=== PATIENT | female | born 1950 | race Caucasian/White ===

== ENCOUNTER 2020-06-02 08:10 | Outpatient (REF) | payer MEDICARE, SELFPAY ==
[2020-06-02 11:38] LABS: Alanine Aminotransferase 29 U/L (0-31); Albumin Level 4.4 g/dL (3.5-5.0); Alkaline Phosphatase 124 U/L (39-117); Anion Gap 14 (12-20); Aspartate Amino Transferase 21 U/L (5-31); Bilirubin Total 1.2 mg/dL (0.0-1.0); Blood Urea Nitrogen 16 mg/dL (9-16); Calcium 9.5 mg/dL (8.4-10.2); Carbon Dioxide 27 mmol/L (22-29); Chloride 102 mmol/L (96-108); Cholesterol 223 mg/dL; Estimated Glomerular Filt Rate > 60; Glucose Fasting 128 mg/dL (60-99); HDL Cholesterol 35 mg/dL; LDL Cholesterol Calculated 149 mg/dl; Potassium 4.4 mmol/l (3.3-5.1); Sodium 139 mmol/L (135-145); Total Protein 7.3 g/dL (6.5-8.0); Triglycerides 199 mg/dL
== END 2020-06-02 08:11 | disposition home or self-care (01) ==
LOC: HO.HMGCLDS 08:10
PROVIDERS: PCP Nurse Practitioner Family; Visit Provider Nurse Practitioner Family
DX: E78.2 Mixed hyperlipidemia (principal); I10 Essential (primary) hypertension
CPT/HCPCS: 80053; 80061

== ENCOUNTER 2020-08-18 08:46 | Outpatient (REF) | payer MEDICARE, SELFPAY ==
--- NOTE | ~2020-08-18 | MM_ITS ---
EXAMINATION: MM SCREENING DIGITAL BREAST TOMOSYNTHESIS, BILATERAL CLINICAL INFORMATION: Screening. Asymptomatic. The lifetime risk of breast cancer based on the Tyrer-Cuzick Model is 3%. COMPARISON: Mammography: 04/30/2019; outside exams 04/13/2018, 08/20/2015 ([facility]). TECHNIQUE: Digital breast tomosynthesis is performed in both the craniocaudal and mediolateral oblique views along with computer-aided detection (CAD). Synthesized 2D images are generated from the tomosynthesis. Additional bilateral exaggerated CC views are provided. FINDINGS: There are scattered areas of fibroglandular density (ACR BI-RADS breast composition Category b). There is chronic bilateral nipple retraction similar to prior studies. There are no abnormal calcifications. The axilla are unremarkable. The left breast has new focal nodular asymmetric density with subtle irregular margins posterior upper outer quadrant. The right breast has small asymmetric density MLO view on tomography upper quadrant 4 cm from the nipple likely summation artifact or incompletely compressed glandular tissue. MM/MM tomosynthesis screening BI IMPRESSION: 1. Left: New focal nodular asymmetric density posterior upper outer quadrant. 2. Right: Small asymmetric density on MLO view upper quadrant likely summation artifact. ASSESSMENT: BI-RADS 0: Incomplete - Need Additional Imaging Evaluation RECOMMENDATION: 1. Additional views of the left breast (3D spot MLO; 3D spot exaggerated CC); right (3D spot MLO, 3D ML). 2. Targeted ultrasound if warranted after review of the additional views. 3. Radiology department staff will contact the patient for additional imaging. This patient's information was entered into a reminder system with a target due date for their next mammogram.
== END 2020-08-18 08:47 | disposition home or self-care (01) ==
LOC: HO.MAMMO 08:46
PROVIDERS: PCP Nurse Practitioner Family; Visit Provider Nurse Practitioner Family
DX: Z12.31 Encounter for screening mammogram for malignant neoplasm of breast (principal)
CPT/HCPCS: 77063; 77067

== ENCOUNTER 2020-08-19 12:08 | Outpatient (REF) | payer MEDICARE, SELFPAY ==
[2020-08-19 14:33] LABS: Cholesterol 248 mg/dL; HDL Cholesterol 42 mg/dL; LDL Cholesterol Calculated 174 mg/dl; Triglycerides 161 mg/dL
== END 2020-08-19 12:09 | disposition home or self-care (01) ==
LOC: HO.HMGCLDS 12:08
PROVIDERS: PCP Nurse Practitioner Family; Visit Provider Nurse Practitioner Family
DX: E78.5 Hyperlipidemia, unspecified (principal)
CPT/HCPCS: 36415; 80061

== ENCOUNTER 2020-09-17 08:50 | Outpatient (REF) | payer MEDICARE, SELFPAY ==
--- NOTE | ~2020-09-17 | US_ITS ---
EXAMINATION: US DIAGNOSTIC ULTRASOUND BREAST, RIGHT CLINICAL INFORMATION: Question region of asymmetric distortion superiorly. COMPARISON: Mammography of same day and studies dating back to April 25, 2012. TECHNIQUE: Ultrasound of the breast is performed with real-time wallcae scale imaging and color Doppler. FINDINGS: Ultrasound study upper outer aspect of the right breast did not demonstrate any abnormal cystic or solid mass. No region of abnormal distal sound shadowing appreciated. Targeted ultrasound evaluation of the left breast in the deep upper outer aspect demonstrated 1:00 position approximately 6 cm from nipple an irregularly marginated 7 x 7 mm mass with some distal sound shadowing no internal vascularity appreciated. Results are discussed with the patient at time of visit. US/US breast RT limited IMPRESSION: No persistent right breast abnormality appreciated. Suspicious left breast mass 1:00 position 6 cm from the nipple for which ultrasound-guided core biopsy is recommended. ASSESSMENT: BI-RADS 4: Suspicious Recommend left breast ultrasound-guided core biopsy. Routine right breast follow up. RECOMMENDATION: Ultrasound-guided core biopsy left breast lesion.
--- NOTE | ~2020-09-17 | MM_ITS ---
EXAMINATION: MM DIAGNOSTIC DIGITAL BREAST TOMOSYNTHESIS, BILATERAL US BILATERAL BREAST ULTRASOUND CLINICAL INFORMATION: Focal asymmetry with nodularity left posterior upper outer quadrant Right small asymmetric density upper quadrant. COMPARISON: Mammography: 08/18/2020 and studies dating back to 04/25/2012. TECHNIQUE: Digital breast tomosynthesis is performed. 2D images are generated from the tomosynthesis. The following views are obtained: Left exaggerated craniocaudal spot compression view, left spot mediolateral oblique view right 90-degree mediolateral view and right spot compression mediolateral oblique view. Bilateral targeted breast ultrasound. FINDINGS: There are scattered areas of fibroglandular density (ACR BI-RADS breast composition Category b). Additional views show persistence of an approximately 1.0 x 0.8 cm partially circumscribed density but with some irregularity to portions of the chest margin. This lies approximately 7 cm from the nipple in the upper outer quadrant. Additional views of the right breast do not show persistence of any abnormal density. Previous finding related to superimposition of fibroglandular tissue. Ultrasound study upper outer aspect of the right breast did not demonstrate any abnormal cystic or solid mass. No region of abnormal distal sound shadowing appreciated. Targeted ultrasound evaluation of the left breast in the deep upper outer aspect demonstrated, 1 o'clock position approximately 6 cm from nipple, an irregularly marginated 7 x 7 mm mass with some distal sound shadowing. No internal vascularity appreciated. Results are discussed with the patient at time of visit. MM/MM tomosynthesis added view BI IMPRESSION: No persistent right breast abnormality appreciated. Suspicious left breast mass 1 o'clock position, 6 cm from the nipple for which ultrasound-guided core biopsy is recommended. ASSESSMENT: BI-RADS 4: Suspicious RECOMMENDATION: Ultrasound-guided core biopsy left breast lesion. Breast center navigator called above recommendation to TRA Wheat[facility] at referring provider's office.
--- NOTE | ~2020-09-17 | US_ITS ---
EXAMINATION: US DIAGNOSTIC ULTRASOUND BREAST, LEFT CLINICAL INFORMATION: New density superiorly. COMPARISON: Mammography of same day and studies dating back to April 25, 2012. TECHNIQUE: Ultrasound of the breast is performed with real-time wallace scale imaging and color Doppler. FINDINGS: Ultrasound study upper outer aspect of the right breast did not demonstrate any abnormal cystic or solid mass. No region of abnormal distal sound shadowing appreciated. Targeted ultrasound evaluation of the left breast in the deep upper outer aspect demonstrated 1:00 position approximately 6 cm from nipple an irregularly marginated 7 x 7 mm mass with some distal sound shadowing no internal vascularity appreciated. Results are discussed with the patient at time of visit. US/US breast LT limited IMPRESSION: No persistent right breast abnormality appreciated. Suspicious left breast mass 1:00 position 6 cm from the nipple for which ultrasound-guided core biopsy is recommended. ASSESSMENT: BI-RADS 4: Suspicious RECOMMENDATION: Ultrasound-guided core biopsy left breast lesion.
== END 2020-09-17 08:51 | disposition home or self-care (01) ==
LOC: HO.MAMMO 08:50
PROVIDERS: PCP Nurse Practitioner Family; Visit Provider Nurse Practitioner Family
DX: R92.2 Inconclusive mammogram (principal)
CPT/HCPCS: 76642; 77062; 77066

== ENCOUNTER → 2020-09-23 08:15 | Outpatient (BNVA) | payer MEDICARE, SELFPAY | PROVIDERS: PCP Nurse Practitioner Family; Visit Provider Surgery | DX: R92.8 Other abnormal and inconclusive findings on diagnostic imaging of breast (principal) | CPT/HCPCS: 99202 ==

== ENCOUNTER 2020-09-24 07:59 | Outpatient (REF) | payer MEDICARE, SELFPAY ==
--- NOTE | ~2020-09-24 | MM_ITS ---
EXAMINATION: ULTRASOUND GUIDED CORE BIOPSY BREAST, LEFT POST PROCEDURE DIGITAL MAMMOGRAM, LEFT CLINICAL INFORMATION: Irregular hypoechoic mass posterior upper outer left breast, approximately 1.1 cm. COMPARISON: Mammography 08/18/2020, 09/17/2020, targeted breast ultrasound 09/17/2020. FINDINGS: Proper informed consent is obtained from the patient after discussion of the procedure, potential risks and complications, and alternatives. Patient was given an opportunity for questions. The patient appeared to understand. The patient consented to the procedure and signed the consent form. GUIDANCE: Ultrasound-guided; aseptic technique. LESION: Irregular hypoechoic mass posterior upper outer left breast 1.1 cm. APPROACH: Oblique caudal cranial. ANESTHESIA: 10 mL 1% lidocaine. DERMATOTOMY: Single skin lilia dermatotomy performed. NEEDLE: 14-gauge Achieve core biopsy device with 13.5-gauge co-axial guide needle. CORES: 5. CLIP: HydroMARK; shape: butterfly. POST PROCEDURE UNILATERAL DIGITAL MAMMOGRAM: The post biopsy mammogram is performed in separate room using separate digital mammography equipment from the biopsy procedure. Exaggerated CC and ML views are obtained. There are scattered areas of fibroglandular density (breast composition category: b). The clip marker is in position and corresponds to the finding on prior mammography. Dermal lesion is marked with dermal marker on the exaggerated CC view. No gross hematoma. The patient tolerated the procedure well. No immediate complications. Home instructions reviewed with the patient. Final pathology results are pending. MM/MM diagnostic mammo unilat LT IMPRESSION: 1. Status post ultrasound-guided core biopsy left breast. 2. Clip placed: HydroMARK; shape: butterfly. 3. Pathology pending. An addendum report will be issued.
== END 2020-09-24 08:00 | disposition home or self-care (01) ==
LOC: HO.MAMMO 07:59
PROVIDERS: Visit Provider Surgery
DX: C50.412 Malignant neoplasm of upper-outer quadrant of left female breast (principal); Z17.1 Estrogen receptor negative status [ER-]
CPT/HCPCS: 19083; 77065; 88305; 88342; 88360

== ENCOUNTER → 2020-09-26 09:26 | Outpatient (BNVA) | payer MEDICARE, SELFPAY | PROVIDERS: PCP Nurse Practitioner Family; Visit Provider Surgery | DX: D05.12 Intraductal carcinoma in situ of left breast (principal) | CPT/HCPCS: 99212 ==

== ENCOUNTER 2020-10-01 09:03 | Outpatient (REF) | payer MEDICARE, SELFPAY ==
--- NOTE | ~2020-10-01 | XR_ITS ---
EXAMINATION: XR CHEST CLINICAL INFORMATION: Cough COMPARISON: None TECHNIQUE: 2 views of the chest were obtained. FINDINGS: The lungs are clear. There is no airspace consolidation or effusion. No groundglass opacity. The heart is normal in size. The hilar and mediastinal contours are normal. There is gentle levocurvature lower thoracic spine. XR/XR chest 2V IMPRESSION: Unremarkable examination.
== END 2020-10-01 09:04 | disposition home or self-care (01) ==
LOC: HO.HMGCX 09:03
PROVIDERS: PCP Nurse Practitioner Family; Visit Provider Nurse Practitioner Family
DX: R05 Cough (principal)
CPT/HCPCS: 71046

== ENCOUNTER 2020-12-12 12:08 | Outpatient (REF) | payer MEDICARE, SELFPAY ==
--- NOTE | ~2020-12-12 | XR_ITS ---
EXAMINATION: XR CHEST CLINICAL INFORMATION: Cough COMPARISON: 10/01/2020 TECHNIQUE: 2 views of the chest were obtained. FINDINGS: No focal consolidation, pulmonary edema, or pleural effusion. Stable cardiomediastinal silhouette. XR/XR chest 2V IMPRESSION: Unremarkable examination.
== END 2020-12-12 12:09 | disposition home or self-care (01) ==
LOC: HO.HMGCX 12:08
PROVIDERS: PCP Nurse Practitioner Family; Visit Provider Nurse Practitioner Family
DX: R05 Cough (principal)
CPT/HCPCS: 71046

== ENCOUNTER 2021-03-24 09:35 | Outpatient (REF) | payer MEDICARE, SELFPAY ==
[2021-03-24 11:54] LABS: Cholesterol 136 mg/dL; HDL Cholesterol 38 mg/dL; LDL Cholesterol Calculated 70 mg/dl; Triglycerides 143 mg/dL
[2021-03-24 12:17] LABS: Vitamin B12 > 2000 pg/mL (200-900)
== END 2021-03-24 09:36 | disposition home or self-care (01) ==
LOC: HO.HMGCLDS 09:35
PROVIDERS: PCP Nurse Practitioner Family; Visit Provider Nurse Practitioner Family
DX: E78.5 Hyperlipidemia, unspecified (principal); R53.83 Other fatigue; R05 Cough
CPT/HCPCS: 36415; 80061; 82607; 84443

== ENCOUNTER 2021-04-14 11:55 | Outpatient (REF) | payer MEDICARE, SELFPAY ==
[2021-04-18 14:47] LABS: Metanephrine, Free 24U 55 mcg/24 h (90-315); Normetanephrine, Free 24U 261 mcg/24 h (122-676); Total Metanephrine, Free 24U 316 mcg/24 h (224-832); Total Volume 24U 1400 mL
[2021-04-19 15:01] LABS: CATF, 24 Ur Volume 1400 mL; CATF-24Ur Creatinine 0.75 g/24 h (0.50-2.15); Catecholamines,Tot. (E+NE) 24U 39 mcg/24 h (26-121); Dopamine, 24 Ur 171 mcg/24 h (52-480); Norepinephrine, 24 Ur 39 mcg/24 h (15-100)
== END 2021-04-14 11:56 | disposition home or self-care (01) ==
LOC: HO.LNP 11:55
PROVIDERS: Visit Provider Nurse Practitioner Family
DX: R44.3 Hallucinations, unspecified (principal)
CPT/HCPCS: 82384; 83835

== ENCOUNTER 2021-04-22 15:03 | Outpatient (REF) | payer MEDICARE, SELFPAY ==
[2021-04-22 17:03] LABS: Alanine Aminotransferase 27 U/L (0-31); Albumin Level 4.5 g/dL (3.5-5.0); Alkaline Phosphatase 101 U/L (39-117); Anion Gap 15 (12-20); Aspartate Amino Transferase 20 U/L (5-31); Bilirubin Total 1.3 mg/dL (0.0-1.0); Blood Urea Nitrogen 14 mg/dL (9-16); Calcium 9.9 mg/dL (8.4-10.2); Carbon Dioxide 26 mmol/L (22-29); Chloride 101 mmol/L (96-108); Estimated Glomerular Filt Rate > 60; Glucose Random 145 mg/dL (60-115); Potassium 4.1 mmol/L (3.3-5.1); Sodium 138 mmol/L (135-145)
== END 2021-04-22 15:04 | disposition home or self-care (01) ==
LOC: HO.HMGCLDS 15:03
PROVIDERS: PCP Nurse Practitioner Family; Visit Provider Nurse Practitioner Family
DX: R44.3 Hallucinations, unspecified (principal)
CPT/HCPCS: 36415; 80053

== ENCOUNTER 2022-03-16 09:00 | Outpatient (REF) | payer MEDICARE, SELFPAY ==
[2022-03-16 11:17] LABS: Appearance Urine Turbid; Color Urine Yellow; Glucose Urine UA Negative (Negative); Leukocyte Esterase Urine Moderate (2+) (Negative); Nitrite Urine Negative (Negative); Urine Blood Negative (Negative); Urine Ketones Negative (Negative); Urine Protein Negative (Neg-Trace)
[2022-03-16 11:28] LABS: Bacteria Urine None Seen (None Seen); Hyaline Casts Urine 0-2 /LPF (0-2); RBC Urine 0-2 /HPF (0-2); WBC Urine 21-50 /HPF (0-5)
[2022-03-16 11:47] LABS: Estimated Average Glucose 143 mg/dL; Hemoglobin A1c % 6.6 %
[2022-03-16 11:51] LABS: Creatinine Urine 201.49 mg/dL; Microalbum/Creatinine Ratio Ur 5.9 ug/mg cr
[2022-03-16 12:17] LABS: TSH reflex Free T4 2.58 uIU/mL (0.32-4.0)
[2022-03-16 12:22] LABS: Alanine Aminotransferase 47 U/L (0-31); Albumin Level 4.3 g/dL (3.5-5.0); Alkaline Phosphatase 113 U/L (39-117); Anion Gap 17 (12-20); Aspartate Amino Transferase 29 U/L (5-31); Bilirubin Total 1.2 mg/dL (0.0-1.0); Blood Urea Nitrogen 18 mg/dL (9-16); Calcium 9.6 mg/dL (8.4-10.2); Carbon Dioxide 24 mmol/L (22-29); Chloride 103 mmol/L (96-108); Cholesterol 165 mg/dL; Estimated Glomerular Filt Rate 58; Glucose Fasting 174 mg/dL (60-99); HDL Cholesterol 36 mg/dL; LDL Cholesterol Calculated 89 mg/dl; Potassium 4.3 mmol/L (3.3-5.1); Sodium 140 mmol/L (135-145); Total Protein 7.2 g/dL (6.5-8.0); Triglycerides 204 mg/dL
== END 2022-03-16 09:01 | disposition home or self-care (01) ==
LOC: HO.HMGCLDS 09:00
PROVIDERS: PCP Nurse Practitioner Family; Visit Provider Nurse Practitioner Family
DX: E11.9 Type 2 diabetes mellitus without complications (principal)
CPT/HCPCS: 36415; 80053; 80061; 81001; 82043; 83036; 84443; 87086

== ENCOUNTER 2022-04-07 08:22 | Outpatient (REF) | payer MEDICARE, SELFPAY ==
--- NOTE | ~2022-04-07 | US_ITS ---
EXAMINATION: US ABDOMEN COMPLETE CLINICAL INFORMATION: Elevated liver enzymes. COMPARISON: None TECHNIQUE: Real-time imaging of the abdominal viscera. Technically difficult study secondary to bowel gas. FINDINGS: PANCREAS: Normal. ABDOMINAL AORTA: The proximal aorta is not visualized due to bowel gas. The mid to distal aorta appear normal. INFERIOR VENA CAVA: Not well seen due to bowel gas. LIVER: The liver is normal in size. The liver contour is normal. There is diffuse increased liver parenchymal echogenicity, consistent with hepatic steatosis. No focal hepatic lesion. There is no intrahepatic biliary duct dilatation seen. GALLBLADDER: Prominent stone in the gallbladder lumen measures up to 3.9 cm. The gallbladder is physiologically distended. No evidence of gallbladder wall thickening or pericholecystic fluid. COMMON BILE DUCT: Normal in caliber measuring 0.8 cm in diameter. RIGHT KIDNEY: Calcification noted at the lower pole measuring 0.5 cm. This could be cortical rather than within the calyx. No hydronephrosis or focal parenchymal lesions. The kidney measures 10.0 cm in maximum dimension. LEFT KIDNEY: Normal. No hydronephrosis. No renal calculi or focal parenchymal lesions. The kidney measures 10.3 cm in maximum dimension. SPLEEN: Vascular calcifications noted. The spleen measures 10.2 cm in maximum dimension. FREE FLUID: None. US/US abdomen complete IMPRESSION: Hepatic steatosis. Cholelithiasis.
== END 2022-04-07 08:23 | disposition home or self-care (01) ==
LOC: HO.HMGCX 08:22
PROVIDERS: PCP Nurse Practitioner Family; Visit Provider Nurse Practitioner Family
DX: R74.8 Abnormal levels of other serum enzymes (principal)
CPT/HCPCS: 76700

== ENCOUNTER 2022-04-15 09:28 | Outpatient (REF) | payer MEDICARE, SELFPAY | END 2022-04-15 09:29 | disposition home or self-care (01) | LOC: HO.MAMMO 09:28 | PROVIDERS: PCP Nurse Practitioner Family; Visit Provider Nurse Practitioner Family | DX: Z13.89 Encounter for screening for other disorder (principal) ==

== ENCOUNTER → 2022-04-20 11:40 | Outpatient (BNVA) | payer MEDICARE, SELFPAY | PROVIDERS: PCP Nurse Practitioner Family; Referring Provider Nurse Practitioner Family; Visit Provider Surgery | DX: L72.3 Sebaceous cyst (principal) | CPT/HCPCS: 99212 ==

== ENCOUNTER → 2022-05-18 10:30 | Outpatient (BNVA) | payer MEDICARE, SELFPAY | PROVIDERS: PCP Nurse Practitioner Family; Visit Provider Physician Assistant | DX: Z12.11 Encounter for screening for malignant neoplasm of colon (principal); Z98.890 Other specified postprocedural states; Z86.010 Personal history of colon polyps | CPT/HCPCS: 99202 ==

== ENCOUNTER 2022-06-15 12:56 | Outpatient (REF) | payer MEDICARE, SELFPAY ==
[2022-06-15 13:02] VITALS: BP 182/99; PULSE 75; RESP 16; TEMP 36.4; O2SAT 98
[2022-06-15 13:03] VITALS: BMI 25.4
[2022-06-15 13:35] VITALS: BP 138/84; PULSE 69; RESP 16; O2SAT 98
--- NOTE | 2022-06-15 13:35 | P.OP_ITS ---
Operative Note Operative Note Date of Service: 06/15/22 Narrative: Preoperative diagnosis: Epidermal inclusion cyst right shoulder Postoperative diagnosis: Epidermal inclusion cyst right shoulder Procedure: Excision of epidermal inclusion cyst right shoulder Surgeon: Denton Sifunetes MD Telecommunications Line Installer: None Anesthesia: Sensorcaine 0.5% with epinephrine Indications for procedure: 72-year-old female patient presenting with a long history of a lesion over the right shoulder which is gradually increased in size and occasionally becomes infected, producing thick white material, most recently 2 days ago. Operative findings: Epidermal inclusion cyst measuring 1.5 cm in diameter located in the right shoulder Specimen: Epidermal inclusion cyst right shoulder Estimated blood loss: Less than 1 mL Complications: None Procedure details: Patient was brought to the minor surgery suite and placed in a supine position. The site of surgery was confirmed by the patient in the right shoulder. After ensuring informed consent the skin was prepped with Betadine and draped in a sterile fashion. Local anesthesia was then infiltrated circumferentially around the lesion. Elliptical incision oriented longitudinally was then created with a scalpel. This was carried out through subcutaneous tissue and around the cyst wall. The specimen was removed and sent to pathology for further examination. Dermis was then reapproximated using interrupted 3-0 Polysorb sutures. Skin was closed using interrupted 3-0 nylon sutures. Sterile dressings consisting of 2 x 2 gauze and Tegaderm were then applied. The patient tolerated the procedure well. She was discharged to home in stable condition.
== END 2022-06-15 12:57 | disposition home or self-care (01) ==
LOC: HO.MS 12:56
PROVIDERS: PCP Nurse Practitioner Family; Visit Provider Surgery
PROC: (CPT 11402; principal; 2022-06-15 13:00)
DX: L72.0 Epidermal cyst (principal); L85.8 Other specified epidermal thickening
CPT/HCPCS: 11402; 88305

== ENCOUNTER 2023-02-22 10:56 | Outpatient (REF) | payer MEDICARE, SELFPAY ==
[2023-02-22 13:31] LABS: MANUAL DIFF FLAG NO
[2023-02-22 13:47] LABS: Basophils Percent Auto 0.5 % (0-2); Eosinophils Absolute Auto 0.2 X10*3/uL (0.0-0.4); Eosinophils Percent Auto 3.8 % (0-4); Hemoglobin 13.7 g/dl (12.0-16.0); Imm Gran Abs Auto 0.02 X10*3/uL (0.00-0.03); Imm Gran Pct Auto 0.3 % (0.0-0.4); Lymphocytes Absolute Auto 1.2 X10*3/uL (1.2-4.9); Lymphocytes Percent Auto 20.1 % (20-40); Mean Corpuscular HGB Conc 33.4 g/dl (31.0-35.0); Mean Corpuscular Hemoglobin 30.6 pg (27.0-33.0); Mean Corpuscular Volume 91.5 fL (80.0-98.0); Monocytes Absolute Auto 0.3 X10*3/uL (0.1-1.2); Monocytes Percent Auto 5.7 % (2-11); Neutrophils Percent Auto 69.6 % (45-73); Platelet Count 225 X10*3/uL (160-400); Red Blood Count 4.48 X10*6/uL (4.20-5.50); Red Cell Distribution Width 12.4 % (11.0-16.0); White Blood Count 5.8 X10*3/uL (4.8-10.8)
[2023-02-22 13:52] LABS: Appearance Urine Turbid; Color Urine Yellow; Glucose Urine UA Negative (Negative); Leukocyte Esterase Urine Small (1+) (Negative); Nitrite Urine Negative (Negative); PH 5.5 (5.0-9.0); UMIC TRIGGER UACC YES; Urine Blood Negative (Negative); Urine Ketones Trace mg/dL (Negative); Urine Protein Negative (Neg-Trace)
[2023-02-22 13:56] LABS: Estimated Average Glucose 131 mg/dL; Hemoglobin A1c % 6.2 %
[2023-02-22 14:15] LABS: Alanine Aminotransferase 22 U/L (0-31); Albumin Level 4.1 g/dL (3.5-5.0); Alkaline Phosphatase 113 U/L (39-117); Anion Gap 12 (12-20); Aspartate Amino Transferase 18 U/L (5-31); Blood Urea Nitrogen 18 mg/dL (9-16); Calcium 9.4 mg/dL (8.4-10.2); Carbon Dioxide 26 mmol/L (22-29); Chloride 106 mmol/L (96-108); Cholesterol 144 mg/dL; Estimated Glomerular Filt Rate > 60; Glucose Fasting 143 mg/dL (60-99); HDL Cholesterol 34 mg/dL; LDL Cholesterol Calculated 71 mg/dl; Potassium 4.4 mmol/L (3.3-5.1); Sodium 140 mmol/L (135-145); Triglycerides 199 mg/dL
[2023-02-22 14:21] LABS: TSH reflex Free T4 1.79 uIU/mL (0.32-4.0)
[2023-02-22 14:27] LABS: Bacteria Urine None Seen (None Seen); Hyaline Casts Urine 0-2 /LPF (0-2); RBC Urine 0-2 /HPF (0-2); Squamous Epithelial Cell Urine 0-2 /HPF (0-2); UACC Culture Trigger YES; WBC Urine 0-5 /HPF (0-5)
== END 2023-02-22 10:57 | disposition home or self-care (01) ==
LOC: HO.HMGCLDS 10:56
PROVIDERS: PCP Nurse Practitioner Family; Visit Provider Nurse Practitioner Family
DX: E11.9 Type 2 diabetes mellitus without complications (principal); R30.0 Dysuria
CPT/HCPCS: 36415; 80053; 80061; 81001; 83036; 84443; 85025; 87086

== ENCOUNTER 2023-03-01 07:52 | Outpatient (AMB) | payer MEDICARE, SELFPAY ==
[2023-03-01 07:55] VITALS: BP 140/88; PULSE 64; O2SAT 99; BMI 25.3
--- NOTE | 2023-03-01 07:55 | A.OFFPC_ITS ---
Vital Signs 03/01/23 07:55 Height 5 ft 1 in Weight 134 lb 2 oz BMI 25.3 BP 140/88 H Blood Pressure Location Rt brachial Position Sitting Pulse 64 Pulse Source Pulse Oximeter Pulse Oximetry (%) 99 Oxygen Delivery Method Room Air Intake Visit Reasons: 3m DM - CMP and Microalbumin needed Allergies erythromycin base Adverse Reaction (Intermediate, Verified 03/01/23 10:15) Nausea and Vomiting Medication List - Last Reconciled 03/01/23 by AMEYA Coffey albuterol sulfate 90 mcg/actuation 1 inh inhalation Q4H PRN budesonide mg inhalation buspirone 3.75 mg PO BID losartan 25 mg PO DAILY metformin 500 mg PO BID 90 days propranolol 40 mg PO BID 90 days rosuvastatin 5 mg PO DAILY Tobacco use date assessed: 03/01/23 Fall risk assessment: No Falls in past year Last assessed Fall Risk: 03/01/23 Dental Screening Dental Screen Date: 03/01/23 Did you have a dental visit in the last 12 months?: No Did you have a dental problem in the last 6 months where you did not have access to dental care?: No Was dental information given to patient?: Patient has dentist HPI 3m DM - CMP and Microalbumin needed HPI Details Pt is a diabetic, on an ARB and a statin. Last A1C was 6.2. Due for microalbumin, this has been ordered. Denies polyuria, polydipsia, and neuropathy. Pt denies any signs and symptoms of hypoglycemia and does know how to correct it. She does not check her blood sugar at home. Pt will schedule her own eye exam. HTN: Pt checks her blood pressure at home. She reports that it was 117 systolically this morning. Denies chest pain, shortness of breath, headache, dizziness, and blurred vision. refuses pneumo vaccines currently [facility] Medical History Asthma Diabetes Dyslipidemia Surgical History H/O excision of epidermal inclusion cyst (06/15/22) History of 3 sections History of partial mastectomy of left breast [place] teeth removed Family History Maternal Grandmother Cancer of unknown origin Paternal Aunt Breast cancer Maternal Aunt Colon cancer Social History Housing: House Alcohol intake: never Patient Tobacco Use Status: Former Tobacco user Years Smoked: 1 year e-Cigarette/Vaping Use: Never Used Second Hand Smoke Exposure: Yes service: No Current occupational status: retired Current occupational exposures/hazards: No Cognitive needs: No Hearing needs: No Vision needs: Yes Questionnaire Thrive Questionnaire Date Thrive assessed: 10/12/22 BARBARA-7 AMB Questionnaire BARBARA-7 Date BARBARA - 7 assessed: 10/12/22 Source: Developed by Drs. Moose Kaplan, Marley Burger, Everett Skelton and colleagues, with an educational cecilia from [employer]. Review of Systems Const Reports as per HPI Physical exam (Primary Care) Vital Signs: Last Vital Signs Pulse 64 03/01/23 07:55 BP 140/88 H 03/01/23 07:55 Pulse Ox 99 03/01/23 07:55 Oxygen Delivery Method Room Air 03/01/23 07:55 BMI result Body Mass Index 25.3 Tobacco/Smoking Status: Tobacco use Status Tobacco use date assessed 03/01/23 03/01/23 08:03 Patient Tobacco Use Status Former Tobacco user 03/01/23 07:55 e-Cigarette/Vaping Use Never Used 03/01/23 07:55 Thrive Assessment: Date of Thrive Assessment Date Thrive assessed 10/12/22 03/01/23 07:55 Const General: cooperative Orientation/consciousness: patient oriented x3 Neuro General: patient oriented x3 Extrem Other: bilat feet: + sensation with use of monofilament Psych Appearance: grossly normal Mental Status: mental status grossly normal Speech and movement: Normal speech and movement present Affect: normal affect Attitude: cooperative Thought process: Normal thought process present Thought content: Normal thought content present Insight: Good insight present (Psych) Judgement: Good judgement present (Psych) Assessment and Plan Assessment & Plan (1) Diabetes: Code(s): E11.9 - Type 2 diabetes mellitus without complications Plan The patient agreed to the use of a caregivers non medical for this encounter. Scribed for AMEYA Lucio by Aliza Downey caregivers non medical, on 03/01/2023 at 08:10 EST. Medications: Changed From buspirone 7.5 mg PO BID 180 tabs 1RF To buspirone 3.75 mg PO BID Coding Level of Care Code Est Pt Level 3 (14784) Diagnoses Diabetes E11.9
== END 2023-03-01 08:17 | disposition home or self-care (01) ==
PROVIDERS: PCP Nurse Practitioner Family; Visit Provider Nurse Practitioner Family
DX: E11.9 Type 2 diabetes mellitus without complications (principal)
CPT/HCPCS: 99213

== ENCOUNTER 2023-03-01 08:20 | Outpatient (REF) | payer MEDICARE, SELFPAY ==
[2023-03-01 11:36] LABS: Appearance Urine Clear; Color Urine Yellow; Glucose Urine UA Negative (Negative); Leukocyte Esterase Urine Moderate (2+) (Negative); Nitrite Urine Negative (Negative); Specific Gravity - Urine <= 1.005 (1.005-1.025); UMIC TRIGGER UACC YES; Urine Blood Negative (Negative); Urine Ketones Negative (Negative); Urine Protein Negative (Neg-Trace)
[2023-03-01 11:55] LABS: Bacteria Urine None Seen (None Seen); Hyaline Casts Urine 0-2 /LPF (0-2); RBC Urine 0-2 /HPF (0-2); Squamous Epithelial Cell Urine 0-2 /HPF (0-2); WBC Urine 0-5 /HPF (0-5)
== END 2023-03-01 08:21 | disposition home or self-care (01) ==
LOC: HO.HMGCLDS 08:20
PROVIDERS: PCP Nurse Practitioner Family; Visit Provider Nurse Practitioner Family
DX: E11.9 Type 2 diabetes mellitus without complications (principal)
CPT/HCPCS: 81001

== ENCOUNTER 2023-09-07 09:46 | Outpatient (REF) | payer MEDICARE, SELFPAY ==
[2023-09-07 13:46] LABS: MANUAL DIFF FLAG NO
[2023-09-07 13:47] LABS: Appearance Urine Cloudy; Color Urine Yellow; Glucose Urine UA Negative (Negative); Leukocyte Esterase Urine Small (1+) (Negative); Nitrite Urine Negative (Negative); UMIC TRIGGER UACC YES; Urine Blood Negative (Negative); Urine Ketones Negative (Negative); Urine Protein Negative (Neg-Trace)
[2023-09-07 13:51] LABS: Bacteria Urine None Seen (None Seen); Hyaline Casts Urine 0-2 /LPF (0-2); RBC Urine 0-2 /HPF (0-2); UACC Culture Trigger YES
[2023-09-07 13:56] LABS: Basophils Percent Auto 0.6 % (0-2); Eosinophils Absolute Auto 0.3 X10*3/uL (0.0-0.4); Hematocrit 40.6 % (37.0-47.0); Hemoglobin 13.2 g/dl (12.0-16.0); Imm Gran Abs Auto 0.01 X10*3/uL (0.00-0.03); Imm Gran Pct Auto 0.2 % (0.0-0.4); Lymphocytes Absolute Auto 1.1 X10*3/uL (1.2-4.9); Lymphocytes Percent Auto 22.3 % (20-40); Mean Corpuscular HGB Conc 32.5 g/dl (31.0-35.0); Mean Corpuscular Hemoglobin 29.1 pg (27.0-33.0); Mean Corpuscular Volume 89.6 fL (80.0-98.0); Mean Platelet Volume 11.2 fL (9.4-12.3); Monocytes Absolute Auto 0.3 X10*3/uL (0.1-1.2); Monocytes Percent Auto 6.4 % (2-11); Neutrophils Absolute Auto 3.2 x10*3/uL (2.0-8.3); Neutrophils Percent Auto 64.5 % (45-73); Platelet Count 205 X10*3/uL (160-400); Red Blood Count 4.53 X10*6/uL (4.20-5.50); Red Cell Distribution Width 13.6 % (11.0-16.0)
[2023-09-07 14:19] LABS: Alanine Aminotransferase 16 U/L (0-31); Albumin Level 3.9 g/dL (3.5-5.0); Alkaline Phosphatase 102 U/L (39-117); Anion Gap 10 (12-20); Aspartate Amino Transferase 16 U/L (5-31); Bilirubin Total 0.9 mg/dL (0.0-1.0); Blood Urea Nitrogen 15 mg/dL (9-16); Calcium 9.5 mg/dL (8.4-10.2); Carbon Dioxide 27 mmol/L (22-29); Chloride 106 mmol/L (96-108); Cholesterol 151 mg/dL (<200); Estimated Glomerular Filt Rate > 60; Glucose Fasting 167 mg/dL (60-99); HDL Cholesterol 36 mg/dL (>40); LDL Cholesterol Calculated 75 mg/dL (<100); Potassium 4.4 mmol/L (3.3-5.1); Sodium 139 mmol/L (135-145); Total Protein 6.9 g/dL (6.5-8.0); Triglycerides 201 mg/dL (<150)
[2023-09-07 14:35] LABS: TSH reflex Free T4 2.73 uIU/mL (0.32-4.0)
[2023-09-07 15:10] LABS: Estimated Average Glucose 154 mg/dL
== END 2023-09-07 09:47 | disposition home or self-care (01) ==
LOC: HO.HMGCLDS 09:46
PROVIDERS: PCP Nurse Practitioner Family; Visit Provider Nurse Practitioner Family
DX: E11.9 Type 2 diabetes mellitus without complications (principal); R82.90 Unspecified abnormal findings in urine
CPT/HCPCS: 36415; 80053; 80061; 81001; 82043; 82570; 83036; 84443; 85025; 87086

== ENCOUNTER 2023-09-13 10:24 | Outpatient (AMB) | payer MEDICARE, SELFPAY ==
--- NOTE | 2023-09-13 10:28 | A.OFFPC_ITS ---
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 Allergies erythromycin base Adverse Reaction (Intermediate, Verified 09/13/23 11:10) Nausea and Vomiting Medication List - Last Reconciled 09/13/23 by [place] To, [facility] albuterol sulfate 90 mcg/actuation 1 inh inhalation Q4H PRN bisacodyl (Dulcolax (bisacodyl)) 20 mg (4 x 5 mg) PO ONCE 1 day budesonide mg inhalation buspirone 3.75 mg (1/2 x 7.5 mg) PO BID 90 days losartan 25 mg PO DAILY metformin 500 mg PO BID 90 days polyethylene glycol 3350 (Miralax) 238 grams PO ONCE PRN 1 day propranolol 40 mg PO BID 90 days rosuvastatin 5 mg PO DAILY Tobacco use date assessed: 09/13/23 Fall risk assessment: No Falls in past year Last assessed Fall Risk: 09/13/23 Dental Screening Dental Screen Date: 09/13/23 Did you have a dental visit in the last 12 months?: No Did you have a dental problem in the last 6 months where you did not have access to dental care?: No Was dental information given to patient?: Patient declined HPI 3m DM/Microalbumin needed rebooked from 05/31 HPI0 Details Pt is a diabetic, on an ARB and a statin. Last A1C was 7.0, microalbumin is up to date. Denies polyuria, polydipsia, and neuropathy. Pt denies any signs and symptoms of hypoglycemia and does know how to correct it. Pt does not check her blood sugar at home, encouraged her to do so. She would not like to start any new meds ( BP or for diabetes). Will reassess in 3 months. Pt reports a raspy cough. She reports that this has been ongoing for months. She is following up with pulmonology. Highly suggested OTC mucinex. and to contact us or her pulmonary team with worsening symptoms, and consider going to the ER with worsening symptoms including fevers, chills, increase in fatigue, increased cough/SOB . PFSH Medical History Asthma Diabetes Dyslipidemia Surgical History H/O excision of epidermal inclusion cyst (06/15/22) History of partial mastectomy of left breast [place] teeth removed History of 3 sections Family History Maternal Grandmother Cancer of unknown origin Paternal Aunt Breast cancer Maternal Aunt Colon cancer Social History Housing: House Alcohol intake: never Patient Tobacco Use Status: Former Tobacco user Years Smoked: 1 year e-Cigarette/Vaping Use: Never Used Second Hand Smoke Exposure: Yes service: No Current occupational status: retired Current occupational exposures/hazards: No Cognitive needs: No Hearing needs: No Vision needs: Yes Questionnaire PHQ-9 Over the last 2 weeks, how often have you been bothered by any of the following problems? 1. Little interest or pleasure in doing things: not at all 2. Feeling down, depressed, or hopeless: several days 3. Trouble falling or staying asleep, or sleeping too much: not at all 4. Feeling tired or having little energy: not at all 5. Poor appetite or overeating: not at all 6. Feeling bad about yourself - or that you are a failure or have let yourself or your family down: not at all 7. Trouble concentrating on things, such as reading the newspaper or watching television: not at all 8. Moving or speaking so slowly that other people could have noticed. Or the opposite - being so fidgety or restless that you have been moving around a lot more than usual: not at all 9. Thoughts that you would be better off or of hurting yourself in some way: not at all Total score: 1 Depression Screening Interpretation: Negative Depression Screening Done: Yes 12297 - PHQ-9 Billing: Yes Source: Developed by Drs. Moose Kaplan, MarleyEverett Acosta and colleagues, with an educational cecilia from [employer]. Thrive Questionnaire Date Thrive assessed: 09/13/23 I am a: Patient What is your living situation today?: I have a steady place to live Within the past 12 months, did the food you bought not last and you didn't have the money to get more?: Never true Within the past 12 months, did you worry whether your food would run out before you got money to buy more?: Never true Do you have trouble paying for medicines?: No Do you have trouble getting transportation to medical appointments?: No Do you have trouble paying your heating and electricity bill?: No Do you have trouble taking care of your child, family member or friend?: No Do you have trouble with day-to-day activities such as bathing, preparing meals, shopping, managing finances, etc.?: No Are you currently unemployed and looking for a job?: No Are you interested in more education?: No Please select the resources that you would like help with: None Currently or been in a relationship where the following occur: no concerns reported THRIVE Score: 0 AUDIT C Alcohol Use Questionnaire (AUDIT-C) 1. How often do you have a drink containing alcohol?: Never 3. How often do you have six or more drinks on one occasion?: Never Total Score: 0 Score Reviewed/Action Taken: Yes BARBARA-7 AMB Questionnaire BARBARA-7 Date BARBARA - 7 assessed: 09/13/23 Feeling nervous, anxious, or on edge: 1 = Several days Not being able to stop or control worryin = Several days Worrying too much about different things: 0 = Not at all Trouble relaxin = Several days Being so restless that it is hard to sit still: 0 = Not at all Becoming easily annoyed or irritable: 0 = Not at all Feeling afraid as if something awful might happen: 0 = Not at all Total BARBARA-7 score (0-4 normal; 5-9 mild; 10-14 moderate; 15-21 severe): 3 Source: Developed by Drs. Moose Kaplan, Everett Prince and colleagues, with an educational cecilia from [employer]. BARBARA-7 Assessment Billing BARBARA-7 Assessment Tool: BARBARA-7 Assessment 65552 Review of Systems Const Reports as per HPI Physical exam (Primary Care) Vital Signs: Last Vital Signs Pulse 74 09/13/23 10:30 BP 140/82 H 09/13/23 10:30 Pulse Ox 98 09/13/23 10:30 Oxygen Delivery Method Room Air 09/13/23 10:30 BMI result Body Mass Index 24.7 Tobacco/Smoking Status: Tobacco use Status Tobacco use date assessed 09/13/23 09/13/23 10:33 Patient Tobacco Use Status Former Tobacco user 09/13/23 10:28 e-Cigarette/Vaping Use Never Used 09/13/23 10:28 Depression Screening Interpretation: Negative Thrive Assessment: Date of Thrive Assessment Date Thrive assessed 10/12/22 09/13/23 10:28 Currently or been in a relationship where the following occur: no concerns reported Const General: cooperative Orientation/consciousness: patient oriented x3 Resp Other: lungs fairly clear with very faint wheezes Effort & Inspection: normal respiratory effort Cardio Rate: regular rate Rhythm: regular rhythm Heart sounds: S1 normal heart sound present and S2 normal heart sound present Neuro General: patient oriented x3 Extrem Other: bilat feet: + sensation with use of monofilament, feet intact Psych Appearance: grossly normal Mental Status: mental status grossly normal Speech and movement: Normal speech and movement present Affect: normal affect Attitude: cooperative Thought process: Normal thought process present Thought content: Normal thought content present Insight: Good insight present (Psych) Judgement: Good judgement present (Psych) Assessment and Plan Assessment & Plan (1) Diabetes: Code(s): E11.9 - Type 2 diabetes mellitus without complications Plan: no changes, though will work on diet and hopefully will start taking her sugars, encouraged she does so. pt refused adding any more medications currently. I pushed the importance of diet, which pt reported has been off, my brother , we were going back and forth to [place] . (2) Cough: Code(s): R05 - Cough Plan: pt knows to take muccinex, call pulmonary team, inform us with any further questions or concerns, with any worsening symptoms (ER). Plan The patient agreed to the use of a electromedical service engineer for this encounter. Scribed for AMEYA Lucio by Aliza Downey electromedical service engineer, on 09/13/2023 at 10:50 EST. Coding Level of Care Code Est Pt Level 3 (82901) Diagnoses Diabetes E11.9 Cough R05 Additional Codes BARBARA-7 Assessment Billing - BARBARA-7 Assessment Tool: BARBARA-7 Assessment 53418 ([id number])
[2023-09-13 10:30] VITALS: BP 140/82; PULSE 74; O2SAT 98; BMI 24.7
== END 2023-09-13 11:06 | disposition home or self-care (01) ==
PROVIDERS: PCP Nurse Practitioner Family; Visit Provider Nurse Practitioner Family
DX: E11.9 Type 2 diabetes mellitus without complications (principal); R05.9 Cough, unspecified
CPT/HCPCS: 99213

== ENCOUNTER 2023-12-09 09:19 | Outpatient (AMB) | payer MEDICARE, SELFPAY ==
[2023-12-09 09:41] VITALS: BP 140/80; PULSE 60; TEMP 36.6; O2SAT 99; BMI 23.4
--- NOTE | 2023-12-09 09:41 | AM.OFFWIN_ITS ---
Intake Vital Signs 12/09/23 09:41 Height 5 ft 1 in Weight 124 lb BMI 23.4 BP 140/80 H Blood Pressure Location Lt brachial Position Sitting Pulse 60 Pulse Source Pulse Oximeter Temp 97.9 F Temp Source Temporal Artery Scan Pulse Oximetry (%) 99 Oxygen Delivery Method Room Air Intake Visit Reasons: Est/ constipation (lobby) Intake Note: pt is here today for constipation started 11/18 Patient Tobacco Use Status: Former Tobacco user Allergies erythromycin base Adverse Reaction (Intermediate, Verified 12/09/23 09:45) Nausea and Vomiting Do you need a note to return to daycare/school/sports/work: No HPI HPI Comments History of Present Illness Details Patient is a 73yo F with hx of breast ca in remission since 2019 who presents to office with constipation present with her Had UTI on 10/16 and too macrobid antibiotic x 7 days and she felt a little constipated [place] she was having small bowel movements Also said she pulled her back out around 11/02 after heavy lifting She said back pain resolved after 24 houts but was having lower abdominal cramping with need to have BM She states she had a small BM today; said it was loose. No blood or black She usually has one formed bowel movement a day but now she said it seems looser and only small amount She tried an enema on 11/05 and had good relief She tried senna x 2 days with some relief but cramping remained Appetite is good now No nausea or vomiting PFSH Medical History Asthma Diabetes Dyslipidemia Surgical History H/O excision of epidermal inclusion cyst (06/15/22) History of partial mastectomy of left breast [place] teeth removed History of 3 sections Family History Maternal Grandmother Cancer of unknown origin Paternal Aunt Breast cancer Maternal Aunt Colon cancer Social History Housing: House Alcohol intake: never Patient Tobacco Use Status: Former Tobacco user Years Smoked: 1 year e-Cigarette/Vaping Use: Never Used Second Hand Smoke Exposure: Yes service: No Current occupational status: retired Current occupational exposures/hazards: No Cognitive needs: No Hearing needs: No Vision needs: Yes Review of Systems Const Denies chills, Denies fatigue, Denies fever(s) and Denies poor appetite Resp Denies cough GI Reports abdominal pain, Denies melena, Denies hematochezia, Reports constipation, Denies fecal incontinence, Denies diarrhea, Denies nausea and Denies vomiting Musc Denies back pain Endo Denies fatigue Physical Exam Vital Signs: Last Vital Signs Temp 97.9 F 12/09/23 09:41 Pulse 60 12/09/23 09:41 BP 140/80 H 12/09/23 09:41 Pulse Ox 99 12/09/23 09:41 Oxygen Delivery Method Room Air 12/09/23 09:41 BMI result Body Mass Index 23.4 General: Non-toxic, NAD. Speaking full sentences. Skin: Warm dry throughout Eye: EOMI Respiratory: No respiratory distress Cardiac: RRR Abdomen: BS present x 4. No tenderness to palpation. No rebound or guarding. No distension noted MSK: Full ROM extremities. Neurology: A/O. No aphasia or facial droop. Gait without abnormality Psych: Good mood and affect Assessment & Plan Assessment & Plan (1) Constipation: Code(s): K59.00 - Constipation, unspecified Qualifiers: Constipation type: unspecified constipation type Qualified Code(s): K59.00 - Constipation, unspecified Plan: Patient seen and evaluated. KUB ordered: i viewed as no fecal impaction or dilated bowel loops. Official report agrees. Miralax Increase fluids F/U with PCP She has colonoscopy in January Er protocol discussed Patient gave verbal understanding and had no additional questions or concerns at time of discharge All questions answered Orders: Orders XR KUB Today K59.00 - Constipation, unspecified Medications: New polyethylene glycol 3350 (Miralax) dissolve in 4-8 oz of liquid. May take 1-3 days to produce bowel movement. Use shortest effective tx duration 17 grams PO DAILY 357 grams 0RF 3 weeks Coding Level of Care Code Est Pt Level 3 (24916) Diagnoses Constipation, unspecified constipation type K59.00 Constipation type: unspecified constipation type
== END 2023-12-09 12:43 | disposition home or self-care (01) ==
PROVIDERS: PCP Nurse Practitioner Family; Visit Provider Physician Assistant
DX: K59.00 Constipation, unspecified (principal)
CPT/HCPCS: 99213

== ENCOUNTER 2023-12-09 09:59 | Outpatient (REF) | payer MEDICARE, SELFPAY ==
--- NOTE | ~2023-12-09 | XR_ITS ---
EXAMINATION: XR ABDOMEN KUB CLINICAL INDICATION: Constipation. COMPARISON: None available. TECHNIQUE: AP view of the abdomen. FINDINGS: Imaged lung bases are clear. No abnormally dilated loops of small or large bowel are appreciated. There is moderate stool burden in the right hemicolon. XR/XR KUB IMPRESSION: No acute abnormality.
== END 2023-12-09 10:00 | disposition home or self-care (01) ==
LOC: HO.HMGCX 09:59
PROVIDERS: PCP Nurse Practitioner Family; Visit Provider Physician Assistant
DX: K59.00 Constipation, unspecified (principal)
CPT/HCPCS: 74018

== ENCOUNTER 2024-01-05 06:35 | Day surgery (SDC) | payer MEDICARE, SELFPAY ==
[2024-01-03 14:03] VITALS: BMI 24.7
--- NOTE | 2024-01-04 09:19 | HO.ANESPROP2 ---
Documented by User: Hannah Gonzalez NP 01/04/24 09:22 HPI - Anesthesia Eval Consult details Narrative: 73yo F for Colonoscopy PMFSH Active Problems Active Problems: All Active Problems Constipation (Acute) Keratoacanthoma of shoulder (Acute) History of colonoscopy with polypectomy (Acute) Encounter for screening colonoscopy (Acute) Sebaceous cyst (Acute) Abnormal mammogram (Acute) Abscess (Acute) Screening for colon cancer (Acute) Physical exam (Acute) Elevated liver enzymes (Acute) Pre-op evaluation (Acute) Cough (Acute) Anxiety (Acute) COVID-19 (Acute) Brain fog (Acute) Memory loss (Acute) Night terrors (Acute) Hallucinations (Acute) Fatigue (Acute) Chronic cough (Acute) Lung nodules (Acute) Cough (Acute) 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) Invasive ductal carcinoma of left breast (Acute) Abnormal mammogram of left breast (Acute) Diabetes (Acute) Dyslipidemia (Acute) Past Medical History Medical History Bilateral cataracts Palpitations Anxiety Asthma Diabetes Dyslipidemia Family History Family History Maternal Grandmother Cancer of unknown origin Paternal Aunt Breast cancer Maternal Aunt Colon cancer Surgical History Surgical History H/O excision of epidermal inclusion cyst (06/15/22) History of partial mastectomy of left breast [place] teeth removed History of 3 sections Social History Social History Housing: House Alcohol intake: never Patient Tobacco Use Status: Former Tobacco user Years Smoked: 1 year e-Cigarette/Vaping Use: Never Used Second Hand Smoke Exposure: Yes Use of substances other than those prescribed or required for medical reasons: No Are you DNR?: No Advance Directives: No Advance Directives Information Provided: Yes service: No Current occupational status: retired Current occupational exposures/hazards: No Cognitive needs: No Hearing needs: No Vision needs: Yes Meds Allergies Allergy/AdvReac Type Severity Reaction Status Date / Time erythromycin base AdvReac Intermediate Nausea and Verified 12/09/23 09:45 Vomiting Home Medications ?Medication ?Instructions ?Recorded ?Confirmed ?Last Taken ?Type albuterol sulfate 90 mcg/actuation 1 inh inhalation Q4H PRN Wheezing 09/23/20 01/03/24 01/05/24 History aerosol inhaler budesonide 0.25 mg/2 mL suspension 0.25 mg inhalation Q4H PRN 12/16/21 01/03/24 Unknown History for nebulization Shortness Of Breath Or Wheezing Exam Height,Weight and Vital Signs: Height 5 ft 1 in Weight 59.421 kg Pertinent Lab Results Pertinent Lab Results: Laboratory Tests 09/07/23 09:55 WBC 5.0 Hgb 13.2 Hct 40.6 Plt Count 205 Sodium 139 Potassium 4.4 Chloride 106 Carbon Dioxide 27 BUN 15 Creatinine 0.77 Assessment and Plan Assessment Anesthesia Assessment: Chart Reviewed Documented by User: Abbey Cantu MD 01/05/24 08:12 PMFSH Active Problems Active Problems: All Active Problems Constipation (Acute) Keratoacanthoma of shoulder (Acute) History of colonoscopy with polypectomy (Acute) Encounter for screening colonoscopy (Acute) Sebaceous cyst (Acute) Abnormal mammogram (Acute) Abscess (Acute) Screening for colon cancer (Acute) Physical exam (Acute) Elevated liver enzymes (Acute) Pre-op evaluation (Acute) Cough - chronic for years. 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) Invasive ductal carcinoma of left breast (Acute) Abnormal mammogram of left breast (Acute) Diabetes (Acute) Dyslipidemia (Acute) Past Medical History Medical History Bilateral cataracts Palpitations Anxiety Asthma Diabetes Dyslipidemia Family History Family History Maternal Grandmother Cancer of unknown origin Paternal Aunt Breast cancer Maternal Aunt Colon cancer Family history of problems with anesthesia: No Surgical History Surgical History H/O excision of epidermal inclusion cyst (06/15/22) History of partial mastectomy of left breast [place] teeth removed History of 3 sections History of Problems with Anesthesia: No Social History Social History Housing: House Alcohol intake: never Patient Tobacco Use Status: Former Tobacco user Years Smoked: 1 year e-Cigarette/Vaping Use: Never Used Second Hand Smoke Exposure: Yes Use of substances other than those prescribed or required for medical reasons: No Are you DNR?: No Advance Directives: No Advance Directives Information Provided: Yes service: No Current occupational status: retired Current occupational exposures/hazards: No Cognitive needs: No Hearing needs: No Vision needs: Yes Meds Allergies Allergy/AdvReac Type Severity Reaction Status Date / Time erythromycin base AdvReac Intermediate Nausea and Verified 12/09/23 09:45 Vomiting Home Medications ?Medication ?Instructions ?Recorded ?Confirmed ?Last Taken ?Type albuterol sulfate 90 mcg/actuation 1 inh inhalation Q4H PRN Wheezing 09/23/20 01/03/24 01/05/24 History aerosol inhaler budesonide 0.25 mg/2 mL suspension 0.25 mg inhalation Q4H PRN 12/16/21 01/03/24 Unknown History for nebulization Shortness Of Breath Or Wheezing Exam Height,Weight and Vital Signs: Height 5 ft 1 in Weight 59.421 kg Vital Signs Temp Pulse Resp BP Pulse Ox O2 Del Method 01/05/24 07:13 98.2 F 75 16 147/67 H 97 Room Air Airway Mallampati Class: II TM Dist: >3cm Neck ROM: Full Denture: Upper Partial: Lower Loose/Missing/Broken Teeth: Yes (Few teeth bottom. Denies broken or loose) Heart: RRR Lungs: CTAB Assessment and Plan Assessment Anesthesia Assessment: Anesthesia Plan Discussed and Chart Reviewed Final Anesthetic Review Family History of Problems with Anesthesia: No History of Problems with Anesthesia: No NPO: Yes ASA Class: III Final Preanesthetic Review: No Changes in Pt Med Stat, Meds/Allgs Chart Reviewed, Consent Obtained/Reviewed and Anes Risks/Benef Reviewed Patient Risk: Intermediate Procedure Risk: Low Assessment/Block/Sedation in SS: Assess/Block/Sedation-SS Anesthetic Plan Anesthetic Plan: TIVA Disposition: Standard PACU
--- NOTE | 2024-01-05 06:13 | P.HPSUR_ITS ---
Pre-Procedural Eval Section A - 24 Hr Update-Section A only Date of Service: 01/05/24 Section B - Complete if H&P > 30 days Chief Complaint: Encounter for screening for malignant neoplasm of Relevant Family History (Specify if Yes): No Relevant Social History: None Present Medications: see Short Stay Collaborative assessment Medical History: Significant History (Bilateral cataracts Palpitations Anxiety Asthma Diabetes Dyslipidemia) History of Previous Operations: Relevant previous surgery/procedure and date(s) ( H/O excision of epidermal inclusion cyst (06/15/22) History of partial mastectomy of left breast [place] teeth removed History of 3 sections) Allergies: Allergies Allergy/AdvReac Type Severity Reaction Status Date / Time erythromycin base AdvReac Intermediate Nausea and Verified 12/09/23 09:45 Vomiting Review of Systems Sugical H&P ROS: Negative: Constitution, Cardiovascular, Respiratory, Neurological, Psychiatric, Hem-Onc, Allergic/Immunologic, Gastrointestinal, Genitourinary, Musculoskeletal, Integumentary, Endocrine and Eyes/Ears/Nose/Throat Exam Surgical H&P Exam: Normal: HEENT, Normal: Heart, Normal: Lungs, Normal: Extremities, Normal: Abdomen, Normal: Skin and Normal: Neurological Plan Diagnosis/Plan: Unchanged I have reviewed the history and physical and performed a pertinent physical examination on my patient. No changes have occurred unless specified. Time Spent With Patient Time: Total time managing care of this patient today ____ minutes.
[2024-01-05 07:02] VITALS: BMI 23.7
[2024-01-05 07:13] VITALS: BP 147/67; PULSE 75; RESP 16; TEMP 36.8; O2SAT 97
[2024-01-05] MEDS: Lactated Ringers 1,000 ML 100 ML IVCONT (07:26)
--- NOTE | 2024-01-05 08:50 | P.OPN-COLO_ITS ---
Colonoscopy Operative Note Operative Note Date of Service: 01/05/24 Narrative: Operative Information Procedure Description: Colonoscopy Indication: screening Anesthesia: MAC COLONOSCOPY Instrument: Olympus variable stiffness pediatric scope 190L Colonoscopy Monitoring: Vital signs and clinical assessment, continuous EKG monitoring, Pulse oximetry, Carbon Dioxide monitoring and blood pressure monitoring were done throughout the procedure. Colon withdrawal time was 14 minutes. Procedure: The patient was placed in the left lateral decubitis position and pre-procedure medications were administered. After a digital rectal examination of the ano-rectum, the video colonoscope was inserted into the rectum and advanced through the colon to the cecum/TI. The colonoscope was slowly withdrawn in a retrograde panoramic fashion and the colon mucosa was carefully examined including a retroflexed view of the rectum. Findings and interventions are described below. Procedure Difficulty: easy Findings: Terminal Ileum-normal Cecum:normal Ascending Colon: x 2 sessile polyps 10 mm removed with cold snare Transverse Colon - x2 sessile polyps 10-12 mm removed with cold snare and x 1 sessile polyp 5-8 mm removed with cold forceps Descending Colon:normal Sigmoid Colon: normal Rectum: Retroflexion with small internal hemorrhoids seen, grade I, 6-8 mm sessile polyp removed with cold forceps Anorectum - normal Intervention: cold snare, cold forceps Colon preparation: [place] Bowel Preparation Scale Right colon; 2 Transverse colon: 2 Left colon; 2 (0 = Unprepared colon segment with mucosa not seen due to solid stool that cannot be cleared. 1 = Portion of mucosa of the colon segment seen, but other areas of the colon segment not well seen due to staining, residual stool and/or opaque liquid. 2 = Minor amount of residual staining, small fragments of stool and/or opaque liquid, but mucosa of colon segment seen well. 3 = Entire mucosa of colon segment seen well with no residual staining, small fragments of stool or opaque liquid) Impression and Post Procedure Diagnosis: colon polyps internal hemorrhoids Plan: High fiber diet leaflet Avoid straining at stool, epsom salts and sitz bath, anusol supps or cream Repeat Colonoscopy in 1-2 years due to polyp burden or earlier if clinically indicated Above findings were reviewed with the patient and relevant handouts were provided if indicated.
[2024-01-05 08:58] VITALS: BP 106/56; PULSE 69; RESP 24; TEMP 36.6; O2SAT 96
--- NOTE | 2024-01-05 09:01 | PC.NURSE ---
poc at [phone]
[2024-01-05 09:13] VITALS: BP 100/50; PULSE 63; RESP 20; O2SAT 93
[2024-01-05 09:25] VITALS: BP 115/52; PULSE 54; RESP 20; TEMP 36.7; O2SAT 94
[2024-01-05 09:33] LABS: Glucose, Whole Blood 131 mg/dL (60-115)
== END 2024-01-05 10:08 | disposition home or self-care (01) ==
PROVIDERS: PCP Nurse Practitioner Family; Visit Provider Internal Medicine Gastroenterology
PROC: 0DJD8ZZ Inspection of Lower Intestinal Tract, Via Natural or Artificial Opening Endoscopic (ICD-10-PCS; CPT 45378; principal; 2024-01-05 08:10)
DX: Z12.11 Encounter for screening for malignant neoplasm of colon (principal); Z86.010 Personal history of colon polyps; K63.5 Polyp of colon; K64.0 First degree hemorrhoids; K62.1 Rectal polyp; F41.9 Anxiety disorder, unspecified; J45.909 Unspecified asthma, uncomplicated; E11.9 Type 2 diabetes mellitus without complications; E78.5 Hyperlipidemia, unspecified; Z88.1 Allergy status to other antibiotic agents; Z87.891 Personal history of nicotine dependence; Z79.84 Long term (current) use of oral hypoglycemic drugs; Z79.899 Other long term (current) drug therapy
CPT/HCPCS: 45385; 45380; 82947; 88305; J2704

== ENCOUNTER → 2024-01-05 06:35 | Outpatient (BNV) | payer MEDICARE, SELFPAY | PROVIDERS: PCP Nurse Practitioner Family; Visit Provider Internal Medicine Gastroenterology | DX: Z12.11 Encounter for screening for malignant neoplasm of colon (principal); D12.3 Benign neoplasm of transverse colon; D12.2 Benign neoplasm of ascending colon; K62.1 Rectal polyp | CPT/HCPCS: 45380; 45385 ==

== ENCOUNTER 2024-02-09 08:39 | Outpatient (AMB) | payer MEDICARE, SELFPAY ==
--- NOTE | 2024-02-09 07:41 | MHC.PC.OV ---
Intake Visit Reasons: General - questions Weak Health, High Glocuse Allergies erythromycin base Adverse Reaction (Intermediate, Verified 12/09/23 09:45) Nausea and Vomiting Tobacco use date assessed: 09/13/23 Dental Screening Dental Screen Date: 09/13/23 HPI General - questions Weak Health, High Glocuse HPI Details Pt reports confusion. She reports memory issues as well. Pt is slow when finishing sentences, though she is able to finish them. She reports fatigue 3 weeks ago. Pt's blood sugar was elevated at the time but it is coming back down. Will order labs, chest XR, and CT. Denies chest pain, shortness of breath, dizziness, blurred vision, and signs of hemiparesis. on the phone with pt. [facility] Medical History Bilateral cataracts Palpitations Anxiety Asthma Diabetes Dyslipidemia Surgical History H/O excision of epidermal inclusion cyst (06/15/22) History of partial mastectomy of left breast [place] teeth removed History of 3 sections Family History Maternal Grandmother Cancer of unknown origin Paternal Aunt Breast cancer Maternal Aunt Colon cancer Social History Housing: House Alcohol intake: never Patient Tobacco Use Status: Former Tobacco user Years Smoked: 1 year e-Cigarette/Vaping Use: Never Used Second Hand Smoke Exposure: Yes service: No Current occupational status: retired Current occupational exposures/hazards: No Cognitive needs: No Hearing needs: No Vision needs: Yes Questionnaire Thrive Questionnaire Date Thrive assessed: 09/13/23 BARBARA-7 AMB Questionnaire BARBARA-7 Date BARBARA - 7 assessed: 09/13/23 Source: Developed by Drs. Moose Kaplan, Marley Burger, Everett Skelton and colleagues, with an educational cecilia from [employer]. Review of Systems Const Reports as per HPI Physical exam (Primary Care) Tobacco/Smoking Status: Tobacco use Status Tobacco use date assessed 09/13/23 02/09/24 07:44 Patient Tobacco Use Status Former Tobacco user 02/09/24 07:44 e-Cigarette/Vaping Use Never Used 02/09/24 07:44 Thrive Assessment: Date of Thrive Assessment Date Thrive assessed 09/13/23 02/09/24 07:44 Const General: cooperative Orientation/consciousness: patient oriented x3 Neuro General: patient oriented x3 Psych Appearance: grossly normal Mental Status: mental status grossly normal Speech and movement: Clear speech present Affect: normal affect Attitude: cooperative Thought process: Normal thought process present Thought content: Normal thought content present Insight: Good insight present (Psych) Judgement: Good judgement present (Psych) Assessment and Plan Assessment & Plan (1) Confusion: Code(s): R41.0 - Disorientation, unspecified Plan: worsening symptoms, pt knows to go to the ER Plan The patient agreed to the use of a medical billing manager for this encounter. Scribed for JESSE Lucio-SELENA by Aliza Downey medical billing manager, on 02/09/2024 at 07:40 EST. Orders: Orders Comprehensive [place]. Panel Fast Today R41.0 - Disorientation, unspecified TSH reflex Free T4 Today R41.0 - Disorientation, unspecified Vitamin B12 and Folate Today R41.0 - Disorientation, unspecified Urine Culture Today R41.0 - Disorientation, unspecified XR chest 2V Today R41.0 - Disorientation, unspecified Complete Blood Count Auto Diff Today R41.0 - Disorientation, unspecified UA CC w/rflx Micro + Cult Today R41.0 - Disorientation, unspecified Lipid Panel Today R41.0 - Disorientation, unspecified CT head/brain wo IV con Today R41.0 - Disorientation, unspecified Coding Level of Care Code Tele Est Pt Level 3 (74806) Diagnoses Confusion R41.0
== END 2024-02-09 08:41 | disposition home or self-care (01) ==
LOC: HO.HMGC 08:39
PROVIDERS: PCP Nurse Practitioner Family; Visit Provider Nurse Practitioner Family
DX: R41.0 Disorientation, unspecified (principal)
CPT/HCPCS: 99442

== ENCOUNTER 2024-02-11 09:58 | Outpatient (REF) | payer MEDICARE, SELFPAY ==
--- NOTE | ~2024-02-11 | XR_ITS ---
EXAMINATION: XR CHEST CLINICAL INFORMATION: Cough COMPARISON: 12/12/2020 TECHNIQUE: 2 views of the chest were obtained. FINDINGS: There is a nodular density right midlung zone measuring up to 15 mm highly suspicious for a pulmonary nodule. There is underlying central peribronchial thickening consistent with nonspecific bronchitis. No gross hilar adenopathy. No pleural disease. Heart images are normal. No acute osseous abnormality. XR/XR chest 2V IMPRESSION: Right midlung zone nodular density suspicious for pulmonary nodule. CT recommended electively for further assessment. This should be further assessed on the subsequent CT. Differential diagnosis include potentially a primary or secondary malignancy.
[2024-02-11 11:22] LABS: MANUAL DIFF FLAG NO
[2024-02-11 11:27] LABS: Appearance Urine Clear; Color Urine Yellow; Glucose Urine UA Negative (Negative); Leukocyte Esterase Urine Moderate (2+) (Negative); Nitrite Urine Negative (Negative); UMIC TRIGGER UACC YES; Urine Blood Negative (Negative); Urine Ketones Negative (Negative); Urine Protein Negative (Neg-Trace)
[2024-02-11 11:31] LABS: Bacteria Urine None Seen (None Seen); Hyaline Casts Urine 0-2 /LPF (0-2); RBC Urine 0-2 /HPF (0-2); UACC Culture Trigger YES
[2024-02-11 11:38] LABS: Basophils Percent Auto 0.7 % (0-2); Eosinophils Absolute Auto 0.2 X10*3/uL (0.0-0.4); Eosinophils Percent Auto 4.3 % (0-4); Hematocrit 39.6 % (37.0-47.0); Hemoglobin 12.6 g/dl (12.0-16.0); Imm Gran Abs Auto 0.07 X10*3/uL (0.00-0.03); Imm Gran Pct Auto 1.2 % (0.0-0.4); Lymphocytes Percent Auto 17.8 % (20-40); Mean Corpuscular HGB Conc 31.8 g/dl (31.0-35.0); Mean Corpuscular Hemoglobin 28.4 pg (27.0-33.0); Mean Corpuscular Volume 89.2 fL (80.0-98.0); Mean Platelet Volume 11.7 fL (9.4-12.3); Monocytes Absolute Auto 0.3 X10*3/uL (0.1-1.2); Monocytes Percent Auto 5.9 % (2-11); Neutrophils Percent Auto 70.1 % (45-73); Platelet Count 276 X10*3/uL (160-400); Red Blood Count 4.44 X10*6/uL (4.20-5.50); Red Cell Distribution Width 13.6 % (11.0-16.0); White Blood Count 5.6 X10*3/uL (4.8-10.8)
[2024-02-11 11:51] LABS: Alanine Aminotransferase 28 U/L (0-31); Albumin Level 3.7 g/dL (3.5-5.0); Alkaline Phosphatase 126 U/L (39-117); Anion Gap 13 (12-20); Aspartate Amino Transferase 18 U/L (5-31); Bilirubin Total 0.6 mg/dL (0.0-1.0); Blood Urea Nitrogen 13 mg/dL (9-16); Calcium 9.8 mg/dL (8.4-10.2); Carbon Dioxide 28 mmol/L (22-29); Chloride 103 mmol/L (96-108); Cholesterol 130 mg/dL (<200); Estimated Glomerular Filt Rate > 60; Glucose Fasting 175 mg/dL (60-99); HDL Cholesterol 20 mg/dL (>40); LDL Cholesterol Calculated 80 mg/dL (<100); Potassium 4.9 mmol/L (3.3-5.1); Sodium 139 mmol/L (135-145); Total Protein 7.3 g/dL (6.5-8.0); Triglycerides 153 mg/dL (<150)
[2024-02-11 12:09] LABS: TSH reflex Free T4 3.18 uIU/mL (0.32-4.0)
[2024-02-11 12:22] LABS: Folate 10.2 ng/mL (> or = 4.0); Vitamin B12 > 2000 pg/mL (200-900)
== END 2024-02-11 09:59 | disposition home or self-care (01) ==
LOC: HO.HMGCX 09:58
PROVIDERS: PCP Nurse Practitioner Family; Visit Provider Nurse Practitioner Family
DX: R41.0 Disorientation, unspecified (principal); Z13.6 Encounter for screening for cardiovascular disorders
CPT/HCPCS: 36415; 71046; 80053; 80061; 81001; 82607; 82746; 84443; 85025; 87086

== ENCOUNTER 2024-02-15 13:56 | Outpatient (REF) | payer MEDICARE, SELFPAY ==
--- NOTE | ~2024-02-15 | CT_ITS ---
EXAMINATION: CT HEAD WITHOUT CONTRAST CLINICAL INFORMATION: Disorientation COMPARISON: None available. TECHNIQUE: Contiguous axial imaging was performed from the skull base to vertex without intravenous administration of contrast. This CT examination was performed using dose optimization techniques as appropriate, variously including the following: *Automated exposure control *Adjustment of mA and/or kV according to patient size (this includes techniques or standardized protocols for targeted exams where dose is matched to indication/reason for exam; i.e. extremities or head) *Use of iterative reconstruction technique DLP: 710 mGy-cm FINDINGS: There is prominence to the sulci and ventricles. Mild deep white matter gliosis noted. No evidence of intra or extra-axial fluid collection or hemorrhage, mass, or mass effect. Calvarium is intact. Extensive mucoperiosteal thickening is seen within the sphenoid sinus extending to the right ethmoid sinus. There is mild mucosal thickening in the left maxillary sinus. CT/CT head/brain wo IV con IMPRESSION: No acute intracranial pathology. Chronic sinus disease particularly in the sphenoid sinus.
--- NOTE | ~2024-02-15 | CT_ITS ---
EXAMINATION: CT CHEST WITH CONTRAST CLINICAL INFORMATION: Solitary pulmonary nodule. History of breast cancer. COMPARISON: None available. TECHNIQUE: Multidetector volumetric CT imaging of the chest was obtained after the administration of 65 mL of Omnipaque 350 intravenous contrast without immediate adverse reactions. Axial MIP volume rendering provided. Sagittal and coronal reformatted images were obtained. This CT examination was performed using dose optimization techniques as appropriate, variously including the following: *Automated exposure control *Adjustment of mA and/or kV according to patient size (this includes techniques or standardized protocols for targeted exams where dose is matched to indication/reason for exam; i.e. extremities or head) *Use of iterative reconstruction technique DLP: 89 mGy-cm FINDINGS: LUNGS: There are anterior left upper lobe and lingula subpleural reticular changes possibly representing posttreatment changes. 6 mm nodule right upper lobe on image 82. 1.6 x 2.1 cm nodule right upper lobe superior segment on image 81. 1.3 x 1.1 cm nodule medial right lower lobe on image 105. 1.3 x 1.3 cm nodule right lower lobe on image 104. 0.9 x 1.1 cm left lower lobe pulmonary nodule on image 145. 5 mm subpleural nodule right lower lobe on image 134. 6 mm subpleural nodule right lower lobe on image 120. 4 mm nodule right lower lobe on image 117. Peribronchial groundglass opacities and tree-in-bud micronodules in the right lower lobe. MEDIASTINUM: No bulky axillary, hilar or mediastinal lymphadenopathy. Great vessels are of normal caliber. Heart size is normal. PLEURA: No pleural effusion. AXILLA: Surgical clips in the upper outer left breast. UPPER ABDOMEN: Hepatic steatosis. Gallbladder wall thickening. 1.5 x 2.0 cm right adrenal nodule. OSSEOUS STRUCTURES: No destructive bone lesions. CT/CT chest w IV con IMPRESSION: Multiple pulmonary nodules measuring up to 1.6 x 2.1 cm. This is suspicious for pulmonary metastatic disease. No prior studies available for comparison to assess for progression. Follow-up oncologic protocol. Peribronchial groundglass opacities in tree-in-bud nodules in the right lower lobe may represent a superimposed acute infectious or inflammatory process. Gallbladder wall thickening. Advise correlation with right upper quadrant ultrasound. Hepatic steatosis. 1.5 x 2.0 cm right adrenal nodule. Recommend consideration of laboratory evaluation for possible pheochromocytoma and then subsequent evaluation with Adrenal Protocol CT. Fleischner guidelines were followed.
[2024-02-15] MEDS: iohexoL 350 MG/ML 75 ML INFUS..BTL 65 ML IV (15:15)
== END 2024-02-15 13:57 | disposition home or self-care (01) ==
LOC: HO.CT 13:56
PROVIDERS: PCP Nurse Practitioner Family; Visit Provider Nurse Practitioner Family
DX: R91.1 Solitary pulmonary nodule (principal); R41.0 Disorientation, unspecified; R93.89 Abnormal findings on diagnostic imaging of other specified body structures
CPT/HCPCS: 70450; 71260; Q9967

== ENCOUNTER 2024-02-17 09:30 | Outpatient (REF) | payer MEDICARE, SELFPAY ==
[2024-02-17 13:05] LABS: Appearance Urine Turbid; Color Urine Yellow; Glucose Urine UA Negative (Negative); Leukocyte Esterase Urine Negative (Negative); Nitrite Urine Negative (Negative); PH 5.5 (5.0-9.0); Specific Gravity - Urine >= 1.030 (1.005-1.025); Urine Blood Negative (Negative); Urine Ketones Negative (Negative); Urine Protein Negative (Neg-Trace)
[2024-02-17 13:12] LABS: MANUAL DIFF FLAG NO
[2024-02-17 13:15] LABS: Basophils Percent Auto 0.6 % (0-2); Eosinophils Absolute Auto 0.2 X10*3/uL (0.0-0.4); Eosinophils Percent Auto 2.7 % (0-4); Hematocrit 39.6 % (37.0-47.0); Hemoglobin 12.8 g/dl (12.0-16.0); Imm Gran Abs Auto 0.04 X10*3/uL (0.00-0.03); Imm Gran Pct Auto 0.6 % (0.0-0.4); Lymphocytes Absolute Auto 1.1 X10*3/uL (1.2-4.9); Lymphocytes Percent Auto 16.5 % (20-40); Mean Corpuscular HGB Conc 32.3 g/dl (31.0-35.0); Mean Corpuscular Hemoglobin 29.2 pg (27.0-33.0); Mean Corpuscular Volume 90.4 fL (80.0-98.0); Mean Platelet Volume 10.7 fL (9.4-12.3); Monocytes Absolute Auto 0.3 X10*3/uL (0.1-1.2); Monocytes Percent Auto 4.7 % (2-11); Neutrophils Percent Auto 74.9 % (45-73); Platelet Count 329 X10*3/uL (160-400); Red Blood Count 4.38 X10*6/uL (4.20-5.50); Red Cell Distribution Width 13.3 % (11.0-16.0); White Blood Count 6.7 X10*3/uL (4.8-10.8)
[2024-02-17 13:33] LABS: Alanine Aminotransferase 17 U/L (0-31); Alkaline Phosphatase 115 U/L (39-117); Anion Gap 11 (12-20); Aspartate Amino Transferase 15 U/L (5-31); Bilirubin Total 0.7 mg/dL (0.0-1.0); Blood Urea Nitrogen 21 mg/dL (9-16); Calcium 10.1 mg/dL (8.4-10.2); Carbon Dioxide 28 mmol/L (22-29); Chloride 104 mmol/L (96-108); Estimated Glomerular Filt Rate 58; Glucose Random 153 mg/dL (60-115); Potassium 4.3 mmol/L (3.3-5.1); Sodium 139 mmol/L (135-145); Total Protein 7.3 g/dL (6.5-8.0)
== END 2024-02-17 09:31 | disposition home or self-care (01) ==
LOC: HO.HMGCLDS 09:30
PROVIDERS: PCP Nurse Practitioner Family; Visit Provider Nurse Practitioner Family
DX: R91.1 Solitary pulmonary nodule (principal); R93.89 Abnormal findings on diagnostic imaging of other specified body structures; R41.0 Disorientation, unspecified
CPT/HCPCS: 36415; 80053; 81003; 85025

== ENCOUNTER 2024-02-22 13:53 | Outpatient (AMB) | payer MEDICARE, SELFPAY ==
[2024-02-22 13:54] VITALS: BP 138/76; PULSE 65; O2SAT 97; BMI 23.3
--- NOTE | 2024-02-22 13:54 | MHC.PC.OV ---
Vital Signs 02/22/24 13:54 Height 5 ft 1 in Weight 123 lb 8 oz BMI 23.3 BP 138/76 Blood Pressure Location Lt brachial Position Sitting Pulse 65 Pulse Source Pulse Oximeter Pulse Oximetry (%) 97 Oxygen Delivery Method Room Air Intake Visit Reasons: ?diabetes Intake Note: patient is here for diabetes Ballet Soloist Required: No Accompanied by: Self / Same As Patient Allergies erythromycin base Adverse Reaction (Intermediate, Verified 02/22/24 13:54) Nausea and Vomiting Medication List - Last Reconciled 02/22/24 by [place] To [facility]- albuterol sulfate 90 mcg/actuation 1 inh inhalation Q4H PRN blood sugar diagnostic (FreeStyle Lite Strips) test blood sugar once a day budesonide 0.25 mg inhalation Q4H PRN buspirone 3.75 mg (1/2 x 7.5 mg) PO BID 90 days fluticasone propion-salmeterol 250-50 mcg/dose (Advair Diskus) 1 inh inhalation BID lancets (FreeStyle Lancets) test blood sugar once a day losartan 25 mg PO DAILY metformin 500 mg PO BID 90 days polyethylene glycol 3350 (Miralax) 17 grams PO DAILY 3 weeks propranolol 40 mg PO BID 90 days rosuvastatin 5 mg PO DAILY Tobacco use date assessed: 09/13/23 Fall risk assessment: No Falls in past year Last assessed Fall Risk: 02/22/24 Dental Screening Dental Screen Date: 09/13/23 HPI ?diabetes HPI Details Pt is a diabetic, on an ARB and a statin. A1C in office today is 7.4. Microalbumin is up to date. Denies polyuria, polydipsia, and neuropathy. Pt denies any signs and symptoms of hypoglycemia and does know how to correct it. Pt does not know if she is taking 500mg bid or 1000mg bid of metformin. She will let me know her dose by the end of the week. Pt reports increased memory issues and weakness. Pt had a recent head CT which showed no acute intracranial pathology. Chronic sinus disease particularly in the sphenoid sinus. Pt's daughter (burlesque dancer) is reporting she has been better recently, with less confusion??? Pt also had a recent chest CT which showed: multiple pulmonary nodules measuring up to 1.6 x 2.1 cm. This is suspicious for pulmonary metastatic disease. No prior studies available for comparison to assess for progression. Follow-up oncologic protocol. Peribronchial groundglass opacities in tree-in-bud nodules in the right lower lobe may represent a superimposed acute infectious or inflammatory process. Pt does have a barking cough that she has had for years. She is following up with pulmonology on Tuesday. Will send advair. Denies fever, chills, chest pain, and shortness of breath. [facility] Medical History Bilateral cataracts Palpitations Anxiety Asthma Diabetes Dyslipidemia Surgical History H/O excision of epidermal inclusion cyst (06/15/22) History of partial mastectomy of left breast [place] teeth removed History of 3 sections Family History Maternal Grandmother Cancer of unknown origin Paternal Aunt Breast cancer Maternal Aunt Colon cancer Social History Housing: House Alcohol intake: never Patient Tobacco Use Status: Former Tobacco user Years Smoked: 1 year e-Cigarette/Vaping Use: Never Used Second Hand Smoke Exposure: Yes service: No Current occupational status: retired Current occupational exposures/hazards: No Cognitive needs: No Hearing needs: No Vision needs: Yes Questionnaire PHQ-9 Over the last 2 weeks, how often have you been bothered by any of the following problems? 1. Little interest or pleasure in doing things: not at all 2. Feeling down, depressed, or hopeless: not at all 3. Trouble falling or staying asleep, or sleeping too much: not at all 4. Feeling tired or having little energy: nearly every day 5. Poor appetite or overeating: not at all 6. Feeling bad about yourself - or that you are a failure or have let yourself or your family down: not at all 7. Trouble concentrating on things, such as reading the newspaper or watching television: more than half the days 8. Moving or speaking so slowly that other people could have noticed. Or the opposite - being so fidgety or restless that you have been moving around a lot more than usual: several days 9. Thoughts that you would be better off or of hurting yourself in some way: not at all Total score: 6 Depression Screening Interpretation: Negative Depression Screening Done: Yes 07018 - PHQ-9 Billing: Yes Source: Developed by Drs. Moose Kaplan, Marley Burger, Everett Skelton and colleagues, with an educational cecilia from [employer]. Thrive Questionnaire Date Thrive assessed: 02/22/24 I am a: Patient What is your living situation today?: I have a steady place to live Within the past 12 months, did the food you bought not last and you didn't have the money to get more?: Never true Within the past 12 months, did you worry whether your food would run out before you got money to buy more?: Never true Do you have trouble paying for medicines?: No Do you have trouble getting transportation to medical appointments?: No Do you have trouble paying your heating and electricity bill?: No Do you have trouble taking care of your child, family member or friend?: No Do you have trouble with day-to-day activities such as bathing, preparing meals, shopping, managing finances, etc.?: I choose not to answer this question Are you currently unemployed and looking for a job?: No Are you interested in more education?: No Please select the resources that you would like help with: None Currently or been in a relationship where the following occur: I choose not to answer THRIVE Score: 0 AUDIT C Alcohol Use Questionnaire (AUDIT-C) 1. How often do you have a drink containing alcohol?: Never 3. How often do you have six or more drinks on one occasion?: Never Total Score: 0 Score Reviewed/Action Taken: Yes BARBARA-7 AMB Questionnaire BARBARA-7 Date BARBARA - 7 assessed: 02/22/24 Feeling nervous, anxious, or on edge: 1 = Several days Not being able to stop or control worryin = Not at all Worrying too much about different things: 1 = Several days Trouble relaxin = Not at all Being so restless that it is hard to sit still: 0 = Not at all Becoming easily annoyed or irritable: 0 = Not at all Feeling afraid as if something awful might happen: 0 = Not at all Total BARBARA-7 score (0-4 normal; 5-9 mild; 10-14 moderate; 15-21 severe): 2 Source: Developed by Drs. Moose Kaplan, Marley Burger, Everett Skelton and colleagues, with an educational cecilia from [employer]. BARBARA-7 Assessment Billing BARBARA-7 Assessment Tool: BARBARA-7 Assessment 15682 Review of Systems Const Reports as per HPI Physical exam (Primary Care) Vital Signs: Last Vital Signs Pulse 65 02/22/24 13:54 BP 138/76 02/22/24 13:54 Pulse Ox 97 02/22/24 13:54 Oxygen Delivery Method Room Air 02/22/24 13:54 BMI result Body Mass Index 23.3 Tobacco/Smoking Status: Tobacco use Status Tobacco use date assessed 09/13/23 02/22/24 13:57 Patient Tobacco Use Status Former Tobacco user 02/22/24 13:57 e-Cigarette/Vaping Use Never Used 02/22/24 13:57 PHQ-9: PHQ-9 Score PHQ-9: Total score 6 02/22/24 14:20 Depression Screening Interpretation: Negative Thrive Assessment: Date of Thrive Assessment Date Thrive assessed 02/22/24 02/22/24 13:57 Currently or been in a relationship where the following occur: I choose not to answer Const General: cooperative Orientation/consciousness: patient oriented x3 Resp Effort & Inspection: normal respiratory effort Auscultation: rhonchi (faint) Cardio Rate: regular rate Rhythm: regular rhythm Heart sounds: S1 normal heart sound present and S2 normal heart sound present Neuro General: patient oriented x3 Cranial nerves: Yes CN's II-XII intact bilaterally Psych Appearance: grossly normal Mental Status: mental status grossly normal Speech and movement: Normal speech and movement present Affect: normal affect Attitude: cooperative Thought process: Normal thought process present Thought content: Normal thought content present Insight: Good insight present (Psych) Judgement: Good judgement present (Psych) Results AMB Hemoglobin A1c AMB Hemoglobin A1c 7.4 % Last Edit by Franco Bailey CMA on 02/22/24 14:16 Results Reviewed Results Reviewed: Laboratory Last Values Hgb A1c (Clinic) 7.4 % (4.0-6.0) H 02/22/24 14:02 Assessment and Plan Assessment & Plan (1) Carcinoma, lung: Code(s): C34.90 - Malignant neoplasm of unspecified part of unspecified bronchus or lung Plan: Seeing pulmonology this week (2) Pulmonary nodule 1 cm or greater in diameter: Code(s): R91.1 - Solitary pulmonary nodule Plan: Seeing pulmonology this week (3) Carcinoma, lung: Code(s): C34.90 - Malignant neoplasm of unspecified part of unspecified bronchus or lung (4) Confusion: Code(s): R41.0 - Disorientation, unspecified Plan: seems better as of recently, will cont to monitor, pt's daughter will keep me informed. B12 is WNL, CT scan was neg, TSH is WNL. WIll cont to monitor UA/culture results Plan The patient agreed to the use of a medical staffing coordinator for this encounter. Scribed for JESSE Lucio-BC by Aliza Downey medical staffing coordinator, on 02/22/2024 at 14:05 EST. Orders: Orders Complete Blood Count Auto Diff Today C34.90 - Malignant neoplasm of unspecified part of unspecified bronchus or lung, R91.1 - Solitary pulmonary nodule AMB Hemoglobin A1c Today Z13.9 - Encounter for screening, unspecified Comprehensive Met. Panel Today C34.90 - Malignant neoplasm of unspecified part of unspecified bronchus or lung, R91.1 - Solitary pulmonary nodule UA CC w/rflx Micro + Cult Today C34.90 - Malignant neoplasm of unspecified part of unspecified bronchus or lung, R91.1 - Solitary pulmonary nodule Medications: New fluticasone propion-salmeterol 250-50 mcg/dose (Advair Diskus) 1 inh inhalation BID 60 ea 0RF Coding Level of Care Code Est Pt Level 4 (68305) Diagnoses Carcinoma, lung C34.90 Pulmonary nodule 1 cm or greater in diameter R91.1 Confusion R41.0 Additional Codes BARBARA-7 Assessment Billing - BARBARA-7 Assessment Tool: BARBARA-7 Assessment 66411 ([id number])
== END 2024-02-22 15:49 | disposition home or self-care (01) ==
PROVIDERS: PCP Nurse Practitioner Family; Visit Provider Nurse Practitioner Family
DX: R91.1 Solitary pulmonary nodule (principal); C34.90 Malignant neoplasm of unspecified part of unspecified bronchus or lung; R41.0 Disorientation, unspecified; E11.9 Type 2 diabetes mellitus without complications
CPT/HCPCS: 83036; 99214

== ENCOUNTER 2024-02-22 14:42 | Outpatient (REF) | payer MEDICARE, SELFPAY ==
[2024-02-22 16:14] LABS: Appearance Urine Turbid; Color Urine Yellow; Glucose Urine UA Negative (Negative); Leukocyte Esterase Urine Moderate (2+) (Negative); Nitrite Urine Negative (Negative); Specific Gravity - Urine 1.025 (1.005-1.025); UMIC TRIGGER UACC YES; Urine Blood Negative (Negative); Urine Ketones Trace mg/dL (Negative); Urine Protein Negative (Neg-Trace)
[2024-02-22 16:20] LABS: Bacteria Urine None Seen (None Seen); Hyaline Casts Urine 0-2 /LPF (0-2); RBC Urine 0-2 /HPF (0-2); UACC Culture Trigger YES
[2024-02-22 16:21] LABS: MANUAL DIFF FLAG NO
[2024-02-22 16:25] LABS: Basophils Absolute Auto 0.1 X10*3/uL (0.0-0.2); Basophils Percent Auto 0.9 % (0-2); Eosinophils Absolute Auto 0.2 X10*3/uL (0.0-0.4); Eosinophils Percent Auto 2.9 % (0-4); Hematocrit 40.3 % (37.0-47.0); Imm Gran Abs Auto 0.03 X10*3/uL (0.00-0.03); Imm Gran Pct Auto 0.4 % (0.0-0.4); Lymphocytes Absolute Auto 1.5 X10*3/uL (1.2-4.9); Lymphocytes Percent Auto 18.9 % (20-40); Mean Corpuscular HGB Conc 32.3 g/dl (31.0-35.0); Mean Corpuscular Hemoglobin 28.9 pg (27.0-33.0); Mean Corpuscular Volume 89.6 fL (80.0-98.0); Mean Platelet Volume 10.5 fL (9.4-12.3); Monocytes Absolute Auto 0.5 X10*3/uL (0.1-1.2); Monocytes Percent Auto 6.2 % (2-11); Neutrophils Absolute Auto 5.5 x10*3/uL (2.0-8.3); Neutrophils Percent Auto 70.7 % (45-73); Platelet Count 284 X10*3/uL (160-400); Red Cell Distribution Width 13.6 % (11.0-16.0); White Blood Count 7.7 X10*3/uL (4.8-10.8)
[2024-02-22 16:40] LABS: Alanine Aminotransferase 18 U/L (0-31); Albumin Level 4.2 g/dL (3.5-5.0); Alkaline Phosphatase 114 U/L (39-117); Anion Gap 13 (12-20); Aspartate Amino Transferase 15 U/L (5-31); Bilirubin Total 0.7 mg/dL (0.0-1.0); Blood Urea Nitrogen 22 mg/dL (9-16); Calcium 10.3 mg/dL (8.4-10.2); Carbon Dioxide 26 mmol/L (22-29); Chloride 104 mmol/L (96-108); Estimated Glomerular Filt Rate > 60; Glucose Random 113 mg/dL (60-115); Potassium 4.1 mmol/L (3.3-5.1); Sodium 139 mmol/L (135-145); Total Protein 7.5 g/dL (6.5-8.0)
== END 2024-02-22 14:43 | disposition home or self-care (01) ==
LOC: HO.HMGCLDS 14:42
PROVIDERS: PCP Nurse Practitioner Family; Visit Provider Nurse Practitioner Family
DX: R91.1 Solitary pulmonary nodule (principal); C34.90 Malignant neoplasm of unspecified part of unspecified bronchus or lung; R82.90 Unspecified abnormal findings in urine
CPT/HCPCS: 36415; 80053; 81001; 85025; 87086

== ENCOUNTER 2024-04-13 13:55 | Outpatient (AMB) | payer MEDICARE, SELFPAY ==
[2024-04-13 13:58] VITALS: BP 112/74; PULSE 90; O2SAT 100; BMI 23.8
--- NOTE | 2024-04-13 13:58 | AM.OFFWIN_ITS ---
Intake Vital Signs 04/13/24 13:58 Height 5 ft 1 in Weight 126 lb BMI 23.8 BP 112/74 Blood Pressure Location Lt brachial Position Sitting Pulse 90 Pulse Source Pulse Oximeter Pulse Oximetry (%) 100 Oxygen Delivery Method Room Air Intake Visit Reasons: EP UTI test Intake Note: Patient here for burning when urinating whcih has been present for about 3 days. Patient Tobacco Use Status: Former Tobacco user Allergies erythromycin base Adverse Reaction (Intermediate, Verified 04/13/24 14:02) Nausea and Vomiting Do you need a note to return to daycare/school/sports/work: No HPI HPI Comments History of Present Illness Details 73 y/o female patient who presents to [facility] walk [facility] clinic with c/o Urinary symptoms. Reports frequency and lower abdominal discomfort for few days now. She is T2DM and currently takes Metformin with A1C of 7.4% Rapid Urinalysis Negative for Leuco, NIT and KET but positive Glucose 100 mg/dl. She does report occasional vaginal itching and discharge, but denies any symptoms today. [facility] Medical History Bilateral cataracts Palpitations Anxiety Asthma Diabetes Dyslipidemia Surgical History H/O excision of epidermal inclusion cyst (06/15/22) History of partial mastectomy of left breast [place] teeth removed History of 3 sections Family History Maternal Grandmother Cancer of unknown origin Paternal Aunt Breast cancer Maternal Aunt Colon cancer Social History Housing: House Alcohol intake: never Patient Tobacco Use Status: Former Tobacco user Years Smoked: 1 year e-Cigarette/Vaping Use: Never Used Second Hand Smoke Exposure: Yes service: No Current occupational status: retired Current occupational exposures/hazards: No Cognitive needs: No Hearing needs: No Vision needs: Yes Review of Systems Const All systems reviewed & are unremarkable except as noted in HPI and below Physical Exam Vital Signs: Last Vital Signs Pulse 90 04/13/24 13:58 BP 112/74 04/13/24 13:58 Pulse Ox 100 04/13/24 13:58 Oxygen Delivery Method Room Air 04/13/24 13:58 BMI result Body Mass Index 23.8 Const General: cooperative and no acute distress Nutritional Appearance: overweight Orientation/consciousness: patient oriented x3 General: Yes no CVA tenderness Back/Spine/Pelvis Other: Declined Pelvic Examination. Back: no CVA tenderness Skin General skin exam: no rashes or lesions noted Neuro General: patient oriented x3, gait normal and moves all extremities Psych Speech and movement: Normal speech and movement present Results AMB Urinalysis, Automated UA Leukoctes 0 Mayelin/uL Last Edit by Eddi Howe CCM on 04/13/24 14:08 UA Nitrite Negative Last Edit by Eddi Howe [facility] on 04/13/24 14:08 UA Urobilinogen 0.2 mg/dL Last Edit by Eddi Howe [facility] on 04/13/24 14:08 UA Protein 0 mg/dL Last Edit by Eddi Howe [facility] on 04/13/24 14:08 UA pH 5.5 Last Edit by Eddi Howe [facility] on 04/13/24 14:08 UA Blood 10 Tommy/uL Last Edit by Edid Howe [facility] on 04/13/24 14:08 UA Specific Mcdonald 1.025 Last Edit by Eddi Howe [facility] on 04/13/24 14:08 UA Ketone Negative Last Edit by Eddi Howe [facility] on 04/13/24 14:08 UA Bilirubin 0 mg/dL Last Edit by Eddi Howe [facility] on 04/13/24 14:08 UA Glucose 100 mg/dL Last Edit by Eddi Howe [facility] on 04/13/24 14:08 Assessment & Plan Assessment & Plan (1) Urinary tract infection symptoms: Code(s): R39.9 - Unspecified symptoms and signs involving the genitourinary system Plan: Rapid Urinalysis Positive for Glucose. Advised to RTC if symptom worse. Orders: Orders AMB Urinalysis Automated Today Z13.9 - Encounter for screening, unspecified Coding Level of Care Code Est Pt Level 3 (85469) Diagnoses Urinary tract infection symptoms R39.9 Time Spent (min) 15
== END 2024-04-13 14:39 | disposition home or self-care (01) ==
PROVIDERS: PCP Nurse Practitioner Family; Visit Provider Nurse Practitioner Family
DX: Z13.9 Encounter for screening, unspecified (principal); R39.9 Unspecified symptoms and signs involving the genitourinary system

== ENCOUNTER → 2024-04-13 13:55 | Outpatient (BNVA) | payer MEDICARE, SELFPAY | PROVIDERS: PCP Nurse Practitioner Family | DX: R39.9 Unspecified symptoms and signs involving the genitourinary system (principal) | CPT/HCPCS: 81003; 99212 ==

== ENCOUNTER 2024-04-19 09:08 | Outpatient (REF) | payer MEDICARE, SELFPAY ==
--- NOTE | ~2024-04-19 | CT_ITS ---
EXAMINATION: CT ABDOMEN WITHOUT CONTRAST CLINICAL INFORMATION: Other specified disorders of adrenal gland. CT scan of the chest dated 02/15/2024 had shown a right adrenal nodule. COMPARISON: Abdominal ultrasound dated 04/07/2022. CT scan of the chest dated 02/15/2024. TECHNIQUE: Contiguous axial thin section helical images of the abdomen were performed without contrast. The data set was reformatted in the coronal and sagittal planes and reviewed on an independent workstation. This CT examination was performed using dose optimization techniques as appropriate, variously including the following: *Automated exposure control *Adjustment of mA and/or kV according to patient size (this includes techniques or standardized protocols for targeted exams where dose is matched to indication/reason for exam; i.e. extremities or head) *Use of iterative reconstruction technique DLP: 188.8 mGy-cm FINDINGS: LUNG BASES: Compared to the prior CT scan of the chest, there is progressive mild tubular bronchiectasis and airway thickening is seen throughout the included right lower lobe with surrounding ill-defined predominantly groundglass opacity tree-in-bud type nodules. Several of the airways demonstrate varying degrees of filling defects, consistent with mucous plugging. No associated dense consolidation or effusion is seen and findings are suspicious for pneumonia. In addition, as noted previously, there is a 9 mm left lower lobe solid noncalcified spiculated nodule (series 11, image 3), unchanged, suspicious for a metastatic deposit. There is also a solid noncalcified pleural-based 5 mm nodule in the anterior basal right lower lobe (series 11, image 1), near the major fissure, consistent with a pleural-based lymph node, unchanged. The other pulmonary masses seen on prior CT scan of the chest are beyond the lhtyy-pz-snhw of this exam. LIVER, GALLBLADDER, AND BILIARY TREE: The liver is normal in size, shape, and attenuation. No focal hepatic lesion on noncontrast imaging. No biliary ductal dilatation is present. A phrygian cap at the gallbladder fundus is noted and there is suspicion of multiple subtle noncalcified gallstones within the gallbladder. The gallbladder is otherwise unremarkable with no evidence of gallbladder wall thickening or obvious pericholecystic inflammatory changes. PANCREAS: Diffusely atrophic. With a few punctate calcifications in the pancreatic body are likely vascular in etiology. No pancreatic ductal dilatation or focal mass on noncontrast exam. No peripancreatic fat stranding or edema. SPLEEN: There are curvilinear areas of fat density seen within the central spleen, presumably representing fat invagination along the vessels. Spleen is otherwise unremarkable. ADRENAL GLANDS: Left adrenal gland normal. In the right adrenal gland, there is a 1.6 x 1.2 x 2 cm low-attenuation mass with mean attenuation values of 2 Hounsfield units, consistent with a lipid rich adenoma. KIDNEYS AND URETERS: The kidneys are normal in size, shape, and attenuation. No hydronephrosis, hydroureter, or calculi seen. No perinephric stranding. GASTROINTESTINAL TRACT: The small and large bowel are decompressed. There are a few scattered colonic diverticula. No acute diverticulitis. Small bowel loops are unremarkable. The appendix is not included in the trynf-xn-usgv of the exam. ABDOMINAL WALL: There is a tiny fat-containing umbilical hernia partially included. LYMPH NODES, VASCULAR: Abdominal aorta normal in caliber with minimal atherosclerotic calcification seen. No periaortic collection. No abdominal adenopathy. No free fluid. OSSEOUS STRUCTURES: Multilevel mild vertebral spondylosis seen throughout the lumbar spine. Mild facet arthropathy seen at the lumbosacral junction. CT/CT abdomen wo IV con IMPRESSION: 1. Compared to the prior CT scan of the chest, there is progressive mild tubular bronchiectasis and airway thickening seen throughout the included right lower lobe with surrounding ill-defined predominantly groundglass opacity tree-in-bud type nodules, suspicious for pneumonia. 2. No significant change in right adrenal mass, consistent with a lipid rich adenoma. 3. No significant change in size of the 9 mm left lower lobe solid noncalcified spiculated nodule is seen, suspicious for a metastatic deposit. 4. No significant change in pleural-based 5 mm nodule in the anterior basal right lower lobe, consistent with a pleural-based lymph node. 5. Cholelithiasis with no evidence of acute cholecystitis. 6. Colonic diverticulosis. 7. Tiny fat-containing umbilical hernia. Electronically signed by: Opal Dominique MD 04/20/2024 11:10 AM EDT
== END 2024-04-19 09:09 | disposition home or self-care (01) ==
LOC: HO.CT 09:08
PROVIDERS: PCP Nurse Practitioner Family; Visit Provider Nurse Practitioner Family
DX: E27.8 Other specified disorders of adrenal gland (principal)
CPT/HCPCS: 74150

== ENCOUNTER 2024-05-11 12:47 | Outpatient (REF) | payer MEDICARE, SELFPAY ==
--- NOTE | ~2024-05-11 | XR_ITS ---
EXAMINATION: XR CHEST CLINICAL INFORMATION: R93.89 - Abnormal findings on diagnostic imaging of other specified body... COMPARISON: X-ray dated February 11, 2024 TECHNIQUE: 2 views of the chest were obtained. FINDINGS: Submitted for interpretation on 05/31/2024. Round opacity, right lung. Pulmonary reticular pattern. No pleural effusion. No pneumothorax. Cardiomediastinal silhouette is normal in size. Calcified plaque aortic arch. Multilevel thoracic stenosis. Osteopenia versus osteoporosis. XR/XR chest 2V IMPRESSION: Concerning metastatic disease. Electronically signed by: Kiet Comer MD 05/31/2024 01:25 PM EST
== END 2024-05-11 12:48 | disposition home or self-care (01) ==
LOC: HO.HMGCX 12:47
PROVIDERS: PCP Nurse Practitioner Family; Visit Provider Nurse Practitioner Family
DX: R93.89 Abnormal findings on diagnostic imaging of other specified body structures (principal)
CPT/HCPCS: 71046

== ENCOUNTER → 2024-05-11 12:53 | Outpatient (BNV) | payer MEDICARE, SELFPAY | PROVIDERS: PCP Nurse Practitioner Family; Visit Provider Radiology Diagnostic Radiology | DX: R91.8 Other nonspecific abnormal finding of lung field (principal) | CPT/HCPCS: 71046 ==

== ENCOUNTER 2024-11-20 08:37 | Outpatient (REF) | payer MEDICARE, SELFPAY ==
[2024-11-20 10:33] LABS: Estimated Average Glucose 120 mg/dL; Hemoglobin A1C 140.1263 umol/L; Hemoglobin A1c % 5.8 % (<6.0); Total Hemoglobin (HGBA1C) 3538.4362 umol/L
[2024-11-20 11:06] LABS: Alanine Aminotransferase 19 U/L (0-31); Albumin Level 4.1 g/dL (3.5-5.0); Anion Gap 13 (12-20); Aspartate Amino Transferase 22 U/L (5-31); Bilirubin Total 0.9 mg/dL (0.0-1.0); Blood Urea Nitrogen 15 mg/dL (9-16); Calcium 9.5 mg/dL (8.4-10.2); Carbon Dioxide 23 mmol/L (22-29); Chloride 109 mmol/L (96-108); Estimated Glomerular Filt Rate > 60; Glucose Random 133 mg/dL (60-115); Potassium 4.4 mmol/L (3.3-5.1); Sodium 141 mmol/L (135-145); Total Protein 6.8 g/dL (6.5-8.0)
[2024-11-20 12:52] LABS: Alkaline Phosphatase 118 U/L (39-117)
== END 2024-11-20 08:38 | disposition home or self-care (01) ==
LOC: HO.HMGCLDS 08:37
PROVIDERS: PCP Nurse Practitioner Family; Visit Provider Nurse Practitioner Family
DX: E11.9 Type 2 diabetes mellitus without complications (principal)
CPT/HCPCS: 36415; 80053; 83036

== ENCOUNTER 2024-11-21 12:30 | Outpatient (REF) | payer MEDICARE, SELFPAY ==
--- OUTSIDE RECORDS SUMMARY | 2024-11-21 14:11 | XMS_ITS ---
Author Name [facility] Organization Unknown Results Test Name/Text Value Interpretation Date Range Source Sodium SerPl-sCnc 138mmol/L [id number] 136 - 144 [facility] ALP SerPl-cCnc 127U/L Above high normal 260758994605 9 - 122 [facility] Anion Gap3 SerPl-sCnc 12 634638502959 7 - 17 [facility] BKR CREATININE DELTA 0.05 [id number] - [facility] ALT SerPl w/o P-5'-P-cCnc 18U/L 595109034277 10 - 35 [facility] AST/ALT SerPl-cRto 1.1 364636152027 - [facility] Albumin SerPl BCG-mCnc 4.1g/dL 777135379334 3.6 - 5.1 [facility] Potassium SerPl-sCnc 4.7mmol/L 550571331696 3.3 - 5.3 [facility] Chloride SerPl-sCnc 102mmol/L 458345150632 98 - 10 7 [facility] Albumin/Glob SerPl 1.6 669184335739 1 - 2.2 [facility] Globulin Plas-mCnc 2.5g/dL 048242995785 2 - 3.9 [facility] Creat SerPl-mCnc 0.73mg/dL 439363594588 0.4 - 1.3 [facility] Glucose SerPl-mCnc 140mg/dL Above high normal 909553168210 70 - 100 [facility] GFR/BSA.pred SerPlBld AUH-KLC-VmQLxc 60mL/min/1.73m2 406389556781 - [facility] BUN SerPl-mCnc 20mg/dL 628141375706 8 - 23 [facility] Calcium SerPl-mCnc 9.3mg/dL 342732509855 8.8 - 10 .2 [facility] HCO3 SerPl-sCnc 24mmol/L 737112742153 20 - 30 [facility] Prot SerPl-mCnc 6.6g/dL 006547557199 5.9 - 8.3 [facility] BUN/Creat SerPl 27.4 Above high normal 917372633313 8 - 23 [facility] AST SerPl w P-5'-P-cCnc 19U/L 732208486044 10 - 35 [facility] Bilirub SerPl-mCnc 0.7mg/dL 125352779536 - [facility] RDW RBC Auto-Rto 14% 870404293137 11 - 15 [facility] Hgb Bld-mCnc 13.1g/dL 146230736436 11.7 - 15.5 [facility] Neutrophils # Bld Auto 4.87o0739/uL 555843197506 2 - 7.6 [facility] Neutrophils/leuk NFr Bld Auto 72.4% Above high normal 459673759524 39 - 72 [facility] MCV RBC Auto 96.9fL 477873459542 80 - 100 [facility] Eosinophil/leuk NFr Bld Auto 2.8% 548285410177 0 - 5 [facility] Eosinophil # Bld Auto 0.49l2395/uL 695689964479 0 - 1 [facility] MCH RBC Qn Auto 31.6pg 675298301747 27 - 33 [facility] Monocytes # Bld Auto 0.23m0587/uL 792974551420 0 - 1 [facility] Imm Granulocytes # Bld Auto 0.07n8403/uL 433348481568 0 - 0.3 [facility] Lymphocytes/leuk NFr Bld Auto 18.4% 190225660648 17 - 50 [facility] nRBC # Bld Auto 5l8681/uL 785535658730 0 - 1 [facility] MCHC RBC Auto-mCnc 32.7g/dL 722297222364 31 - 36 [facility] RBC # Bld Auto 4.14M/uL 349098381322 4 - 6 [facility] Platelet # Bld Auto 135y6507/uL 022168420718 150 - 420 [facility] Imm Granulocytes/leuk NFr Bld Auto 0.3% 135215608838 0 - 1 [facility] PMV Bld Auto 10.9fL 237634730119 8 - 12 [facility] Basophils # Bld Auto 0.85k6984/uL 109409133601 0 - 1 [facility] Monocytes/leuk NFr Bld Auto 5.8% 765768320143 4 - 12 [facility] Hct VFr Bld Auto 40.1% 939134949062 35 - 45 [facility] nRBC/100 WBC Bld Auto-Rto 0% 0 - 1 [facility] Lymphocytes # Bld Auto 1.28a6724/uL 103681635627 0.6 - 3.7 [facility] Basophils/leuk NFr Bld Auto 0.3% 415183123994 0 - 1.4 [facility] WBC # Bld Auto 6.7z6719/uL 440019937296 4 - 11 [facility] HCV Ab SerPl Ql IA Negative Normal 765448446071 - [facility] HBV surface Ag SerPl Ql IA Negative Normal 788892633268 - [facility] HBV core IgG+IgM SerPl Ql IA Negative Normal 199227108456 - [facility] HBV surface Ab SerPl IA-aCnc 8mIU/mL Normal 871469730494 - [facility] PMV Bld Auto 10.8fL Normal 176964930746 8 - 12 [facility] WBC # Bld Auto 5.7n9555/uL Normal 441630481091 4 - 11 [facility] Monocytes/leuk NFr Bld Auto 5.2% Normal 322417223698 4 - 12 [facility] Basophils/leuk NFr Bld Auto 0.8% Normal 516756889676 0 - 1.4 [facility] nRBC/100 WBC Bld Auto-Rto 0% Normal 249950014454 0 - 1 [facility] Eosinophil # Bld Auto 0.60n9429/uL Normal 022610404313 0 - 1 [facility] Imm Granulocytes # Bld Auto 0.73z4297/uL Normal 167842932177 0 - 0.3 [facility] Imm Granulocytes/leuk NFr Bld Auto 0.2% Normal 299522785338 0 - 1 [facility] Monocytes # Bld Auto 0.62t2771/uL Normal 872322910548 0 - 1 [facility] Hgb Bld-mCnc 12.9g/dL Normal 652427895103 11.7 - 15.5 [facility] MCV RBC Auto 98.7fL Normal 911546957020 80 - 100 [facility] RDW RBC Auto-Rto 13.2% Normal 943601217988 11 - 15 [facility] Neutrophils/leuk NFr Bld Auto 69.1% Normal 075761074682 39 - 72 [facility] Platelet # Bld Auto 411q1323/uL Normal 784383387428 150 - 420 [facility] Hct VFr Bld Auto 39.3% Normal 314244392587 35 - 45 [facility] Eosinophil/leuk NFr Bld Auto 3.6% Normal 983908998999 0 - 5 [facility] Lymphocytes/leuk NFr Bld Auto 21.1% Normal 913439374521 17 - 50 [facility] MCH RBC Qn Auto 32.4pg Normal 156168459985 27 - 33 [facility] Lymphocytes # Bld Auto 1.8k1356/uL Normal 679711761070 0.6 - 3.7 [facility] MCHC RBC Auto-mCnc 32.8g/dL Normal 413684017631 31 - 36 [facility] nRBC # Bld Auto 3o1408/uL Normal 708124115460 0 - 1 [facility] Neutrophils # Bld Auto 3.2b8978/uL Normal 286258002994 2 - 7.6 [facility] Basophils # Bld Auto 0.30s8257/uL Normal 294768207339 0 - 1 [facility] RBC # Bld Auto 3.98M/uL Below low normal 245677948203 4 - 6 [facility] Calcium SerPl-mCnc 9.5mg/dL Normal 019500675346 8.8 - 10 .2 [facility] Albumin SerPl BCG-mCnc 4.3g/dL Normal 136391597835 3.6 - 5.1 [facility] Glucose SerPl-mCnc 140mg/dL Above high normal 446944447793 70 - 100 [facility] Albumin/Glob SerPl 1.8 Normal 949496387997 1 - 2.2 [facility] Creat SerPl-mCnc 0.68mg/dL Normal 997673251783 0.4 - 1.3 [facility] Prot SerPl-mCnc 6.7g/dL Normal 532411376048 5.9 - 8.3 [facility] ALT SerPl w/o P-5'-P-cCnc 18U/L Normal 854761201619 10 - 35 [facility] AST SerPl w P-5'-P-cCnc 29U/L Normal 317436422326 10 - 35 [facility] Anion Gap3 SerPl-sCnc 13 Normal 472343373747 7 - 17 [facility] Globulin Plas-mCnc 2.4g/dL Normal 978284410882 2 - 3.9 [facility] Sodium SerPl-sCnc 142mmol/L Normal 530933909847 136 - 144 [facility] BKR CREATININE [place] -0.03 Normal 235547329615 - [facility] ALP SerPl-cCnc 101U/L Normal 987358815825 9 - 122 [facility] Potassium SerPl-sCnc 4.6mmol/L Normal 385969553017 3.3 - 5.3 [facility] Bilirub SerPl-mCnc 0.8mg/dL Normal 064721645334 - [facility] Chloride SerPl-sCnc 105mmol/L Normal 560936066281 98 - 10 7 [facility] BUN SerPl-mCnc 19mg/dL Normal 960023752962 8 - 23 [facility] AST/ALT SerPl-cRto 1.6 Normal 477708980119 - [facility] HCO3 SerPl-sCnc 24mmol/L Normal 926740507604 20 - 30 [facility] GFR/BSA.pred SerPlBld LYT-JYM-GdMExz 60mL/min/1.73m2 Normal [id number] - [facility] BUN/Creat SerPl 27.9 Above high normal 610199154553 8 - 23 [facility] Potassium SerPl-sCnc 4.3mmol/L Normal 013342095727 3.3 - 5.3 [facility] Creat SerPl-mCnc 0.71mg/dL Normal 639154794329 0.4 - 1.3 [facility] Anion Gap3 SerPl-sCnc 9 Normal 019302117198 7 - 17 [facility] HCO3 SerPl-sCnc 26mmol/L Normal 407418495477 20 - 30 [facility] Sodium SerPl-sCnc 138mmol/L Normal 040843883026 136 - 144 [facility] Calcium SerPl-mCnc 8.1mg/dL Below low normal 292013985087 8 .8 - 10.2 [facility] GFR/BSA.pred SerPlBld PTY-BFG-VmIUbo 60mL/min/1.73m2 Normal 898793617724 - [facility] BUN/Creat SerPl 12.7 Normal 951749611803 8 - 23 [facility] Chloride SerPl-sCnc 103mmol/L Normal 357044688995 98 - 10 7 [facility] Glucose SerPl-mCnc 100mg/dL Normal 206846261986 70 - 100 [facility] BKR CREATININE [place] 0.08 Normal [id number] - [facility] BUN SerPl-mCnc 9mg/dL Normal 768305348716 8 - 23 [facility] Phosphate SerPl-mCnc 3.7mg/dL Normal 141824607095 2.2 - 4.5 [facility] Magnesium SerPl-mCnc 2mg/dL Normal 081167824594 1.7 - 2.4 [facility] Neutrophils # Bld Auto 2.01b2201/uL Normal 447727583701 2 - 7.6 [facility] Imm Granulocytes # Bld Auto 0.00y7759/uL Normal 672839581467 0 - 0.3 [facility] Eosinophil/leuk NFr Bld Auto 4% Normal 417338902741 0 - 5 [facility] Hct VFr Bld Auto 32.6% Below low normal 941056104035 35 - 45 [facility] Platelet # Bld Auto 746l0063/uL Normal 984836265190 150 - 420 [facility] RDW RBC Auto-Rto 14.3% Normal 590982869458 11 - 15 [facility] Lymphocytes # Bld Auto 0.85t8879/uL Normal 159778592826 0.6 - 3.7 [facility] MCV RBC Auto 105.5fL Above high normal 710559091409 80 - 1 00 [facility] Eosinophil # Bld Auto 0.20p9604/uL Normal 549928932403 0 - 1 [facility] MCH RBC Qn Auto 33.7pg Above high normal 751493095446 27 - 33 [facility] Monocytes/leuk NFr Bld Auto 11% Normal 478548304199 4 - 12 [facility] Monocytes # Bld Auto 0.9u9320/uL Normal 250609746499 0 - 1 [facility] nRBC/100 WBC Bld Auto-Rto 0% Normal 499721886729 0 - 1 [facility] Lymphocytes/leuk NFr Bld Auto 19.2% Normal 609238691195 17 - 50 [facility] Basophils # Bld Auto 0.86o6805/uL Normal 804033529900 0 - 1 [facility] Neutrophils/leuk NFr Bld Auto 64.7% Normal 146156105464 39 - 72 [facility] Basophils/leuk NFr Bld Auto 0.4% Normal 818126090179 0 - 1.4 [facility] nRBC # Bld Auto 3x7826/uL Normal 909256813496 0 - 1 [facility] MCHC RBC Auto-mCnc 31.9g/dL Normal 226879411435 31 - 36 [facility] WBC # Bld Auto 4.3s8832/uL Normal 259214712298 4 - 11 [facility] Imm Granulocytes/leuk NFr Bld Auto 0.7% Normal [id number] 0 - 1 [facility] RBC # Bld Auto 3.09M/uL Below low normal 345162917043 4 - 6 [facility] Hgb Bld-mCnc 10.4g/dL Below low normal 500440317743 11.7 - 15.5 [facility] PMV Bld Auto 10.3fL Normal 776316446819 8 - 12 [facility] MCH RBC Qn Auto 34.9pg Above high normal 774904893314 27 - 33 [facility] PMV Bld Auto 10.7fL Normal 991162792691 8 - 12 [facility] nRBC/100 WBC Bld Auto-Rto 0% Normal [id number] 0 - 1 [facility] Eosinophil/leuk NFr Bld Auto 1% Normal 088694109923 0 - 5 [facility] Neutrophils/leuk NFr Bld Auto 84.9% Above high normal 426536136750 39 - 72 [facility] MCHC RBC Auto-mCnc 33.2g/dL Normal 276061217372 31 - 36 [facility] Platelet # Bld Auto 148i0720/uL Normal 863413292531 150 - 420 [facility] Hgb Bld-mCnc 10.4g/dL Below low normal 413741094545 11.7 - 15.5 [facility] Eosinophil # Bld Auto 0.17y4799/uL Normal 436749057711 0 - 1 [facility] WBC # Bld Auto 7.6h4856/uL Normal 214507121490 4 - 11 [facility] Granulocytes/leuk NFr Bld Auto 0.8% Normal 094911059934 0 - 1 [facility] Monocytes # Bld Auto 0.59j4676/uL Normal 750980424842 0 - 1 [facility] Monocytes/leuk NFr Bld Auto 6% Normal 673227068371 4 - 12 [facility] Neutrophils # Bld Auto 6.83d8258/uL Normal 956453466530 2 - 7.6 [facility] RBC # Bld Auto 2.98M/uL Below low normal 685872100957 4 - 6 [facility] Imm Granulocytes # Bld Auto 0.42v4894/uL Normal 442489855371 0 - 0.3 [facility] MCV RBC Auto 105fL Above high normal 584875899625 80 - 1 00 [facility] RDW RBC Auto-Rto 14.4% Normal 135984635211 11 - 15 [facility] Basophils/leuk NFr Bld Auto 0.4% Normal 537543006564 0 - 1.4 [facility] Hct VFr Bld Auto 31.3% Below low normal 108484988295 35 - 45 [facility] Lymphocytes # Bld Auto 0.80w4780/uL Below low normal 850787683853 0.6 - 3.7 [facility] Basophils # Bld Auto 0.91o5835/uL Normal 754077962510 0 - 1 [facility] nRBC # Bld Auto 7m0808/uL Normal 485199596415 0 - 1 [facility] Lymphocytes/leuk NFr Bld Auto 6.9% Below low normal 655441105489 17 - 50 [facility] Magnesium SerPl-mCnc 2mg/dL Normal 470959677406 1.7 - 2.4 [facility] Glucose SerPl-mCnc 139mg/dL Above high normal 827916300798 70 - 100 [facility] Sodium SerPl-sCnc 136mmol/L Normal 541601788179 136 - 144 [facility] Chloride SerPl-sCnc 100mmol/L Normal 486142593708 98 - 10 7 [facility] Anion Gap3 SerPl-sCnc 10 Normal 589481666352 7 - 17 [facility] GFR/BSA.pred SerPlBld SRJ-UQQ-GgTVin 60mL/min/1.73m2 Normal 942054482667 - [facility] HCO3 SerPl-sCnc 26mmol/L Normal [id number] 20 - 30 [facility] Potassium SerPl-sCnc 3.1mmol/L Below low normal 733955157064 3.3 - 5.3 [facility] BUN SerPl-mCnc 6mg/dL Below low normal 367794908695 8 - 2 3 [facility] BUN/Creat SerPl 9.5 Normal 687875662765 8 - 23 [facility] Creat SerPl-mCnc 0.63mg/dL Normal 921707199528 0.4 - 1.3 [facility] Calcium SerPl-mCnc 7.8mg/dL Below low normal 724524641406 8 .8 - 10.2 [facility] BKR CREATININE DELTA 0.04 Normal 254281697827 - [facility] Phosphate SerPl-mCnc 2.9mg/dL Normal 812608983342 2.2 - 4.5 [facility] Phosphate SerPl-mCnc 2.6mg/dL Normal [id number] 2.2 - 4.5 [facility] GFR/BSA.pred SerPlBld YWK-BMO-YyGGvp 60mL/min/1.73m2 Normal 434337854164 - [facility] Calcium SerPl-mCnc 8.3mg/dL Below low normal 127814444078 8 .8 - 10.2 [facility] HCO3 SerPl-sCnc 25mmol/L Normal 337538354325 20 - 30 [facility] BUN/Creat SerPl 3.4 Below low normal 712066968696 8 - 23 [facility] Potassium SerPl-sCnc 3.8mmol/L Normal 808775269497 3.3 - 5.3 [facility] BKR CREATININE DELTA 0.04 Normal [id number] - [facility] Sodium SerPl-sCnc 137mmol/L Normal 666733078165 136 - 144 [facility] Glucose SerPl-mCnc 134mg/dL Above high normal 563222732876 70 - 100 [facility] BUN SerPl-mCnc 2mg/dL Below low normal 426850329954 8 - 2 3 [facility] Chloride SerPl-sCnc 102mmol/L Normal 730393665201 98 - 10 7 [facility] Creat SerPl-mCnc 0.59mg/dL Normal 376680961488 0.4 - 1.3 [facility] Anion Gap3 SerPl-sCnc 10 Normal 810657178201 7 - 17 [facility] Magnesium SerPl-mCnc 1.4mg/dL Below low normal 827799136441 1.7 - 2.4 [facility] nRBC # Bld Auto 8o6057/uL Normal 761057015504 0 - 1 [facility] Basophils # Bld Auto 0.41k6753/uL Normal 907900957489 0 - 1 [facility] Neutrophils # Bld Auto 18.59r3899/uL Above high normal 193607187818 2 - 7.6 [facility] RDW RBC Auto-Rto 14.3% Normal 391007030781 11 - 15 [facility] Hct VFr Bld Auto 34.5% Below low normal 330947908275 35 - 45 [facility] MCHC RBC Auto-mCnc 32.8g/dL Normal 008524220806 31 - 36 [facility] MCH RBC Qn Auto 34.6pg Above high normal 307318258954 27 - 33 [facility] Lymphocytes # Bld Auto 0.81k1545/uL Below low normal 318864011030 0.6 - 3.7 [facility] Monocytes/leuk NFr Bld Auto 2.8% Below low normal 851487367613 4 - 12 [facility] Monocytes # Bld Auto 0.41w7259/uL Normal 677766394218 0 - 1 [facility] Basophils/leuk NFr Bld Auto 0.2% Normal 282902581829 0 - 1.4 [facility] RBC # Bld Auto 3.27M/uL Below low normal 893940548419 4 - 6 [facility] WBC # Bld Auto 19.5k1520/uL Above high normal 852431483444 4 - 11 [facility] Eosinophil # Bld Auto 0.51i3693/uL Normal 344703004573 0 - 1 [facility] Platelet # Bld Auto 265k4639/uL Normal 487913434077 150 - 420 [facility] Hgb Bld-mCnc 11.3g/dL Below low normal 102386167770 11.7 - 15.5 [facility] Imm Granulocytes # Bld Auto 0.48z3865/uL Normal 857437592777 0 - 0.3 [facility] Eosinophil/leuk NFr Bld Auto 0.2% Normal 041158560536 0 - 5 [facility] nRBC/100 WBC Bld Auto-Rto 0% Normal 151856528355 0 - 1 [facility] PMV Bld Auto 10.3fL Normal 452394389513 8 - 12 [facility] Neutrophils/leuk NFr Bld Auto 93.5% Above high normal 857833084643 39 - 72 [facility] MCV RBC Auto 105.5fL Above high normal 523287211471 80 - 1 00 [facility] Granulocytes/leuk NFr Bld Auto 1.1% Above high normal 469126488193 0 - 1 [facility] Lymphocytes/leuk NFr Bld Auto 2.2% Below low normal 952803350986 17 - 50 [facility] nRBC/100 WBC Bld Auto-Rto 0% Normal 114904310327 0 - 1 [facility] Hct VFr Bld Auto 33.3% Below low normal 539111584431 35 - 45 [facility] MCH RBC Qn Auto 35.1pg Above high normal 781460608917 27 - 33 [facility] RDW RBC Auto-Rto 14.4% Normal 501932054559 11 - 15 [facility] MCV RBC Auto 105.4fL Above high normal 449051470589 80 - 1 00 [facility] MCHC RBC Auto-mCnc 33.3g/dL Normal 512276982563 31 - 36 [facility] nRBC # Bld Auto 0g6516/uL Normal 842918630347 0 - 1 [facility] Hgb Bld-mCnc 11.1g/dL Below low normal 305198264756 11.7 - 15.5 [facility] RBC # Bld Auto 3.16M/uL Below low normal 227915863143 4 - 6 [facility] PMV Bld Auto 11.1fL Normal 651077174008 8 - 12 [facility] WBC # Bld Auto 7.4k5282/uL Normal 086061898544 4 - 11 [facility] Platelet # Bld Auto 054m8847/uL Normal 421021065030 150 - 420 [facility] Eosinophil # Bld Manual 0.40e3683/uL Normal 336144045341 0 - 1 [facility] Monocytes/leuk NFr Bld Manual 6% Normal 026455566746 4 - 12 [facility] Myelocytes/leuk NFr Bld 1% Above high normal 442973690519 0 - 0 [facility] Normochromic Bld Ql Smear Normal Normal 564209752071 [facility] Lymphocytes/leuk NFr Bld Manual 14% Below low normal 389433916345 17 - 50 [facility] Basophils/leuk NFr Bld 0% Normal 183250260736 0 - 1.4 [facility] Neuts Band/leuk NFr Bld Manual 1% Normal 273463211694 0 - 10 [facility] Lymphocytes # Bld Manual 1.95q3056/uL Normal 996164843755 0.6 - 3.7 [facility] Neuts Seg/leuk NFr Bld Manual 73% Above high normal 573081202495 39 - 72 [facility] Neutrophils # Bld Manual 5.33s2881/uL Normal 757480710780 2 - 7.6 [facility] Basophils # Bld 2r8835/uL Normal 944965064693 0 - 1 [facility] Monocytes # Bld Manual 0.19j6749/uL Normal 309223211082 0 - 1 [facility] Eosinophil/leuk NFr Bld Manual 5% Normal 456071251629 0 - 5 [facility] Sodium SerPl-sCnc 138mmol/L Normal 880133666836 136 - 144 [facility] Chloride SerPl-sCnc 103mmol/L Normal 837604467245 98 - 10 7 [facility] GFR/BSA.pred SerPlBld YYV-FKA-CuNUhf 60mL/min/1.73m2 Normal 723664846630 - [facility] Calcium SerPl-mCnc 8.4mg/dL Below low normal 232417124287 8 .8 - 10.2 [facility] BUN/Creat SerPl 5.5 Below low normal 238200801407 8 - 23 [facility] Potassium SerPl-sCnc 3.8mmol/L Normal 364309875118 3.3 - 5.3 [facility] BKR CREATININE DELTA -0.05 Normal 581430392031 - [facility] BUN SerPl-mCnc 3mg/dL Below low normal 260631184392 8 - 2 3 [facility] Anion Gap3 SerPl-sCnc 8 Normal 108482247491 7 - 17 [facility] HCO3 SerPl-sCnc 27mmol/L Normal 111084478267 20 - 30 [facility] Creat SerPl-mCnc 0.55mg/dL Normal 928083884979 0.4 - 1.3 [facility] Glucose SerPl-mCnc 128mg/dL Above high normal 635727328864 70 - 100 [facility] Magnesium SerPl-mCnc 1.8mg/dL Normal 991627770338 1.7 - 2.4 [facility] Phosphate SerPl-mCnc 3mg/dL Normal 882839676831 2.2 - 4.5 [facility] BKR REFLEX URINE CULTURE See Comment Normal [id number] [facility] WBC #/area UrnS Auto 1/HPF Normal [id number] 0 - 5 [facility] RBC #/area UrnS Auto 1/HPF Normal [id number] 0 - 2 [facility] Bacteria # Ur Auto Few Abnormal [id number] - [facility] WBC # Ur Strip Negative Normal 692962502248 - [facility] Bilirub Ur Ql Strip.auto Negative Normal 041208368802 - [facility] Sp Gr Ur Refract.auto 1.013 Normal 978607571495 1.005 - 1.03 [facility] Nitrite Ur Ql Strip.auto Positive Abnormal 955457357942 - [facility] Hgb Ur Ql Strip.auto Negative Normal 565160979716 - [facility] Prot Ur Strip.auto-mCnc Negative Normal 376813391086 - [facility] pH Ur Strip.auto 7 Normal 844265466033 5.5 - 7.5 [facility] Glucose Ur Strip.auto-mCnc Negative Normal [id number] - [facility] Clarity Ur Refract.auto Clear Normal 981514916109 - [facility] Urobilinogen Ur Strip-mCnc 2mg/dL Normal 614262237135 - [facility] Color Ur Auto Yellow Normal [id number] - [facility] Ketones Ur Strip.auto-mCnc 1+ Abnormal 014953669417 - [facility] T3Free SerPl-mCnc 1.24ng/dL Normal [id number] - [facility] TSH SerPl DL<=0.005 mIU/L-aCnc 4.59uIU/mL Above high normal 479061825868 - [facility] Magnesium SerPl-mCnc 2mg/dL Normal 309740268266 1.7 - 2.4 [facility] Phosphate SerPl-mCnc 2.5mg/dL Normal 905964822524 2.2 - 4.5 [facility] Albumin/Glob SerPl 1.3 Normal 682786453233 1 - 2.2 [facility] Bilirub SerPl-mCnc 0.8mg/dL Normal 293921572970 - [facility] ALP SerPl-cCnc 71U/L Normal 192469795177 9 - 122 [facility] AST/ALT SerPl-cRto Normal 292393640068 [facility] Albumin SerPl BCG-mCnc 2.7g/dL Below low normal 676892168012 3.6 - 5.1 [facility] Prot SerPl-mCnc 4.8g/dL Below low normal 239898422581 5.9 - 8.3 [facility] Bilirub Direct SerPl-mCnc Normal [id number] [facility] AST SerPl w P-5'-P-cCnc Normal [id number] [facility] ALT SerPl w/o P-5'-P-cCnc 21U/L Normal 503503931131 10 - 35 [facility] Globulin Plas-mCnc 2.1g/dL Normal 641984641203 2 - 3.9 [facility] HCO3 SerPl-sCnc 26mmol/L Normal 359614569994 20 - 30 [facility] Chloride SerPl-sCnc 102mmol/L Normal 633556586939 98 - 10 7 [facility] Calcium SerPl-mCnc 7.8mg/dL Below low normal 372737718548 8 .8 - 10.2 [facility] BUN SerPl-mCnc 7mg/dL Below low normal 765634542905 8 - 2 3 [facility] Anion Gap3 SerPl-sCnc 8 Normal 132555394507 7 - 17 [facility] GFR/BSA.pred SerPlBld YLR-LVR-UqGByd 60mL/min/1.73m2 Normal [id number] - [facility] Potassium SerPl-sCnc Normal [id number] [facility] BUN/Creat SerPl 11.7 Normal 597311961510 8 - 23 [facility] Sodium SerPl-sCnc 136mmol/L Normal 523612356468 136 - 144 [facility] Creat SerPl-mCnc 0.6mg/dL Normal [id number] 0.4 - 1.3 [facility] Glucose SerPl-mCnc 138mg/dL Above high normal 802617941128 70 - 100 [facility] BKR CREATININE DELTA -0.03 Normal 747970107615 - [facility] PMV Bld Auto 10.6fL Normal [id number] 8 - 12 [facility] Eosinophil/leuk NFr Bld Auto 2.9% Normal 815106466066 0 - 5 [facility] MCHC RBC Auto-mCnc 31.9g/dL Normal [id number] 31 - 36 [facility] Basophils # Bld Auto 0.73e6103/uL Normal 860743432880 0 - 1 [facility] RBC # Bld Auto 3.01M/uL Below low normal 242575808546 4 - 6 [facility] Imm Granulocytes/leuk NFr Bld Auto 1.6% Above high normal 525467228919 0 - 1 [facility] Imm Granulocytes # Bld Auto 0.0r8040/uL Normal 976144298080 0 - 0.3 [facility] MCV RBC Auto 105.3fL Above high normal 567191108178 80 - 1 00 [facility] RDW RBC Auto-Rto 14.3% Normal 662150403944 11 - 15 [facility] Platelet # Bld Auto 823n4058/uL Normal [id number] 150 - 420 [facility] Basophils/leuk NFr Bld Auto 0.2% Normal [id number] 0 - 1.4 [facility] Hgb Bld-mCnc 10.1g/dL Below low normal [id number] 11.7 - 15.5 [facility] nRBC # Bld Auto 2e1709/uL Normal [id number] 0 - 1 [facility] MCH RBC Qn Auto 33.6pg Above high normal 950221919256 27 - 33 [facility] WBC # Bld Auto 6.7t3544/uL Normal 284477238317 4 - 11 [facility] Lymphocytes/leuk NFr Bld Auto 14.5% Below low normal 535946944747 17 - 50 [facility] Neutrophils/leuk NFr Bld Auto 73% Above high normal 662267179080 39 - 72 [facility] nRBC/100 WBC Bld Auto-Rto 0% Normal [id number] 0 - 1 [facility] Monocytes # Bld Auto 0.27g9854/uL Normal [id number] 0 - 1 [facility] Eosinophil # Bld Auto 0.37h7152/uL Normal 198702426742 0 - 1 [facility] Neutrophils # Bld Auto 4.13o4738/uL Normal 612917845381 2 - 7.6 [facility] Lymphocytes # Bld Auto 0.79k7495/uL Normal 983342933862 0.6 - 3.7 [facility] Hct VFr Bld Auto 31.7% Below low normal 346227447520 35 - 45 [facility] Monocytes/leuk NFr Bld Auto 7.8% Normal [id number] 4 - 12 [facility] BKR REFLEX URINE CULTURE See Comment Normal 263338454800 [facility] Squamous #/area UrnS Auto 1/HPF Normal 778412951499 0 - 5 [facility] WBC #/area UrnS Auto 1/HPF Normal 038953089406 0 - 5 [facility] RBC #/area UrnS Auto 1/HPF Normal [id number] 0 - 2 [facility] Sp Gr Ur Refract.auto 1.049 Above high normal 104369732384 1.005 - 1.03 [facility] Glucose Ur Strip.auto-mCnc Negative Normal 116370865862 - [facility] Hgb Ur Ql Strip.auto Negative Normal 635956603753 - [facility] Ketones Ur Strip.auto-mCnc 2+ Abnormal - [facility] WBC # Ur Strip Negative Normal 653307821832 - [facility] Clarity Ur Refract.auto Clear Normal 040763519809 - [facility] Urobilinogen Ur Strip-mCnc 2mg/dL Normal [id number] - [facility] Prot Ur Strip.auto-mCnc 1+ Abnormal - [facility] Nitrite Ur Ql Strip.auto Negative Normal [id number] - [facility] Color Ur Auto Yellow Normal 656744031343 - [facility] Bilirub Ur Ql Strip.auto Negative Normal 050498954600 - [facility] pH Ur Strip.auto 6 Normal 5.5 - 7.5 [facility] Calcium SerPl-mCnc 7.8mg/dL Below low normal 873845082903 8 .8 - 10.2 [facility] Chloride SerPl-sCnc 99mmol/L Normal 943849215911 98 - 10 7 [facility] Sodium SerPl-sCnc 136mmol/L Normal [id number] 136 - 144 [facility] BUN/Creat SerPl 22.2 Normal 125293931588 8 - 23 [facility] GFR/BSA.pred SerPlBld DVI-NNA-PwKZpj 60mL/min/1.73m2 Normal [id number] - [facility] Glucose SerPl-mCnc 81mg/dL Normal 948577031285 70 - 100 [facility] HCO3 SerPl-sCnc 21mmol/L Normal 098313703952 20 - 30 [facility] BKR CREATININE DELTA -0.06 Normal 842099418475 - [facility] Anion Gap3 SerPl-sCnc 16 Normal 328882192464 7 - 17 [facility] BUN SerPl-mCnc 14mg/dL Normal 277277023268 8 - 23 [facility] Potassium SerPl-sCnc 3.6mmol/L Normal [id number] 3.3 - 5.3 [facility] Creat SerPl-mCnc 0.63mg/dL Normal 569936785134 0.4 - 1.3 [facility] Neutrophils/leuk NFr Bld Auto 75.9% Above high normal 555723662722 39 - 72 [facility] Imm Granulocytes/leuk NFr Bld Auto 0.8% Normal 949718844344 0 - 1 [facility] nRBC # Bld Auto 7v4620/uL Normal 454616900512 0 - 1 [facility] MCH RBC Qn Auto 33.9pg Above high normal 018576098725 27 - 33 [facility] Neutrophils # Bld Auto 5.22r1072/uL Normal 862090781675 2 - 7.6 [facility] Hgb Bld-mCnc 9.2g/dL Below low normal 268957411056 11.7 - 15.5 [facility] Monocytes # Bld Auto 0.3k0812/uL Normal 316263612684 0 - 1 [facility] Eosinophil/leuk NFr Bld Auto 2.2% Normal 919081683819 0 - 5 [facility] Lymphocytes # Bld Auto 9q8076/uL Normal 571366271579 0.6 - 3.7 [facility] WBC # Bld Auto 7.5d1457/uL Normal 155809089252 4 - 11 [facility] RBC # Bld Auto 2.71M/uL Below low normal 043050517778 4 - 6 [facility] MCHC RBC Auto-mCnc 32.3g/dL Normal 297085129530 31 - 36 [facility] MCV RBC Auto 105.2fL Above high normal 286645631069 80 - 1 00 [facility] Lymphocytes/leuk NFr Bld Auto 13.1% Below low normal 323009030579 17 - 50 [facility] Basophils # Bld Auto 0.70p9691/uL Normal 426886725019 0 - 1 [facility] Platelet # Bld Auto 471s8996/uL Normal 784484235873 150 - 420 [facility] Imm Granulocytes # Bld Auto 0.96g7378/uL Normal 900592271885 0 - 0.3 [facility] Monocytes/leuk NFr Bld Auto 7.9% Normal 122757898551 4 - 12 [facility] nRBC/100 WBC Bld Auto-Rto 0% Normal 556609959834 0 - 1 [facility] Eosinophil # Bld Auto 0.39r5121/uL Normal 894103631211 0 - 1 [facility] RDW RBC Auto-Rto 14.3% Normal [id number] 11 - 15 [facility] Basophils/leuk NFr Bld Auto 0.1% Normal [id number] 0 - 1.4 [facility] Hct VFr Bld Auto 28.5% Below low normal [id number] 35 - 45 [facility] PMV Bld Auto 10.6fL Normal [id number] 8 - 12 [facility] BKR ESTIMATED AVERAGE GLUCOSE 114mg/dL Normal [id number] [facility] HbA1c MFr Bld 5.6% Normal [id number] 4 - 5.6 [facility] Bilirub SerPl-mCnc 1mg/dL Normal [id number] - [facility] ALT SerPl w/o P-5'-P-cCnc 14U/L Normal [id number] 10 - 35 [facility] AST SerPl w P-5'-P-cCnc 19U/L Normal [id number] 10 - 35 [facility] ALP SerPl-cCnc 71U/L Normal [id number] 9 - 122 [facility] Bilirub Direct SerPl-mCnc 0.3mg/dL Above high normal [id number] - [facility] AST/ALT SerPl-cRto 1.4 Normal [id number] - [facility] Magnesium SerPl-mCnc 1.6mg/dL Below low normal [id number] 1.7 - 2.4 [facility] Phosphate SerPl-mCnc 2.4mg/dL Normal [id number] 2.2 - 4.5 [facility] Lactate SerPl-sCnc 1mmol/L Normal [id number] 0.5 - 2. 2 [facility] Bil[facility] Direct SerPl-mCnc Normal [id number] [facility] BKR CREATININE DELTA -0.11 Normal [id number] - [facility] Potassium SerPl-sCnc 3.2mmol/L Below low normal [id number] 3.3 - 5.3 [facility] Anion Gap3 SerPl-sCnc 14 Normal [id number] 7 - 17 [facility] Chloride SerPl-sCnc 95mmol/L Below low normal [id number] 98 - 107 [facility] BUN SerPl-mCnc 21mg/dL Normal [id number] 8 - 23 [facility] Sodium SerPl-sCnc 137mmol/L Normal [id number] 136 - 144 [facility] HCO3 SerPl-sCnc 28mmol/L Normal [id number] 20 - 30 [facility] Calcium SerPl-mCnc 8mg/dL Below low normal [id number] 8 .8 - 10.2 [facility] BUN/Creat SerPl 30.4 Above high normal [id number] 8 - 23 [facility] Creat SerPl-mCnc 0.69mg/dL Normal [id number] 0.4 - 1.3 [facility] Glucose SerPl-mCnc 120mg/dL Above high normal [id number] 70 - 100 [facility] GFR/BSA.pred SerPlBld DWT-UYC-DvQGfl 60mL/min/1.73m2 Normal [id number] - [facility] Lactate SerPl-sCnc 1.9mmol/L Normal [id number] 0.5 - 2. 2 [facility] Procalcitonin SerPl-mCnc 0.22ng/mL Normal [id number] - [facility] Magnesium SerPl-mCnc 1.8mg/dL Normal [id number] 1.7 - 2.4 [facility] ALT SerPl w/o P-5'-P-cCnc 19U/L Normal [id number] 10 - 35 [facility] Albumin/Glob SerPl 1.2 Normal [id number] 1 - 2.2 [facility] Creat SerPl-mCnc 0.8mg/dL Normal [id number] 0.4 - 1.3 [facility] Calcium SerPl-mCnc 9mg/dL Normal [id number] 8.8 - 10 .2 [facility] BKR CREATININE DELTA Normal [id number] [facility] AST SerPl w P-5'-P-cCnc 23U/L Normal [id number] 10 - 35 [facility] GFR/BSA.pred SerPlBld CYY-DYI-FuXXry 60mL/min/1.73m2 Normal [id number] - [facility] BUN/Creat SerPl 28.8 Above high normal [id number] 8 - 23 [facility] Glucose SerPl-mCnc 167mg/dL Above high normal [id number] 70 - 100 [facility] Prot SerPl-mCnc 5.9g/dL Normal [id number] 5.9 - 8.3 [facility] Sodium SerPl-sCnc 137mmol/L Normal 136 - 144 [facility] Globulin Plas-mCnc 2.7g/dL Normal [id number] 2 - 3.9 [facility] Albumin SerPl BCG-mCnc 3.2g/dL Below low normal 3.6 - 5.1 [facility] BUN SerPl-mCnc 23mg/dL Normal 8 - 23 [facility] Bilirub SerPl-mCnc 1.5mg/dL Above high normal [id number] - [facility] AST/ALT SerPl-cRto 1.2 Normal [id number] - [facility] ALP SerPl-cCnc 97U/L Normal [id number] 9 - 122 [facility] Potassium SerPl-sCnc 3.3mmol/L Normal 3.3 - 5.3 [facility] HCO3 SerPl-sCnc 25mmol/L Normal [id number] 20 - 30 [facility] Chloride SerPl-sCnc 90mmol/L Below low normal [id number] 98 - 107 [facility] Anion Gap3 SerPl-sCnc 22 Above high normal [id number] 7 - 17 [facility] Lymphocytes/leuk NFr Bld Auto 10.1% Below low normal [id number] 17 - 50 [facility] nRBC/100 WBC Bld Auto-Rto 0% Normal 0 - 1 [facility] PMV Bld Auto 10.4fL Normal [id number] 8 - 12 [facility] Imm Granulocytes/leuk NFr Bld Auto 0.8% Normal [id number] 0 - 1 [facility] RDW RBC Auto-Rto 14.5% Normal [id number] 11 - 15 [facility] MCV RBC Auto 102.9fL Above high normal [id number] 80 - 1 00 [facility] Neutrophils/leuk NFr Bld Auto 79.1% Above high normal [id number] 39 - 72 [facility] Neutrophils # Bld Auto 1r6200/uL Above high normal [id number] 2 - 7.6 [facility] Basophils/leuk NFr Bld Auto 0.7% Normal [id number] 0 - 1.4 [facility] Hgb Bld-mCnc 12.4g/dL Normal [id number] 11.7 - 15.5 [facility] Platelet # Bld Auto 470w9802/uL Normal [id number] 150 - 420 [facility] nRBC # Bld Auto 2f1650/uL Normal [id number] 0 - 1 [facility] Eosinophil/leuk NFr Bld Auto 0.3% Normal [id number] 0 - 5 [facility] RBC # Bld Auto 3.49M/uL Below low normal [id number] 4 - 6 [facility] WBC # Bld Auto 10.5f7117/uL Normal [id number] 4 - 11 [facility] MCH RBC Qn Auto 35.5pg Above high normal [id number] 27 - 33 [facility] Hct VFr Bld Auto 35.9% Normal [id number] 35 - 45 [facility] Basophils # Bld Auto 0.07p6346/uL Normal [id number] 0 - 1 [facility] MCHC RBC Auto-mCnc 34.5g/dL Normal [id number] 31 - 36 [facility] Imm Granulocytes # Bld Auto 0.95c7635/uL Normal [id number] 0 - 0.3 [facility] Eosinophil # Bld Auto 0.76m8025/uL Normal [id number] 0 - 1 [facility] Monocytes/leuk NFr Bld Auto 9% Normal [id number] 4 - 12 [facility] Lymphocytes # Bld Auto 1.47l6165/uL Normal [id number] 0.6 - 3.7 [facility] Monocytes # Bld Auto 0.68m0380/uL Normal [id number] 0 - 1 [facility] History of Medication Use Medication Directions Dispensed Refills Start Date End Date Status cefuroxime (CEFTIN) 250 mg tablet Take 1 tablet (250 mg total) by mouth 2 (two) times daily for 4 doses. active loperamide (IMODIUM) capsule 2 mg 2 mg, Oral, ONCE PRN, diarrhea, Starting on Tue09/11/24 at 1955, For 1 dose 5 09/13/19 completed potassium and sodium phosphates (ELEMENTAL phosphorus 250 mg/packet) (Phos-NaK) oral powder 1 packet 1 packet, Oral, 4 Times Daily Scheduled, First dose on Tue09/11/24 at 0800, For 24 hours, Dissolve contents of each packet in 75 mL of water or juice prior to administration 5 09/13/19 completed potassium chloride SA (K-DUR,KLOR-CON M) 24 hr tablet 60 mEq 60 mEq, Oral, ONCE, On Tue09/11/24 at 0715, For 1 dose, Potassium level 3.3-3.4 mmol/L AND CrCl >/= 30 ml/min; replete with Potassium chloride tablet 20 mEq. Common Side Effects: Stomach upset, diarrhea. 5 09/12/19 completed cefTRIAXone (ROCEPHIN) 1 g in sodium chloride 0.9% PF 10 mL (100 mg/mL) 1 g (rounded from 1,000 mg), IV Push, EVERY 24 HOURS, First dose on Tue09/10/24 at 1030, For 5 doses, Intravenous ceftriaxone must not be infused through the same line as calcium containing fluids (including calcium gluconate, calcium chloride, Lactated Ringers, total parenteral nutrition, dialysis s 5 09/13/19 aborted dextrose 5 % lactated ringers infusion 1,000 mL 1,000 mL, Intravenous, ONCE, On Tue09/10/24 at 1030, For 1 dose, Please run in 2 h 5 09/11/19 completed prochlorperazine edisylate (COMPAZINE) injection 2.5 mg 2.5 mg, IV Push, ONCE PRN, nausea or vomiting, Starting on Tue09/10/24 at 0333, For 1 dose, IM Route preferred. May be administered by slow IV push by direct IV injection at a rate not to exceed 5 mg/minute. To reduce the risk of hypotension, patients receiving IV prochlorperazine must remain lying d 5 09/11/19 completed propranoloL (INDERAL) Immediate Release tablet 40 mg 40 mg, Oral, 2 Times Daily Scheduled, First dose on Tue09/07/24 at 2100, Hold for SBP < 90 mm Hg or HR < 50 BPM Common Side Effects: Fatigue, dizziness, hypotension, bradycardia., On hold since Tue09/07/2024 at 1157 until manually unheld 5 09/13/19 aborted dextrose 5 % lactated ringers infusion 1,000 mL, at 50 mL/hr, Intravenous, CONTINUOUS, Starting on 09/08/24 at 1115 09/11/19 aborted iohexoL (OMNIPAQUE) 350 mg iodine/mL injection 100 mL 100 mL, Intravenous, IMG ONCE PRN, other, Starting on 09/08/24 at 1434, For 1 dose, Vesicant agents may cause severe tissue damage, including necrosis, if they extravasate into tissue; Common Side Effects: Headache, nausea, allergic reaction. 5 09/09/19 completed LORazepam (ATIVAN) tablet 0.5 mg 0.5 mg, Oral, ONCE, On 09/08/24 at 1300, For 1 dose, Common Side Effects: Confusion, dizziness, drowsiness, mood changes. 5 09/09/19 completed sodium chloride 0.9% large volume syringe for autoinjector 20 mL 20 mL, Intravenous, IMG ONCE PRN, other, Imaging, Starting on 09/08/24 at 1434, For 1 dose 5 09/09/19 completed dextrose (GLUCOSE) oral liquid 15 g [Order 1 Start] Name: dextrose (GLUCOSE) oral liquid 15 g Signed Summary: 15 g, Oral, EVERY 15 MIN PRN, If blood glucose 50 - 69 mg/dL (or 70 - 79 mg/dL with symptoms of hypoglycemia), Starting on Tue09/07/24 at 0013, If alert and able to tolerate enteral intake (not NPO or vomiting). Only administ 5 09/13/19 aborted dextrose (GLUCOSE) oral liquid 30 g [Order 1 Start] Name: dextrose (GLUCOSE) oral liquid 30 g Signed Summary: 30 g, Oral, EVERY 15 MIN PRN, If blood glucose less than 50 mg/dL, Starting on Tue09/07/24 at 0013, If alert and able to tolerate enteral intake (not NPO or vomiting). Only administer ONE treatment option. Notify covering cl 09/13/19 aborted dextrose 10% injection 125 mL 125 mL (12.5 g), Intravenous, Administer over 15 Minutes, EVERY 15 MIN PRN, blood glucose 50 - 69 mg/dL (or 70 -79 mg/dL with symptoms of hypoglycemia), Starting on Tue09/07/24 at 0013, Only administer if patient is NOT alert, not cooperative or unable to take enteral (NPO or vomiting). Notify cove 09/13/19 aborted dextrose 10% injection 250 mL 250 mL (25 g), Intravenous, Administer over 15 Minutes, EVERY 15 MIN PRN, blood glucose less than 50 mg/dL, Starting on Tue09/07/24 at 001, Only administer if patient is NOT alert, not cooperative or unable to take enteral (NPO or vomiting). Notify covering clinician, repeat blood glucose (BG) IMM 09/13/19 aborted enoxaparin (LOVENOX) injection 30 mg 30 mg, Subcutaneous, Every 12 Hours Scheduled, First dose on Tue09/07/24 at 0900, Contraindicated with epidural use. Common Side Effects: Bruising, minor and major bleeding., On hold since Tue09/07/2024 at 0023 until manually unheld 09/13/19 aborted glucagon 1 mg in water for injection, sterile 1 mL (1 mg/mL) 1 mg, Intramuscular, ONCE PRN, If blood glucose less than 70 mg/dL (or 70 - 79 mg/dL with symptoms of hypoglycemia), Starting on Tue09/07/24 at 0013, For 1 dose, Only administer if patient has NO IV ACCESS available AND is not alert, not cooperative or unable to take enteral (NPO or vomiting). Notif 09/13/19 aborted melatonin tablet 3 mg 3 mg, Oral, Nightly PRN, insomnia, Starting on Tue09/06/24 at 2254, Recommended to administer at least 60 minutes prior to intended bedtime 09/13/19 aborted ondansetron (PF) (ZOFRAN) injection 4 mg 4 mg, IV Push, EVERY 6 HOURS PRN, nausea or vomiting, Starting on Tue09/07/24 at 0852, Maximum IV Push dose of 16 mg. If ordered IV Push, administer undiluted over 2 minutes. Common side effects include: lightheaded, stomach upset, and headache. Irritant 09/13/19 aborted sodium chloride 0.9 % flush 3 mL 3 mL, IV Push, PRN for Line Care, other, PIV Line Care: Before and after administration of intravenous fluids, medications and blood products and/or blood specimen collection; As needed to assess catheter patency, Starting on Tue09/06/24 at 2254 09/13/19 aborted magnesium sulfate in water 2 gram/50 mL (4 %) (IVPB) 2 g 2 g, Intravenous, Administer over 1 Hours, ONCE, On 09/10/24 at 1030, For 1 dose, Hold for Magnesium level > 2.5 mg/dL, and call MD/DURAN if magnesium repletion should be continued. 09/11/19 completed dextrose 5 % lactated ringers infusion 1,000 mL, at 90 mL/hr, Intravenous, CONTINUOUS, Starting on Tue09/07/24 at 0900 09/09/19 aborted potassium phos in 0.9 % NaCl 15 mmol/250 mL 15 mmol 15 mmol, Intravenous, Administer over 2 Hours, ONCE, On 09/08/24 at 0715, For 1 dose 02/28/202 5 03/01/20 25 completed sodium chloride 0.9 % (new bag) bolus 500 mL 500 mL, Intravenous, Administer over 5 Hours, ONCE, On Claudia 09/06/24 at 1915, For 1 dose 5 09/07/19 25 completed sodium chloride 0.9 % (new bag) bolus 1,000 mL 1,000 mL, Intravenous, Administer over 120 Minutes, ONCE, On Claudia 09/06/24 at 1345, For 1 dose 5 09/06/19 25 completed losartan (COZAAR) tablet 25 mg 4 09/13/19 25 aborted propranoloL (INDERAL) 40 mg Immediate Release tablet TAKE 1 TABLET BY MOUTH 2 TIMES A DAY FOR 90 DAYS 09/13/19 25 aborted benzonatate (TESSALON) 100 mg capsule TAKE 1 CAPSULE BY MOUTH 3 TIMES A DAY NEEDED FOR COUGH FOR 14 DAYS 4 active WIXELA INHUB 250-50 mcg/dose blister powder for inhalation Inhale 1 Inhalation into the lungs 2 (two) times daily. 4 active metFORMIN (GLUCOPHAGE) Immediate Release tablet 1,000 mg 4 09/13/19 25 aborted rosuvastatin (CRESTOR) tablet 5 mg 4 09/13/19 25 aborted albuterol (PROVENTIL, VENTOLIN) 2.5 mg /3 mL (0.083 %) nebulizer solution USE 1 VIAL VIA NEBULIZER EVERY 6 HOURS NEEDED FOR SHORTNESS OF BREATH OR WHEEZING active ALBUTEROL, REFILL, INHL Inhale 2 puffs into the lungs every 4 (four) hours as needed. active busPIRone (BUSPAR) 7.5 mg tablet TAKE 1/2 TAB BY MOUTH TWICE A DAY active ondansetron (ZOFRAN-ODT) [address] 1 tablet (8 mg total) onto the tongue every 8 (eight) hours as needed for nausea or vomiting. 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 06/28/2024
[2024-11-21 16:52] LABS: Creatinine Urine 102.28 mg/dL; Microalbum/Creatinine Ratio Ur 10.7 ug/mg cr (<30)
== END 2024-11-21 12:31 | disposition home or self-care (01) ==
LOC: HO.HMGCLNP 12:30
PROVIDERS: PCP Nurse Practitioner Family; Visit Provider Nurse Practitioner Family
DX: E11.9 Type 2 diabetes mellitus without complications (principal)
CPT/HCPCS: 82043; 82570; 96127; 99212

== ENCOUNTER 2024-11-21 13:59 | Outpatient (AMB) | payer MEDICARE, SELFPAY ==
[2024-11-21 14:02] VITALS: BP 136/80; PULSE 96; RESP 18; TEMP 36.6; O2SAT 97; BMI 23.6
--- NOTE | 2024-11-21 14:02 | MHC.PC.OV ---
Vital Signs 11/21/24 14:02 Height 5 ft 1 in Weight 125 lb BMI 23.6 BP 136/80 Blood Pressure Location Rt brachial Position Sitting Respiration 18 Pulse 96 Pulse Source Pulse Oximeter Temp 97.9 F Temp Source Oral Pulse Oximetry (%) 97 Oxygen Delivery Method Room Air Intake Visit Reasons: F/up re: labs Intake Note: Pt is here today for a follow up visit. Allergies erythromycin base Adverse Reaction (Intermediate, Verified 11/21/24 14:14) Nausea and Vomiting Tobacco use date assessed: 11/21/24 Fall risk assessment: No Falls in past year Last assessed Fall Risk: 11/21/24 Dental Screening Dental Screen Date: 11/21/24 Did you have a dental visit in the last 12 months?: Yes Did you have a dental problem in the last 6 months where you did not have access to dental care?: No Was dental information given to patient?: Patient has dentist [facility] Medical History Bilateral cataracts Palpitations Anxiety Asthma Diabetes Dyslipidemia Surgical History Hx of colonoscopy H/O excision of epidermal inclusion cyst (06/15/22) History of partial mastectomy of left breast [place] teeth removed History of 3 sections Family History Maternal Grandmother Cancer of unknown origin Paternal Aunt Breast cancer Maternal Aunt Colon cancer Social History Housing: House Alcohol intake: never Patient Tobacco Use Status: Former Tobacco user Years Smoked: 1 year e-Cigarette/Vaping Use: Never Used Second Hand Smoke Exposure: Yes service: No Current occupational status: retired Current occupational exposures/hazards: No Cognitive needs: No Hearing needs: No Vision needs: Yes Questionnaire PHQ-9 Over the last 2 weeks, how often have you been bothered by any of the following problems? 1. Little interest or pleasure in doing things: not at all 2. Feeling down, depressed, or hopeless: not at all 3. Trouble falling or staying asleep, or sleeping too much: not at all 4. Feeling tired or having little energy: not at all 5. Poor appetite or overeating: not at all 6. Feeling bad about yourself - or that you are a failure or have let yourself or your family down: not at all 7. Trouble concentrating on things, such as reading the newspaper or watching television: not at all 8. Moving or speaking so slowly that other people could have noticed. Or the opposite - being so fidgety or restless that you have been moving around a lot more than usual: not at all 9. Thoughts that you would be better off or of hurting yourself in some way: not at all Total score: 0 Depression Screening Interpretation: Negative Depression Screening Done: Yes 31710 - PHQ-9 Billing: Yes Source: Developed by Drs. Moose Kaplan, Marley Burger, Everett Skelton and colleagues, with an educational cecilia from [employer]. Thrive Questionnaire Date Thrive assessed: 11/21/24 I am a: Patient What is your living situation today?: I have a steady place to live Within the past 12 months, did the food you bought not last and you didn't have the money to get more?: I choose not to answer this question Within the past 12 months, did you worry whether your food would run out before you got money to buy more?: Never true Do you have trouble paying for medicines?: No Do you have trouble getting transportation to medical appointments?: No Do you have trouble paying your heating and electricity bill?: No Do you have trouble taking care of your child, family member or friend?: No Do you have trouble with day-to-day activities such as bathing, preparing meals, shopping, managing finances, etc.?: No Are you currently unemployed and looking for a job?: No Are you interested in more education?: No Please select the resources that you would like help with: None Currently or been in a relationship where the following occur: No concerns reported THRIVE Score: 0 AUDIT C Alcohol Use Questionnaire (AUDIT-C) 1. How often do you have a drink containing alcohol?: Never 3. How often do you have six or more drinks on one occasion?: Never Total Score: 0 BARBARA-7 AMB Questionnaire BARBARA-7 Date BARBARA - 7 assessed: 05/14/25 Feeling nervous, anxious, or on edge: 0 = Not at all Not being able to stop or control worryin = Not at all Worrying too much about different things: 0 = Not at all Trouble relaxin = Not at all Being so restless that it is hard to sit still: 0 = Not at all Becoming easily annoyed or irritable: 0 = Not at all Feeling afraid as if something awful might happen: 0 = Not at all Total BARBARA-7 score (0-4 normal; 5-9 mild; 10-14 moderate; 15-21 severe): 0 Source: Developed by Drs. Moose Kaplan, Marley Burger, Everett Skelton and colleagues, with an educational cecilia from [employer]. BARBARA-7 Assessment Billing BARBARA-7 Assessment Tool: BARBARA-7 Assessment 51986 Physical exam (Primary Care) Vital Signs: Last Vital Signs Temp 97.9 F 11/21/24 14:02 Pulse 96 11/21/24 14:02 Resp 18 11/21/24 14:02 BP 136/80 11/21/24 14:02 Pulse Ox 97 11/21/24 14:02 Oxygen Delivery Method Room Air 11/21/24 14:02 BMI result Body Mass Index 23.6 Tobacco/Smoking Status: Tobacco use Status Tobacco use date assessed 11/21/24 11/21/24 14:05 Patient Tobacco Use Status Former Tobacco user 11/21/24 14:05 e-Cigarette/Vaping Use Never Used 11/21/24 14:05 PHQ-9: PHQ-9 Score PHQ-9: Total score 0 11/21/24 14:24 Depression Screening Interpretation: Negative Thrive Assessment: Date of Thrive Assessment Date Thrive assessed 11/21/24 11/21/24 14:24 Currently or been in a relationship where the following occur: No concerns reported Coding Level of Care Code Est Pt Level 3 (21235) Diagnoses Diabetes E11.9 Additional Codes BARBARA-7 Assessment Billing - BARBARA-7 Assessment Tool: BARBARA-7 Assessment 39663 ([id number]) PHQ-9 - 02178 - PHQ-9 Billing: Yes ([id number]) Assessment & Plan Assessment & Plan (1) Diabetes: Code(s): E11.9 - Type 2 diabetes mellitus without complications Category: Medical Plan . Orders: Orders Lipid Panel Today E11.9 - Type 2 diabetes mellitus without complications TSH reflex Free T4 Today E11.9 - Type 2 diabetes mellitus without complications UA CC w/rflx Micro + Cult Today E11.9 - Type 2 diabetes mellitus without complications Comprehensive [place]. Panel Fast Today E11.9 - Type 2 diabetes mellitus without complications Complete Blood Count Auto Diff Today E11.9 - Type 2 diabetes mellitus without complications
--- OUTSIDE RECORDS SUMMARY | 2024-11-21 14:03 | XMS_ITS | Encounter Summary ---
Author [facility] Address [address] [place] [address] Phone Care Team Providers Care Brake Operator Name Role Phone Denton To NP Primary Care Provider + Encounter Details Date Type Department Care Team (Late st Contact Info) Description 10/03/2024 Specialty Pharmacy [facility] [address] [place] [address] [facility] Social History Tobacco Use Types Packs/Day Years Used Date Smoking Tobacco: Former Cigarettes Alcohol Use Standard Drinks/Week Comments Never 0 (1 standard drink = 0.6 oz pur e alcohol) [facility] Utilities Answer Date Recorded In the past 12 months has e electric, gas, oil, or water company threatened to shut off services in your home? No 09/06/2024 PHQ-2 Answer Date Recorded PHQ-2 Total Score 0 09/07/2024 Hunger Vital Sign Answer Date Recorded Within the past 12 months, y ou worried that your food would run out before you got the money to buy more. Never true 09/06/19 25 Within the past 12 months, t he food you bought just didn't last and you didn't have money to get more. Never true 09/06/2024 PRAPARE - Transportation Answer Date Re corded In the past 12 months, has l ack of transportation kept you from medical appointments or from getting medications? No 08/12 In the past 12 months, has l ack of transportation kept you from meetings, work, or from getting things needed for daily living? No 09/06/2024 Housing Stability Answer Date Recorded What is your living situation today? I have a [facility] [place] place to live 09/06/2024 Housing Stability Not on file 09/06/2024 Interpersonal Safety Answer Date Record ed Is there anyone in your life that is hurting or threatening you in anyway? no 09/07/2024 Physical Indicators of Abuse No evidence of phys ical abuse 09/07/2024 Comments Unknown Sex and Gender Information Value Date Recorded Sex Assigned at Not on file Legal Sex Female 11:45 AM EDT Gender Identity Female 05/01/2024 2:55 PM EDT Sexual Orientation Straight 05/01/2024 2: 55 PM EDT documented as of this encounter Plan of Treatment Upcoming Encounters Date Type Department Care Team (Late st Contact Info) Description 12/06/2024 9:40 AM EDT Appointment [facility] CT Scan [address] [place] [address]. [place] [address] Deloris Winchester MD [address] [place] [phone] 12/13/2024 11:00 AM EDT Office Visit Breast Center at [address] [place] [phone] Murphy Huynh MD [address] [place] [phone] documented as of this encounter Goals Goal Patient Goal Type Associated Problems Recent Progress Patient-Stated? Author RxSp Therapeutic Goal General On track( 025 2:22 PM EDT) No Fernando Naylor, Shankar Note: Oncology: Improve or maintain quality of life MTPs must be opened for patients not making appropriate progress towards their established therapeutic goals. Patient's progress towards goal: RxSp Therapeutic Goal General On track( 025 2:22 PM EDT) No Fernando Naylor, PharmD Note: Oncology: Minimize toxicity by monitoring labs, side effects and recommend preventive measures when appropriate (anemia, neutropenia, thrombocytopenia, etc.) MTPs must be opened for patients not making appropriate progress towards their established therapeutic goals. Patient's progress towards goal: RxSp Therapeutic Goal General On track( 025 2:22 PM EDT) Fernando Quiroz, Shankar Note: Oncology: Increase or maintain treatment adherence MTPs must be opened for patients not making appropriate progress towards their established therapeutic goals. Patient's progress towards goal: documented as of this encounter Visit Diagnoses Not on filedocumented in this encounter Additional Health Concerns Assessment Noted Time PHQ-9 Depression Total Score: 0 05/10/20 10:43 AM EDT documented as of this encounter Care Teams Brake Operator Relationship Specialty Start Date End Date Denton To NP [address] [place] [address] [place] [phone] PCP - General Family Medicine 04/30/24 documented as of this encounter
--- OUTSIDE RECORDS SUMMARY | 2024-11-21 14:03 | XMS_ITS | Encounter Summary ---
Author Organization [facility] Address [address] [place] [address] Care Team Providers Care Road Consultant Name Role Phone Denton To NP Primary Care Provider + Encounter Details Date Type Department Care Team (Late st Contact Info) Description 09/02/2024 Scanned Document INTERFACE DEFAULT [address] [place] [phone] System, Provider Not In Social History Tobacco Use Types Packs/Day Years Used Date Smoking Tobacco: Former Cigarettes Alcohol Use Standard Drinks/Week Comments Never 0 (1 standard drink = 0.6 oz pur e alcohol) [facility] Utilities Answer Date Recorded In the past 12 months has e electric, gas, oil, or water [employer] threatened to shut off services in your home? No 09/06/2024 PHQ-2 Answer Date Recorded PHQ-2 Total Score 0 05/10/2024 Hunger Vital Sign Answer Date Recorded Within [...] your living situation today? I have a [place] place to live 09/06/2024 Housing Stability Not on file 09/06/2024 Comments Unknown Sex and Gender Information Value Date Recorded Sex Assigned at Not on file Legal Sex Female 11:45 AM EDT Gender Identity Female 05/01/2024 2:55 PM EDT Sexual Orientation Straight 05/01/2024 2: 55 PM EDT documented as of this encounter Plan of Treatment Upcoming Encounters Date Type Department Care Team (Late st Contact Info) Description 12/06/2024 9:40 AM EDT Appointment [facility] CT Scan [address] [place] [address]. [place] [address] Deloris Winchester MD [address] [place] [phone] 12/13/2024 11:00 AM EDT Office Visit Breast Center at [address] [place] [address] Murphy Huynh MD [address] [place] [phone] documented as of this encounter Procedures Procedure Name Priority Date/Time Associated Diagnosis Comments XRAY RESULT SCAN 09/02/2024 12:[address] RESULT SCAN 09/02/2024 12:00 AM EST LAB SCAN 09/02/2024 12:00 AM EST documented in this encounter Results * Xray Result Scan (09/02/2024 12:00 AM EST) us Provider Not In System IMG SCAN REPORTS Final Re sult * CT Result Scan (09/02/2024 12:00 AM EST) us Provider Not In System IMG SCAN REPORTS Final Re sult * Lab Scan (09/02/2024 12:00 AM EST) us Provider Not In System LAB BLOOD ORDERABLES Nevaeh l Result documented in this encounter Visit Diagnoses Not on filedocumented in this encounter Additional Health Concerns Assessment Noted Time PHQ-9 Depression Total Score: 0 05/10/20 10:43 AM EDT documented as of this encounter Care Teams Road Consultant Relationship Specialty Start Date End Date Denton To NP [facility] [place] [phone] PCP - General Family Medicine 04/30/24 documented as of this encounter
--- OUTSIDE RECORDS SUMMARY | 2024-11-21 14:03 | XMS_ITS | Encounter Summary ---
Author Organization [facility] Address [address] [place] [address] Care Team Providers Care Vp Corporate Partnerships Name Role Phone Denton To SALVAGE WINDER Primary Care Provider + Encounter Details Date Type Department Care Team (Late Contact Info) Description 05/03/2024 Abstract [facility] at [address] [place] [phone] Center, [place] [facility] [address] [facility] First floor, [place] [address] Social History Tobacco Use Types Packs/Day Years Used Date Smoking Tobacco: Former Cigarettes Alcohol Use Standard Drinks/Week Comments Never 0 (1 standard drink = 0.6 oz pur e alcohol) Comments Unknown Sex and Gender Information Value Date Recorded Sex Assigned at Not on file Legal Sex Female 11:45 AM EDT Gender Identity Female 05/01/2024 2:55 PM EDT Sexual Orientation Straight 05/01/2024 2: 55 PM EDT documented as of this encounter Plan of Treatment Upcoming Encounters Date Type Department Care Team (Late st Contact Info) Description 12/06/2024 9:40 AM EDT Appointment [facility] CT Scan [address] [place] [address]. [place] [address] Deloris Winchester MD [address] [place] [phone] 12/13/2024 11:00 AM EDT Office Visit Breast Center at [facility] [address] [facility] [place] [address] Murphy Huynh MD [address] [place] [phone] documented as of this encounter Visit Diagnoses Not on filedocumented in this encounter Care Teams Vp Corporate Partnerships Relationship Specialty Start Date End Date Denton To NP [address] [place] [phone] PCP - General Family Medicine 04/30/24 documented as of this encounter
--- OUTSIDE RECORDS SUMMARY | 2024-11-21 14:03 | XMS_ITS | Encounter Summary ---
Author Organization [facility] Address [address] [place] [address] Care Team Providers Care Fur Grader Name Role Phone YousufDenton [employer]ER Primary Care Provider + Encounter Details Date Type Department Care Team (Late st Contact Info) Description 04/30/2024 Abstract Surgical Oncology at [address] [address] Dept, [facility] Dr White Social History Tobacco Use Types Packs/Day Years Used Date Smoking Tobacco: Never Assessed Comments Unknown Sex and Gender Information Value Date Recorded Sex Assigned at Not on file Legal Sex Female 11:45 AM EDT Gender Identity Female 05/01/2024 2:55 PM EDT Sexual Orientation Straight 05/01/2024 2: 55 PM EDT documented as of this encounter Plan of Treatment Upcoming Encounters Date Type Department Care Team (Late st Contact Info) Description 12/06/2024 9:40 AM EDT Appointment [facility] CT Scan [address] [place] [address]. [place] [address] Deloris Winchester MD [address] [place] [phone] 12/13/2024 11:00 AM EDT Office Visit Breast Center at [address] [address] Murphy Huynh MD [address] [place] [phone] documented as of this encounter Visit Diagnoses Not on filedocumented in this encounter Care Teams Fur Grader Relationship Specialty Start Date End Date Denton To NP [address] [place] [phone] PCP - General Family Medicine 04/30/24 documented as of this encounter
--- OUTSIDE RECORDS SUMMARY | 2024-11-21 14:03 | XMS_ITS | Encounter Summary ---
Author Organization [facility] Address [address] [place] [address] Care Team Providers Care Director Life Sales Name Role Phone Denton To STEELER Primary Care Provider + Encounter Details Date Type Department Care Team (Late Contact Info) Description 05/02/2024 Abstract [facility] at [address] [place] [phone] Center, [place] [facility] [address] [facility] First floor, [place] [address] Social History Tobacco Use Types [...] Info) Description 12/06/2024 9:40 AM EDT Appointment [facility] CT Scan [address] [place] [address]. [place] [address] Deloris Winchester MD [address] [place] [phone] 12/13/2024 11:00 AM EDT Office Visit Breast Center at [facility] [address] [facility] [place] [address] Murphy Huynh MD [address] [place] [phone] documented as of this encounter Visit Diagnoses Not on filedocumented in this encounter Care Teams Director Life Sales Relationship Specialty Start Date End Date Denton To NP [address] [facility] [place] [phone] PCP - General Family Medicine 04/30/24 documented as of this encounter
--- OUTSIDE RECORDS SUMMARY | 2024-11-21 14:03 | XMS_ITS | Encounter Summary ---
Author Organization [facility] Address [address] [place] [address] Care Team Providers Care Service Observer Chief Name Role Phone Denton To NP Primary Care Provider + Encounter Details Date Type Department Care Team (Late st Contact Info) Description 09/03/2024 Scanned Document INTERFACE DEFAULT [address] [place] [phone] System, Provider Not In Social History Tobacco Use Types Packs/Day Years Used Date Smoking Tobacco: Former Cigarettes Alcohol Use Standard Drinks/Week Comments Never 0 (1 standard drink = 0.6 oz pur e alcohol) [facility] Utilities Answer Date Recorded In the past 12 months has e electric, gas, oil, or water [employer] threatened to shut off services in your [...] Info) Description 12/06/2024 9:40 AM EDT Appointment [facility] CT Scan [address] [place] [address]. [place] [address] Deloris Winchester MD [address] [place], [place] [phone] 12/13/2024 11:00 AM EDT Office Visit Breast Center at [facility] [address] [address] Murphy Hyunh MD [address] [place] [phone] documented as of this encounter Procedures Procedure Name Priority Date/Time Associated Diagnosis Comments LAB SCAN 09/03/2024 12:00 AM EST documented in this encounter Results * Lab Scan (09/03/2024 12:00 AM EST) us Provider Not In System LAB BLOOD ORDERABLES Nevaeh l Result documented in this encounter Visit Diagnoses Not on filedocumented in this encounter Additional Health Concerns Assessment Noted Time PHQ-9 Depression Total Score: 0 05/10/20 24 10:43 AM EDT documented as of this encounter Care Teams Service Observer Chief Relationship Specialty Start Date End Date Denton To NP [facility] [place] [phone] PCP - General Family Medicine 04/30/24 documented as of this encounter
--- OUTSIDE RECORDS SUMMARY | 2024-11-21 14:03 | XMS_ITS ---
Author Organization [address] [place] [address] Address [address] [place] [address] Care Team Providers Care Obgyn Hospitalist Physician Name Role Phone Denton To SUPERVISOR SHUTTLE VENEERING Primary Care Provider + Rx Breast Cancer Status:Enrolled (Active) Start date:10/03/2024 Enrollment date:10/03/2024 Enrollment reason:Identified from a specialty prescription Current support & services provided:Clinical Management, Refill Management Linked medications:capecitabine (Active) Linked problems:Breast cancer metastasized to lung (HC Code) (Active) Case Team Name Relationship Phone Fernando BradshawD Pharmacist(Responsible Staff ) Continued Care and Services Coordination
--- OUTSIDE RECORDS SUMMARY | 2024-11-21 14:03 | XMS_ITS | Encounter Summary ---
Author Organization [facility] and [facility] Address [address] [place] [address] Care Team Providers Care Flame Gouger Name Role Phone Denton To PEDIATRIC AUDIOLOGIST Primary Care Provider + Encounter Details Date Type Department Care Team (Late st Contact Info) Description 05/01/2024 Abstract Surgical Oncology at [address] [address] Center, [place] Breast [address] [facility] First floor, [place] [address] Social History Tobacco Use Types Packs/Day Years [...] Info) Description 12/06/2024 9:40 AM EDT Appointment [facility] CT Scan [address] [place] [address]. [place] [address] Deloris Winchester MD [address] [place] [phone] 12/13/2024 11:00 AM EDT Office Visit Breast Center at [facility] 35 [facility] [address] [place] [address] Murphy Huynh MD [address] [place] [address] (Fax) documented as of this encounter Visit Diagnoses Not on filedocumented in this encounter Care Teams Flame Gouger Relationship Specialty Start Date End Date Denton To NP [address] [facility] [place] [phone] PCP - General Family Medicine 04/30/24 documented as of this encounter
--- OUTSIDE RECORDS SUMMARY | 2024-11-21 14:03 | XMS_ITS | Encounter Summary ---
Author Organization [facility] and [facility] Address [address] [place] [address] Care Team Providers Care Queen Producer Name Role Phone Denton To CHEMIST INTERNSHIP Primary Care Provider + Encounter Details Date Type Department Care Team (Late Contact Info) Description 05/03/2024 Abstract [facility]cology at [address] [place] [address] Center, [place] Breast 35 [facility] First floor, [place] [address] Social History Tobacco Use Types [...] Info) Description 12/06/2024 9:40 AM EDT Appointment [facility] CT Scan [address] [place] [address]. [place] [address] Deloris Winchester MD [address] [place] [phone] 12/13/2024 11:00 AM EDT Office Visit [facility] at [facility] [address] [facility] [place] [address] Murphy Huynh MD [address] [place] [address] documented as of this encounter Visit Diagnoses Not on filedocumented in this encounter Care Teams Queen Producer Relationship Specialty Start Date End Date Denton To NP [address] [place] [phone] PCP - General Family Medicine 04/30/24 documented as of this encounter
--- OUTSIDE RECORDS SUMMARY | 2024-11-21 14:04 | XMS_ITS | Encounter Summary ---
Author Organization [facility] Address [address] [place] [address] Care Team Providers Care [employer] Sergeant Name Role Phone Denton To NP Primary Care Provider + Encounter Details Date Type Department Care Team (Late st Contact Info) Description 06/01/2024 Scanned Document INTERFACE DEFAULT [address] [place] [address] System, Provider Not In Social History Tobacco Use Types Packs/Day Years Used Date Smoking Tobacco: Former Cigarettes Alcohol Use Standard Drinks/Week Comments Never 0 (1 standard drink = 0.6 oz pur e alcohol) PHQ-2 Answer Date Recorded PHQ-2 Total Score 0 05/10/2024 Housing Stability Answer Date Recorded What is your living situation today? I have a [facility] place [facility] live 05/10/2024 Housing Stability Not on file 05/10/2024 Comments Unknown Sex and Gender Information Value Date Recorded Sex Assigned at Not on file Legal Sex Female 11:45 AM EDT Gender Identity Female 05/01/2024 2:55 PM EDT Sexual Orientation Straight 05/01/2024 2: 55 PM EDT documented as of this encounter Plan of Treatment Upcoming Encounters Date Type Department Care Team (Late st Contact Info) Description 12/06/2024 9:40 AM EDT Appointment [facility] Scan [address] [place] [address]. [place] [phone] Deloris Winchester MD [address] [place] [phone] 12/13/2024 11:00 AM EDT Office Visit Breast Center at [facility] [address] [place] [address] Murphy Huynh MD 35 [place] [phone] documented as of this encounter Procedures Procedure Name Priority Date/Time Associated Diagnosis Comments CT RESULT SCAN 06/01/2024 12:00 AM EST documented in this encounter Results * CT Result Scan (06/01/2024 12:00 AM EST) us Provider Not In System IMG SCAN REPORTS Final Re sult documented in this encounter Visit Diagnoses Not on filedocumented in this encounter Additional Health Concerns Assessment Noted Time PHQ-9 Depression Total Score: 0 05/10/20 10:43 AM EDT documented as of this encounter Care Teams [employer] Communications Sergeant Relationship Specialty Start Date End Date Denton To NP [address] [place] [phone] PCP - General Family Medicine 04/30/24 documented as of this encounter
--- OUTSIDE RECORDS SUMMARY | 2024-11-21 14:04 | XMS_ITS | Encounter Summary ---
Author Organization [facility] Address [address] [place] [address] Care Team Providers Care Bed Placement Coordinator Name Role Phone Denton To NP Primary Care Provider + Encounter Details Date Type Department Care Team (Late st Contact Info) Description 07/02/2024 Scanned Document INTERFACE DEFAULT [address] [place] [phone] System, Provider Not In Social History Tobacco Use Types Packs/Day Years Used Date Smoking Tobacco: Former Cigarettes Alcohol Use Standard Drinks/Week Comments Never 0 (1 standard drink = 0.6 oz pur e alcohol) PHQ-2 Answer Date Recorded PHQ-2 Total Score 0 05/10/2024 Housing Stability Answer Date Recorded What is your living situation today? I have a [facility] place to live 05/10/2024 Housing Stability Not [...] AM EDT Appointment [facility] Scan [address] [place] [address]. [place] [phone] Deloris Winchester MD [address] [place] [phone] 12/13/2024 11:00 AM EDT Office Visit Breast Center at [facility] [address] [place] [address] Murphy Huynh MD 35 [place] [phone] documented as of this encounter Procedures Procedure Name Priority Date/Time Associated Diagnosis Comments LAB SCAN 07/02/2024 12:00 AM EST documented in this encounter Results * Lab Scan (07/02/2024 12:00 AM EST) us Provider Not In System LAB BLOOD ORDERABLES Nevaeh l Result documented in this encounter Visit Diagnoses Not on filedocumented in this encounter Additional Health Concerns Assessment Noted Time PHQ-9 Depression Total Score: 0 05/10/20 10:43 AM EDT documented as of this encounter Care Teams Bed Placement Coordinator Relationship Specialty Start Date End Date Denton To NP [address] [facility] [place] [phone] PCP - General Family Medicine 04/30/24 documented as of this encounter
--- OUTSIDE RECORDS SUMMARY | 2024-11-21 14:04 | XMS_ITS | Encounter Summary ---
Author Organization [facility] and [facility] Address [address] [place] [address] Care Team Providers Care [facility] [facility] Products Assembler Name Role Phone Denton To NP Primary Care Provider + Encounter Details Date Type Department Care Team (Late st Contact Info) Description 05/30/2024 Scanned Document INTERFACE DEFAULT [address] [place] [phone] System, Provider Not In Social History Tobacco Use Types Packs/Day Years Used Date Smoking Tobacco: Former Cigarettes Alcohol Use Standard Drinks/Week Comments Never 0 (1 standard drink = 0.6 oz pur e alcohol) PHQ-2 Answer Date Recorded PHQ-2 Total Score 0 05/10/2024 Housing Stability Answer Date Recorded What is your living situation today? I have a [facility] place to live 05/10/2024 Housing Stability [...] AM EDT Appointment [facility] Scan [address] [place] [address]. [place] [phone] Deloris Winchester MD [address] [place] [phone] 12/13/2024 11:00 AM EDT Office Visit Breast Center at [facility] [address] [place] [address] Murphy Huynh MD 35 [place] [phone] documented as of this encounter Procedures Procedure Name Priority Date/Time Associated Diagnosis Comments LAB SCAN 05/30/2024 12:00 AM EST documented in this encounter Results * Lab Scan (05/30/2024 12:00 AM EST) us Provider Not In System LAB BLOOD ORDERABLES Nevaeh l Result documented in this encounter Visit Diagnoses Not on filedocumented in this encounter Additional Health Concerns Assessment Noted Time PHQ-9 Depression Total Score: 0 05/10/20 10:43 AM EDT documented as of this encounter Care Teams Pl[employer] [facility] Products Assembler Relationship Specialty Start Date End Date Denton To NP [address] [facility] [place] [phone] PCP - General Family Medicine 04/30/24 documented as of this encounter
--- OUTSIDE RECORDS SUMMARY | 2024-11-21 14:04 | XMS_ITS ---
Author Organization [address] [place] [address] J[facility] Address [address] [place] [address] Care Team Providers Care Postpartum Rn Name Role Phone Denton To CR[employer] INSURANCE CLAIMS ADJUSTER Primary Care Provider + Active Problems Problem Noted Date Diagnosed Date Failure to thrive in adult 09/06/2024 Breast cancer metastasized to lung 05/02/2024 Current Oncology Plans TH Capecitabine* Plan Start Date:09/29/2024 Plan Provider:Murphy Huynh MD Linked Problems Carcinoma of breast metastat ic to lung, unspecified laterality (HC Code) Treatment Medications Current Day (Day 1 , Cycle 3 - Planned for 11/11/2024) Next Day (Day 1, Cycle 4 - Planned for 12/02/2024) capecitabine (XELODA) capecitabine (XELO DA) 500 mg tablet capecitabine (XELODA) 500 mg tablet Past Plans No past plan information found. Radiation Treatments * No radiation treatments are documented for this patient in [facility]. Treatments may have been administered in another system.
--- OUTSIDE RECORDS SUMMARY | 2024-11-21 14:04 | XMS_ITS | Clinical Summary ---
Author Organization [address] [place] [address] JAMES RESENDIZ Address [address] [place] [address] Care Team Providers Care Inspector Plating Name Role Phone [place] To NP Primary Care Provider + Medications ondansetron (ZOFRAN-ODT) [address] 1 tablet (8 mg total) onto the tongue every 8 (eight) hours as needed for nausea or vomiting. Active loperamide (IMODIUM) 2 mg capsuleIndications :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, unspecified laterality (HC Code) Take 2 caps by mouth at first sign of diarrhea, then 1 cap every 4 hours or after each loose stool until no diarrhea for 12 hours. 30 capsule 1 09/28/19 25 Active Additional Information Patient not taking.Reported on 11/14/2024 capecitabine (XELODA) 500 mg tabletIndications: 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, unspecified laterality (HC Code) Take 2 tablets (1,000 mg total) by mouth 2 (two) times daily. Take within 30 minutes after a meal on days 1 through 14 of each 21 day cycle. 56 tablet 5 4:21 PM EDT 10/01/19 25 Active capecitabine (XELODA) 500 mg tabletIndications: 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, unspecified laterality (HC Code) Take 2 tablets (1,000 mg total) by mouth twice daily for 7 days on, followed by 7 days off for each 28 day cycle. 56 tablet 5 12:36 PM EDT 10/31/19 25 Active albuterol (PROVENTIL, VENTOLIN) 2.5 mg /3 mL (0.083 %) nebulizer solutionIndication s: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, unspecified laterality (HC Code) USE 1 VIAL VIA NEBULIZER EVERY 6 HOURS NEEDED FOR SHORTNESS OF BREATH OR WHEEZING 025 Discontinu ed(!Delete Cleanup (No Cancel Msg)) busPIRone (BUSPAR) 7.5 mg tabletIndications: 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, unspecified laterality (HC Code) TAKE 1/2 TAB BY MOUTH TWICE A DAY 025 Discontinu ed(!Delete Cleanup (No Cancel Msg)) WIXELA INHUB 250-50 mcg/dose blister powder for inhalationIndicati ons: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, unspecified laterality (HC Code) Inhale 1 Inhalation into the lungs 2 (two) times daily. 02/24/20 24 025 Discontinu ed(!Delete Cleanup (No Cancel Msg)) rosuvastatin (CRESTOR) 5 mg tabletIndications: 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, unspecified laterality (HC Code) Take 1 tablet (5 mg total) by mouth daily. 01/10/20 24 025 Discontinu ed(!Delete Cleanup (No Cancel Msg)) benzonatate (TESSALON) 100 mg capsuleIndications :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, unspecified laterality (HC Code) TAKE 1 CAPSULE BY MOUTH 3 TIMES A DAY NEEDED FOR COUGH FOR 14 DAYS 04/21/20 24 025 Discontinu ed(!Delete Cleanup (No Cancel Msg)) ALBUTEROL, REFILL, INHL Inhale 2 puffs into the lungs every 4 (four) hours as needed. 025 Discontinu ed(!Delete Cleanup (No Cancel Msg)) ondansetron (ZOFRAN-ODT) 8 mg disintegrating tabletIndications: 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, unspecified laterality (HC Code) Place 1 tablet (8 mg total) onto the tongue every 8 (eight) hours as needed for nausea or vomiting. 60 tablet 1 09/28/19 25 025 Discontinu ed(!Delete Cleanup (No Cancel Msg)) Active Problems Problem Noted Date Diagnosed Date Failure to thrive in adult 09/06/2024 Breast cancer metastasized to lung 05/02/2024 Encounters Date Type Department Care Team Description 11/14/2024 10:30 AM EDT Office Visit Thoracic Oncology Program at [address] [address] Murphy Huynh MD Dest, Vanna M, APRN 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, unspecified laterality (HC Code) (Primary Dx) 11/14/2024 9:16 AM EDT - 11/14/2024 11:59 PM EDT Hospital Encounter [address] [address] 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, unspecified laterality (HC Code) Discharge Disposition: Home or Self Care 10/31/2024 Specialty Pharmacy [facility] [address] [place] [id number] Suzette Baez CPHT 10/30/2024 Orders Only Breast Center at [address] [address] Silas Garcia, PharmD 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, unspecified laterality (HC Code) (Primary Dx) 10/30/2024 Telephone Breast Center at [address] [address] Murphy Huynh MD Other 10/26/2024 Orders Only Melanoma Program at [address] [place] [address] Denisse Brewer APRN 10/25/2024 9:30 AM EDT Office Visit Breast Center at [address] [address] Denisse Brewer, Murphy Dhillon MD 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, unspecified laterality (HC Code) (Primary Dx) 10/25/2024 8:17 AM EDT - 10/25/2024 11:59 PM EDT Hospital Encounter [address] [place] [address] Denisse Brewer, TISSUE TECHNICIAN 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, unspecified laterality (HC Code) Discharge Disposition: Home or Self Care 10/25/2024 Orders Only Breast Center at [address] [place] [address] Denisse Brewer, TISSUE TECHNICIAN 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, unspecified laterality (HC Code) (Primary Dx) 10/24/2024 Specialty Pharmacy [facility] [address] [place] [address] Latosha De La Cruz, TALCER 10/15/2024 Specialty Pharmacy [facility] [address] [place] [address] Silas Garcia, PharmD 10/03/2024 Specialty Pharmacy [facility] [address] [place] [phone] Grace An, PharmD 10/03/2024 Specialty Pharmacy [facility] [address] [place] [phone] Vaishali House, TALCER 09/29/2024 Orders Only Breast Center at [address] [place] [address] Fernando Naylor, PharmD 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, unspecified laterality (HC Code) (Primary Dx) 09/28/2024 Documentation [facility] [address] [place] [address] Belkys Fortune, PharmD 09/27/2024 10:00 AM EDT Office Visit Breast Center at [address] [place] [address] Murphy Huynh MD 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, unspecified laterality (HC Code) (Primary Dx) 09/27/2024 Orders Only Breast Center at [address] [place] [address] Rachel Haynes, PharmD 09/27/2024 Telephone Breast Center at [address] [place] [address] Murphy Huynh MD Appointment 09/14/2024 4:53 PM EST - 09/14/2024 11:59 PM EST Hospital Encounter [facility] ROOM [address] [place] [address] Murphy Huynh MD Discharge Disposition: Home or Self Care 09/14/2024 Orders Only Breast Center at [address] [address] Tierra Collins RN 09/13/[address] 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 (HC Code) (Primary Dx); Failure to thrive in adult; Hypokalemia; 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, unspecified laterality (HC Code) [C50.919, C78.00]; Small bowel obstruction (HC Code) (HC CODE) (HC Code) [K56.609] Discharge Disposition: Home or Self Care 09/06/2024 6:45 PM EST - 09/06/2024 9:25 PM EST Hospital Encounter [facility] CT Scan [address] [place] [address] Aneudy Richardson APRN Discharge Disposition: Home or Self Care 09/06/2024 1:45 PM EST - 09/06/2024 6:44 PM EST Hospital Encounter [facility] Xray [address] [place] [phone] Yvan Vides PA Discharge Disposition: Home or Self Care 09/06/2024 11:00 AM EST Office Visit Breast Center at [address] [address] Murphy Huynh MD 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 (HC Code) (Primary Dx) 09/06/2024 Travel 09/03/2024 Scanned Document INTERFACE DEFAULT [address] [place] [address] System, Provider Not In 09/02/2024 Scanned Document INTERFACE DEFAULT 20 [facility] [place] [address] System, Provider Not In from Last 3 Months Family History Medical History Relation Name Comments Breast cancer Maternal Aunt Breast cancer Maternal Grandmother Relation Name Status Comments Maternal Aunt Maternal Grandmother Social History Tobacco Use Types Packs/Day Years Used Date Smoking Tobacco: Former Cigarettes Tobacco Cessation:Counseling Given: Not Answered Alcohol Use Standard Drinks/Week Comments Never 0 (1 standard drink = 0.6 oz pur e alcohol) [facility] Utilities Answer Date Recorded In the past 12 months has th e electric, gas, oil, or water company [...] your living situation today? I have a [facility] place to live 09/06/2024 Housing Stability Not on file 09/06/2024 Interpersonal Safety Answer Date Record ed Is there anyone in your life that is hurting or threatening you in anyway? no 09/07/2024 Physical Indicators of Abuse No evidence of phys ical abuse 09/07/2024 Comments No Sex and Gender Information Value Date Recorded Sex Assigned at Not on file Legal Sex Female 11:45 AM EDT Gender Identity Female 05/01/2024 2:55 PM EDT Sexual Orientation Straight 05/01/2024 2: 55 PM EDT Last Filed Vital Signs Vital Sign Reading Time Taken Comments Blood Pressure 128/86 11/14/2024 10:42 AM EDT Pulse 100 11/14/2024 10:42 AM EDT Temperature 36.4 ??C (97.5 ??F) 11/14/2024 10:42 AM E DT Respiratory Rate 19 11/14/2024 10:42 AM EDT Oxygen Saturation 99% 11/14/2024 10:42 AM EDT Inhaled Oxygen Concentration - - Weight 57.2 kg (126 lb) 11/14/2024 10:42 AM EDT Height 154.9 cm (5' 1 ) 10/25/2024 9:39 AM EDT Body Mass Index 23.81 10/25/2024 9:39 AM EDT Plan of Treatment Upcoming Encounters Date Type Department Care Team (Late st Contact Info) Description 12/06/2024 9:40 AM EDT Appointment [facility] CT Scan [address] [place] [address]. [place] [address] Deloris Winchester MD [address] [place] [phone] 12/13/2024 11:00 AM EDT Office Visit Breast Center at [address] [address] Murphy Huynh MD [address] [place] [phone] Health Maintenance Due Date Last Done Comments Covid-19 vaccine series (#1) 1953 HIV screening 1961 Pneumococcal Vaccine (50+ years) (1 of 2 - PCV) 1967 Tetanus adult (Td q 10,TDAP once) 1968 Breast cancer surveillance 1973 Lipid disorder screening 1988 Shingles vaccine (Shingrix) (1 of 2 - Shingrix (RZV) 2 Dose Standard Series) 1998 Osteoporosis screening (bone density) 2013 RSV Immunization (1 - 1-dose 75+ series) 2023 Influenza vaccine 03/11/2025 Diabetes screening 11/15/2027 11/14/2024, 0 10/25/2024, 09/12/2024, Additional history exists Breast cancer screening Discontinued 09/26/19 24, 04/25/2023, 10/04/2022, Additional history exists Hepatitis C screening Completed 10/25/2024 Cervical cancer screening Discontinued Colon cancer screening, Colonoscopy Discontinued Meningococcal Vaccine Aged Out No natividad jerardo eligible based on patient's age to complete this topic Goals Goal Patient Goal Type Associated Problems Recent Progress Patient-Stated? Author RxSp Therapeutic Goal General On track( 025 2:22 PM EDT) No Fernando Naylor PharmD Note: Oncology: Improve or maintain quality of life MTPs must be opened for patients not making appropriate progress towards their established therapeutic goals. Patient's progress towards goal: RxSp Therapeutic Goal General On track( 025 2:22 PM EDT) No Fernando Naylor PharmD Note: Oncology: Minimize toxicity by monitoring labs, side effects and recommend preventive measures when appropriate (anemia, neutropenia, thrombocytopenia, etc.) MTPs must be opened for patients not making appropriate progress towards their established therapeutic goals. Patient's progress towards goal: RxSp Therapeutic Goal General On track( 025 2:22 PM EDT) No Fernando Naylor PharmD Note: Oncology: Increase or maintain treatment adherence MTPs must be opened for patients not making appropriate progress towards their established therapeutic goals. Patient's progress towards goal: Procedures Procedure Name Priority Date/Time Associated Diagnosis Comments COMPREHENSIVE METABOLIC PANEL Routine 11/14/2024 9:19 AM EDT 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, unspecified laterality (HC Code) CBC AND DIFFERENTIAL Routine 11/14/2024 9:19 AM EDT 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, unspecified laterality (HC Code) COMPREHENSIVE METABOLIC PANEL Routine 11/14/2024 9:19 AM EDT 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, unspecified laterality (HC Code) CBC WITH AUTO DIFFERENTIAL Routine 11/14/2024 9:19 AM EDT 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, unspecified laterality (HC Code) COMPREHENSIVE METABOLIC PANEL Routine 10/25/2024 8:25 AM EDT 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, unspecified laterality (HC Code) CBC AND DIFFERENTIAL Routine 10/25/2024 8:25 AM EDT 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, unspecified laterality (HC Code) COMPREHENSIVE METABOLIC PANEL Routine 10/25/2024 8:25 AM EDT 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, unspecified laterality (HC Code) CBC WITH AUTO DIFFERENTIAL Routine 10/25/2024 8:25 AM EDT 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, unspecified laterality (HC Code) HEPATITIS C AB WITH REFLEX TO HCV PCR Routine 10/25/2024 8:25 AM EDT 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, unspecified laterality (HC Code) HEPATITIS B SURFACE ANTIBODY (BH GH L LMW YH) Routine 10/25/2024 8:25 AM EDT 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, unspecified laterality (HC Code) HEPATITIS B SURFACE ANTIGEN (BH GH L LMW YH) Routine 10/25/2024 8:25 AM EDT 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, unspecified laterality (HC Code) HEPATITIS B CORE ANTIBODY, TOTAL Routine 10/25/2024 8:25 AM EDT 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, unspecified laterality (HC Code) POCT GLUCOSE Routine 09/12/2024 8:21 AM EST BASIC METABOLIC PANEL Routine 09/12/2024 6:06 AM EST CBC AND DIFFERENTIAL Routine 09/12/2024 6:06 AM EST BASIC METABOLIC PANEL Routine 09/12/2024 6:06 AM EST CBC WITH AUTO DIFFERENTIAL Routine 09/12/2024 6:06 AM EST PHOSPHORUS (BH GH L LMW YH) Routine 09/12/2024 6:06 AM EST MAGNESIUM Routine 09/12/2024 6:06 AM EST POCT GLUCOSE Routine 09/11/2024 9:03 PM EST POCT GLUCOSE Routine 09/11/2024 6:26 PM EST POCT GLUCOSE Routine 09/11/2024 1:23 PM EST POCT GLUCOSE Routine 09/11/2024 7:44 AM EST BASIC METABOLIC PANEL Routine 09/11/2024 4:57 AM EST CBC AND DIFFERENTIAL Routine 09/11/2024 4:57 AM EST BASIC METABOLIC PANEL Routine 09/11/2024 4:57 AM EST CBC WITH AUTO DIFFERENTIAL Routine 09/11/2024 4:57 AM EST PHOSPHORUS (BH GH L LMW YH) Routine 09/11/2024 4:57 AM EST MAGNESIUM Routine 09/11/2024 4:57 AM EST POCT GLUCOSE Routine 09/10/2024 10:05 PM EST POCT GLUCOSE Routine 09/10/2024 4:54 PM EST EKG Routine 09/10/2024 12:14 PM EST POCT GLUCOSE Routine 09/10/2024 12:06 PM EST XR ABDOMEN AP Within 4 hours (Urgent) 09/10/2024 10:52 AM EST POCT GLUCOSE Routine 09/10/2024 9:15 AM EST BASIC METABOLIC PANEL Routine 09/10/2024 6:03 AM EST CBC AND DIFFERENTIAL Routine 09/10/2024 6:03 AM EST BASIC METABOLIC PANEL Routine 09/10/2024 6:03 AM EST CBC WITH AUTO DIFFERENTIAL Routine 09/10/2024 6:03 AM EST PHOSPHORUS (BH GH L LMW YH) Routine 09/10/2024 6:03 AM EST MAGNESIUM Routine 09/10/2024 6:03 AM EST POCT GLUCOSE Routine 09/09/2024 11:36 PM EST POCT GLUCOSE Routine 09/09/2024 5:35 PM EST POCT GLUCOSE Routine 09/09/2024 12:05 PM EST XR ABDOMEN AP Within 4 hours (Urgent) 09/09/2024 9:29 AM EST BASIC METABOLIC PANEL Routine 09/09/2024 6:11 AM EST CBC AND DIFFERENTIAL Routine 09/09/2024 6:11 AM EST MANUAL DIFFERENTIAL Routine 09/09/2024 6 :11 AM EST BASIC METABOLIC PANEL Routine 09/09/2024 6:11 AM EST CBC WITH AUTO DIFFERENTIAL Routine 09/09/2024 6:11 AM EST PHOSPHORUS (BH GH L LMW YH) Routine 09/09/2024 6:11 AM EST MAGNESIUM Routine 09/09/2024 6:11 AM EST POCT GLUCOSE Routine 09/09/2024 6:00 AM EST POCT GLUCOSE Routine 09/08/2024 11:04 PM EST POCT GLUCOSE Routine 09/08/2024 5:[address] THORACIC SPINE W IV CONTRAST Within 4 hours (Urgent) 09/08/2024 2:40 PM EST POCT GLUCOSE Routine 09/08/2024 12:12 PM EST POCT GLUCOSE Routine 09/08/2024 4:53 AM EST URINE MICROSCOPIC ( GH LMW YH) STAT 09/08/2024 4:04 AM EST URINALYSIS WITH CULTURE REFLEX ( LMW YH) Urgent 09/08/2024 4:04 AM EST UA REFLEX CULTURE Urgent 09/08/2024 4:0 4 AM EST URINALYSIS WITH CULTURE REFLEX Urgent 09/08/2024 4:04 AM EST URINE CULTURE STAT 09/08/2024 4:04 AM EST CBC AND DIFFERENTIAL STAT 09/08/2024 3:23 AM EST BASIC METABOLIC PANEL Routine 09/08/2024 3:23 AM EST T4, FREE STAT 09/08/2024 3:23 AM EST CBC WITH AUTO DIFFERENTIAL STAT 09/08/2024 3:23 AM EST TSH W/REFLEX TO FT4 ( GH LMW Q YH) Urgent 09/08/2024 3:23 AM EST HEPATIC FUNCTION PANEL Urgent 09/08/2024 3:23 AM EST PHOSPHORUS (BH GH L LMW YH) Routine 09/08/2024 3:23 AM EST MAGNESIUM Routine 09/08/2024 3:23 AM EST BASIC METABOLIC PANEL Routine 09/08/2024 3:23 AM EST POCT GLUCOSE Routine 09/07/2024 11:28 PM EST URINE MICROSCOPIC (BH GH LMW YH) STAT 09/07/2024 5:00 PM EST URINALYSIS WITH CULTURE REFLEX ( LMW YH) Urgent 09/07/2024 5:00 PM EST UA REFLEX CULTURE Urgent 09/07/2024 5:0 0 PM EST URINALYSIS WITH CULTURE REFLEX Urgent 09/07/2024 5:00 PM EST POCT GLUCOSE Routine 09/07/2024 4:12 PM EST POCT GLUCOSE Routine 09/07/2024 11:08 AM EST C. DIFFICILE ASSAY Urgent 09/07/2024 8: 22 AM EST POCT GLUCOSE Routine 09/07/2024 5:51 AM EST CBC AND DIFFERENTIAL Routine 09/07/2024 5:31 AM EST BASIC METABOLIC PANEL Routine 09/07/2024 5:31 AM EST CBC WITH AUTO DIFFERENTIAL Routine 09/07/2024 5:31 AM EST BASIC METABOLIC PANEL Routine 09/07/2024 5:31 AM EST LACTIC ACID, PLASMA (REFLEX 2H REPEAT) STAT 09/07/2024 1:41 AM EST HEMOGLOBIN A1C Routine 09/07/2024 1:41 AM EST PHOSPHORUS (BH GH L LMW YH) Routine 09/07/2024 1:41 AM EST MAGNESIUM Routine 09/07/2024 1:41 AM EST LIVER FUNCTION TESTS (YH) Routine 09/07/2024 1:[address] ABDOMEN PELVIS W IV CONTRAST Within 2 hours (STAT) 09/06/2024 8:45 PM EST BASIC METABOLIC PANEL Urgent 09/06/2024 5:03 PM EST BASIC METABOLIC PANEL Urgent 09/06/2024 5:03 PM EST BILIRUBIN, DIRECT Urgent 09/06/2024 5:0 3 PM EST 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 (HC Code) Failure to thrive in adult XR ABDOMEN AP Within 4 hours (Urgent) 09/06/2024 2:27 PM EST COMPREHENSIVE METABOLIC PANEL STAT 09/06/2024 1:49 PM EST CBC AND DIFFERENTIAL STAT 09/06/2024 1:49 PM EST COMPREHENSIVE METABOLIC PANEL STAT 09/06/2024 1:49 PM EST CBC WITH AUTO DIFFERENTIAL STAT 09/06/2024 1:49 PM EST LACTIC ACID, PLASMA (REFLEX 2H REPEAT) STAT 09/06/2024 1:49 PM EST 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 (HC Code) PROCALCITONIN (BH GH LMW Q YH) STAT 09/06/2024 1:49 PM EST 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 (HC Code) MAGNESIUM STAT 09/06/2024 1:49 PM EST 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 (HC Code) LAB SCAN 09/03/2024 12:[address] [facility] [address] ABDOMEN PELVIS Routine 09/02/2024 10:41 AM EST LAB SCAN 09/02/2024 12:00 AM EST XRAY RESULT SCAN 09/02/2024 12:[address] RESULT SCAN 09/02/2024 12:00 AM EST [facility] MAMMO DIGITAL SCREENING W CAD Routine 09/26/2023 2:50 PM EDT from Last 3 Months or Most Recently Relevant to Health Maintenance Results * (ABNORMAL) Comprehensive metabolic panel (11/14/2024 9:19 AM EDT) Only the most recent of3 resultswithin the time period is included. Sodium 138 136 - 144 mmol/L 11/14/2024 10:15 AM EDT [facility] Potassium 4.7 3.3 - 5.3 mmol/L 11/14/2024 10:15 AM EDT [facility] Chloride 102 98 - 107 mmol/L 11/14/2024 10:15 AM EDT [facility] CO2 24 20 - 30 mmol/L 11/14/2024 10:15 AM T [facility] Anion Gap 12 7 - 17 11/14/2024 10:15 AM T [facility] Glucose 140(H) 70 - 100 mg/dL 11/14/2024 10:15 AM EDT [facility] BUN 20 8 - 23 mg/dL 11/14/2024 10:15 AM EDT [facility] Creatinine 0.73 0.40 - 1.30 mg/dL 11/14/2024 10:15 AM EDT [facility] Calcium 9.3 8.8 - 10.2 mg/dL 11/14/2024 10:15 AM T [facility] BUN/Creatinine Ratio 27.4(H) 8.0 - 23.0 11/14/2024 10:15 AM T [facility] Total Protein 6.6 5.9 - 8.3 g/dL 025 10:15 AM EDT [facility] Comment:As of 2023, th e reference interval for Total Protein has been changed from (6.6 to 8.7 g/dL) to (5.9 to 8.3 g/dL). Albumin 4.1 3.6 - 5.1 g/dL 11/14/2024 10:15 AM EDT [facility] Comment:As of 2023, th e reference interval for Albumin has been changed from (3.6 to 4.9 g/dL) to (3.6 to 5.1 g/dL). Total Bilirubin 0.7 <=1.2 mg/dL 11/15/19 25 10:15 AM [facility] Alkaline Phosphatase 127(H) 9 - 122 U/L 11/14/2024 10:15 AM [facility] Alanine Aminotransferase (ALT) 18 10 - 35 U/L 11/14/2024 10:15 AM [facility] Comment:Calcium dobesilate c an cause artificially low ALT results at therapeutic concentrations Aspartate Aminotransferase (AST) 19 10 - 35 U/L 11/14/2024 10:15 AM [facility] Globulin 2.5 2.0 - 3.9 g/dL 11/14/2024 10:15 AM [facility] Comment:As of 2023, e reference interval for Globulin has been changed from (2.3 to 3.5 g/dL) to (2.0 to 3.9 g/dL). A/G Ratio 1.6 1.0 - 2.2 11/14/2024 10:15 AM [facility] AST/ALT Ratio 1.1 Reference Range Not Established 11/14/2024 10:15 AM [facility] eGFR (Creatinine) >60 >=60 mL/min/1.73m2 11/14/2024 10:15 AM [facility] Comment: [facility] utilizes CKD-EPI Creatinine 2020 to report eGFR. Values < 60 mL/min/1.73 m2 may indicate CKD if present for more than three months AND creatinine is at steady state. The eGFR provides a rough estimate of kidney function. For further guidance, please refer to the CKD: Adult [employer] Signature pathway. Creatinine Delta 0.05 See Comment 025 10:15 AM EDT [facility] Comment: Delta creatinine is the difference between the current creatinine and the most recent prior creatinine (if available within the previous 12 months). It is intended to detect significant changes in kidney function for patients whose creatinine is <5 mg/dL. A delta is not calculated for patients whose baseline creatinine is >=5 mg/dL or those who do not have a baseline within the last year. The following deltas will flag as critical (triggering a call from the laboratory): a) Deltas >= +1.5 mg/dL for patients with baseline creatinine <= 1.5 mg/dL. b) Deltas >= +3 mg/dL for patients with baseline creatinine between 1.5 and 5 mg/dL. Blood Venipuncture / Unknown 11/14/2024 9:19 AM EDT 11/14/2024 9:50 AM EDT us Denisse Brewer TISSUE TECHNICIAN LAB BLOOD ORDERABLES Final Res ult Performing Organization Address City/State/[facility] Co de Phone Number [facility] [address] [place] [address] * (ABNORMAL) CBC auto differential (11/14/2024 9:19 AM EDT) Only the most recent of9 resultswithin the time period is included. [facility] WBC 6.4 4.0 - 11.0 x1000/??L 11/14/2024 9:58 AM EDT [facility] RBC 4.14 4.00 - 6.00 M/??L 11/14/2024 9:58 AM EDT [facility] Hemoglobin 13.1 11.7 - 15.5 g/dL 11/14/2024 9:58 AM EDT [facility] Hematocrit 40.10 35.00 - 45.00 % 11/14/2024 9:58 AM [facility] MCV 96.9 80.0 - 100.0 fL 11/14/2024 9:58 AM [facility] MCH 31.6 27.0 - 33.0 pg 11/14/2024 9:58 AM [facility] MCHC 32.7 31.0 - 36.0 g/dL 11/14/2024 9:58 AM [facility] RDW-CV 14.0 11.0 - 15.0 % 11/14/2024 9:58 AM [facility] DEPARTMENT OF LABORATORY MEDICINE Platelets 186 150 - 420 x1000/??L 11/14/2024 9:58 AM [facility] DEPARTMENT OF LABORATORY MEDICINE MPV 10.9 8.0 - 12.0 fL 11/14/2024 9:58 AM [facility] DEPARTMENT OF LABORATORY MEDICINE Neutrophils 72.4(H) 39.0 - 72.0 % 11/14/2024 9:58 AM [facility] DEPARTMENT OF LABORATORY MEDICINE Lymphocytes 18.4 17.0 - 50.0 % 11/14/2024 9:58 AM [facility] DEPARTMENT OF LABORATORY MEDICINE Monocytes 5.8 4.0 - 12.0 % 11/14/2024 9:58 AM [facility] DEPARTMENT OF LABORATORY MEDICINE Eosinophils 2.8 0.0 - 5.0 % 11/14/2024 9:58 AM [facility] DEPARTMENT OF LABORATORY MEDICINE Basophil 0.3 0.0 - 1.4 % 11/14/2024 9:58 AM [facility] DEPARTMENT OF LABORATORY MEDICINE Immature Granulocytes 0.3 0.0 - 1.0 % 11/14/2024 9:58 AM [facility] DEPARTMENT OF LABORATORY MEDICINE nRBC 0.0 0.0 - 1.0 % 11/14/2024 9:58 AM [facility] DEPARTMENT OF LABORATORY MEDICINE Absolute Lymphocyte Count 1.17 0.60 - 3.70 x 1000/??L 11/14/2024 9:58 AM [facility] DEPARTMENT OF LABORATORY MEDICINE Monocyte Absolute Count 0.37 0.00 - 1.00 x 1000/??L 11/14/2024 9:58 AM EDT [facility] DEPARTMENT OF LABORATORY MEDICINE Eosinophil Absolute Count 0.18 0.00 - 1.00 x 1000/??L 11/14/2024 9:58 AM EDT [facility] DEPARTMENT OF LABORATORY MEDICINE Basophil Absolute Count 0.02 0.00 - 1.00 x 1000/??L 11/14/2024 9:58 AM EDT [facility] DEPARTMENT OF LABORATORY MEDICINE Absolute Immature Granulocyte Count 0.02 0.00 - 0.30 x 1000/??L 11/14/2024 9:58 AM EDT [facility] DEPARTMENT OF LABORATORY MEDICINE Absolute nRBC 0.00 0.00 - 1.00 x 1000/??L 11/14/2024 9:58 AM EDT [facility] DEPARTMENT OF LABORATORY MEDICINE ANC (Abs Neutrophil Count) 4.59 2.00 - 7.60 x 1000/??L 11/14/2024 9:58 AM EDT [facility] DEPARTMENT OF LABORATORY MEDICINE Blood Venipuncture / Unknown 11/14/2024 9:19 AM EDT 11/14/2024 9:50 AM EDT us Denisse Brewer TISSUE TECHNICIAN LAB BLOOD ORDERABLES Final Res ult Performing Organization Address [facility] Co de Phone Number [facility] DEPARTMENT OF LABORATORY MEDICINE [address] [place] [address] * Hepatitis C Ab with reflex to HCV PCR (10/25/2024 8:25 AM EDT) Hepatitis C Antibody Negative Negative 10/25/2024 11:38 AM EDT [facility] DEPARTMENT OF LABORATORY MEDICINE Comment:A negative result do es not exclude HCV infection, since antibodies are not detectable for 4-8 weeks after initial infection, or may not develop in compromised hosts. In high-risk individuals, repeat antibody testing in 2 months and/or HCV RNA PCR should be considered. Blood Venipuncture / Unknown 10/25/2024 8:25 AM EDT 10/25/2024 8:56 AM EDT us Denisse M Dest TISSUE TECHNICIAN LAB BLOOD ORDERABLES Final Res ult [facility] DEPARTMENT OF LABORATORY MEDICINE [address] [place] [address] * HEPATITIS B CORE ANTIBODY, TOTAL (10/25/2024 8:25 AM EDT) Hepatitis B Core Antibody, Total Negative Negative 10/25/2024 11:37 AM EDT [facility] DEPARTMENT OF LABORATORY MEDICINE Blood Venipuncture / Unknown 10/25/2024 8:25 AM EDT 10/25/2024 8:56 AM EDT Denisse M Dest TISSUE TECHNICIAN LAB BLOOD ORDERABLES Final Res ult Performing Organization Address [facility] de Phone Number [facility] DEPARTMENT OF LABORATORY MEDICINE [address] [place] [address] * HEPATITIS B SURFACE ANTIBODY (BH GH L LMW ) (10/25/2024 8:25 AM EDT) Pathologist [facility] Hepatitis B Surface Antibody <8.00 > or = 12 mIU/mL 10/25/2024 11:33 AM EDT [facility] DEPARTMENT OF LABORATORY MEDICINE Comment: Patient is considered to be not immune to infection with HBV. This assay was restandardized from the 1st to the 2nd WHO International Reference Standard on 12/20/17. A slight upward shift in values was noted. Blood Venipuncture / Unknown 10/25/2024 8:25 AM EDT 10/25/2024 8:56 AM EDT us Denisse M Dest TISSUE TECHNICIAN LAB BLOOD ORDERABLES Final Res ult Performing Organization Address [facility] de Phone Number [facility] DEPARTMENT OF LABORATORY MEDICINE [address] [place] [address] * HEPATITIS B SURFACE ANTIGEN (BH GH L LMW Y) (10/25/2024 8:25 AM EDT) Pathologist [facility] Hepatitis B Surface Antigen Negative Negative 10/25/2024 11:38 AM EDT [facility] DEPARTMENT OF LABORATORY MEDICINE Blood Venipuncture / Unknown 10/25/2024 8:25 AM EDT 10/25/2024 8:56 AM EDT us Denisse Brewer APRN LAB BLOOD ORDERABLES Final Res ult Performing Organization Address [facility]/State/ZIP Co de Phone Number [facility] DEPARTMENT OF LABORATORY MEDICINE [address] [place] [address] * (ABNORMAL) POC Glucose (Fingerstick) (09/12/2024 8:21 AM EST) Only the most recent of21 resultswithin the time period is included. Glucose, Meter 123(H) 70 - 100 mg/dL 09/12/2024 8:21 AM EST [facility] DEPARTMENT OF LABORATORY MEDICINE Blood 09/12/2024 8:21 AM EST 09/12/2024 8:22 AM EST Nicholas Newton MD POINT OF CARE TEST ORDERABLES Fi nal Result Performing Organization Address [facility] Co de Phone Number [facility] DEPARTMENT OF LABORATORY MEDICINE [address] [place] [address] * (ABNORMAL) Basic metabolic panel (09/12/2024 6:06 AM EST) Only the most recent of7 resultswithin the time period is included. Sodium 138 136 - 144 mmol/L 09/12/2024 7:08 AM [facility] DEPARTMENT OF LABORATORY MEDICINE Potassium 4.3 3.3 - 5.3 mmol/L 09/12/2024 7:08 AM [facility] DEPARTMENT OF LABORATORY MEDICINE Chloride 103 98 - 107 mmol/L 09/12/2024 7:08 AM [facility] DEPARTMENT OF LABORATORY MEDICINE CO2 26 20 - 30 mmol/L 09/12/2024 7:08 AM [facility] DEPARTMENT OF LABORATORY MEDICINE Anion Gap 9 7 - 17 09/12/2024 7:08 AM EST [facility] DEPARTMENT OF LABORATORY MEDICINE Glucose 100 70 - 100 mg/dL 09/12/2024 7:08 AM [facility] DEPARTMENT OF LABORATORY MEDICINE BUN 9 8 - 23 mg/dL 09/12/2024 7:08 AM [facility] DEPARTMENT OF LABORATORY MEDICINE Creatinine 0.71 0.40 - 1.30 mg/dL 09/12/2024 7:08 AM [facility] DEPARTMENT OF LABORATORY MEDICINE Calcium 8.1(L) 8.8 - 10.2 mg/dL 09/12/2024 7:08 AM [facility] DEPARTMENT OF LABORATORY MEDICINE BUN/Creatinine Ratio 12.7 8.0 - 23.0 09/12/2024 7:08 AM [facility] DEPARTMENT OF LABORATORY MEDICINE eGFR (Creatinine) >60 >=60 mL/min/1.73 m2 09/12/2024 7:08 AM [facility] DEPARTMENT OF LABORATORY MEDICINE Comment: [facility] utilizes CKD-EPI Creatinine 2020 to report eGFR. Values < 60 mL/min/1.73 m2 may indicate CKD if present for more than three months AND creatinine is at steady state. The eGFR provides a rough estimate of kidney function. For further guidance, please refer to the CKD: Adult [employer] Signature pathway. Creatinine Delta 0.08 See Comment 7:08 AM [facility] DEPARTMENT OF LABORATORY MEDICINE Comment: Delta creatinine is the difference between the current creatinine and the most recent prior creatinine (if available within the previous 12 months). It is intended to detect significant changes in kidney function for patients whose creatinine is <5 mg/dL. A delta is not calculated for patients whose baseline creatinine is >=5 mg/dL or those who do not have a baseline within the last year. The following deltas will flag as critical (triggering a call from the laboratory): a) Deltas >= +1.5 mg/dL for patients with baseline creatinine <= 1.5 mg/dL. b) Deltas >= +3 mg/dL for patients with baseline creatinine between 1.5 and 5 mg/dL. Blood Venipuncture / Unknown 09/12/2024 6:06 AM EST 09/12/2024 6:38 AM EST us Nicholas Newton MD LAB BLOOD ORDERABLES Final Resul t [facility] DEPARTMENT OF LABORATORY MEDICINE [address] [place] [address] * Phosphorus (09/12/2024 6:06 AM EST) Only the most recent of6 resultswithin the time period is included. Phosphorus 3.7 2.2 - 4.5 mg/dL 09/12/2024 7:08 AM EST [facility] DEPARTMENT OF LABORATORY MEDICINE Blood Venipuncture / Unknown 09/12/2024 6:06 AM EST 09/12/2024 6:38 AM EST us Nicholas Newton MD LAB BLOOD ORDERABLES Final Resul t Performing Organization Address [facility] de Phone Number [facility] DEPARTMENT OF LABORATORY MEDICINE [address] [place] [address] * Magnesium (09/12/2024 6:06 AM EST) Only the most recent of7 resultswithin the time period is included. Magnesium 2.0 1.7 - 2.4 mg/dL 09/12/2024 7:08 AM EST [facility] DEPARTMENT OF LABORATORY MEDICINE Blood Venipuncture / Unknown 09/12/2024 6:06 AM EST 09/12/2024 6:38 AM EST us Nicholas Newton MD LAB BLOOD ORDERABLES Final Resul t Performing Organization Address [facility] de Phone Number [facility] DEPARTMENT OF LABORATORY MEDICINE [address] [place] [address] * EKG (09/10/2024 12:14 PM EST) Heart Rate 100 bpm [facility] EKG QRS Interval 72 ms [facility] EKG QT Interval 335 ms [facility] EKG QTC Interval 432 ms [facility] EKG P [place] 78 deg [facility] EKG QRS [place] 71 deg [facility] EKG T Wave [place] 58 deg [facility] EKG P-R Interval 126 msec [facility] EKG SEVERITY Otherwise Normal ECG severity [facility] EKG Comment::Sinus tachycardia:E lectronically Signed On 09-10-2024 16:29:12 EST by LYNETTE LIU MD 09/10/2024 12:1 4 PM EST Nicholas Newton MD ECG ORDERABLES Final Result [facility] EKG * XR Abdomen AP (09/10/2024 10:52 AM EST) Only the most recent of3 resultswithin the time period is included. Anatomical Region Laterality Modality Abdomen, RCC Abdomen/Pelvis Digi bhavani Radiography 09/10/2024 11:1 6 AM EST Narrative 09/10/2024 11:17 AM EST Study: XR ABDOMEN AP Indication: ??f/u clinically worsening partial SBO Comparison: ??09/09/2024 Impression: Nonobstructive bowel gas pattern. Reported and signed by: Froylan Han MD [facility] Procedure Note Froylan Han MD - 09/10/2024 Study: XR ABDOMEN AP Indication: f/u clinically worsening partial SBO Comparison: 09/09/2024 Impression: Nonobstructive bowel gas pattern. Reported and signed by: Froylan Han MD [facility] Nicholas Newton MD IMG DIAGNOSTIC IMAGING ORDERABLE S Final Result * (ABNORMAL) Manual Differential (09/09/2024 6:11 AM EST) Neutrophils 73.0(H) 39.0 - 72.0 % 09/09/2024 8:02 AM EST [facility] DEPARTMENT OF LABORATORY MEDICINE Bands 1.0 0.0 - 10.0 % 09/09/2024 8:02 AM EST [facility] DEPARTMENT OF LABORATORY MEDICINE Lymphocytes 14.0(L) 17.0 - 50.0 % 09/09/2024 8:02 AM EST [facility] DEPARTMENT OF LABORATORY MEDICINE Monocytes 6.0 4.0 - 12.0 % 09/09/2024 8:02 AM EST [facility] DEPARTMENT OF LABORATORY MEDICINE Eosinophils 5.0 0.0 - 5.0 % 09/09/2024 8:02 AM [facility] DEPARTMENT OF LABORATORY MEDICINE Basophil 0.0 0.0 - 1.4 % 09/09/2024 8:02 AM [facility] DEPARTMENT OF LABORATORY MEDICINE Myelocytes 1.0(H) 0.0 - 0.0 % 09/09/2024 8:02 AM [facility] DEPARTMENT OF LABORATORY MEDICINE Neutrophils Absolute 5.39 2.00 - 7.60 x 1000/??L 09/09/2024 8:02 AM [facility] DEPARTMENT OF LABORATORY MEDICINE Lymphocyte Absolute 1.02 0.60 - 3.70 x 1000/??L 09/09/2024 8:02 AM [facility] DEPARTMENT OF LABORATORY MEDICINE Monocyte Absolute Count 0.44 0.00 - 1.00 x 1000/??L 09/09/2024 8:02 AM [facility] DEPARTMENT OF LABORATORY MEDICINE Eosinophil Absolute Count 0.36 0.00 - 1.00 x 1000/??L 09/09/2024 8:02 AM [facility] DEPARTMENT OF LABORATORY MEDICINE Basophil Absolute Count 0.00 0.00 - 1.00 x 1000/??L 09/09/2024 8:02 AM [facility] DEPARTMENT OF LABORATORY MEDICINE RBC Morphology Normal 09/09/2024 8:02 AM [facility] DEPARTMENT OF LABORATORY MEDICINE Blood ARM NEC / Unknown Venipuncture / Unknown 09/09/2024 6:11 AM EST 09/09/2024 6:31 AM EST Nicholas Newton MD LAB BLOOD ORDERABLES Final Resul t Performing Organization Address City/State/[facility] Co de Phone Number [facility] DEPARTMENT OF LABORATORY MEDICINE [address] [place] [address] * CT Thoracic Spine w IV Contrast (09/08/2024 2:40 PM EST) Anatomical Region Laterality Modality T-spine, Spine, Ortho T-spine Co mputed Tomography 09/08/2024 3:42 PM EST Narrative 09/08/2024 5:49 PM EST Study: CT THORACIC SPINE W IV CONTRAST Indication: Metastatic disease evaluation Comparison: OUTSIDE INTERPRETATION CT CHEST 2024-06-01 Technique: CT of the thoracic spine was obtained with intravenous contrast. Findings: There are 12 rib-bearing thoracic vertebral bodies. There is diffuse osteopenia. No acute fracture or traumatic subluxation is seen. ??Vertebral body heights and alignment are within normal limits. Prevertebral, paravertebral, and paraspinal soft tissues are unremarkable. No abnormal thoracic spinal enhancement is seen. There are focal sclerotic lesions in the T9, T12, and L1 vertebral bodies, and sclerosis of the anterior inferior corner of T7. There are mild multilevel degenerative changes. No high-grade spinal canal stenosis or neuroforaminal narrowing is seen. Bilateral pulmonary nodules and left upper lobe peripheral consolidation are not significantly changed from May 2024. Redemonstrated right hilar adenopathy. Impression: Nonspecific focal sclerotic lesions in T9, T12, and L1 vertebral bodies. Sclerosis of the anterior inferior corner of T7 is also nonspecific but favored to represent degenerative change. [facility] Radiology Notify System Classification: Routine. Report initiated by: ??Orin Navarro MD Reported and signed by: Keegan Houser MD [facility] Procedure Note Keegan Houser MD - 09/08/2024 Study: CT THORACIC SPINE W IV CONTRAST Indication: Metastatic disease evaluation Comparison: OUTSIDE INTERPRETATION CT CHEST 2024-06-01 Technique: CT of the thoracic spine was obtained with intravenouscontrast. Findings: There are 12 rib-bearing thoracic vertebral bodies. There is diffuseosteopenia. No acute fracture or traumatic subluxation is seen. Vertebralbody heights and alignment are within normal limits. Prevertebral,paravertebral, and paraspinal soft tissues are unremarkable. No abnormalthoracic spinal enhancement is seen. There are focal sclerotic lesions in the T9, T12, and L1 vertebral bodies,and sclerosis of the anterior inferior corner of T7. There are mild multilevel degenerative changes. No high-grade spinal canalstenosis or neuroforaminal narrowing is seen. Bilateral pulmonary nodules and left upper lobe peripheral consolidationare not significantly changed from May 2024. Redemonstrated righthilar adenopathy. Impression: Nonspecific focal sclerotic lesions in T9, T12, and L1 vertebral bodies.Sclerosis of the anterior inferior corner of T7 is also nonspecific butfavored to represent degenerative change. [facility] Radiology Notify System Classification: Routine. Report initiated by: Orin Navarro MD Reported and signed by: Keegan Houser MD [facility] Nicholas Newton MD IMG CT ORDERABLES Final Result * (ABNORMAL) Urinalysis with culture reflex ([facility]) (09/08/2024 4:04 AM EST) Only the most recent of2 resultswithin the time period is included. Clarity, UA Clear Clear 09/08/2024 4:38 AM [facility] DEPARTMENT OF LABORATORY MEDICINE Color, UA Yellow Yellow, Colorless 09/08/2024 4:38 AM [facility] DEPARTMENT OF LABORATORY MEDICINE Specific [place], UA 1.013 1.005 - 1.030 09/08/2024 4:38 AM [facility] DEPARTMENT OF LABORATORY MEDICINE pH, UA 7.0 5.5 - 7.5 09/08/2024 4:38 AM [facility] DEPARTMENT OF LABORATORY MEDICINE Protein, UA Negative Negative, Trace 09/08/2024 4:38 AM [facility] DEPARTMENT OF LABORATORY MEDICINE Glucose, UA Negative Negative 09/08/2024 4:38 AM [facility] DEPARTMENT OF LABORATORY MEDICINE Ketones, UA 1+(A) Negative 09/08/2024 4:38 AM [facility] DEPARTMENT OF LABORATORY MEDICINE Blood, UA Negative Negative 09/08/2024 4:38 AM [facility] DEPARTMENT OF LABORATORY MEDICINE Bilirubin, UA Negative Negative 09/08/2024 4:38 AM [facility] DEPARTMENT OF LABORATORY MEDICINE Leukocytes, UA Negative Negative 09/08/2024 4:38 AM [facility] DEPARTMENT OF LABORATORY MEDICINE Nitrite, UA Positive(A) Negative 09/08/2024 4:38 AM [facility] DEPARTMENT OF LABORATORY MEDICINE Urobilinogen, UA <2.0 <=2.0 mg/dL 09/08/2024 4:38 AM [facility] DEPARTMENT OF LABORATORY MEDICINE Urine CATHETER / Unknown Collection / Unknown 09/08/2024 4:04 AM EST 09/08/2024 4:13 AM EST Nicholas Newton MD URINE ORDERABLES Final Result [facility] DEPARTMENT OF LABORATORY MEDICINE [address] [place] [address] * UA reflex to culture (09/08/2024 4:04 AM EST) Only the most recent of2 resultswithin the time period is included. Reflex Urine Culture See Comment 09/08/2024 5:00 AM EST [facility] DEPARTMENT OF LABORATORY MEDICINE Urine CATHETER / Unknown Collection / Unknown 09/08/2024 4:04 AM EST 09/08/2024 4:13 AM EST Narrative [facility] DEPARTMENT OF LABORATORY MEDICINE - 09/08/2024 5:00 AM EST Urine culture will be reflexed if indicated by urinalysis results. ??Please check microbiology results for urine culture. us Nicholas Newton MD URINE ORDERABLES Final Result Performing Organization Address [facility] de Phone Number [facility] DEPARTMENT OF LABORATORY MEDICINE [address] [place] [address] * (ABNORMAL) Urine microscopic ([facility]) (09/08/2024 4:04 AM EST) Only the most recent of2 resultswithin the time period is included. RBC/HPF, UA <1 0 - 2 /HPF 09/08/2024 4:56 AM EST [facility] DEPARTMENT OF LABORATORY MEDICINE WBC/HPF, UA 1 0 - 5 /HPF 09/08/2024 4:56 AM EST [facility] DEPARTMENT OF LABORATORY MEDICINE Bacteria, UA Few(A) None-Rare /HPF 09/08/2024 4:56 AM EST [facility] DEPARTMENT OF LABORATORY MEDICINE Urine CATHETER / Unknown Collection / Unknown 09/08/2024 4:04 AM EST 09/08/2024 4:13 AM EST us Nicholas Newton MD URINE ORDERABLES Final Result Performing Organization Address City/[facility] Co de Phone Number [facility] DEPARTMENT OF LABORATORY MEDICINE [address] [place] [address] * (ABNORMAL) Urine culture (09/08/2024 4:04 AM EST) Urine Culture, Routine >=100,000 CFU/mL Klebsiella variicola(A) OFELIA SUSCEPTIBILITY 09/10/2024 9:09 AM EST [facility] DEPARTMENT OF LABORATORY MEDICINE Urine CATHETER / Unknown Collection / Unknown 09/08/2024 4:04 AM EST 09/08/2024 4:13 AM EST Narrative [facility] DEPARTMENT OF LABORATORY MEDICINE - 09/10/2024 9:09 AM EST Culture, organism identification, and/or susceptibility results may have been generated with a non-FDA approved method. All methods used in this report have been validated by [facility] Microbiology for clinical use. Organism Antibiotic Method Susceptibility Klebsiella variicola Amoxicillin + Clavulanate OFELIA CAROLEE CEPTIBILITY Susceptible Klebsiella variicola Ampicillin OFELIA SUSCEPTIBILITY Resistant Klebsiella variicola Ampicillin + Sulbactam OFELIA SUSCEP TIBILITY Susceptible Klebsiella variicola Ceftriaxone OFELIA SUSCEPTIBILITY Susceptible Klebsiella variicola Cefuroxime OFELIA SUSCEPTIBILITY Susceptible Klebsiella variicola Ciprofloxacin OFELIA SUSCEPTIBILITY Susceptible Klebsiella variicola Nitrofurantoin OFELIA SUSCEPTIBILITY Susceptible Klebsiella variicola Piperacillin + Tazobactam OFELIA CAROLEE CEPTIBILITY Susceptible Klebsiella variicola Tobramycin OFELIA SUSCEPTIBILITY Susceptible Klebsiella variicola Trimethoprim + Sulfamethoxazole OFELIA SUSCEPTIBILITY Susceptible Nicholas Newton MD MICROBIOLOGY - GENERAL ORDERABLE S Final Result [facility] DEPARTMENT OF LABORATORY MEDICINE [address] [place] [address] * (ABNORMAL) TSH w/reflex to FT4 (09/08/2024 3:23 AM EST) Pathologist [facility] Thyroid Stimulating Hormone 4.590(H) See Comment ??IU/mL 09/08/2024 4:16 AM EST [facility] DEPARTMENT OF LABORATORY MEDICINE Comment: Male & Non- Females: 0.270-4.200 ??IU/mL 1st Trimester: 0.110-3.480 ??IU/mL 2nd Trimester: 0.320-3.850 ??IU/mL As TSH is known to naturally increase in winter, with age and due to certain non-thyroidal illnesses, please consider retesting adults with mild abnormalities (ie, TSH <10 ??IU/mL) after 2-3 months prior to initiating therapy. Blood ARM NEC / Unknown Venipuncture / Unknown 09/08/2024 3:23 AM EST 09/08/2024 3:36 AM EST us Nicholas Newton MD LAB BLOOD ORDERABLES Final Resul t Performing Organization Address [facility] de Phone Number [facility] DEPARTMENT OF LABORATORY MEDICINE [address] [place] [address] * T4, free (09/08/2024 3:23 AM EST) Free T4 1.24 See Comment ng/dL 09/08/2024 4:45 AM EST [facility] DEPARTMENT OF LABORATORY MEDICINE Comment: For patients taking levothyroxine, the daily therapeutic dose may cause some patients to have slightly higher FT4 than in the general population and TSH should be the main arbiter of dosing adequacy for those whose hypothyroidism is of primary origin (ie. not related to hypothalamic-pituitary disease.) Of 26 commonly used pharmaceuticals tested in vitro, only furosemide caused elevated free thyroxine (FT4) findings at the daily therapeutic dosage level. Male & Non- Females: 0.80-1.70 ng/dL 1st Trimester: 0.90-1.40 ng/dL 2nd Trimester: 0.70-1.30 ng/dL Blood ARM NEC / Unknown Venipuncture / Unknown 09/08/2024 3:23 AM EST 09/08/2024 3:36 AM EST us Nicholas Newton MD LAB BLOOD ORDERABLES Final Resul t Performing Organization Address [facility] Co de Phone Number [facility] DEPARTMENT OF LABORATORY MEDICINE [address] [place] [address] * (ABNORMAL) Hepatic function panel (09/08/2024 3:23 AM EST) Total Bilirubin 0.8 <=1.2 mg/dL 09/08/2024 4:16 AM EST [facility] DEPARTMENT OF LABORATORY MEDICINE Bilirubin, Direct 025 4:16 AM EST [facility] DEPARTMENT OF LABORATORY MEDICINE Comment:Sample Hemolyzed. Alkaline Phosphatase 71 9 - 122 U/L 09/08/2024 4:16 AM [facility] DEPARTMENT OF LABORATORY MEDICINE Alanine Aminotransferase (ALT) 21 10 - 35 U/L 09/08/2024 4:16 AM [facility] DEPARTMENT OF LABORATORY MEDICINE Comment:Calcium dobesilate c an cause artificially low ALT results at therapeutic concentrations Aspartate Aminotransferase (AST) 09/08/2024 4:16 AM [facility] DEPARTMENT OF LABORATORY MEDICINE Comment:Sample Hemolyzed. AST/ALT Ratio 09/08/2024 4:16 AM [facility] DEPARTMENT OF LABORATORY MEDICINE Comment:Calculation cannot b e determined. Total Protein 4.8(L) 5.9 - 8.3 g/dL 09/08/2024 4:16 AM [facility] DEPARTMENT OF LABORATORY MEDICINE Comment:As of 2023, th e reference interval for Total Protein has been changed from (6.6 to 8.7 g/dL) to (5.9 to 8.3 g/dL). Albumin 2.7(L) 3.6 - 5.1 g/dL 09/08/2024 4:16 AM [facility] DEPARTMENT OF LABORATORY MEDICINE Comment:As of 2023, th e reference interval for Albumin has been changed from (3.6 to 4.9 g/dL) to (3.6 to 5.1 g/dL). Globulin 2.1 2.0 - 3.9 g/dL 09/08/2024 4:16 AM [facility] DEPARTMENT OF LABORATORY MEDICINE Comment:As of 2023, th e reference interval for Globulin has been changed from (2.3 to 3.5 g/dL) to (2.0 to 3.9 g/dL). A/G Ratio 1.3 1.0 - 2.2 09/08/2024 4:16 AM [facility] DEPARTMENT OF LABORATORY MEDICINE Blood ARM NEC / Unknown Venipuncture / Unknown 09/08/2024 3:23 AM EST 09/08/2024 3:36 AM EST us Nicholas Newton MD LAB BLOOD ORDERABLES Final Resul t [facility] DEPARTMENT OF LABORATORY MEDICINE [address] [place] [address] [phone] * Automated C. difficile Assay (09/07/2024 8:22 AM EST) C. difficile PCR (Screening) Negative Negative 09/07/2024 12:36 PM EST [facility] DEPARTMENT OF LABORATORY MEDICINE Comment:Resulted 09/07/2024 1 2:36 PM. C. difficile Interpretation Toxigenic C. difficile DNA was NOT detected. See narrative below. 09/07/2024 12:36 PM EST [facility] DEPARTMENT OF LABORATORY MEDICINE Stool STOOL SPECIMEN / Unknown Collection / Unknown 09/07/2024 8:22 AM EST 09/07/2024 8:32 AM EST Narrative [facility] DEPARTMENT OF LABORATORY MEDICINE - 09/07/2024 12:36 PM EST Alternative causes of diarrhea should be considered. ??Empiric treatment is not indicated unless there is strong clinical evidence of C. difficile disease (e.g. pseudomembranous colitis, toxic megacolon). Repeat testing within 7 days is not indicated unless there is a major clinical change or high clinical suspicion. Salma Esqueda MD MICROBIOLOGY - GENERAL ORDERABLES Final Result Performing Organization Address City/[facility]/ZIP Co de Phone Number [facility] DEPARTMENT OF LABORATORY MEDICINE [address] [place] [address] * Lactic acid, plasma (reflex 2h repeat) (09/07/2024 1:41 AM EST) Only the most recent of2 resultswithin the time period is included. Lactate 1.0 0.5 - 2.2 mmol/L 09/07/2024 2:18 AM EST [facility] DEPARTMENT OF LABORATORY MEDICINE Blood Venipuncture / Unknown 09/07/2024 1:41 AM EST 09/07/2024 1:51 AM EST Nicholas Newton MD LAB BLOOD ORDERABLES Final Resul t [facility] DE[facility] OF LAB[facility]ORY MEDICINE [address] [place] [address] * (ABNORMAL) Liver function tests (09/07/2024 1:41 AM EST) Bilirubin, Direct 0.3(H) <=0.2 mg/dL 2024 2:36 AM EST [facility] DEPARTMENT OF LABORATORY MEDICINE Alanine Aminotransferase (ALT) 14 10 - 35 U/L 09/07/2024 2:36 AM EST [facility] DEPARTMENT OF LABORATORY MEDICINE Comment:Calcium dobesilate c an cause artificially low ALT results at therapeutic concentrations Aspartate Aminotransferase (AST) 19 10 - 35 U/L 09/07/2024 2:36 AM EST [facility] DEPARTMENT OF LABORATORY MEDICINE Alkaline Phosphatase 71 9 - 122 U/L 09/07/2024 2:36 AM EST [facility] DEPARTMENT OF LABORATORY MEDICINE Total Bilirubin 1.0 <=1.2 mg/dL 09/07/19 25 2:36 AM EST [facility] DEPARTMENT OF LABORATORY MEDICINE AST/ALT Ratio 1.4 Reference Range Not Established 09/07/2024 2:36 AM EST [facility] DEPARTMENT OF LABORATORY MEDICINE Blood Venipuncture / Unknown 09/07/2024 1:41 AM EST 09/07/2024 1:51 AM EST Nicholas Newton MD LAB BLOOD ORDERABLES Final Resul t Performing Organization Address City/State/[facility] Co de Phone Number [facility] DEPARTMENT OF LABORATORY MEDICINE [address] [place] [address] * Hemoglobin A1c (09/07/2024 1:41 AM EST) Hemoglobin A1c 5.6 4.0 - 5.6 % 09/07/2024 10:37 AM EST [facility] DEPARTMENT OF LABORATORY MEDICINE Comment: Hemoglobin A1c values of 5.7-6.4 % identify individuals with an increased risk for future diabetes and to whom the term pre-diabetes may be applied. ??Hemoglobin A1c values greater than 6.4% on more than one occasion are diagnostic of diabetes. Lowering HbA1c to below 7% is considered to reduce microvascular and neuropathic complications of diabetes. This boronate affinity Hb A1c method provides accurate analytical results in the presence of nearly all Hb variants. Hb F higher than 10% of total Hb may yield falsely low results. Conditions that shorten red cell survival, such as the presence of unstable hemoglobins like Hb SS, Hb CC, and Hb SC, or other causes of hemolytic anemia may yield falsely low results. Iron deficiency anemia may yield falsely high results. Estimated Average Glucose mg/dL 114 mg/dL 09/07/2024 10:37 AM EST [facility] DEPARTMENT OF LABORATORY MEDICINE Comment: Estimated average glucose (eAG) is a calculated value designed to estimate ??the expected average blood glucose level throughout the day from a single ??measurement of ??glycated hemoglobin A1C (HbA1c) and follows the calculation proposed by the [place] [employer] (Diabetes Care 31: 1-6, 2008). It may have less accuracy in children, women and patients with certain erythrocyte disorders. Blood Venipuncture / Unknown 09/07/2024 1:41 AM EST 09/07/2024 1:51 AM EST us Nicholas Newton MD LAB BLOOD ORDERABLES Final Resul t Performing Organization Address City/State/[facility] Co de Phone Number [facility] DEPARTMENT OF LABORATORY MEDICINE [address] [place] [address] * CT Abdomen Pelvis w IV Contrast (09/06/2024 8:45 PM EST) Anatomical Region Laterality Modality Abdomen, Pelvis, Ortho Pelvis, Abdomen and Pelvi s Computed Tomography 09/06/2024 8:54 PM EST Narrative 09/06/2024 9:[address] ABDOMEN PELVIS W IV CONTRAST on 09/06/2024 8:45 PM INDICATION: Bowel obstruction suspected Metastatic disease evaluation SBO vs Ileus. COMPARISON: OUTSIDE INTERPRETATION CT CHEST 2024-06-01 TECHNIQUE: CT images of the abdomen and pelvis were obtained after the administration of intravenous contrast. IV contrast administered: ??80 ML IOHEXOL (OMNIPAQUE) 350 MG IODINE/ML INJECTION FINDINGS: There are right-sided groundglass opacities. Left lower lobe spiculated 10 mm spiculated nodule appears unchanged compared to CT from 06/01/2024. There is diffuse hepatic hypoattenuation suggestive of steatosis. Segment 4 1.5 cm hypodensity (3:20) and hypodensity along the falciform ligament are nonspecific and may represent focal fatty infiltration. The gallbladder, pancreas, left adrenal gland, and left kidney are unremarkable. There is a 1.6 cm right adrenal nodule which appears stable since the prior CT dated November 07, 2020. There are right renal hypodensities that are too small to characterize. There are 2 areas of focal narrowing in the small bowel resulting in upstream bowel dilation seen on series 4 image 41 and series 4 image 327 suggesting a closed- loop bowel obstruction . Distal to the transition points there are segments of small bowel containing fecalized contents that may suggest slow-transit/additional sites of partial obstruction. There is no ascites, pneumatosis, or portal venous gas. No pelvic mass. There is a small fat-containing umbilical hernia. There are no aggressive osseous lesions. 1. Findings suggestive of a closed loop small bowel obstruction. 2. Groundglass opacities in the right lung bases may represent an infectious/inflammatory process. [facility] Notify System Classification: Urgent result. Reported and signed by: Kimmie Richard MD [facility] [place] APRN IMG CT ORDERABLES Edited * Bilirubin, direct (09/06/2024 5:03 PM EST) Bilirubin, Direct 09/06/2024 5:47 PM EST [facility] DEPARTMENT OF LABORATORY MEDICINE Comment:Sample Hemolyzed. Blood Venipuncture / Unknown 09/06/2024 5:03 PM EST 09/06/2024 5:11 PM EST [facility] [place] i[place] APRN LAB BLOOD ORDERABLES Final Resu lt [facility] DEPARTMENT OF LABORATORY MEDICINE [address] [place] [address], [facility] [phone] * Procalcitonin ( GH LMW Q YH) (09/06/2024 1:49 PM EST) Procalcitonin 0.22 See Comment ng/mL 09/06/2024 3:14 PM EST [facility] DEPARTMENT OF LABORATORY MEDICINE Comment: Procalcitonin Value ?Likelihood of Active ? Comments ? Bacterial Infection ?? Less than or = to 0.25 ng/mL ? Unlikely ? See Comment 1 ?? 0.26 - 0.50 ng/mL ?Possible ? See Comment 2 ?? >0.50 ng/mL ?Likely ? See Comment 2 Caution is advised as above reference ranges may not be applicable in pediatric and patients. Comment 1: Procalcitonin may be low in the early phase of an infection and clinical judgement should be used. Procalcitonin has a high negative predictive value. Recommend repeating in 12-24 hours if there is high clinical suspicion of bacterial infection. Comment 2: When clinically stable, consider repeating to determine the duration of antibiotic therapy. High procalcitonin levels may be seen in a number of clinical states not limited to but including: acute kidney injury, end stage renal disease, severe trauma and post-operative states. Caution should be exercised when interpreting procalcitonin in and patients. Procalcitonin is not affected by corticosteroid use. Blood Venipuncture / Unknown 09/06/2024 1:49 PM EST 09/06/2024 2:07 PM EST us Yvan SOSA LAB BLOOD ORDERABLES Final Res ult [facility] DEPARTMENT OF LABORATORY MEDICINE [address] [place] [address], [facility] [phone] * Lab Scan (09/03/2024 12:00 AM EST) Only the most recent of2 resultswithin the time period is included. us Provider Not In System LAB BLOOD ORDERABLES Nevaeh l Result * [facility] CT Abdomen Pelvis (09/02/2024 10:41 AM EST) Narrative [facility] - 09/18/2024 10:41 AM EDT DISCLAIMER ??This procedure captures images only. ??There is no report. us Murphy Huynh MD IMG [facility] NON REP ORDERABLES Final Result Performing Organization Address [facility] Co de Phone Number [facility] * Xray Result Scan (09/02/2024 12:00 AM EST) us Provider Not In System IMG SCAN REPORTS Final Re sult * CT Result Scan (09/02/2024 12:00 AM EST) us Provider Not In System IMG SCAN REPORTS Final Re sult * [facility] Mammo Digital Screening w CAD (09/26/2023 2:50 PM EDT) Narrative [facility] - 05/02/2024 2:50 PM EDT DISCLAIMER ??This procedure captures images only. ??There is no report. us Murphy Huynh MD G [facility] NON REP ORDERABLES Final Result Performing Organization Address City/[facility]/ZIP Co de Phone Number [id number] from Last 3 Months or Most Recently Relevant to Health Maintenance Insurance MEDICARE [facility] MEDICARE [facility] MEDICARE BCBS Advance Directives * Full Code (Latest Code Status on File) Date Activated Date Inactivated Comments 09/06/2024 10:57 PM 09/12/2024 5:44 PM Care Teams Inspector Plating Relationship Specialty Start Date End Date Denton To NP [address] [place] [phone] PCP - General Family Medicine 04/30/24
--- OUTSIDE RECORDS SUMMARY | 2024-11-21 14:04 | XMS_ITS | Encounter Summary ---
Author Organization [facility] Address [address] [place] [address] Care Team Providers Care Bindery Supervisor Name Role Phone Denton To NP Primary Care Provider + Encounter Details Date Type Department Care Team (Late st Contact Info) Description 06/19/2024 Scanned Document INTERFACE DEFAULT [address] [place] [id number] System, Provider Not In Social History Tobacco Use Types Packs/Day Years Used Date Smoking Tobacco: Former Cigarettes Alcohol Use Standard Drinks/Week Comments Never 0 (1 standard drink = 0.6 oz pur e alcohol) PHQ-2 Answer Date Recorded PHQ-2 Total Score 0 05/10/2024 Housing Stability Answer Date Recorded What is your living situation today? I have a [facility] place to live 05/10/2024 Housing Stability [...] AM EDT Appointment [facility] CT Scan [address] [place] [address]. [place] [id number] Deloris Winchester MD [address] [place] [phone] 12/13/2024 11:00 AM EDT Office Visit [facility] [address] [place] [address] Murphy Huynh MD [address] [place] [phone] documented as of this encounter Procedures Procedure Name Priority Date/Time Associated Diagnosis Comments LAB SCAN 06/19/2024 12:00 AM EST documented in this encounter Results * Lab Scan (06/19/2024 12:00 AM EST) us Provider Not In System LAB BLOOD ORDERABLES Nevaeh l Result documented in this encounter Visit Diagnoses Not on filedocumented in this encounter Additional Health Concerns Assessment Noted Time PHQ-9 Depression Total Score: 0 05/10/20 10:43 AM EDT documented as of this encounter Care Teams Bindery Supervisor Relationship Specialty Start Date End Date Denton To NP [address] [facility] [place] [phone] PCP - General Family Medicine 04/30/24 documented as of this encounter
== END 2024-11-21 16:17 | disposition home or self-care (01) ==
LOC: HO.HMCC 14:00
PROVIDERS: PCP Nurse Practitioner Family; Visit Provider Nurse Practitioner Family
DX: E11.9 Type 2 diabetes mellitus without complications (principal)

== ENCOUNTER → 2024-11-21 13:59 | Outpatient (BNVA) | payer MEDICARE, SELFPAY | PROVIDERS: PCP Nurse Practitioner Family; Visit Provider Nurse Practitioner Family | DX: Z13.89 Encounter for screening for other disorder (principal) ==

== ENCOUNTER 2025-04-24 09:35 | Outpatient (AMB) | payer MEDICARE, SELFPAY ==
--- OUTSIDE RECORDS SUMMARY | 2025-04-18 09:00 | XMS_ITS | Encounter Summary ---
Author Organization [facility] Address [address] [place] [address] Care Team Providers Care Social Worker Health Services Name Role Phone [place] To RUG WASHER Primary Care Provider + Reason for Visit * Reason Comments Follow-up Encounter Details Date Type Department Care Team (Late st Contact Info) Description 04/18/2025 9:00 AM EDT Office Visit Breast Center at [address] [id number] Murphy Huynh MD [address] [place] [phone] (Fax) 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, unspecified laterality (HC Code) (HC CODE) (Primary Dx); Port-A-Cath in place Social History Tobacco Use Types Packs/Day Years Used Date Smoking Tobacco: Former Cigarettes Alcohol Use Standard Drinks/Week Comments Never 0 (1 standard drink = 0.6 oz pur e alcohol) [place] Utilities Answer Date Recorded In the past 12 months has [employer] electric, gas, oil, or water company threatened to shut off services in your home? No 03/26/2025 Overall Financial Resource Strain (CARDIA) Answe r Date Recorded How hard is it for you to pa y for the very basics like food, housing, medical care, and heating? Not hard at all 03/26/2025 PHQ-2 Answer Date Recorded PHQ-2 Total Score 0 03/26/2025 Hunger Vital Sign Answer Date Recorded Within the past 12 months, y ou worried that your food would run out before you got the money to buy more. Never true 03/26/20 25 Within the past 12 months, t he food you bought just didn't last and you didn't have money to get more. Never true 03/26/2025 PRAPARE - Transportation Answer Date Re corded In the past 12 months, has l ack of transportation kept you from medical appointments or from getting medications? No 03/11 In the past 12 months, has l ack of transportation kept you from meetings, work, or from getting things needed for daily living? No 03/26/2025 Housing Stability Answer Date Recorded What is your living situation today? I have a [facility] place to live 03/26/2025 Housing Stability Not on file 03/26/2025 Interpersonal Safety Answer Date Record ed Is [...] PM EDT documented as of this encounter Last Filed Vital Signs Vital Sign Reading Time Taken Comments Blood Pressure 152/74 04/18/2025 8:55 AM EDT Pulse 105 04/18/2025 8:55 AM EDT Temperature 36.1 C (97 F) 04/18/2025 8:55 AM EDT Respiratory Rate 18 04/18/2025 8:55 AM EDT Oxygen Saturation 99% 04/18/2025 8:55 AM EDT Inhaled Oxygen Concentration - - Weight 60.8 kg (134 lb) 04/18/2025 8:55 AM EDT Height 154.9 cm (5' 1 ) 04/18/2025 8:55 AM EDT Body Mass Index 25.32 04/18/2025 8:55 AM EDT documented in this encounter Plan of Treatment Upcoming Encounters Date Type Department Care Team (Late st Contact Info) Description 05/01/2025 10:00 AM EDT Appointment [facility] [address] [place] [address]. [place] [address] Ludmila Rodriguez, PULLEY WORKER [address] [place] [phone] (Fax) 05/09/2025 9:00 AM EDT Appointment [facility] [address] [place] [phone] 05/09/2025 9:30 AM EDT Office Visit Breast Center at [address] [address] Denisse Brewer PULLEY WORKER [address] [place] [phone] 05/09/2025 10:15 AM EDT Appointment [facility] [address] [place] [address] 05/30/2025 9:00 AM EST Appointment [facility] [address] [place] [address] 05/30/2025 9:30 AM EST Office Visit Breast [facility] at [address] [address] Murphy Huynh MD [address] [place] [phone] (Fax) 05/30/2025 10:15 AM EST Appointment [facility] [address] [place] [phone] 06/20/2025 11:00 AM EST Appointment [facility] [address] [place] [address] 06/20/2025 11:30 AM EST Office Visit Breast [facility] at [address] [address] Murphy Huynh MD [address] [place] [phone] (Fax) 06/20/2025 12:00 PM EST Appointment [facility] [address] [facility] [place] [address] documented as of this encounter Goals Goal Patient Goal Type Associated Problems Recent Progress Patient-Stated? Author RxSp Therapeutic Goal General On track( 2:22 PM EDT) No Fernando Naylor PharmD Note: Oncology: Improve or maintain quality of life MTPs must be opened for patients not making appropriate progress towards their established therapeutic goals. Patient's progress towards goal: RxSp Therapeutic Goal General On track( 2:22 PM EDT) No Fernando Naylor PharmD Note: Oncology: Minimize toxicity by monitoring labs, side effects and recommend preventive measures when appropriate (anemia, neutropenia, thrombocytopenia, etc.) MTPs must be opened for patients not making appropriate progress towards their established therapeutic goals. Patient's progress towards goal: RxSp Therapeutic Goal General On track( 2:22 PM EDT) No Fernando Naylor PharmD Note: Oncology: Increase or maintain treatment adherence MTPs must be opened for patients not making appropriate progress towards their established therapeutic goals. Patient's progress towards goal: documented as of this encounter Results * Phosphorus (BH GH L LMW H) (04/18/2025 8:15 AM EDT) Phosphorus 3.3 2.2 - 4.5 mg/dL 04/18/2025 9:06 AM EDT [facility] DEPARTMENT OF LABORATORY MEDICINE Blood Venipuncture / Unknown 04/18/2025 8:15 AM EDT 04/18/2025 8:41 AM EDT us Murphy Huynh MD LAB BLOOD ORDERABLES Final Resul t [facility] DEPARTMENT OF LABORATORY MEDIC[facility] [address] [place] [address], [facility] [phone] * MAGNESIUM (04/18/2025 8:15 AM EDT) Magnesium 1.9 1.7 - 2.4 mg/dL 04/18/2025 9:06 AM EDT [facility] DEPARTMENT OF LABORATORY MEDICINE Blood Venipuncture / Unknown 04/18/2025 8:15 AM EDT 04/18/2025 8:41 AM EDT Murphy Huynh MD LAB BLOOD ORDERABLES Final Resul t Performing Organization Address [facility] de Phone Number [facility] DEPARTMENT OF LABORATORY MEDICINE [address] [place] [address] * LACTATE DEHYDROGENASE (04/18/2025 8:15 AM EDT) LD 219 122 - 241 U/L 04/18/2025 9:06 AM EDT [facility]PART[facility] OF LABORATORY MEDICINE Comment:Sample slightly hemo lyzed. Results may be falsely elevated due to hemolysis. Blood Venipuncture / Unknown 04/18/2025 8:15 AM EDT 04/18/2025 8:41 AM EDT Murphy Huynh MD LAB BLOOD ORDERABLES Final Resul t Performing Organization Address [facility] de Phone Number [facility] [address] [place] [address] documented in this encounter Visit Diagnoses Diagnosis 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, unspecified laterality (HC Code) (HC CODE)- Primary Port-A-Cath in place Other postprocedural status documented in this encounter Additional Health Concerns Assessment Noted Time PHQ-9 Depression Total Score: 0 05/10/20 10:43 AM EDT documented as of this encounter Care Teams Social Worker Health Services Relationship Specialty Start Date End Date [facility] To NP [facility] [place] [phone] PCP - General Family Medicine 04/30/24 documented as of this encounter
--- OUTSIDE RECORDS SUMMARY | 2025-04-18 09:40 | XMS_ITS | Encounter Summary ---
Author Organization [facility] Address [address] [place] [address] Care Team Providers Care Business Banking Sales Assistant Name Role Phone Denton To CUSTOMER MANAGEMENT SPECIALIST Primary Care Provider + Encounter Details Date Type Department Care Team (Latest Contact Info) Description 04/18/2025 9:40 AM EDT - 04/18/2025 11:59 PM EDT Hospital Encounter [facility] Medical Oncology Infusion [address] [place] [address] [phone] Murphy Huynh MD [address] [place] [phone] 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, unspecified laterality (HC Code) (HC CODE) (Primary Dx) Discharge Disposition: Home or Self Care Social History Tobacco Use Types Packs/Day Years Used Date Smoking Tobacco: Former Cigarettes Alcohol Use Standard Drinks/Week Comments Never 0 (1 standard drink = 0.6 oz pur e alcohol) [facility] Utilities Answer Date Recorded In the past 12 months has [employer] electric, gas, oil, or water company threatened [...] your living situation today? [facility] 03/26/2025 Housing Stability [...] PM EDT documented as of this encounter Medications at Time of Discharge dexAMETHasone (DECADRON) 4 mg tabletIndications:C arcinoma of 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, unspecified laterality (HC Code) (HC CODE) Take 2 tablets (8 mg total) by mouth See Admin Instructions. Take with food once a day on days 2,3,4 after each cycle for prevention of delayed nausea or vomiting. 36 tablet 2 01/02/2025 guaiFENesin (ROBITUSSIN) 100 mg/5 mL Liqd Take 10 mLs (200 mg total) by mouth. 04/17/2024 lidocaine-prilocain e (EMLA) 2.5-2.5 % creamIndications:Ca rcinoma of 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, unspecified laterality (HC Code) (HC CODE),Port-A-Cath in place Apply topically as needed (30-60 minutes prior to port access). 15 g 1 04/18/2025 losartan (COZAAR) 25 mg tablet Take 1 tablet (25 mg total) by mouth daily. 10/26/2024 ondansetron (ZOFRAN-ODT) [address] 1 tablet (4 mg total) onto the tongue every 8 (eight) hours as needed for nausea. 20 tablet 2 01/26/2025 ondansetron (ZOFRAN-ODT) [address] 1 tablet (8 mg total) onto the tongue every 8 (eight) hours as needed for nausea or vomiting. prochlorperazine (COMPAZINE) 10 mg tabletIndications:C arcinoma of 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, unspecified laterality (HC Code) (HC CODE) Take 1 tablet (10 mg total) by mouth every 6 (six) hours as needed (for nausea or vomiting). 60 tablet 1 01/02/2025 prochlorperazine (COMPAZINE) 5 mg tablet TAKE 1 TO 2 TABLETS BY MOUTH EVERY 6 HOURS NEEDED FOR NAUSEA 08/09/2024 documented as of this encounter Progress Notes * Danuta Arambula RN - 04/18/2025 10:00 AM EDT Pt here for treatment HIC C6 Trastuzumab States she is feeling well. New SL port accessed with good blood return noted. Labs sent and WNL for today Cleared by provider as well as research. Pre meds given Tolerated infusion w/o issue Port needle removed Discharged in stable condition with f/u 05/09 documented in this encounter Miscellaneous Notes * Addendum Note - Ousmane Golden - 04/21/2025 9:29 PM EDTEncounter addended by: Ousmane Golden on: 04/21/2025 9:29 PM Actions taken: Charge Capture section accepted documented in this encounter Plan of Treatment Upcoming Encounters Date Type Department Care Team (Late st Contact Info) Description 05/01/2025 10:00 AM EDT Appointment [facility] Scan [address] [place] [address]. [place] [address] Ludmila Rodriguez, INSPECTOR LINE [address] [place] [phone] (Fax) 05/09/2025 9:00 AM EDT Appointment [facility] Medical Oncology Infusion [address] [place] [address] 05/09/2025 9:30 AM EDT Office Visit Breast Center at [address] [place] [address] Denisse Brewer, INSPECTOR LINE [address] [place] [phone] 05/09/2025 10:15 AM EDT Appointment [facility] Medical Oncology Infusion [address] [place] [address] 05/30/2025 9:00 AM EST Appointment [facility] Medical Oncology Infusion [address] [place] [address] 05/30/2025 9:30 AM EST Office Visit Breast Center at [address] [address] Murphy Huynh MD [address] [place] [phone] (Fax) 05/30/2025 10:15 AM EST Appointment [facility] Medical Oncology Infusion [address] [place] [address] 06/20/2025 11:00 AM EST Appointment [facility] Medical Oncology Infusion [address] [place] [phone] 06/20/2025 11:30 AM EST Office Visit Breast Center at [address] [address] Murphy Huynh MD [address] [place] [phone] (Fax) 06/20/2025 12:00 PM EST Appointment [facility] Medical Oncology Infusion [address] [place] [address] documented as of this encounter Goals Goal Patient Goal Type Associated Problems Recent Progress Patient-Stated? Author RxSp Therapeutic Goal General On track( 2:22 PM EDT) No Frenando Naylor PharmD Note: Oncology: Improve or maintain [...] documented as of this encounter Visit Diagnoses Diagnosis 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, unspecified laterality (HC Code) (HC CODE)- Primary documented in this encounter Administered Medications Inactive Administered Medications - up to 3 most recent administrations Medication Order MAR Action Action Date Dose Rate Site aprepitant (CINVANTI) injection 130 mg 130 mg, IV Push, ONCE, On Claudia 04/18/25 at 0945, For 1 dose, Maximum IV Push dose of 130 mg. Administer undiluted over 2 minutes.Indications: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, unspecified laterality (HC Code) (HC CODE) Given 04/18/2025 10:44 AM EDT 130 mg dexAMETHasone (DECADRON) tablet 12 mg 12 mg, Oral, ONCE, On Claudia 04/18/25 at 0945, For 1 dose, Take with food.Indications: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, unspecified laterality (HC Code) (HC CODE) Given 04/18/2025 10:44 AM EDT 12 mg [facility] [id number] trastuzumab deruxtecan (T-DXd, DS-8201a) 320 mg in dextrose 5 % in water (D5W) 100 mL investigational drug 320 mg (rounded from 325.08 mg = 5.4 mg/kg 60.2 kg Treatment plan Recorded weight), Intravenous, Administer over 30 Minutes, ONCE, On Claudia 04/18/25 at 1015, For 1 dose, Infuse through a 0.22 micron filter and DEHP free IV Tubing. Administer first dose over 90 minutes. If tolerated, subsequent infusions may be administered over 30 minutes. NOT compatible with 0.9% NaCl. Subject # 017Indications: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, unspecified laterality (HC Code) (HC CODE) New Bag 04/18/2025 11:07 AM EDT 320 mg 200 mL/hr palonosetron (ALOXI) injection 0.25 mg 0.25 mg, IV Push, ONCE, On Claudia 04/18/25 at 0945, For 1 dose, Administer undiluted over 30 seconds.Indications: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, unspecified laterality (HC Code) (HC CODE) Given 04/18/2025 10:44 AM EDT 0.25 mg documented in this encounter Additional Health Concerns Assessment Noted Time PHQ-9 Depression Total Score: 0 05/10/20 10:43 AM EDT documented as of this encounter Care Teams Business Banking Sales Assistant Relationship Specialty Start Date End Date Denton To NP [facility] [place] [phone] PCP - General Family Medicine 04/30/24 documented as of this encounter
[2025-04-24 09:53] VITALS: BP 152/90; PULSE 94; TEMP 36.4; O2SAT 100; BMI 24.9
--- NOTE | 2025-04-24 09:53 | AM.OFFWIN_ITS ---
Intake Vital Signs 04/24/25 09:53 Height 5 ft 1 in Weight 132 lb BMI 24.9 BP 152/90 H Blood Pressure Location Lt brachial Position Sitting Pulse 94 Pulse Source Pulse Oximeter Temp 97.6 F Temp Source Oral Pulse Oximetry (%) 100 Oxygen Delivery Method Room Air Intake Visit Reasons: EP UTI Patient Tobacco Use Status: Former Tobacco user Allergies erythromycin base Adverse Reaction (Intermediate, Verified 04/24/25 09:58) Nausea and Vomiting Medication List - Last Reconciled 04/24/25 by Yaquelin Dumont PA-C blood sugar diagnostic (FreeStyle Lite Strips) test blood sugar once a day lancets (FreeStyle Lancets) test blood sugar once a day Do you need a note to return to daycare/school/sports/work: No HPI HPI Comments History of Present Illness Details History - The patient is a 74-year-old female pr esenting with symptoms suggestive of a urinary tract infection. - The patient reports having a urinary t ract infection approximately three to four weeks ago, which was treated by her oncologist in [place], her symptoms resolved. - She experiences dysuria and increased urinary frequency for 3 days. - She denies any history of kidney stone s and reports no low back pain or fever. - The patient attributes this to inadequ ate fluid intake. - The patient was previously treated wit h antibiotics. Physical Exam General: Cooperative, healthy appearing, comfortable, no acute distress and well developed Orientation: Patient oriented x3 Limitations: No limitations Head: Normal to inspection Ears: Hearing grossly normal bilaterally Face and sinus: Normal facial exam Neck: Normal visual inspection and Yes full ROM Respiratory: Normal respiratory effort and able to speak in complete sentences. Skin: No rashes or lesions noted Neuro: Patient oriented x3 Back/spine: negative CVA bilaterally Review of Systems - Genitourinary: Reports dysuria and inc reased urinary frequency. Denies low back pain or fever. All systems reviewed and are unremarkable except as noted in HPI PFSH Medical History Bilateral cataracts Palpitations Anxiety Asthma Diabetes Dyslipidemia Surgical History Hx of colonoscopy H/O excision of epidermal inclusion cyst (06/15/22) History of partial mastectomy of left breast [place] teeth removed History of 3 sections Family History Maternal Grandmother Cancer of unknown origin Paternal Aunt Breast cancer Maternal Aunt Colon cancer Social History Housing: House Alcohol intake: never Patient Tobacco Use Status: Former Tobacco user Years Smoked: 1 year e-Cigarette/Vaping Use: Never Used Second Hand Smoke Exposure: Yes service: No Current occupational status: retired Current occupational exposures/hazards: No Cognitive needs: No Hearing needs: No Vision needs: Yes Physical Exam Vital Signs: Last Vital Signs Temp 97.6 F 04/24/25 09:53 Pulse 94 04/24/25 09:53 BP 152/90 H 04/24/25 09:53 Pulse Ox 100 04/24/25 09:53 Oxygen Delivery Method Room Air 04/24/25 09:53 BMI result Body Mass Index 24.9 Results AMB Urinalysis, Automated UA Leukoctes 500 Mayelin/uL Last Edit by Hanna Hamm MA on 04/24/25 10:04 3+ Hanna Hamm 04/24/25 10:04 UA Nitrite Negative Last Edit by Hanna Hamm MA on 04/24/25 10:04 UA Urobilinogen 0.2 mg/dL Last Edit by Hanna Hamm MA on 04/24/25 10:04 UA Protein 0 mg/dL Last Edit by Hanna Hamm MA on 04/24/25 10:04 UA pH 6.0 Last Edit by Hanna Hamm MA on 04/24/25 10:04 UA Blood 200 Tommy/uL Last Edit by Hanna Hamm MA on 04/24/25 10:04 3+ Hanna Hamm 04/24/25 10:04 UA Specific [place] 1.010 Last Edit by Hanna Hamm MA on 04/24/25 10:0 4 UA Ketone Negative Last Edit by Hanna Hamm MA on 04/24/25 10:04 UA Bilirubin 0 mg/dL Last Edit by Hanna Hamm MA on 04/24/25 10:04 UA Glucose 0 mg/dL Last Edit by Hanna Hamm MA on 04/24/25 10:04 Results Reviewed Results Reviewed: Laboratory Last Values Urine pH (Auto) 6.0 04/24/25 09:43 Specific [place] (Auto) 1.010 04/24/25 09:43 Urine Protein (Auto) 0 mg/dL 04/24/25 09:43 Glucose (UA)(Auto) 0 mg/dL 04/24/25 09:43 Urine Ketones (Auto) Negative 04/24/25 09:43 Urine Blood (Auto) 200 Tommy/uL H* 04/24/25 09:43 Urine Nitrite (Auto) Negative 04/24/25 09:43 Urine Bilirubin (Auto) 0 mg/dL 04/24/25 09:43 Urine Urobilinogen (Auto) 0.2 mg/dL 04/24/25 09:43 Leukocyte Esterase (Auto) 500 Mayelin/uL H* 04/24/25 09:43 Assessment & Plan Assessment & Plan (1) UTI (urinary tract infection): Code(s): N39.0 - Urinary tract infection, site not specified Qualifiers: Urinary tract infection type: acute cystitis Hematuria presence: with hematuria Qualified Code(s): N30.01 - Acute cystitis with hematuria Plan: Plan - UA 3+ leuks, neg nitrites, 3+ blood. Will treat as UTI. - Initiate treatment with a cephalosporin antibiotic, administered twice daily for five days. - Send a urine culture to confirm the appropriateness of the antibiotic choice, with a plan to adjust treatment if necessary based on culture results. - Advise the patient to increase fluid intake to aid in symptom resolution. Patient was informed and verbally consented to the use of an ambient scribe for clinic note documentation during this visit. Orders: Orders AMB Urinalysis Automated Today Z13.9 - Encounter for screening, unspecified Urine Culture Today N39.0 - Urinary tract infection, site not specified Medications: New cefuroxime axetil 500 mg PO Q12H 10 tabs 0RF Coding Level of Care Code Est Pt Level 3 (36361) Diagnoses Acute cystitis with hematuria N30.01 Urinary tract infection type: acute cystitis Hematuria presence: with hematuria
--- OUTSIDE RECORDS SUMMARY | 2025-04-24 10:56 | XMS_ITS | Encounter Summary ---
Author Organization [facility] Address [address] [place] [address] Care Team Providers Care Merchant Police Name Role Phone Denton To ALMOND GRINDER Primary Care Provider + Encounter Details Date Type Department Care Team (Late Contact Info) Description 05/03/2024 Abstract [facility] [address] [facility] [address] [place] [address] Center, [place] Breast [address] [facility] First floor, [place] [address] Social History Tobacco Use Types Packs/Day Years [...] Encounters Date Type Department Care Team (Late Contact Info) Description 05/01/2025 10:00 AM EDT Appointment [facility] CT Scan [address] [place] [address] Ludmila Rodriguez, MERCHANDISE HANDLER [address] [place] [phone] (Fax) 05/09/2025 9:[address] [facility] Medical Oncology Infusion [address] [place] [address] 05/09/2025 9:30 AM EDT Office Visit Breast Center at [address] [address] Denisse Brewer APRN [address] [place] [phone] 05/09/2025 10:[address] [facility] Medical Oncology Infusion [address] [place] [address] 05/30/2025 9:[address] [facility] Medical Oncology Infusion [address] [place] [phone] 05/30/2025 9:30 AM EST Office Visit Breast Center at [address] [address] Murphy Huynh MD [address] [place] [phone] (Fax) 05/30/2025 10:15 AM EST Appointment [facility]fusion [address] [place] [phone] 06/20/2025 11:00 AM EST Appointment [facility] Medical Oncology Infusion [address] [place] [address] 06/20/2025 11:30 AM EST Office Visit Breast Center at [address] [address] Murphy Huynh MD [address] [place] [phone] (Fax) 06/20/2025 12:[address] [facility] Medical Oncology Infusion [address] [place] [phone] documented as of this encounter Visit Diagnoses Not on filedocumented in this encounter Care Teams Merchant Police Relationship Specialty Start Date End Date Denton To NP [facility] [place] [phone] PCP - General Family Medicine 04/30/24 documented as of this encounter
--- OUTSIDE RECORDS SUMMARY | 2025-04-24 10:56 | XMS_ITS | Encounter Summary ---
Author Organization [facility] Address [address] [place] [address] Care Team Providers Care Retoucher Name Role Phone Denton To CONSERVATION ENFORCEMENT OFFICER Primary Care Provider + Encounter Details Date Type Department Care Team (Late Contact Info) Description 05/03/2024 Abstract [facility] [address] [facility] [address] [place] [address] Center, [place] Breast [address] [facility] First floor, [place] [address] Social History Tobacco Use Types Packs/Day Years [...] Info) Description 05/01/2025 10:00 AM EDT Appointment [facility] CT Scan [address] [place] [address] Ludmila Rodriguez, SHUTTLER 35 [place] [phone] (Fax) 05/09/2025 9:00 AM EDT Appointment [facility] Medical Oncology Infusion [address] [place] [phone] 05/09/2025 9:30 AM EDT Office Visit Breast Center at [address] [address] Denisse Brewer APRN [address] [place] [phone] 05/09/2025 10:15 AM EDT Appointment [facility] Medical Oncology Infusion [address] [place] [address] 05/30/2025 9:00 AM EST Appointment [facility] Medical Oncology Infusion [address] [place] [address] 05/30/2025 9:30 AM EST Office Visit Breast Center at [address] [address] Murphy Huynh MD [address] [place] [phone] (Fax) 05/30/2025 10:15 AM EST [facility]ointment [facility] [address] [place] [address] 06/20/2025 11:00 AM EST [facility]ment [facility]fusion [address] [place] [address] 06/20/2025 11:30 AM EST Office Visit Breast Center at [address] [address] Murphy Huynh MD [address] [place] [phone] (Fax) 06/20/2025 12:00 PM EST Appointment [facility] Medical Oncology Infusion [address] [place] [phone] documented as of this encounter Visit Diagnoses Not on filedocumented in this encounter Care Teams Retoucher Relationship Specialty Start Date End Date Denton To NP [facility] [place] [phone] PCP - General Family Medicine 04/30/24 documented as of this encounter
--- OUTSIDE RECORDS SUMMARY | 2025-04-24 10:57 | XMS_ITS | Encounter Summary ---
Author Organization [facility] Address [address] [place] [address] Care Team Providers Care Sales Special Agent Name Role Phone Denton To C ENGINEER Primary Care Provider + Encounter Details Date Type Department Care Team (Late st Contact Info) Description 05/01/2024 Abstract Surgical Oncology at [address] [place] [address] Center, [place] Breast 35 [facility] First floor, [place] [phone] Social History Tobacco Use Types Packs/Day Years [...] Info) Description 05/01/2025 10:00 AM EDT Appointment [facility] CT Scan [address] [place] [address] Ludmila Rodriguez, SHELL FISHERMAN 35 [facility] [place] [phone] 05/09/2025 9:00 AM EDT Appointment [facility] [address] [place] [address] 05/09/2025 9:30 AM EDT Office Visit Breast Center at [address] [address] Denisse Brewer APRN [address] [place] [phone] 05/09/2025 10:15 AM EDT [facility]ment [facility] [address] [place] [address] 05/30/2025 9:00 AM EST Appointment [facility] Medical Oncology Infusion [address] [place] [address] 05/30/2025 9:30 AM EST Office Visit Breast Center at [address] [address] Murphy Huynh MD [address] [place] [phone] 05/30/2025 10:15 AM EST Appointment [facility] Medical Oncology Infusion [address] [place] [address] 06/20/2025 11:00 AM EST Appointment [facility] Oncology Infusion [address] [place] [phone] 06/20/2025 11:30 AM EST Office Visit Breast Center at [address] [address] Murphy Huynh MD [address] [place] [phone] (Fax) 06/20/2025 12:00 PM EST Appointment [facility] Medical Oncology Infusion [address] [place] [phone] documented as of this encounter Visit Diagnoses Not on filedocumented in this encounter Care Teams Sales Special Agent Relationship Specialty Start Date End Date Denton To NP [address] [place] [phone] PCP - General Family Medicine 04/30/24 documented as of this encounter
--- OUTSIDE RECORDS SUMMARY | 2025-04-24 10:57 | XMS_ITS | Encounter Summary ---
Author [facility] Address [address] [place] [address] Phone Care Team Providers Care Maintainer [employer] Name Role Phone Denton To NP Primary Care Provider + Encounter Details Date Type Department Care Team (Late st Contact Info) Description 10/03/2024 Specialty Pharmacy [facility] [address] [place] [address] [facility] Social History Tobacco Use Types Packs/Day Years Used Date Smoking Tobacco: Former Cigarettes Alcohol Use Standard Drinks/Week Comments Never 0 (1 standard drink = 0.6 oz pur e alcohol) [facility] Utilities Answer Date Recorded In the [...] Info) Description 05/01/2025 10:00 AM EDT Appointment [facility] Scan [address] [place] [address]. [place] [address] Ludmila Rodriguez APRN [address] [place] [phone] 05/09/2025 9:00 AM EDT Appointment [facility] Medical Oncology Infusion [address] [place] [phone] 05/09/2025 9:30 AM EDT Office Visit Breast Center at [address] [address] Denisse Brewer APRN [address] [place] [phone] 05/09/2025 10:15 AM EDT Appointment [facility] Medical Oncology Infusion [address] [place] [phone] 05/30/2025 9:00 AM EST Appointment [facility] Medical Oncology Infusion [address] [place] [phone] 05/30/2025 9:30 AM EST Office Visit Breast Center at [address] [address] Murphy Huynh MD [address] [place] [phone] (Fax) 05/30/2025 10:15 AM EST Appointment [facility] Medical Oncology Infusion [address] [place] [address], [place] [address] 06/20/2025 11:00 AM EST Appointment [facility] Medical Oncology Infusion [address] [place] [phone] 06/20/2025 11:30 AM EST Office Visit Breast Center at [address] [place] [address] Murphy Huynh MD [address] [place] [phone] (Fax) 06/20/2025 12:00 PM EST Appointment [facility] Medical Oncology Infusion [address] [place] [phone] documented as of this encounter Goals Goal [...] On track( 2:22 PM EDT) No Fernando Naylor, PharmDuarte Note: Oncology: Increase or maintain treatment adherence MTPs must be opened for patients not making appropriate progress towards their established therapeutic goals. Patient's progress towards goal: documented as of this encounter Visit Diagnoses Not on filedocumented in this encounter Additional Health Concerns Assessment Noted Time PHQ-9 Depression Total Score: 0 05/10/20 10:43 AM EDT documented as of this encounter Care Teams Maintainer [employer] Relationship Specialty Start Date End Date Denton To NP [facility] [place] [phone] PCP - General Family Medicine 04/30/24 documented as of this encounter
--- OUTSIDE RECORDS SUMMARY | 2025-04-24 10:57 | XMS_ITS ---
Author Organization [address] [place] [address] [place] Address [address] [place] [address] Care Team Providers Care Supervisor Rough End Name Role Phone Denton To [employer] COUNSELOR Primary Care Provider + Active Problems Problem Noted Date Diagnosed Date Failure to thrive in adult 09/06/2024 Breast cancer metastasized to lung (HC Code) Current Treatment and Therapy Plans [facility] [id number] Arm A/B/G/H: trastuzumab deruxtecan (T-DXd)* Plan Start Date: 01/01/2025 Plan Provider:Murphy Huynh MD Linked Problems Carcinoma of breast metastat ic to lung, unspecified laterality (HC Code) (HC CODE) Treatment Medications Current Day (Day 1 , Cycle 7 - Planned for 05/09/2025) Next Day (Day 1, Cycle 8 - Planned for 05/30/2025) [facility] [id number] trastuzumab deruxtecan (T-DXd, DS-8201a) [facility] [id number] trastuzumab deruxtecan (T-DXd, DS-8201a) 320 mg in dextrose 5 % in water (D5W) 100 mL investigational drug [facility] [id number] trastuzumab deruxtecan (T-DXd, DS-8201a) 320 mg in dextrose 5 % in water (D5W) 100 mL investigational drug Past Treatment and Therapy Plans Oncology Treatment Plan Name Start Date Discontinue Date Treatment Medications Discontinue Reason Plan Provider Cycles TH Capecitabine 5 01/02/2025 capecitabine (XELODA) Progression Murphy Huynh MD 4 of 8 cycles completed
--- OUTSIDE RECORDS SUMMARY | 2025-04-24 10:57 | XMS_ITS | Encounter Summary ---
Author Organization [facility] Address [address] [place] [address] Care Team Providers Care Debeader Name Role Phone Denton To KNOT CUTTER Primary Care Provider + Encounter Details Date Type Department Care Team (Late Contact Info) Description 05/02/2024 Abstract [facility] [address] [facility] NP[address] [place] [address] Center, [place] [facility] [address] [facility] First floor, [place] [address] Social History Tobacco Use Types Packs/Day Years [...] Info) Description 05/01/2025 10:00 AM EDT Appointment [facility] CT Scan [address] [place] [address] Ludmila Rodriguez, HEEL SORTER [address] [place] [address] (Fax) 05/09/2025 9:00 AM EDT Appointment [facility] Medical Oncology Infusion [address] [place] [phone] 05/09/2025 9:30 AM EDT Office Visit Breast Center at [address] [address] Denisse Brewer APRN [address] [place] [phone] 05/09/2025 10:15 AM EDT Appointment [facility] Medical Oncology Infusion [address] [place] [phone] 05/30/2025 9:00 AM EST Appointment [facility] Medical Oncology Infusion [address] [place] [phone] 05/30/2025 9:30 AM EST Office Visit Breast Center at [address] [address] Murphy Huynh MD [address] [place] [phone] (Fax) 05/30/2025 10:15 AM EST Appointment [facility] Infusion [address] [place] [phone] 06/20/2025 11:00 AM EST Appointment [facility] Infusion [address] [place] [phone] 06/20/2025 11:30 AM EST Office Visit Breast Center at [address] [address] Murphy Huynh MD [address] [place] [phone] (Fax) 06/20/2025 12:00 PM EST Appointment [facility] Medical Oncology Infusion [address] [place] [phone] documented as of this encounter Visit Diagnoses Not on filedocumented in this encounter Care Teams Debeader Relationship Specialty Start Date End Date Denton To NP [facility] [place] [phone] PCP - General Family Medicine 04/30/24 documented as of this encounter
--- OUTSIDE RECORDS SUMMARY | 2025-04-24 10:57 | XMS_ITS ---
Author Name [facility] Organization Unknown Results Test Name/Text Value Interpretation Date Range Source RBC # Bld Auto 3.83 M/uL Below low normal 04/18/2025 4 - 6 [facility] R[facility] RBC Auto 13.6 % 04/18/2025 11 - 15 [facility] T MCH RBC Qn Auto 31.9 pg 04/18/2025 27 - 33 [facility] Platelet # Bld Auto 439.0 x1000/uL Above high normal 025 150 - 420 [facility] Hct VFr Bld Auto 36.1 % 04/18/2025 35 - 45 [facility] nRBC Bld Auto-Rto 0.0 % 04/18/2025 0 - 1 [facility] nRBC # Bld Auto 0.0 x 1000/uL 04/18/2025 0 - 1 [facility] Hgb Bld-mCnc 12.2 g/dL 04/18/2025 11.7 - 15.5 [facility] RBC Auto 94.3 fL 04/18/2025 80 - 100 [facility] PMV Bld Auto 10.1 fL 04/18/2025 8 - 12 [facility] T WBC # Bld Auto 6.6 x1000/uL 04/18/2025 4 - 11 [facility] MCHC RBC Auto-EntMCnc 33.8 g/dL 04/18/2025 31 - 36 [facility] Monocytes NFr Bld Manual 11.0 % 04/18/2025 4 - 12 [facility] Basophils # Bld 0.07 x 1000/uL 04/18/2025 0 - 1 [facility] Eosinophil NFr Bld Manual 3.0 % 04/18/2025 0 - 5 [facility] Neuts Seg NFr Bld Manual 65.0 % 04/18/2025 39 - 72 [facility] Eosinophil # Bld Manual 0.2 x 1000/uL 04/18/2025 0 - 1 [facility] Neutrophils # Bld Manual 4.28 x 1000/uL 04/18/2025 2 - 7.6 [facility] Monocytes # Bld Manual 0.72 x 1000/uL 04/18/2025 0 - 1 [facility] Normochromic Bld Ql Smear Normal 04/18/2025 [facility] Basophils NFr Bld 1.0 % 04/18/2025 0 - 1.4 [facility] Lymphocytes NFr Bld Manual 16.0 % Below low normal 04/18/2025 17 - 50 [facility] Metamyelocytes NFr Bld 1.0 % 04/18/2025 0 - 1 [facility] Myelocytes NFr Bld 3.0 % Above high normal 04/18/2025 0 - 0 [facility] Lymphocytes # Bld Manual 1.05 x 1000/uL 04/18/2025 0.6 - 3.7 [facility] Prot SerPl-mCnc 6.9 g/dL 04/18/2025 5.9 - 8.3 [facility] Sodium SerPl-sCnc 136.0 mmol/L 04/18/2025 136 - 14 4 [facility] Globulin Plas-mCnc 3.0 g/dL 04/18/2025 2 - 3.9 [facility] Potassium SerPl-sCnc 4.5 mmol/L 04/18/2025 3.3 - 5 .3 [facility] AST/ALT SerPl-cRto 0.6 04/18/2025 - [facility] HCO3 SerPl-sCnc 21.0 mmol/L 04/18/2025 20 - 30 [facility] ALT SerPl w/o P-5'-P-cCnc 27.0 U/L 04/18/2025 10 - 35 [facility] Albumin/Glob SerPl 1.3 04/18/2025 1 - 2.2 [facility] Glucose SerPl-mCnc 257.0 mg/dL Above high normal 04/18/2025 70 - 100 [facility] Albumin SerPl BCG-mCnc 3.9 g/dL 04/18/2025 3.6 - 5.1 [facility] Bilirub SerPl-mCnc 0.2 mg/dL 04/18/2025 - [facility] BUN SerPl-mCnc 16.0 mg/dL 04/18/2025 8 - 23 [facility] Calcium SerPl-mCnc 9.4 mg/dL 04/18/2025 8.8 - 10.2 [facility] GFR SerPlBld Creatinine-bsd fmla CKD-EPI >60.0 mL/min/1.73m2 04/18/2025 - [facility] AST SerPl w P-5'-P-cCnc 16.0 U/L 04/18/2025 10 - 35 [facility] BKR CREATININE DELTA 0.15 04/18/2025 - [facility] Creat SerPl-mCnc 0.88 mg/dL 04/18/2025 0.4 - 1.3 [facility] BUN/Creat SerPl 18.2 04/18/2025 8 - 23 [facility] Anion Gap SerPl Calculated.3Ions-sCnc 13.0 04/18/2025 7 - 17 [facility] T Chloride SerPl-sCnc 102.0 mmol/L 04/18/2025 98 - 1 07 [facility] ALP SerPl-cCnc 142.0 U/L Above high normal 04/18/2025 9 - 12 2 [facility] Magnesium SerPl-mCnc 1.9 mg/dL 04/18/2025 1.7 - 2. 4 [facility] Phosphate SerPl-mCnc 3.3 mg/dL 04/18/2025 2.2 - 4. 5 [facility] LDH SerPl L to P-cCnc 219.0 U/L 04/18/2025 122 - 2 41 [facility] B[facility] CARCINOEMBRYONIC ANTIGEN ([email or web address]) <1.8 ng/mL 03/27/2025 - [facility] B[facility] CA 15-3 ([email or web address]) 26.2 U/mL 03/27/2025 - [facility] Creat SerPl-mCnc 0.73 mg/dL 03/27/2025 0.4 - 1.3 [facility] Globulin Plas-mCnc 2.6 g/dL 03/27/2025 2 - 3.9 [facility] Glucose SerPl-mCnc 267.0 mg/dL Above high normal 03/27/2025 70 - 100 [facility] Chloride SerPl-sCnc 104.0 mmol/L 03/27/2025 98 - 1 07 [facility] BKR CREATININE DELTA 0.05 03/27/2025 - [facility] Albumin/Glob SerPl 1.7 03/27/2025 1 - 2.2 [facility] AST/ALT SerPl-cRto 1.0 03/27/2025 - [facility] ALT SerPl w/o P-5'-P-cCnc 41.0 U/L Above high normal 03/27/2025 10 - 35 [facility] HCO3 SerPl-sCnc 22.0 mmol/L 03/27/2025 20 - 30 [facility] Potassium SerPl-sCnc 4.5 mmol/L 03/27/2025 3.3 - 5 .3 [facility] Calcium SerPl-mCnc 9.4 mg/dL 03/27/2025 8.8 - 10.2 [facility] Albumin SerPl BCG-mCnc 4.3 g/dL 03/27/2025 3.6 - 5.1 [facility] BUN SerPl-mCnc 13.0 mg/dL 03/27/2025 8 - 23 [facility] BUN/Creat SerPl 17.8 03/27/2025 8 - 23 [facility] ALP SerPl-cCnc 151.0 U/L Above high normal 03/27/2025 9 - 12 2 [facility] Prot SerPl-mCnc 6.9 g/dL 03/27/2025 5.9 - 8.3 [facility] Anion Gap SerPl Calculated.3Ions-sCnc 13.0 03/27/2025 7 - 17 [facility] T Bilirub SerPl-mCnc 0.4 mg/dL 03/27/2025 - [facility] GFR SerPlBld Creatinine-bsd fmla CKD-EPI >60.0 mL/min/1.73m2 03/27/2025 - [facility] Sodium SerPl-sCnc 139.0 mmol/L 03/27/2025 136 - 14 4 [facility] AST SerPl w P-5'-P-cCnc 39.0 U/L Above high normal 03/27/20 25 10 - 35 [facility] Phosphate SerPl-mCnc 3.0 mg/dL 03/27/2025 2.2 - 4. 5 [facility] Magnesium SerPl-mCnc 1.9 mg/dL 03/27/2025 1.7 - 2. 4 [facility] Imm Granulocytes # Bld Auto 0.04 x 1000/uL 03/27/2025 0 - 0.3 [facility] PMV Bld Auto 11.0 fL 03/27/2025 8 - 12 [facility] T Hgb Bld-mCnc 14.0 g/dL 03/27/2025 11.7 - 15.5 [facility] Eosinophil NFr Bld Auto 5.4 % Above high normal 03/27/20 25 0 - 5 [facility] Monocytes # Bld Auto 0.26 x 1000/uL 03/27/2025 0 - 1 [facility] RBC # Bld Auto 4.32 M/uL 03/27/2025 4 - 6 [facility] Basophils # Bld Auto 0.03 x 1000/uL 03/27/2025 0 - 1 [facility] Lymphocytes NFr Bld Auto 29.1 % 03/27/2025 17 - 50 [facility] Lymphocytes # Bld Auto 0.91 x 1000/uL 03/27/2025 0 .6 - 3.7 [facility] nRBC # Bld Auto 0.0 x 1000/uL 03/27/2025 0 - 1 [facility] Imm Granulocytes NFr Bld Auto 1.3 % Above high normal 03/27/2025 0 - 1 [facility] MCH RBC Qn Auto 32.4 pg 03/27/2025 27 - 33 [facility] Monocytes NFr Bld Auto 8.3 % 03/27/2025 4 - 12 [facility] Neutrophils NFr Bld Auto 54.9 % 03/27/2025 39 - 72 [facility] Basophils NFr Bld Auto 1.0 % 03/27/2025 0 - 1. 4 [facility] Eosinophil # Bld Auto 0.17 x 1000/uL 03/27/2025 0 - 1 [facility] MCHC RBC Auto-EntMCnc 34.6 g/dL 03/27/2025 31 - 36 [facility] nRBC Bld Auto-Rto 0.0 % 03/27/2025 0 - 1 [facility] RDW RBC Auto 13.6 % 03/27/2025 11 - 15 [facility] T Hct VFr Bld Auto 40.5 % 03/27/2025 35 - 45 [facility] WBC # Bld Auto 3.1 x1000/uL Below low normal 03/27/2025 4 - 11 [facility] Platelet # Bld Auto 238.0 x1000/uL 03/27/2025 150 - 420 [facility] RBC Auto 93.8 fL 03/27/2025 80 - 100 [facility] Neutrophils # Bld Auto 1.72 x 1000/uL Below low normal 03/27 2 - 7.6 [facility] LDH SerPl L to P-cCnc 260.0 U/L Above high normal 03/07/2025 122 - 241 [facility] Potassium SerPl-sCnc 4.4 mmol/L 03/07/2025 3.3 - 5 .3 [facility] BUN/Creat SerPl 25.0 Above high normal 03/07/2025 8 - 2 3 [facility] Globulin Plas-mCnc 2.9 g/dL 03/07/2025 2 - 3.9 [facility] HCO3 SerPl-sCnc 22.0 mmol/L 03/07/2025 20 - 30 [facility] Chloride SerPl-sCnc 106.0 mmol/L 03/07/2025 98 - 1 07 [facility] Calcium SerPl-mCnc 9.4 mg/dL 03/07/2025 8.8 - 10.2 [facility] Anion Gap SerPl Calculated.3Ions-sCnc 11.0 03/07/2025 7 - 17 [facility] T Albumin SerPl BCG-mCnc 4.1 g/dL 03/07/2025 3.6 - 5.1 [facility] Bilirub SerPl-mCnc 0.3 mg/dL 03/07/2025 - [facility] ALP SerPl-cCnc 140.0 U/L Above high normal 03/07/2025 9 - 12 2 [facility] Glucose SerPl-mCnc 143.0 mg/dL Above high normal 03/07/2025 70 - 100 [facility] AST SerPl w P-5'-P-cCnc 31.0 U/L 03/07/2025 10 - 35 [facility] BUN SerPl-mCnc 17.0 mg/dL 03/07/2025 8 - 23 [facility] Creat SerPl-mCnc 0.68 mg/dL 03/07/2025 0.4 - 1.3 [facility] Sodium SerPl-sCnc 139.0 mmol/L 03/07/2025 136 - 14 4 [facility] AST/ALT SerPl-cRto 0.6 03/07/2025 - [facility] GFR SerPlBld Creatinine-bsd fmla CKD-EPI >60.0 mL/min/1.73m2 03/07/2025 - [facility] BKR CREATININE DELTA 0.0 03/07/2025 - [facility] Prot SerPl-mCnc 7.0 g/dL 03/07/2025 5.9 - 8.3 [facility] Albumin/Glob SerPl 1.4 03/07/2025 1 - 2.2 [facility] ALT SerPl w/o P-5'-P-cCnc 50.0 U/L Above high normal 03/07/2025 10 - 35 [facility] BKR CREATININE DELTA -0.17 03/07/2025 - [facility] Albumin/Glob SerPl 1.3 03/07/2025 1 - 2.2 [facility] Prot SerPl-mCnc 7.2 g/dL 03/07/2025 5.9 - 8.3 [facility] Sodium SerPl-sCnc 139.0 mmol/L 03/07/2025 136 - 14 4 [facility] Creat SerPl-mCnc 0.68 mg/dL 03/07/2025 0.4 - 1.3 [facility] BUN SerPl-mCnc 17.0 mg/dL 03/07/2025 8 - 23 [facility] ALT SerPl w/o P-5'-P-cCnc 52.0 U/L Above high normal 03/07/2025 10 - 35 [facility] ALP SerPl-cCnc 145.0 U/L Above high normal 03/07/2025 9 - 12 2 [facility] HCO3 SerPl-sCnc 22.0 mmol/L 03/07/2025 20 - 30 [facility] Bilirub SerPl-mCnc 0.4 mg/dL 03/07/2025 - [facility] AST/ALT SerPl-cRto 03/07/2025 [facility] GFR SerPlBld Creatinine-bsd fmla CKD-EPI >60.0 mL/min/1.73m2 03/07/2025 - [facility] Calcium SerPl-mCnc 9.3 mg/dL 03/07/2025 8.8 - 10.2 [facility] AST SerPl w P-5'-P-cCnc 03/07/2025 [facility] Anion Gap SerPl Calculated.3Ions-sCnc 13.0 03/07/2025 7 - 17 [facility] T Potassium SerPl-sCnc 03/07/2025 [facility] Albumin SerPl BCG-mCnc 4.1 g/dL 03/07/2025 3.6 - 5.1 [facility] BUN/Creat SerPl 25.0 Above high normal 03/07/2025 8 - 2 3 [facility] Glucose SerPl-mCnc 211.0 mg/dL Above high normal 03/07/2025 70 - 100 [facility] Globulin Plas-mCnc 3.1 g/dL 03/07/2025 2 - 3.9 [facility] Chloride SerPl-sCnc 104.0 mmol/L 03/07/2025 98 - 1 07 [facility] Phosphate SerPl-mCnc 2.6 mg/dL 03/07/2025 2.2 - 4. 5 [facility] Magnesium SerPl-mCnc 1.9 mg/dL 03/07/2025 1.7 - 2. 4 [facility] Imm Granulocytes # Bld Auto 0.07 x 1000/uL 03/07/2025 0 - 0.3 [facility] nRBC Bld Auto-Rto 0.0 % 03/07/2025 0 - 1 [facility] Neutrophils NFr Bld Auto 63.1 % 03/07/2025 39 - 72 [facility] RBC # Bld Auto 4.38 M/uL 03/07/2025 4 - 6 [facility] MCHC RBC Auto-EntMCnc 33.5 g/dL 03/07/2025 31 - 36 [facility] Hct VFr Bld Auto 41.2 % 03/07/2025 35 - 45 [facility] Platelet # Bld Auto 265.0 x1000/uL 03/07/2025 150 - 420 [facility] Lymphocytes # Bld Auto 0.99 x 1000/uL 03/07/2025 0 .6 - 3.7 [facility] Basophils NFr Bld Auto 0.9 % 03/07/2025 0 - 1. 4 [facility] RDW RBC Auto 13.7 % 03/07/2025 11 - 15 [facility] T Neutrophils # Bld Auto 2.82 x 1000/uL 03/07/2025 2 - 7.6 [facility] Monocytes # Bld Auto 0.35 x 1000/uL 03/07/2025 0 - 1 [facility] MCH RBC Qn Auto 31.5 pg 03/07/2025 27 - 33 [facility] Basophils # Bld Auto 0.04 x 1000/uL 03/07/2025 0 - 1 [facility] nRBC # Bld Auto 0.0 x 1000/uL 03/07/2025 0 - 1 [facility] Monocytes NFr Bld Auto 7.8 % 03/07/2025 4 - 12 [facility] Hgb Bld-mCnc 13.8 g/dL 03/07/2025 11.7 - 15.5 [facility] WBC # Bld Auto 4.5 x1000/uL 03/07/2025 4 - 11 [facility] Lymphocytes NFr Bld Auto 22.1 % 03/07/2025 17 - 50 [facility] Imm Granulocytes NFr Bld Auto 1.6 % Above high normal 03/07/2025 0 - 1 [facility] Eosinophil # Bld Auto 0.2 x 1000/uL 03/07/2025 0 - 1 [facility] Eosinophil NFr Bld Auto 4.5 % 03/07/2025 0 - 5 [facility] PMV Bld Auto 10.5 fL 03/07/2025 8 - 12 [facility] T RBC Auto 94.1 fL 03/07/2025 80 - 100 [facility] LDH SerPl L to P-cCnc 178.0 U/L 02/12/2025 122 - 2 41 [facility] B[facility] CARCINOEMBRYONIC ANTIGEN ( [employer]) <1.8 ng/mL 02/12/2025 - [facility] B[facility] CA 15-3 ( [employer]) 24.4 U/mL 02/12/2025 - [facility] Sodium SerPl-sCnc 141.0 mmol/L 02/12/2025 136 - 14 4 [facility] GFR SerPlBld Creatinine-bsd fmla CKD-EPI >60.0 mL/min/1.73m2 02/12/2025 - [facility] Potassium SerPl-sCnc 4.2 mmol/L 02/12/2025 3.3 - 5 .3 [facility] Creat SerPl-mCnc 0.85 mg/dL 02/12/2025 0.4 - 1.3 [facility] ALT SerPl w/o P-5'-P-cCnc 36.0 U/L Above high normal 02/12/2025 10 - 35 [facility] AST SerPl w P-5'-P-cCnc 28.0 U/L 02/12/2025 10 - 35 [facility] ALP SerPl-cCnc 137.0 U/L Above high normal 02/12/2025 9 - 12 2 [facility] Prot SerPl-mCnc 6.7 g/dL 02/12/2025 5.9 - 8.3 [facility] BUN/Creat SerPl 18.8 02/12/2025 8 - 23 [facility] AST/ALT SerPl-cRto 0.8 02/12/2025 - [facility] Calcium SerPl-mCnc 9.0 mg/dL 02/12/2025 8.8 - 10.2 [facility] Glucose SerPl-mCnc 218.0 mg/dL Above high normal 02/12/2025 70 - 100 [facility] Globulin Plas-mCnc 2.6 g/dL 02/12/2025 2 - 3.9 [facility] BUN SerPl-mCnc 16.0 mg/dL 02/12/2025 8 - 23 [facility] Anion Gap SerPl Calculated.3Ions-sCnc 12.0 02/12/2025 7 - 17 [facility] T HCO3 SerPl-sCnc 22.0 mmol/L 02/12/2025 20 - 30 [facility] Albumin SerPl BCG-mCnc 4.1 g/dL 02/12/2025 3.6 - 5.1 [facility] Chloride SerPl-sCnc 107.0 mmol/L 02/12/2025 98 - 1 07 [facility] Albumin/Glob SerPl 1.6 02/12/2025 1 - 2.2 [facility] Bilirub SerPl-mCnc 0.4 mg/dL 02/12/2025 - [facility] BKR CREATININE DELTA 0.03 02/12/2025 - [facility] Phosphate SerPl-mCnc 2.8 mg/dL 02/12/2025 2.2 - 4. 5 [facility] Magnesium SerPl-mCnc 1.9 mg/dL 02/12/2025 1.7 - 2. 4 [facility] PMV Bld Auto 10.2 fL 02/12/2025 8 - 12 [facility] T RBC Auto 94.1 fL 02/12/2025 80 - 100 [facility] MCHC RBC Auto-EntMCnc 34.0 g/dL 02/12/2025 31 - 36 [facility] Eosinophil # Bld Auto 0.18 x 1000/uL 02/12/2025 0 - 1 [facility] Hct VFr Bld Auto 36.5 % 02/12/2025 35 - 45 [facility] Platelet # Bld Auto 266.0 x1000/uL 02/12/2025 150 - 420 [facility] Neutrophils # Bld Auto 1.32 x 1000/uL Below low normal 02/12 2 - 7.6 [facility] MCH RBC Qn Auto 32.0 pg 02/12/2025 27 - 33 [facility] Lymphocytes NFr Bld Auto 35.0 % 02/12/2025 17 - 50 [facility] Eosinophil NFr Bld Auto 6.3 % Above high normal 02/13/20 25 0 - 5 [facility] Imm Granulocytes NFr Bld Auto 1.0 % 02/12/2025 0 - 1 [facility] RBC # Bld Auto 3.88 M/uL Below low normal 02/12/2025 4 - 6 [facility] Lymphocytes # Bld Auto 1.0 x 1000/uL 02/12/2025 0. 6 - 3.7 [facility] nRBC # Bld Auto 0.0 x 1000/uL 02/12/2025 0 - 1 [facility] Monocytes # Bld Auto 0.3 x 1000/uL 02/12/2025 0 - 1 [facility] WBC # Bld Auto 2.9 x1000/uL Below low normal 02/12/2025 4 - 11 [facility] Monocytes NFr Bld Auto 10.5 % 02/12/2025 4 - 12 [facility] Imm Granulocytes # Bld Auto 0.03 x 1000/uL 02/12/2025 0 - 0.3 [facility] nRBC Bld Auto-Rto 0.0 % 02/12/2025 0 - 1 [facility] Neutrophils NFr Bld Auto 46.2 % 02/12/2025 39 - 72 [facility] Hgb Bld-mCnc 12.4 g/dL 02/12/2025 11.7 - 15.5 [facility] RDW RBC Auto 13.8 % 02/12/2025 11 - 15 [facility] T Basophils NFr Bld Auto 1.0 % 02/12/2025 0 - 1. 4 [facility] Basophils # Bld Auto 0.03 x 1000/uL 02/12/2025 0 - 1 [facility] Phosphate SerPl-mCnc 3.7 mg/dL 01/24/2025 2.2 - 4. 5 [facility] Albumin SerPl BCG-mCnc 4.3 g/dL 01/24/2025 3.6 - 5.1 [facility] Creat SerPl-mCnc 0.82 mg/dL 01/24/2025 0.4 - 1.3 [facility] Prot SerPl-mCnc 6.9 g/dL 01/24/2025 5.9 - 8.3 [facility] HCO3 SerPl-sCnc 21.0 mmol/L 01/24/2025 20 - 30 [facility] Albumin/Glob SerPl 1.7 01/24/2025 1 - 2.2 [facility] Calcium SerPl-mCnc 9.1 mg/dL 01/24/2025 8.8 - 10.2 [facility] Potassium SerPl-sCnc 4.4 mmol/L 01/24/2025 3.3 - 5 .3 [facility] BKR CREATININE DELTA 0.08 01/24/2025 - [facility] AST/ALT SerPl-cRto 0.7 01/24/2025 - [facility] BUN/Creat SerPl 23.2 Above high normal 01/24/2025 8 - 2 3 [facility] ALT SerPl w/o P-5'-P-cCnc 35.0 U/L 01/24/2025 10 - 35 [facility] Glucose SerPl-mCnc 230.0 mg/dL Above high normal 01/24/2025 70 - 100 [facility] AST SerPl w P-5'-P-cCnc 25.0 U/L 01/24/2025 10 - 35 [facility] ALP SerPl-cCnc 132.0 U/L Above high normal 01/24/2025 9 - 12 2 [facility] Bilirub SerPl-mCnc 0.7 mg/dL 01/24/2025 - [facility] Anion Gap SerPl Calculated.3Ions-sCnc 16.0 01/24/2025 7 - 17 [facility] T Sodium SerPl-sCnc 140.0 mmol/L 01/24/2025 136 - 14 4 [facility] Chloride SerPl-sCnc 103.0 mmol/L 01/24/2025 98 - 1 07 [facility] GFR SerPlBld Creatinine-bsd fmla CKD-EPI >60.0 mL/min/1.73m2 01/24/2025 - [facility] Globulin Plas-mCnc 2.6 g/dL 01/24/2025 2 - 3.9 [facility] BUN SerPl-mCnc 19.0 mg/dL 01/24/2025 8 - 23 [facility] Magnesium SerPl-mCnc 1.9 mg/dL 01/24/2025 1.7 - 2. 4 [facility] Basophils # Bld Auto 0.04 x 1000/uL 01/24/2025 0 - 1 [facility] RBC Auto 93.3 fL 01/24/2025 80 - 100 [facility] Platelet # Bld Auto 259.0 x1000/uL 01/24/2025 150 - 420 [facility] Monocytes # Bld Auto 0.31 x 1000/uL 01/24/2025 0 - 1 [facility] Imm Granulocytes NFr Bld Auto 1.2 % Above high normal 01/24/2025 0 - 1 [facility] nRBC # Bld Auto 0.0 x 1000/uL 01/24/2025 0 - 1 [facility] Eosinophil # Bld Auto 0.18 x 1000/uL 01/24/2025 0 - 1 [facility] MCH RBC Qn Auto 31.6 pg 01/24/2025 27 - 33 [facility] Eosinophil NFr Bld Auto 4.4 % 01/24/2025 0 - 5 [facility] Monocytes NFr Bld Auto 7.6 % 01/24/2025 4 - 12 [facility] PMV Bld Auto 10.4 fL 01/24/2025 8 - 12 [facility] T Neutrophils NFr Bld Auto 56.7 % 01/24/2025 39 - 72 [facility] Lymphocytes NFr Bld Auto 29.1 % 01/24/2025 17 - 50 [facility] RDW RBC Auto 13.1 % 01/24/2025 11 - 15 [facility] T Hgb Bld-mCnc 13.1 g/dL 01/24/2025 11.7 - 15.5 [facility] Imm Granulocytes # Bld Auto 0.05 x 1000/uL 01/24/2025 0 - 0.3 [facility] WBC # Bld Auto 4.1 x1000/uL 01/24/2025 4 - 11 [facility] Hct VFr Bld Auto 38.7 % 01/24/2025 35 - 45 [facility] Neutrophils # Bld Auto 2.32 x 1000/uL 01/24/2025 2 - 7.6 [facility] MCHC RBC Auto-EntMCnc 33.9 g/dL 01/24/2025 31 - 36 [facility] Lymphocytes # Bld Auto 1.19 x 1000/uL 01/24/2025 0 .6 - 3.7 [facility] RBC # Bld Auto 4.15 M/uL 01/24/2025 4 - 6 [facility] nRBC Bld Auto-Rto 0.0 % 01/24/2025 0 - 1 [facility] Basophils NFr Bld Auto 1.0 % 01/24/2025 0 - 1. 4 [facility] Lipase SerPl-cCnc 25.0 U/L 01/02/2025 11 - 55 [facility] Potassium SerPl-sCnc 4.4 mmol/L 01/02/2025 3.3 - 5 .3 [facility] BUN SerPl-mCnc 21.0 mg/dL 01/02/2025 8 - 23 [facility] Glucose SerPl-mCnc 254.0 mg/dL Above high normal 01/02/2025 70 - 100 [facility] Anion Gap3 SerPl-sCnc 14.0 01/02/2025 7 - 17 [facility] ALP SerPl-cCnc 130.0 U/L Above high normal 01/02/2025 9 - 12 2 [facility] AST SerPl w P-5'-P-cCnc 22.0 U/L 01/02/2025 10 - 35 [facility] GFR/BSA.pred SerPlBld [id number] >60.0 mL/min/1.73m2 01/02/2025 - [facility] Creat SerPl-mCnc 0.74 mg/dL 01/02/2025 0.4 - 1.3 [facility] BUN/Creat SerPl 28.4 Above high normal 01/02/2025 8 - 2 3 [facility] HCO3 SerPl-sCnc 20.0 mmol/L 01/02/2025 20 - 30 [facility] Albumin/Glob SerPl 1.6 01/02/2025 1 - 2.2 [facility] Bilirub SerPl-mCnc 0.8 mg/dL 01/02/2025 - [facility] Chloride SerPl-sCnc 104.0 mmol/L 01/02/2025 98 - 1 07 [facility] BKR CREATININE DELTA 0.03 01/02/2025 - [facility] AST/ALT SerPl-cRto 1.1 01/02/2025 - [facility] Sodium SerPl-sCnc 138.0 mmol/L 01/02/2025 136 - 14 4 [facility] Globulin Plas-mCnc 2.7 g/dL 01/02/2025 2 - 3.9 [facility] Albumin SerPl BCG-mCnc 4.3 g/dL 01/02/2025 3.6 - 5.1 [facility] Calcium SerPl-mCnc 9.2 mg/dL 01/02/2025 8.8 - 10.2 [facility] ALT SerPl w/o P-5'-P-cCnc 20.0 U/L 01/02/2025 10 - 35 [facility] Prot SerPl-mCnc 7.0 g/dL 01/02/2025 5.9 - 8.3 [facility] Magnesium SerPl-mCnc 1.9 mg/dL 01/02/2025 1.7 - 2. 4 [facility] Amylase SerPl-cCnc 44.0 U/L 01/02/2025 9 - 136 [facility] Phosphate SerPl-mCnc 3.8 mg/dL 01/02/2025 2.2 - 4. 5 [facility] LDH SerPl L to P-cCnc 174.0 U/L 01/02/2025 122 - 2 41 [facility] aPTT PPP 25.6 seconds 01/02/2025 23 - 31 [facility] T INR PPP 0.93 01/02/2025 0.86 - 1.13 [facility] Prothrombin time 10.3 seconds 01/02/2025 9.6 - 12. 3 [facility] Imm Granulocytes/leuk NFr Bld Auto 0.8 % 01/02/2025 0 - 1 [facility] WBC # Bld Auto 4.9 x1000/uL 01/02/2025 4 - 11 [facility] RDW RBC Auto-Rto 13.0 % 01/02/2025 11 - 15 [facility] MCH RBC Qn Auto 32.5 pg 01/02/2025 27 - 33 [facility] MCHC RBC Auto-mCnc 35.1 g/dL 01/02/2025 31 - 36 [facility] Eosinophil # Bld Auto 0.2 x 1000/uL 01/02/2025 0 - 1 [facility] MCV RBC Auto 92.6 fL 01/02/2025 80 - 100 [facility] T Lymphocytes # Bld Auto 1.15 x 1000/uL 01/02/2025 0 .6 - 3.7 [facility] nRBC # Bld Auto 0.0 x 1000/uL 01/02/2025 0 - 1 [facility] Basophils/leuk NFr Bld Auto 0.6 % 01/02/2025 0 - 1.4 [facility] Monocytes/leuk NFr Bld Auto 6.1 % 01/02/2025 4 - 12 [facility] Basophils # Bld Auto 0.03 x 1000/uL 01/02/2025 0 - 1 [facility] Hct VFr Bld Auto 38.7 % 01/02/2025 35 - 45 [facility] Neutrophils # Bld Auto 3.18 x 1000/uL 01/02/2025 2 - 7.6 [facility] PMV Bld Auto 10.9 fL 01/02/2025 8 - 12 [facility] T Neutrophils/leuk NFr Bld Auto 64.9 % 01/02/2025 39 - 72 [facility] Imm Granulocytes # Bld Auto 0.04 x 1000/uL 01/02/2025 0 - 0.3 [facility] Monocytes # Bld Auto 0.3 x 1000/uL 01/02/2025 0 - 1 [facility] RBC # Bld Auto 4.18 M/uL 01/02/2025 4 - 6 [facility] Lymphocytes/leuk NFr Bld Auto 23.5 % 01/02/2025 17 - 50 [facility] Hgb Bld-mCnc 13.6 g/dL 01/02/2025 11.7 - 15.5 [facility] Eosinophil/leuk NFr Bld Auto 4.1 % 01/02/2025 0 - 5 [facility] Platelet # Bld Auto 202.0 x1000/uL 01/02/2025 150 - 420 [facility] nRBC/100 WBC Bld Auto-Rto 0.0 % 01/02/2025 0 - 1 [facility] HBV core IgM SerPl Ql IA Negative 12/20/2024 - [facility] HCV Ab SerPl Ql IA Negative 12/20/2024 - [facility] HBV surface Ag SerPl Ql IA Negative 12/20/2024 - [facility] HAV IgM SerPl Ql IA Negative 12/20/2024 - [facility] Lipase SerPl-cCnc 29.0 U/L 12/20/2024 11 - 55 [facility] Anion Gap3 SerPl-sCnc 17.0 12/20/2024 7 - 17 [facility] Chloride SerPl-sCnc 102.0 mmol/L 12/20/2024 98 - 1 07 [facility] Potassium SerPl-sCnc 4.3 mmol/L 12/20/2024 3.3 - 5 .3 [facility] BKR CREATININE DELTA -0.05 12/20/2024 - [facility] ALT SerPl w/o P-5'-P-cCnc 25.0 U/L 12/20/2024 10 - 35 [facility] BUN/Creat SerPl 29.6 Above high normal 12/20/2024 8 - 2 3 [facility] Albumin SerPl BCG-mCnc 4.3 g/dL 12/20/2024 3.6 - 5.1 [facility] Calcium SerPl-mCnc 9.4 mg/dL 12/20/2024 8.8 - 10.2 [facility] AST/ALT SerPl-cRto 0.9 12/20/2024 - [facility] Albumin/Glob SerPl 1.5 12/20/2024 1 - 2.2 [facility] Bilirub SerPl-mCnc 0.9 mg/dL 12/20/2024 - [facility] Sodium SerPl-sCnc 141.0 mmol/L 12/20/2024 136 - 14 4 [facility] Globulin Plas-mCnc 2.8 g/dL 12/20/2024 2 - 3.9 [facility] Prot SerPl-mCnc 7.1 g/dL 12/20/2024 5.9 - 8.3 [facility] BUN SerPl-mCnc 21.0 mg/dL 12/20/2024 8 - 23 [facility] Creat SerPl-mCnc 0.71 mg/dL 12/20/2024 0.4 - 1.3 [facility] ALP SerPl-cCnc 127.0 U/L Above high normal 12/20/2024 9 - 12 2 [facility] AST SerPl w P-5'-P-cCnc 23.0 U/L 12/20/2024 10 - 35 [facility] GFR/BSA.pred SerPlBld QRE-BMP-JnDMiv >60.0 mL/min/1.73m2 12/20/2024 - [facility] Glucose SerPl-mCnc 111.0 mg/dL Above high normal 12/20/2024 70 - 100 [facility] HCO3 SerPl-sCnc 22.0 mmol/L 12/20/2024 20 - 30 [facility] Amylase SerPl-cCnc 50.0 U/L 12/20/2024 9 - 136 [facility] Magnesium SerPl-mCnc 2.0 mg/dL 12/20/2024 1.7 - 2. 4 [facility] Phosphate SerPl-mCnc 3.3 mg/dL 12/20/2024 2.2 - 4. 5 [facility] Hct VFr Bld Auto 38.8 % 12/20/2024 35 - 45 [facility] Eosinophil # Bld Auto 0.18 x 1000/uL 12/20/2024 0 - 1 [facility] Neutrophils # Bld Auto 3.85 x 1000/uL 12/20/2024 2 - 7.6 [facility] Eosinophil/leuk NFr Bld Auto 3.1 % 12/20/2024 0 - 5 [facility] MCV RBC Auto 92.4 fL 12/20/2024 80 - 100 [facility] T RBC # Bld Auto 4.2 M/uL 12/20/2024 4 - 6 [facility] Lymphocytes/leuk NFr Bld Auto 22.9 % 12/20/2024 17 - 50 [facility] Monocytes # Bld Auto 0.32 x 1000/uL 12/20/2024 0 - 1 [facility] Lymphocytes # Bld Auto 1.31 x 1000/uL 12/20/2024 0 .6 - 3.7 [facility] Imm Granulocytes # Bld Auto 0.04 x 1000/uL 12/20/2024 0 - 0.3 [facility] WBC # Bld Auto 5.7 x1000/uL 12/20/2024 4 - 11 [facility] nRBC # Bld Auto 0.0 x 1000/uL 12/20/2024 0 - 1 [facility] Neutrophils/leuk NFr Bld Auto 67.4 % 12/20/2024 39 - 72 [facility] Basophils # Bld Auto 0.02 x 1000/uL 12/20/2024 0 - 1 [facility] Hgb Bld-mCnc 13.1 g/dL 12/20/2024 11.7 - 15.5 [facility] nRBC/100 WBC Bld Auto-Rto 0.0 % 12/20/2024 0 - 1 [facility] Monocytes/leuk NFr Bld Auto 5.6 % 12/20/2024 4 - 12 [facility] Platelet # Bld Auto 191.0 x1000/uL 12/20/2024 150 - 420 [facility] RDW RBC Auto-Rto 13.6 % 12/20/2024 11 - 15 [facility] MCH RBC Qn Auto 31.2 pg 12/20/2024 27 - 33 [facility] PMV Bld Auto 10.5 fL 12/20/2024 8 - 12 [facility] T MCHC RBC Auto-mCnc 33.8 g/dL 12/20/2024 31 - 36 [facility] Basophils/leuk NFr Bld Auto 0.3 % 12/20/2024 0 - 1.4 [facility] Imm Granulocytes/leuk NFr Bld Auto 0.7 % 12/20/2024 0 - 1 [facility] LDH SerPl L to P-cCnc 188.0 U/L 12/20/2024 122 - 2 41 [facility] BKR CA 15-3 ( [facility]) 20.6 U/mL 12/13/2024 - [facility] BKR CARCINOEMBRYONIC ANTIGEN ( [employer]) 1.9 ng/mL 12/13/2024 - [facility] Anion Gap3 SerPl-sCnc 10.0 12/13/2024 7 - 17 [facility] Sodium SerPl-sCnc 140.0 mmol/L 12/13/2024 136 - 14 4 [facility] Chloride SerPl-sCnc 104.0 mmol/L 12/13/2024 98 - 1 07 [facility] Glucose SerPl-mCnc 133.0 mg/dL Above high normal 12/13/2024 70 - 100 [facility] BKR CREATININE DELTA 0.03 12/13/2024 - [facility] Calcium SerPl-mCnc 9.6 mg/dL 12/13/2024 8.8 - 10.2 [facility] Albumin SerPl BCG-mCnc 4.6 g/dL 12/13/2024 3.6 - 5.1 [facility] Globulin Plas-mCnc 2.6 g/dL 12/13/2024 2 - 3.9 [facility] AST/ALT SerPl-cRto 1.5 12/13/2024 - [facility] GFR/BSA.pred SerPlBld UEG-[id number] >60.0 mL/min/1.73m2 12/13/2024 - [facility] ALT SerPl w/o P-5'-P-cCnc 20.0 U/L 12/13/2024 10 - 35 [facility] HCO3 SerPl-sCnc 26.0 mmol/L 12/13/2024 20 - 30 [facility] Prot SerPl-mCnc 7.2 g/dL 12/13/2024 5.9 - 8.3 [facility] AST SerPl w P-5'-P-cCnc 30.0 U/L 12/13/2024 10 - 35 [facility] Albumin/Glob SerPl 1.8 12/13/2024 1 - 2.2 [facility] Potassium SerPl-sCnc 4.7 mmol/L 12/13/2024 3.3 - 5 .3 [facility] BUN SerPl-mCnc 22.0 mg/dL 12/13/2024 8 - 23 [facility] BUN/Creat SerPl 28.9 Above high normal 12/13/2024 8 - 2 3 [facility] ALP SerPl-cCnc 135.0 U/L Above high normal 12/13/2024 9 - 12 2 [facility] Creat SerPl-mCnc 0.76 mg/dL 12/13/2024 0.4 - 1.3 [facility] Bilirub SerPl-mCnc 1.0 mg/dL 12/13/2024 - [facility] RDW RBC Auto-Rto 14.1 % 12/13/2024 11 - 15 [facility] Eosinophil/leuk NFr Bld Auto 3.7 % 12/13/2024 0 - 5 [facility] Monocytes # Bld Auto 0.32 x 1000/uL 12/13/2024 0 - 1 [facility] MCHC RBC Auto-mCnc 33.5 g/dL 12/13/2024 31 - 36 [facility] Basophils/leuk NFr Bld Auto 0.7 % 12/13/2024 0 - 1.4 [facility] Platelet # Bld Auto 212.0 x1000/uL 12/13/2024 150 - 420 [facility] Hct VFr Bld Auto 41.5 % 12/13/2024 35 - 45 [facility] MCV RBC Auto 95.0 fL 12/13/2024 80 - 100 [facility] T nRBC # Bld Auto 0.0 x 1000/uL 12/13/2024 0 - 1 [facility] Lymphocytes # Bld Auto 1.35 x 1000/uL 12/13/2024 0 .6 - 3.7 [facility] RBC # Bld Auto 4.37 M/uL 12/13/2024 4 - 6 [facility] Lymphocytes/leuk NFr Bld Auto 23.9 % 12/13/2024 17 - 50 [facility] Neutrophils/leuk NFr Bld Auto 65.6 % 12/13/2024 39 - 72 [facility] Basophils # Bld Auto 0.04 x 1000/uL 12/13/2024 0 - 1 [facility] Imm Granulocytes # Bld Auto 0.02 x 1000/uL 12/13/2024 0 - 0.3 [facility] Granulocytes/leuk NFr Bld Auto 0.4 % 12/13/2024 0 - 1 [facility] MCH RBC Qn Auto 31.8 pg 12/13/2024 27 - 33 [facility] Neutrophils # Bld Auto 3.72 x 1000/uL 12/13/2024 2 - 7.6 [facility] nRBC/100 WBC Bld Auto-Rto 0.0 % 12/13/2024 0 - 1 [facility] WBC # Bld Auto 5.7 x1000/uL 12/13/2024 4 - 11 [facility] Monocytes/leuk NFr Bld Auto 5.7 % 12/13/2024 4 - 12 [facility] Eosinophil # Bld Auto 0.21 x 1000/uL 12/13/2024 0 - 1 [facility] Hgb Bld-mCnc 13.9 g/dL 12/13/2024 11.7 - 15.5 [facility] PMV Bld Auto 10.5 fL 12/13/2024 8 - 12 [facility] T Sodium SerPl-sCnc 138.0 mmol/L 11/14/2024 136 - 14 4 [facility] ALP SerPl-cCnc 127.0 U/L Above high normal 11/14/2024 9 - 12 2 [facility] Anion Gap3 SerPl-sCnc 12.0 11/14/2024 7 - 17 [facility] BKR CREATININE DELTA 0.05 11/14/2024 - [facility] ALT SerPl w/o P-5'-P-cCnc 18.0 U/L 11/14/2024 10 - 35 [facility] AST/ALT SerPl-cRto 1.1 11/14/2024 - [facility] Albumin SerPl BCG-mCnc 4.1 g/dL 11/14/2024 3.6 - 5.1 [facility] Potassium SerPl-sCnc 4.7 mmol/L 11/14/2024 3.3 - 5 .3 [facility] Chloride SerPl-sCnc 102.0 mmol/L 11/14/2024 98 - 1 07 [facility] Albumin/Glob SerPl 1.6 11/14/2024 1 - 2.2 [facility] Globulin Plas-mCnc 2.5 g/dL 11/14/2024 2 - 3.9 [facility] Creat SerPl-mCnc 0.73 mg/dL 11/14/2024 0.4 - 1.3 [facility] Glucose SerPl-mCnc 140.0 mg/dL Above high normal 11/14/2024 70 - 100 [facility] GFR/BSA.pred SerPlBld HNV-YXR-SdBMwt >60.0 mL/min/1.73m2 11/14/2024 - [facility] BUN SerPl-mCnc 20.0 mg/dL 11/14/2024 8 - 23 [facility] Calcium SerPl-mCnc 9.3 mg/dL 11/14/2024 8.8 - 10.2 [facility] HCO3 SerPl-sCnc 24.0 mmol/L 11/14/2024 20 - 30 [facility] Prot SerPl-mCnc 6.6 g/dL 11/14/2024 5.9 - 8.3 [facility] BUN/Creat SerPl 27.4 Above high normal 11/14/2024 8 - 2 3 [facility] AST SerPl w P-5'-P-cCnc 19.0 U/L 11/14/2024 10 - 35 [facility] Bilirub SerPl-mCnc 0.7 mg/dL 11/14/2024 - [facility] RDW RBC Auto-Rto 14.0 % 11/14/2024 11 - 15 [facility] Hgb Bld-mCnc 13.1 g/dL 11/14/2024 11.7 - 15.5 [facility] Neutrophils # Bld Auto 4.59 x 1000/uL 11/14/2024 2 - 7.6 [facility] Neutrophils/leuk NFr Bld Auto 72.4 % Above high normal 11/14/2024 39 - 72 [facility] MCV RBC Auto 96.9 fL 11/14/2024 80 - 100 [facility] T Eosinophil/leuk NFr Bld Auto 2.8 % 11/14/2024 0 - 5 [facility] Eosinophil # Bld Auto 0.18 x 1000/uL 11/14/2024 0 - 1 [facility] MCH RBC Qn Auto 31.6 pg 11/14/2024 27 - 33 [facility] Monocytes # Bld Auto 0.37 x 1000/uL 11/14/2024 0 - 1 [facility] Imm Granulocytes # Bld Auto 0.02 x 1000/uL 11/14/2024 0 - 0.3 [facility] Lymphocytes/leuk NFr Bld Auto 18.4 % 11/14/2024 17 - 50 [facility] nRBC # Bld Auto 0.0 x 1000/uL 11/14/2024 0 - 1 [facility] MCHC RBC Auto-mCnc 32.7 g/dL 11/14/2024 31 - 36 [facility] RBC # Bld Auto 4.14 M/uL 11/14/2024 4 - 6 [facility] Platelet # Bld Auto 186.0 x1000/uL 11/14/2024 150 - 420 [facility] Granulocytes/leuk NFr Bld Auto 0.3 % 11/14/2024 0 - 1 [facility] PMV Bld Auto 10.9 fL 11/14/2024 8 - 12 [facility] T Basophils # Bld Auto 0.02 x 1000/uL 11/14/2024 0 - 1 [facility] Monocytes/leuk NFr Bld Auto 5.8 % 11/14/2024 4 - 12 [facility] Hct VFr Bld Auto 40.1 % 11/14/2024 35 - 45 [facility] nRBC/100 WBC Bld Auto-Rto 0.0 % 11/14/2024 0 - 1 [facility] Lymph[facility] # Bld Auto 1.17 x 1000/uL 11/14/2024 0 .6 - 3.7 [facility] Basophils/leuk NFr Bld Auto 0.3 % 11/14/2024 0 - 1.4 [facility] WBC # Bld Auto 6.4 x1000/uL 11/14/2024 4 - 11 [facility] HCV Ab SerPl Ql IA Negative Normal 10/25/2024 - [facility] HBV surface Ag SerPl Ql IA Negative Normal 10/25/2024 - [facility] HBV core IgG+IgM SerPl Ql IA Negative Normal 10/25/2024 - [facility] HBV surface Ab SerPl IA-aCnc <8.0 mIU/mL Normal 10/25/2024 - [facility] PMV Bld Auto 10.8 fL Normal 10/25/2024 8 - 12 [facility] T WBC # Bld Auto 5.2 x1000/uL Normal 10/25/2024 4 - 11 [facility] Monocytes/leuk NFr Bld Auto 5.2 % Normal 10/25/2024 4 - 12 [facility] Basophils/leuk NFr Bld Auto 0.8 % Normal 10/25/2024 0 - 1.4 [facility] nRBC/100 WBC Bld Auto-Rto 0.0 % Normal 10/25/2024 0 - 1 [facility] Eosinophil # Bld Auto 0.19 x 1000/uL Normal 10/25/2024 0 - 1 [facility] Imm Granulocytes # Bld Auto 0.01 x 1000/uL Normal 10/25/2024 0 - 0.3 [facility] Granulocytes/leuk NFr Bld Auto 0.2 % Normal 10/25/2024 0 - 1 [facility] Mon[facility] # Bld Auto 0.27 x 1000/uL Normal 10/25/2024 0 - 1 [facility] Hgb Bld-mCnc 12.9 g/dL Normal 10/25/2024 11.7 - 15.5 [facility] MCV RBC Auto 98.7 fL Normal 10/25/2024 80 - 100 [facility] T RDW RBC Auto-Rto 13.2 % Normal 10/25/2024 11 - 15 [facility] Neutrophils/leuk NFr Bld Auto 69.1 % Normal 10/25/2024 39 - 72 [facility] Platelet # Bld Auto 199.0 x1000/uL Normal 10/25/2024 150 - 420 [facility] Hct VFr Bld Auto 39.3 % Normal 10/25/2024 35 - 45 [facility] Eosinophil/leuk NFr Bld Auto 3.6 % Normal 10/25/2024 0 - 5 [facility] Lymphocytes/leuk NFr Bld Auto 21.1 % Normal 10/25/2024 17 - 50 [facility] MCH RBC Qn Auto 32.4 pg Normal 10/25/2024 27 - 33 [facility] Lymphocytes # Bld Auto 1.1 x 1000/uL Normal 10/25/2024 0. 6 - 3.7 [facility] MCHC RBC Auto-mCnc 32.8 g/dL Normal 10/25/2024 31 - 36 [facility] nRBC # Bld Auto 0.0 x 1000/uL Normal 10/25/2024 0 - 1 [facility] Neutrophils # Bld Auto 3.6 x 1000/uL Normal 10/25/2024 2 - 7.6 [facility] Basophils # Bld Auto 0.04 x 1000/uL Normal 10/25/2024 0 - 1 [facility] RBC # Bld Auto 3.98 M/uL Below low normal 10/25/2024 4 - 6 [facility] Calcium SerPl-mCnc 9.5 mg/dL Normal 10/25/2024 8.8 - 10.2 [facility] Albumin SerPl BCG-mCnc 4.3 g/dL Normal 10/25/2024 3.6 - 5.1 [facility] Glucose SerPl-mCnc 140.0 mg/dL Above high normal 10/25/2024 70 - 100 [facility] Albumin/Glob SerPl 1.8 Normal 10/25/2024 1 - 2.2 [facility] Creat SerPl-mCnc 0.68 mg/dL Normal 10/25/2024 0.4 - 1.3 [facility] Prot SerPl-mCnc 6.7 g/dL Normal 10/25/2024 5.9 - 8.3 [facility] ALT SerPl w/o P-5'-P-cCnc 18.0 U/L Normal 10/25/2024 10 - 35 [facility] AST SerPl w P-5'-P-cCnc 29.0 U/L Normal 10/25/2024 10 - 35 [facility] Anion Gap3 SerPl-sCnc 13.0 Normal 10/25/2024 7 - 17 [facility] Globulin Plas-mCnc 2.4 g/dL Normal 10/25/2024 2 - 3.9 [facility] Sodium SerPl-sCnc 142.0 mmol/L Normal 10/25/2024 136 - 14 4 [facility] BKR CREATININE DELTA -0.03 Normal 10/25/2024 - [facility] ALP SerPl-cCnc 101.0 U/L Normal 10/25/2024 9 - 122 [facility] Potassium SerPl-sCnc 4.6 mmol/L Normal 10/25/2024 3.3 - 5 .3 [facility] Bilirub SerPl-mCnc 0.8 mg/dL Normal 10/25/2024 - [facility] Chloride SerPl-sCnc 105.0 mmol/L Normal 10/25/2024 98 - 1 07 [facility] BUN SerPl-mCnc 19.0 mg/dL Normal 10/25/2024 8 - 23 [facility] AST/ALT SerPl-cRto 1.6 Normal 10/25/2024 - [facility] HCO3 SerPl-sCnc 24.0 mmol/L Normal 10/25/2024 20 - 30 [facility] GFR/BSA.pred SerPlBld GUQ-MEC-LdHUjc >60.0 mL/min/1.73m2 Normal 10/25/2024 - [facility] BUN/Creat SerPl 27.9 Above high normal 10/25/2024 8 - 2 3 [facility] Potassium SerPl-sCnc 4.3 mmol/L Normal 09/12/2024 3.3 - 5 .3 [facility] Creat SerPl-mCnc 0.71 mg/dL Normal 09/12/2024 0.4 - 1.3 [facility] Anion Gap3 SerPl-sCnc 9.0 Normal 09/12/2024 7 - 17 [facility] HCO3 SerPl-sCnc 26.0 mmol/L Normal 09/12/2024 20 - 30 [facility] Sodium SerPl-sCnc 138.0 mmol/L Normal 09/12/2024 136 - 14 4 [facility] Calcium SerPl-mCnc 8.1 mg/dL Below low normal 09/12/2024 8.8 - 10.2 [facility] GFR/BSA.pred SerPlBld IOT-UTJ-CwKFma >60.0 mL/min/1.73m2 Normal 09/12/2024 - [facility] BUN/Creat SerPl 12.7 Normal 09/12/2024 8 - 23 [facility] Chloride SerPl-sCnc 103.0 mmol/L Normal 09/12/2024 98 - 1 07 [facility] Glucose SerPl-mCnc 100.0 mg/dL Normal 09/12/2024 70 - 100 [facility] BKR CREATININE DELTA 0.08 Normal 09/12/2024 - [facility] BUN SerPl-mCnc 9.0 mg/dL Normal 09/12/2024 8 - 23 [facility] Phosphate SerPl-mCnc 3.7 mg/dL Normal 09/12/2024 2.2 - 4. 5 [facility] Magnesium SerPl-mCnc 2.0 mg/dL Normal 09/12/2024 1.7 - 2. 4 [facility] Neutrophils # Bld Auto 2.94 x 1000/uL Normal 09/12/2024 2 - 7.6 [facility] Imm Granulocytes # Bld Auto 0.03 x 1000/uL Normal 09/12/2024 0 - 0.3 [facility] Eosinophil/leuk NFr Bld Auto 4.0 % Normal 09/12/2024 0 - 5 [facility] Hct VFr Bld Auto 32.6 % Below low normal 09/12/2024 35 - 45 [facility] Platelet # Bld Auto 188.0 x1000/uL Normal 09/12/2024 150 - 420 [facility] RDW RBC Auto-Rto 14.3 % Normal 09/12/2024 11 - 15 [facility] Lymphocytes # Bld Auto 0.87 x 1000/uL Normal 09/12/2024 0 .6 - 3.7 [facility] MCV RBC Auto 105.5 fL Above high normal 09/12/2024 80 - 100 [facility] Eosinophil # Bld Auto 0.18 x 1000/uL Normal 09/12/2024 0 - 1 [facility] MCH RBC Qn Auto 33.7 pg Above high normal 09/12/2024 27 - 33 [facility] Monocytes/leuk NFr Bld Auto 11.0 % Normal 09/12/2024 4 - 12 [facility] Mon[facility] # Bld Auto 0.5 x 1000/uL Normal 09/12/2024 0 - 1 [facility] nRBC/100 WBC Bld Auto-Rto 0.0 % Normal 09/12/2024 0 - 1 [facility] Lymphocytes/leuk NFr Bld Auto 19.2 % Normal 09/12/2024 17 - 50 [facility] Basophils # Bld Auto 0.02 x 1000/uL Normal 09/12/2024 0 - 1 [facility] Neutrophils/leuk NFr Bld Auto 64.7 % Normal 09/12/2024 39 - 72 [facility] Basophils/leuk NFr Bld Auto 0.4 % Normal 09/12/2024 0 - 1.4 [facility] nRBC # Bld Auto 0.0 x 1000/uL Normal 09/12/2024 0 - 1 [facility] MCHC RBC Auto-mCnc 31.9 g/dL Normal 09/12/2024 31 - 36 [facility] WBC # Bld Auto 4.5 x1000/uL Normal 09/12/2024 4 - 11 [facility] Granulocytes/leuk NFr Bld Auto 0.7 % Normal 09/12/2024 0 - 1 [facility] RBC # Bld Auto 3.09 M/uL Below low normal 09/12/2024 4 - 6 [facility] Hgb Bld-mCnc 10.4 g/dL Below low normal 09/12/2024 11.7 - 15 .5 [facility] PMV Bld Auto 10.3 fL Normal 09/12/2024 8 - 12 [facility] T MCH RBC Qn Auto 34.9 pg Above high normal 09/11/2024 27 - 33 [facility] PMV Bld Auto 10.7 fL Normal 09/11/2024 8 - 12 [facility] T nRBC/100 WBC Bld Auto-Rto 0.0 % Normal 09/11/2024 0 - 1 [facility] Eosinophil/leuk NFr Bld Auto 1.0 % Normal 09/11/2024 0 - 5 [facility] Neutrophils/leuk NFr Bld Auto 84.9 % Above high normal 09/11/2024 39 - 72 [facility] MCHC RBC Auto-mCnc 33.2 g/dL Normal 09/11/2024 31 - 36 [facility] Platelet # Bld Auto 166.0 x1000/uL Normal 09/11/2024 150 - 420 [facility] Hgb Bld-mCnc 10.4 g/dL Below low normal 09/11/2024 11.7 - 15 .5 [facility] Eosinophil # Bld Auto 0.08 x 1000/uL Normal 09/11/2024 0 - 1 [facility] WBC # Bld Auto 7.8 x1000/uL Normal 09/11/2024 4 - 11 [facility] Granulocytes/leuk NFr Bld Auto 0.8 % Normal 09/11/2024 0 - 1 [facility] Monocytes # Bld Auto 0.47 x 1000/uL Normal 09/11/2024 0 - 1 [facility] Monocytes/leuk NFr Bld Auto 6.0 % Normal 09/11/2024 4 - 12 [facility] Neutrophils # Bld Auto 6.64 x 1000/uL Normal 09/11/2024 2 - 7.6 [facility] RBC # Bld Auto 2.98 M/uL Below low normal 09/11/2024 4 - 6 [facility] Imm Granulocytes # Bld Auto 0.06 x 1000/uL Normal 09/11/2024 0 - 0.3 [facility] MCV RBC Auto 105.0 fL Above high normal 09/11/2024 80 - 100 [facility] RDW RBC Auto-Rto 14.4 % Normal 09/11/2024 11 - 15 [facility] Basophils/leuk NFr Bld Auto 0.4 % Normal 09/11/2024 0 - 1.4 [facility] Hct VFr Bld Auto 31.3 % Below low normal 09/11/2024 35 - 45 [facility] Lymphocytes # Bld Auto 0.54 x 1000/uL Below low normal 09/11 0.6 - 3.7 [facility] Basophils # Bld Auto 0.03 x 1000/uL Normal 09/11/2024 0 - 1 [facility] nRBC # Bld Auto 0.0 x 1000/uL Normal 09/11/2024 0 - 1 [facility] Lymphocytes/leuk NFr Bld Auto 6.9 % Below low normal 09/11/2024 17 - 50 [facility] Magnesium SerPl-mCnc 2.0 mg/dL Normal 09/11/2024 1.7 - 2. 4 [facility] Glucose SerPl-mCnc 139.0 mg/dL Above high normal 09/11/2024 70 - 100 [facility] Sodium SerPl-sCnc 136.0 mmol/L Normal 09/11/2024 136 - 14 4 [facility] Chloride SerPl-sCnc 100.0 mmol/L Normal 09/11/2024 98 - 1 07 [facility] Anion Gap3 SerPl-sCnc 10.0 Normal 09/11/2024 7 - 17 [facility] GFR/BSA.pred SerPlBld ARV-JZO-NiVEea >60.0 mL/min/1.73m2 Normal 09/11/2024 - [facility] HCO3 SerPl-sCnc 26.0 mmol/L Normal 09/11/2024 20 - 30 [facility] Potassium SerPl-sCnc 3.1 mmol/L Below low normal 09/11/2024 3.3 - 5.3 [facility] BUN SerPl-mCnc 6.0 mg/dL Below low normal 09/11/2024 8 - 23 [facility] BUN/Creat SerPl 9.5 Normal 09/11/2024 8 - 23 [facility] Creat SerPl-mCnc 0.63 mg/dL Normal 09/11/2024 0.4 - 1.3 [facility] Calcium SerPl-mCnc 7.8 mg/dL Below low normal 09/11/2024 8.8 - 10.2 [facility] BKR CREATININE DELTA 0.04 Normal 09/11/2024 - [facility] Phosphate SerPl-mCnc 2.9 mg/dL Normal 09/11/2024 2.2 - 4. 5 [facility] Phosphate SerPl-mCnc 2.6 mg/dL Normal 09/10/2024 2.2 - 4. 5 [facility] GFR/BSA.pred SerPlBld WZA-JML-HcGRcs >60.0 mL/min/1.73m2 Normal 09/10/2024 - [facility] Calcium SerPl-mCnc 8.3 mg/dL Below low normal 09/10/2024 8.8 - 10.2 [facility] HCO3 SerPl-sCnc 25.0 mmol/L Normal 09/10/2024 20 - 30 [facility] BUN/Creat SerPl 3.4 Below low normal 09/10/2024 8 - 23 [facility] Potassium SerPl-sCnc 3.8 mmol/L Normal 09/10/2024 3.3 - 5 .3 [facility] BKR CREATININE DELTA 0.04 Normal 09/10/2024 - [facility] Sodium SerPl-sCnc 137.0 mmol/L Normal 09/10/2024 136 - 14 4 [facility] Glucose SerPl-mCnc 134.0 mg/dL Above high normal 09/10/2024 70 - 100 [facility] BUN SerPl-mCnc 2.0 mg/dL Below low normal 09/10/2024 8 - 23 [facility] Chloride SerPl-sCnc 102.0 mmol/L Normal 09/10/2024 98 - 1 07 [facility] Creat SerPl-mCnc 0.59 mg/dL Normal 09/10/2024 0.4 - 1.3 [facility] Anion Gap3 SerPl-sCnc 10.0 Normal 09/10/2024 7 - 17 [facility] Magnesium SerPl-mCnc 1.4 mg/dL Below low normal 09/10/2024 1 .7 - 2.4 [facility] nRBC # Bld Auto 0.0 x 1000/uL Normal 09/10/2024 0 - 1 [facility] Basophils # Bld Auto 0.04 x 1000/uL Normal 09/10/2024 0 - 1 [facility] Neutrophils # Bld Auto 18.46 x 1000/uL Above high normal 09/2024 2 - 7.6 [facility] RDW RBC Auto-Rto 14.3 % Normal 09/10/2024 11 - 15 [facility] Hct VFr Bld Auto 34.5 % Below low normal 09/10/2024 35 - 45 [facility] MCHC RBC Auto-mCnc 32.8 g/dL Normal 09/10/2024 31 - 36 [facility] MCH RBC Qn Auto 34.6 pg Above high normal 09/10/2024 27 - 33 [facility] Lymphocytes # Bld Auto 0.43 x 1000/uL Below low normal 09/10 0.6 - 3.7 [facility] Monocytes/leuk NFr Bld Auto 2.8 % Below low normal 09/10/2024 4 - 12 [facility] Monocytes # Bld Auto 0.56 x 1000/uL Normal 09/10/2024 0 - 1 [facility] Basophils/leuk NFr Bld Auto 0.2 % Normal 09/10/2024 0 - 1.4 [facility] RBC # Bld Auto 3.27 M/uL Below low normal 09/10/2024 4 - 6 [facility] WBC # Bld Auto 19.7 x1000/uL Above high normal 09/10/2024 4 - 11 [facility] Eosinophil # Bld Auto 0.03 x 1000/uL Normal 09/10/2024 0 - 1 [facility] Platelet # Bld Auto 234.0 x1000/uL Normal 09/10/2024 150 - 420 [facility] Hgb Bld-mCnc 11.3 g/dL Below low normal 09/10/2024 11.7 - 15 .5 [facility] Imm Granulocytes # Bld Auto 0.22 x 1000/uL Normal 09/10/2024 0 - 0.3 [facility] Eosinophil/leuk NFr Bld Auto 0.2 % Normal 09/10/2024 0 - 5 [facility] nRBC/100 WBC Bld Auto-Rto 0.0 % Normal 09/10/2024 0 - 1 [facility] PMV Bld Auto 10.3 fL Normal 09/10/2024 8 - 12 [facility] T Neutrophils/leuk NFr Bld Auto 93.5 % Above high normal 09/10/2024 39 - 72 [facility] MCV RBC Auto 105.5 fL Above high normal 09/10/2024 80 - 100 [facility] Imm Granulocytes/leuk NFr Bld Auto 1.1 % Above high normal 09/10/2024 0 - 1 [facility] Lymphocytes/leuk NFr Bld Auto 2.2 % Below low normal 09/10/2024 17 - 50 [facility] nRBC/100 WBC Bld Auto-Rto 0.0 % Normal 09/09/2024 0 - 1 [facility] Hct VFr Bld Auto 33.3 % Below low normal 09/09/2024 35 - 45 [facility] MCH RBC Qn Auto 35.1 pg Above high normal 09/09/2024 27 - 33 [facility] RDW RBC Auto-Rto 14.4 % Normal 09/09/2024 11 - 15 [facility] MCV RBC Auto 105.4 fL Above high normal 09/09/2024 80 - 100 [facility] MCHC RBC Auto-mCnc 33.3 g/dL Normal 09/09/2024 31 - 36 [facility] nRBC # Bld Auto 0.0 x 1000/uL Normal 09/09/2024 0 - 1 [facility] Hgb Bld-mCnc 11.1 g/dL Below low normal 09/09/2024 11.7 - 15 .5 [facility] RBC # Bld Auto 3.16 M/uL Below low normal 09/09/2024 4 - 6 [facility] PMV Bld Auto 11.1 fL Normal 09/09/2024 8 - 12 [facility] T WBC # Bld Auto 7.3 x1000/uL Normal 09/09/2024 4 - 11 [facility] Platelet # Bld Auto 186.0 x1000/uL Normal 09/09/2024 150 - 420 [facility] Eosinophil # Bld Manual 0.36 x 1000/uL Normal 09/09/2024 0 - 1 [facility] Monocytes/leuk NFr Bld Manual 6.0 % Normal 09/09/2024 4 - 12 [facility] Myelocytes/leuk NFr Bld 1.0 % Above high normal 09/10/19 25 0 - 0 [facility] Normochromic Bld Ql Smear Normal Normal 09/09/2024 [facility] Lymphocytes/leuk NFr Bld Manual 14.0 % Below low normal 09/09/2024 17 - 50 [facility] Basophils/leuk NFr Bld 0.0 % Normal 09/09/2024 0 - 1. 4 [facility] Neuts Band/leuk NFr Bld Manual 1.0 % Normal 09/09/2024 0 - 10 [facility] Lymphocytes # Bld Manual 1.02 x 1000/uL Normal 09/09/2024 0.6 - 3.7 [facility] Neuts Seg/leuk NFr Bld Manual 73.0 % Above high normal 09/09/2024 39 - 72 [facility] Neutrophils # Bld Manual 5.39 x 1000/uL Normal 09/09/2024 2 - 7.6 [facility] Basophils # Bld 0.0 x 1000/uL Normal 09/09/2024 0 - 1 [facility] Monocytes # Bld Manual 0.44 x 1000/uL Normal 09/09/2024 0 - 1 [facility] Eosinophil/leuk NFr Bld Manual 5.0 % Normal 09/09/2024 0 - 5 [facility] Sodium SerPl-sCnc 138.0 mmol/L Normal 09/09/2024 136 - 14 4 [facility] Chloride SerPl-sCnc 103.0 mmol/L Normal 09/09/2024 98 - 1 07 [facility] GFR/BSA.pred SerPlBld WUS-MON-JrORcb >60.0 mL/min/1.73m2 Normal 09/09/2024 - [facility] Calcium SerPl-mCnc 8.4 mg/dL Below low normal 09/09/2024 8.8 - 10.2 [facility] BUN/Creat SerPl 5.5 Below low normal 09/09/2024 8 - 23 [facility] Potassium SerPl-sCnc 3.8 mmol/L Normal 09/09/2024 3.3 - 5 .3 [facility] BKR CREATININE DELTA -0.05 Normal 09/09/2024 - [facility] BUN SerPl-mCnc 3.0 mg/dL Below low normal 09/09/2024 8 - 23 [facility] Anion Gap3 SerPl-sCnc 8.0 Normal 09/09/2024 7 - 17 [facility] HCO3 SerPl-sCnc 27.0 mmol/L Normal 09/09/2024 20 - 30 [facility] Creat SerPl-mCnc 0.55 mg/dL Normal 09/09/2024 0.4 - 1.3 [facility] Glucose SerPl-mCnc 128.0 mg/dL Above high normal 09/09/2024 70 - 100 [facility] Magnesium SerPl-mCnc 1.8 mg/dL Normal 09/09/2024 1.7 - 2. 4 [facility] Phosphate SerPl-mCnc 3.0 mg/dL Normal 09/09/2024 2.2 - 4. 5 [facility] BKR REFLEX URINE CULTURE See Comment Normal 09/08/2024 [facility] WBC #/area UrnS Auto 1.0 /HPF Normal 09/08/2024 0 - 5 [facility] RBC #/area UrnS Auto <1.0 /HPF Normal 09/08/2024 0 - 2 [facility] Bacteria # Ur Auto Few Abnormal 09/08/2024 - [facility] WBC # Ur Strip Negative Normal 09/08/2024 - [facility] Bilirub Ur Ql Strip.auto Negative Normal 09/08/2024 - [facility] Sp Gr Ur Refract.auto 1.013 Normal 09/08/2024 1.0 05 - 1.03 [facility] Nitrite Ur Ql Strip.auto Positive Abnormal 09/08/2024 - [facility] Hgb Ur Ql Strip.auto Negative Normal 09/08/2024 - [facility] Prot Ur Strip.auto-mCnc Negative Normal 09/08/2024 - [facility] pH Ur Strip.auto 7.0 Normal 09/08/2024 5.5 - 7.5 [facility] Glucose Ur Strip.auto-mCnc Negative Normal 09/08/2024 - [facility] Clarity Ur Refract.auto Clear Normal 09/08/2024 - [facility] Urobilinogen Ur Strip-mCnc <2.0 mg/dL Normal 09/08/2024 - [facility] Color Ur Auto Yellow Normal 09/08/2024 - [facility] Ketones Ur Strip.auto-mCnc 1+ Abnormal 09/08/2024 - [facility] T3Free SerPl-mCnc 1.24 ng/dL Normal 09/08/2024 - [facility] TSH SerPl DL<=0.005 mIU/L-aCnc 4.59 uIU/mL Above high normal 09/08/2024 - [facility] Magnesium SerPl-mCnc 2.0 mg/dL Normal 09/08/2024 1.7 - 2. 4 [facility] Phosphate SerPl-mCnc 2.5 mg/dL Normal 09/08/2024 2.2 - 4. 5 [facility] Albumin/Glob SerPl 1.3 Normal 09/08/2024 1 - 2.2 [facility] Bilirub SerPl-mCnc 0.8 mg/dL Normal 09/08/2024 - [facility] ALP SerPl-cCnc 71.0 U/L Normal 09/08/2024 9 - 122 [facility] AST/ALT SerPl-cRto Normal 09/08/2024 [facility] Albumin SerPl BCG-mCnc 2.7 g/dL Below low normal 09/08/2024 3.6 - 5.1 [facility] Prot SerPl-mCnc 4.8 g/dL Below low normal 09/08/2024 5.9 - 8.3 [facility] Bilirub Direct SerPl-mCnc Normal 09/08/2024 [facility] AST SerPl w P-5'-P-cCnc Normal 09/08/2024 [facility] ALT SerPl w/o P-5'-P-cCnc 21.0 U/L Normal 09/08/2024 10 - 35 [facility] Globulin Plas-mCnc 2.1 g/dL Normal 09/08/2024 2 - 3.9 [facility] HCO3 SerPl-sCnc 26.0 mmol/L Normal 09/08/2024 20 - 30 [facility] Chloride SerPl-sCnc 102.0 mmol/L Normal 09/08/2024 98 - 1 07 [facility] Calcium SerPl-mCnc 7.8 mg/dL Below low normal 09/08/2024 8.8 - 10.2 [facility] BUN SerPl-mCnc 7.0 mg/dL Below low normal 09/08/2024 8 - 23 [facility] Anion Gap3 SerPl-sCnc 8.0 Normal 09/08/2024 7 - 17 [facility] GFR/BSA.pred SerPlBld [id number] >60.0 mL/min/1.73m2 Normal 09/08/2024 - [facility] Potassium SerPl-sCnc Normal 09/08/2024 [facility] BUN/Creat SerPl 11.7 Normal 09/08/2024 8 - 23 [facility] Sodium SerPl-sCnc 136.0 mmol/L Normal 09/08/2024 136 - 14 4 [facility] Creat SerPl-mCnc 0.6 mg/dL Normal 09/08/2024 0.4 - 1.3 [facility] Glucose SerPl-mCnc 138.0 mg/dL Above high normal 09/08/2024 70 - 100 [facility] BKR CREATININE DELTA -0.03 Normal 09/08/2024 - [facility] PMV Bld Auto 10.6 fL Normal 09/08/2024 8 - 12 [facility] T Eosinophil/leuk NFr Bld Auto 2.9 % Normal 09/08/2024 0 - 5 [facility] MCHC RBC Auto-mCnc 31.9 g/dL Normal 09/08/2024 31 - 36 [facility] Basophils # Bld Auto 0.01 x 1000/uL Normal 09/08/2024 0 - 1 [facility] RBC # Bld Auto 3.01 M/uL Below low normal 09/08/2024 4 - 6 [facility] Imm Granulocytes/leuk NFr Bld Auto 1.6 % Above high normal 09/08/2024 0 - 1 [facility] Imm Granulocytes # Bld Auto 0.1 x 1000/uL Normal 09/08/2024 0 - 0.3 [facility] MCV RBC Auto 105.3 fL Above high normal 09/08/2024 80 - 100 [facility] RDW RBC Auto-Rto 14.3 % Normal 09/08/2024 11 - 15 [facility] Platelet # Bld Auto 226.0 x1000/uL Normal 09/08/2024 150 - 420 [facility] Basophils/leuk NFr Bld Auto 0.2 % Normal 09/08/2024 0 - 1.4 [facility] Hgb Bld-mCnc 10.1 g/dL Below low normal 09/08/2024 11.7 - 15 .5 [facility] nRBC # Bld Auto 0.0 x 1000/uL Normal 09/08/2024 0 - 1 [facility] MCH RBC Qn Auto 33.6 pg Above high normal 09/08/2024 27 - 33 [facility] WBC # Bld Auto 6.2 x1000/uL Normal 09/08/2024 4 - 11 [facility] Lymphocytes/leuk NFr Bld Auto 14.5 % Below low normal 09/08/2024 17 - 50 [facility] Neutrophils/leuk NFr Bld Auto 73.0 % Above high normal 09/08/2024 39 - 72 [facility] nRBC/100 WBC Bld Auto-Rto 0.0 % Normal 09/08/2024 0 - 1 [facility] Monocytes # Bld Auto 0.48 x 1000/uL Normal 09/08/2024 0 - 1 [facility] Eosinophil # Bld Auto 0.18 x 1000/uL Normal 09/08/2024 0 - 1 [facility] Neutrophils # Bld Auto 4.49 x 1000/uL Normal 09/08/2024 2 - 7.6 [facility] Lymphocytes # Bld Auto 0.89 x 1000/uL Normal 09/08/2024 0 .6 - 3.7 [facility] Hct VFr Bld Auto 31.7 % Below low normal 09/08/2024 35 - 45 [facility] Monocytes/leuk NFr Bld Auto 7.8 % Normal 09/08/2024 4 - 12 [facility] BKR REFLEX URINE CULTURE See Comment Normal 09/07/2024 [facility] Squamous #/area UrnS Auto <1.0 /HPF Normal 09/07/2024 0 - 5 [facility] WBC #/area UrnS Auto 1.0 /HPF Normal 09/07/2024 0 - 5 [facility] RBC #/area UrnS Auto 1.0 /HPF Normal 09/07/2024 0 - 2 [facility] Sp Gr Ur Refract.auto 1.049 Above high normal 025 1.005 - 1.03 [facility] Glucose Ur Strip.auto-mCnc Negative Normal 09/07/2024 - [facility] Hgb Ur Ql Strip.auto Negative Normal 09/07/2024 - [facility] Ketones Ur Strip.auto-mCnc 2+ Abnormal 09/07/2024 - [facility] WBC # Ur Strip Negative Normal 09/07/2024 - [facility] Clarity Ur Refract.auto Clear Normal 09/07/2024 - [facility] Urobilinogen Ur Strip-mCnc <2.0 mg/dL Normal 09/07/2024 - [facility] Prot Ur Strip.auto-mCnc 1+ Abnormal 09/07/2024 - [facility] Nitrite Ur Ql Strip.auto Negative Normal 09/07/2024 - [facility] Color Ur Auto Yellow Normal 09/07/2024 - [facility] CT Bilirub Ur Ql Strip.auto Negative Normal 09/07/2024 - [facility] pH Ur Strip.auto 6.0 Normal 09/07/2024 5.5 - 7.5 [facility] Calcium SerPl-mCnc 7.8 mg/dL Below low normal 09/07/2024 8.8 - 10.2 [facility] Chloride SerPl-sCnc 99.0 mmol/L Normal 09/07/2024 98 - 10 7 [facility] Sodium SerPl-sCnc 136.0 mmol/L Normal 09/07/2024 136 - 14 4 [facility] BUN/Creat SerPl 22.2 Normal 09/07/2024 8 - 23 [facility] GFR/BSA.pred SerPlBld [id number] >60.0 mL/min/1.73m2 Normal 09/07/2024 - [facility] Glucose SerPl-mCnc 81.0 mg/dL Normal 09/07/2024 70 - 100 [facility] HCO3 SerPl-sCnc 21.0 mmol/L Normal 09/07/2024 20 - 30 [facility] BKR CREATININE DELTA -0.06 Normal 09/07/2024 - [facility] Anion Gap3 SerPl-sCnc 16.0 Normal 09/07/2024 7 - 17 [facility] BUN SerPl-mCnc 14.0 mg/dL Normal 09/07/2024 8 - 23 [facility] Potassium SerPl-sCnc 3.6 mmol/L Normal 09/07/2024 3.3 - 5 .3 [facility] Creat SerPl-mCnc 0.63 mg/dL Normal 09/07/2024 0.4 - 1.3 [facility] Neutrophils/leuk NFr Bld Auto 75.9 % Above high normal 09/07/2024 39 - 72 [facility] Imm Granulocytes/leuk NFr Bld Auto 0.8 % Normal 09/07/2024 0 - 1 [facility] nRBC # Bld Auto 0.0 x 1000/uL Normal 09/07/2024 0 - 1 [facility] MCH RBC Qn Auto 33.9 pg Above high normal 09/07/2024 27 - 33 [facility] Neutrophils # Bld Auto 5.78 x 1000/uL Normal 09/07/2024 2 - 7.6 [facility] Hgb Bld-mCnc 9.2 g/dL Below low normal 09/07/2024 11.7 - 15 .5 [facility] Monocytes # Bld Auto 0.6 x 1000/uL Normal 09/07/2024 0 - 1 [facility] Eosinophil/leuk NFr Bld Auto 2.2 % Normal 09/07/2024 0 - 5 [facility] Lymphocytes # Bld Auto 1.0 x 1000/uL Normal 09/07/2024 0. 6 - 3.7 [facility] WBC # Bld Auto 7.6 x1000/uL Normal 09/07/2024 4 - 11 [facility] RBC # Bld Auto 2.71 M/uL Below low normal 09/07/2024 4 - 6 [facility] MCHC RBC Auto-mCnc 32.3 g/dL Normal 09/07/2024 31 - 36 [facility] MCV RBC Auto 105.2 fL Above high normal 09/07/2024 80 - 100 [facility] Lymphocytes/leuk NFr Bld Auto 13.1 % Below low normal 09/07/2024 17 - 50 [facility] Basophils # Bld Auto 0.01 x 1000/uL Normal 09/07/2024 0 - 1 [facility] Platelet # Bld Auto 231.0 x1000/uL Normal 09/07/2024 150 - 420 [facility] Imm Granulocytes # Bld Auto 0.06 x 1000/uL Normal 09/07/2024 0 - 0.3 [facility] Monocytes/leuk NFr Bld Auto 7.9 % Normal 09/07/2024 4 - 12 [facility] nRBC/100 WBC Bld Auto-Rto 0.0 % Normal 09/07/2024 0 - 1 [facility] Eosinophil # Bld Auto 0.17 x 1000/uL Normal 09/07/2024 0 - 1 [facility] RDW RBC Auto-Rto 14.3 % Normal 09/07/2024 11 - 15 [facility] Basophils/leuk NFr Bld Auto 0.1 % Normal 09/07/2024 0 - 1.4 [facility] Hct VFr Bld Auto 28.5 % Below low normal 09/07/2024 35 - 45 [facility] PMV Bld Auto 10.6 fL Normal 09/07/2024 8 - 12 [facility] T BKR ESTIMATED AVERAGE GLUCOSE 114.0 mg/dL Normal 09/07/2024 [facility] HbA1c MFr Bld 5.6 % Normal 09/07/2024 4 - 5.[address] [facility] Bilirub SerPl-mCnc 1.0 mg/dL Normal 09/07/2024 - [facility] ALT SerPl w/o P-5'-P-cCnc 14.0 U/L Normal 09/07/2024 10 - 35 [facility] AST SerPl w P-5'-P-cCnc 19.0 U/L Normal 09/07/2024 10 - 35 [facility] ALP SerPl-cCnc 71.0 U/L Normal 09/07/2024 9 - 122 [facility] Bilirub Direct SerPl-mCnc 0.3 mg/dL Above high normal 09/07/2024 - [facility] AST/ALT SerPl-cRto 1.4 Normal 09/07/2024 - [facility] Magnesium SerPl-mCnc 1.6 mg/dL Below low normal 09/07/2024 1 .7 - 2.4 [facility] Phosphate SerPl-mCnc 2.4 mg/dL Normal 09/07/2024 2.2 - 4. 5 [facility] Lactate SerPl-sCnc 1.0 mmol/L Normal 09/07/2024 0.5 - 2.2 [facility] Bilirub Direct SerPl-mCnc Normal 09/06/2024 [facility] BKR CREATININE DELTA -0.11 Normal 09/06/2024 - [facility] Potassium SerPl-sCnc 3.2 mmol/L Below low normal 09/06/2024 3.3 - 5.3 [facility] Anion Gap3 SerPl-sCnc 14.0 Normal 09/06/2024 7 - 17 [facility] Chloride SerPl-sCnc 95.0 mmol/L Below low normal 09/06/2024 98 - 107 [facility] BUN SerPl-mCnc 21.0 mg/dL Normal 09/06/2024 8 - 23 [facility] Sodium SerPl-sCnc 137.0 mmol/L Normal 09/06/2024 136 - 14 4 [facility] HCO3 SerPl-sCnc 28.0 mmol/L Normal 09/06/2024 20 - 30 [facility] Calcium SerPl-mCnc 8.0 mg/dL Below low normal 09/06/2024 8.8 - 10.2 [facility] BUN/Creat SerPl 30.4 Above high normal 09/06/2024 8 - 2 3 [facility] Creat SerPl-mCnc 0.69 mg/dL Normal 09/06/2024 0.4 - 1.3 [facility] Glucose SerPl-mCnc 120.0 mg/dL Above high normal 09/06/2024 70 - 100 [facility] GFR/BSA.pred SerPlBld BXZ-UPD-PkXDvs >60.0 mL/min/1.73m2 Normal 09/06/2024 - [facility] Lactate SerPl-sCnc 1.9 mmol/L Normal 09/06/2024 0.5 - 2.2 [facility] Procalcitonin SerPl-mCnc 0.22 ng/mL Normal 09/06/2024 - [facility] Magnesium SerPl-mCnc 1.8 mg/dL Normal 09/06/2024 1.7 - 2. 4 [facility] ALT SerPl w/o P-5'-P-cCnc 19.0 U/L Normal 09/06/2024 10 - 35 [facility] Albumin/Glob SerPl 1.2 Normal 09/06/2024 1 - 2.2 [facility] Creat SerPl-mCnc 0.8 mg/dL Normal 09/06/2024 0.4 - 1.3 [facility] Calcium SerPl-mCnc 9.0 mg/dL Normal 09/06/2024 8.8 - 10.2 [facility] BKR CREATININE DELTA Normal 09/06/2024 [facility] AST SerPl w P-5'-P-cCnc 23.0 U/L Normal 09/06/2024 10 - 35 [facility] GFR/BSA.pred SerPlBld NWT-HAI-PlUQvy >60.0 mL/min/1.73m2 Normal 09/06/2024 - [facility] BUN/Creat SerPl 28.8 Above high normal 09/06/2024 8 - 2 3 [facility] Glucose SerPl-mCnc 167.0 mg/dL Above high normal 09/06/2024 70 - 100 [facility] Prot SerPl-mCnc 5.9 g/dL Normal 09/06/2024 5.9 - 8.3 [facility] Sodium SerPl-sCnc 137.0 mmol/L Normal 09/06/2024 136 - 14 4 [facility] Globulin Plas-mCnc 2.7 g/dL Normal 09/06/2024 2 - 3.9 [facility] Albumin SerPl BCG-mCnc 3.2 g/dL Below low normal 09/06/2024 3.6 - 5.1 [facility] BUN SerPl-mCnc 23.0 mg/dL Normal 09/06/2024 8 - 23 [facility] Bilirub SerPl-mCnc 1.5 mg/dL Above high normal 09/06/2024 - [facility] AST/ALT SerPl-cRto 1.2 Normal 09/06/2024 - [facility] ALP SerPl-cCnc 97.0 U/L Normal 09/06/2024 9 - 122 [facility] Potassium SerPl-sCnc 3.3 mmol/L Normal 09/06/2024 3.3 - 5 .3 [facility] HCO3 SerPl-sCnc 25.0 mmol/L Normal 09/06/2024 20 - 30 [facility] Chloride SerPl-sCnc 90.0 mmol/L Below low normal 09/06/2024 98 - 107 [facility] Anion Gap3 SerPl-sCnc 22.0 Above high normal 09/06/2024 7 - 17 [facility] Lymphocytes/leuk NFr Bld Auto 10.1 % Below low normal 09/06/2024 17 - 50 [facility] nRBC/100 WBC Bld Auto-Rto 0.0 % Normal 09/06/2024 0 - 1 [facility] PMV Bld Auto 10.4 fL Normal 09/06/2024 8 - 12 [facility] T Imm Granulocytes/leuk NFr Bld Auto 0.8 % Normal 09/06/2024 0 - 1 [facility] RDW RBC Auto-Rto 14.5 % Normal 09/06/2024 11 - 15 [facility] MCV RBC Auto 102.9 fL Above high normal 09/06/2024 80 - 100 [facility] Neutrophils/leuk NFr Bld Auto 79.1 % Above high normal 09/06/2024 39 - 72 [facility] Neutrophils # Bld Auto 8.0 x 1000/uL Above high normal 09/06 2 - 7.6 [facility] Basophils/leuk NFr Bld Auto 0.7 % Normal 09/06/2024 0 - 1.4 [facility] Hgb Bld-mCnc 12.4 g/dL Normal 09/06/2024 11.7 - 15.5 [facility] Platelet # Bld Auto 325.0 x1000/uL Normal 09/06/2024 150 - 420 [facility] nRBC # Bld Auto 0.0 x 1000/uL Normal 09/06/2024 0 - 1 [facility] Eosinophil/leuk NFr Bld Auto 0.3 % Normal 09/06/2024 0 - 5 [facility] RBC # Bld Auto 3.49 M/uL Below low normal 09/06/2024 4 - 6 [facility] WBC # Bld Auto 10.1 x1000/uL Normal 09/06/2024 4 - 11 [facility] MCH RBC Qn Auto 35.5 pg Above high normal 09/06/2024 27 - 33 [facility] Hct VFr Bld Auto 35.9 % Normal 09/06/2024 35 - 45 [facility] Basophils # Bld Auto 0.07 x 1000/uL Normal 09/06/2024 0 - 1 [facility] MCHC RBC Auto-mCnc 34.5 g/dL Normal 09/06/2024 31 - 36 [facility] Imm Granulocytes # Bld Auto 0.08 x 1000/uL Normal 09/06/2024 0 - 0.3 [facility] Eosinophil # Bld Auto 0.03 x 1000/uL Normal 09/06/2024 0 - 1 [facility] Monocytes/leuk NFr Bld Auto 9.0 % Normal 09/06/2024 4 - 12 [facility] Lymphocytes # Bld Auto 1.02 x 1000/uL Normal 09/06/2024 0 .6 - 3.7 [facility] Monocytes # Bld Auto 0.91 x 1000/uL Normal 09/06/2024 0 - 1 [facility] History of Medication [...] Lactated Ringers, total parenteral nutrition, dialysis s 03/09/13/19 aborted dextrose 5 % lactated ringers infusion 1,000 mL 1,000 mL, Intravenous, ONCE, On Tue09/10/24 at 1030, For 1 dose, Please run in 2 h 09/11/19 completed prochlorperazine edisylate (COMPAZINE) injection 2.5 [...] since Tue09/07/2024 at 1157 until manually unheld 09/13/19 aborted dextrose 5 % lactated ringers [...] Common Side Effects: Headache, nausea, allergic reaction. 09/09/19 completed LORazepam (ATIVAN) tablet 0.5 mg 0.5 mg, Oral, ONCE, On Tue09/08/24 at 1300, For 1 dose, Common Side Effects: Confusion, dizziness, drowsiness, mood changes. 5 09/09/19 completed sodium chloride 0.9% large volume syringe for autoinjector 20 mL 20 mL, Intravenous, IMG ONCE PRN, other, Imaging, Starting on 09/08/24 at 1434, For 1 dose 09/09/19 completed dextrose (GLUCOSE) oral liquid 15 g [Order 1 Start] Name: dextrose (GLUCOSE) oral liquid 15 g Signed Summary: 15 g, Oral, EVERY 15 MIN PRN, If blood glucose 50 - 69 mg/dL (or 70 - 79 mg/dL with symptoms of hypoglycemia), Starting on Tue09/07/24 at 0013, If alert and able to tolerate enteral intake (not NPO or vomiting). Only administ 09/13/19 aborted dextrose (GLUCOSE) oral liquid 30 [...] 50 mg/dL, Starting on Tue09/07/24 at 0013, Only administer [...] to take enteral (NPO or vomiting). Notif 5 09/13/19 aborted melatonin tablet 3 mg 3 mg, Oral, Nightly PRN, insomnia, Starting on Claudia 09/06/24 at 2254, Recommended to administer at least [...] needed to assess catheter patency, Starting on Claudia 09/06/24 at 2254 09/13/19 aborted magnesium sulfate in [...] Intravenous, CONTINUOUS, Starting on Tue09/07/24 at 0900 5 09/09/19 aborted potassium phos in 0.9 % NaCl 15 mmol/250 mL 15 mmol 15 mmol, Intravenous, Administer over 2 Hours, ONCE, On 09/08/24 at 0715, For 1 dose 5 09/09/19 25 completed sodium chloride 0.9 % (new [...] 2 TIMES A DAY FOR 90 DAYS 4 09/13/19 25 aborted benzonatate (TESSALON) 100 mg capsule TAKE 1 CAPSULE BY MOUTH 3 TIMES A DAY NEEDED FOR COUGH FOR 14 DAYS 4 active WIXELA INHUB 250-50 mcg/dose blister powder for inhalation Inhale 1 Inhalation into the lungs 2 (two) times daily. 4 active metFORMIN (GLUCOPHAGE) Immediate Release tablet 1,000 mg 4 09/13/19 aborted rosuvastatin (CRESTOR) tablet 5 mg 4 09/13/19 aborted albuterol (PROVENTIL, VENTOLIN) 2.5 mg /3 [...] to thrive in adult active 2024-09-06 ProblemAct [facility] Breast cancer metastasized to lung active 2024-05-02 ProblemAct [facility] Hypokalemia active EncounterDiagnosisAct [facility] Small bowel obstruction (HC Code) (HC CODE) (HC Code) active EncounterDiagnosisAct [facility] Encounters Encounter Type Encounter Reason Primary Diagnosis Location Date Ambulatory Malignant neoplasm o f breast (female), unspecified site Malignant neoplasm of breast (female), unspecified site [facility] 04/17/2025 Inpatient Malignant neoplasm o f breast (female), unspecified site Malignant neoplasm of breast (female), unspecified site [facility] 09/06/2024 Care Team Organization Name Specialty Phone Email Start Date End Da te [facility] 04/17/2025 [facility] 09/07/2024 [facility] 06/28/2024
--- OUTSIDE RECORDS SUMMARY | 2025-04-24 10:57 | XMS_ITS | Encounter Summary ---
Author Organization [facility] and [facility] Address [address] [place] [phone] Care Team Providers Care Cardiac Cath Rn Name Role Phone Denton To NP Primary Care Provider + Encounter Details Date Type Department Care Team (Late st Contact Info) Description 02/11/2025 Orders Only Cancer Center at [address] [phone] Gissell Tuttle, LIA 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, unspecified laterality (HC Code) (Primary Dx) Social History Tobacco Use Types Packs/Day Years Used Date Smoking Tobacco: Former Cigarettes Alcohol Use Standard Drinks/Week Comments Never 0 (1 standard drink = 0.6 oz pur e alcohol) [facility] Utilities Answer Date Recorded In the past 12 months has e electric, gas, oil, or water company threatened to shut off services in your home? No 12/11/2024 Overall Financial Resource Strain (CARDIA) Answe r Date Recorded How hard is it for you to pa y for the very basics like food, housing, medical care, and heating? Not hard at all 12/11/2024 PHQ-2 Answer Date Recorded PHQ-2 Total Score 0 12/12/2024 Hunger Vital Sign Answer Date Recorded Within the past 12 months, y ou worried that your food would run out before you got the money to buy more. Never true 12/12/19 25 Within the past 12 months, t he food you bought just didn't last and you didn't have money to get more. Never true 12/11/2024 PRAPARE - Transportation Answer Date Re corded In the past 12 months, has l ack of transportation kept you from medical appointments or from getting medications? No 09/2024 In the past 12 months, has l ack of transportation kept you from meetings, work, or from getting things needed for daily living? No 12/11/2024 Housing Stability Answer Date Recorded What is your living situation today? I have a [facility] place to live 12/11/2024 Housing Stability Not on file 12/11/2024 Interpersonal Safety Answer Date Record ed Is [...] Info) Description 05/01/2025 10:00 AM EDT [facility] [address] [place] [address]. [place] [address] Ludmila Rodriguez APRN [address] [place] [phone] 05/09/2025 9:00 AM EDT Appointment [facility] Medical Oncology Infusion [address] [place] [phone] 05/09/2025 9:30 AM EDT Office Visit Breast Center at [facility] Cancer [address] [address] Denisse Brewer APRN [address] [place] [phone] 05/09/2025 10:15 AM EDT Appointment [facility] Medical Oncology Infusion [address] [place] [phone] 05/30/2025 9:00 AM EST Appointment [facility] Medical Oncology Infusion [address] [place] [address], [place] [address] 05/30/2025 9:30 AM EST Office Visit Breast Center at [address] [place] [address] Murphy Huynh MD [address] [place] [phone] (Fax) 05/30/2025 10:15 AM EST Appointment [facility] [address] [place] [address] 06/20/2025 11:00 AM EST Appointment [facility] Medical Oncology Infusion [address] [place] [address] 06/20/2025 11:30 AM EST Office Visit Breast Center at [address] [address] Murphy Huynh MD [address] [place] [phone] (Fax) 06/20/2025 12:00 PM EST Appointment [facility] Medical Oncology Infusion [address] [place] [phone] documented as of this encounter Goals Goal Patient Goal Type Associated Problems Recent Progress Patient-Stated? Author RxSp Therapeutic Goal General On track( 2:22 PM EDT) No Fernando Naylor, Shankar Note: Oncology: Improve or maintain quality of life MTPs must be opened for patients not making appropriate progress towards their established therapeutic goals. Patient's progress towards goal: RxSp Therapeutic Goal General On track( 2:22 PM EDT) No Fernando Naylor, PharmDuarte Note: Oncology: Minimize toxicity by monitoring labs, side effects and recommend preventive measures when appropriate (anemia, neutropenia, thrombocytopenia, etc.) MTPs must be opened for patients not making appropriate progress towards their established therapeutic goals. Patient's progress towards goal: RxSp Therapeutic Goal General On track( 025 2:22 PM EDT) No Fernando Naylor, LeeannD Note: Oncology: Increase or maintain treatment adherence MTPs must be opened for patients not making appropriate progress towards their established therapeutic goals. Patient's progress towards goal: documented as of this encounter Results * Phosphorus (BH GH L LMW Y[facility]) (02/12/2025 8:23 AM EDT) Phosphorus 2.8 2.2 - 4.5 mg/dL 02/12/2025 9:01 AM EDT [facility] DEPARTMENT OF LABORATORY MEDICINE Blood Venipuncture / Unknown 02/12/2025 8:23 AM EDT 02/12/2025 8:23 AM EDT us Denisse M Dest [employer] [employer] LAB BLOOD ORDERABLES Final Res ult Performing Organization Address City/[facility]/ZIP Co de Phone Number [facility] DEPARTMENT OF LABORATORY MEDICINE [address] [place] [address] * MAGNESIUM (02/12/2025 8:23 AM EDT) Magnesium 1.9 1.7 - 2.4 mg/dL 02/12/2025 9:01 AM EDT [facility] DEPARTMENT OF LABORATORY MEDICINE Blood Venipuncture / Unknown 02/12/2025 8:23 AM EDT 02/12/2025 8:23 AM EDT us Denisse M Dest [employer] LAB BLOOD ORDERABLES Final Res ult [facility] DEPARTMENT OF LABORATORY MEDICINE [address] [place] [address] documented in this encounter Visit Diagnoses Diagnosis 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, unspecified laterality (HC Code) (HC CODE)- Primary documented in this encounter Additional Health Concerns Assessment Noted Time PHQ-9 Depression Total Score: 0 05/10/20 24 10:43 AM EDT documented as of this encounter Care Teams Cardiac Cath Rn Relationship Specialty Start Date End Date Denton To NP [address] [place] [phone] PCP - General Family Medicine 04/30/24 documented as of this encounter
--- OUTSIDE RECORDS SUMMARY | 2025-04-24 10:57 | XMS_ITS | Encounter Summary ---
Author Organization [facility] Address [address] [place] [phone] Care Team Providers Care Planner Intern Name Role Phone Denton To NP Primary Care Provider + Encounter Details Date Type Department Care Team (Late st Contact Info) Description 01/01/2025 Orders Only Cancer Center at [address] [phone] Gissell Tuttle, LIA Social History Tobacco Use Types Packs/Day Years Used Date Smoking Tobacco: Former Cigarettes Alcohol Use Standard Drinks/Week Comments Never 0 (1 standard drink = 0.6 oz pur e alcohol) [facility] Utilities Answer Date Recorded In [...] I have a [place] place to live 12/11/2024 Housing Stability Not [...] Info) Description 05/01/2025 10:00 AM EDT Appointment [facility] Scan [address] [place] [address]. [place] [address] Ludmila Rodriguez APRN [address] [place] [phone] 05/09/2025 9:00 AM EDT Appointment [facility] Medical Oncology Infusion [address] [place] [phone] 05/09/2025 9:30 AM EDT Office Visit Breast Center at [facility] Cancer [address] [address] Denisse Brewer APRN [address] [place] [phone] 05/09/2025 10:15 AM EDT Appointment [facility] Medical Oncology Infusion [address] [place] [phone] 05/30/2025 9:00 AM EST Appointment [facility] Medical Oncology Infusion [address] [place] [address] 05/30/2025 9:30 AM EST Office Visit Breast Center at [address] [address] Murphy Huynh MD [address] [place] [phone] (Fax) 05/30/2025 10:15 AM EST Appointment [facility] Medical Oncology Infusion [address] [place] [phone] 06/20/2025 11:00 AM EST Appointment [facility] Medical Oncology Infusion [address] [place] [address] 06/20/2025 11:30 AM EST Office Visit Breast Center at [address] [place] [address] Murphy Huynh MD [address] [place] [phone] (Fax) 06/20/2025 12:00 PM EST Appointment [facility] Medical Oncology Infusion [address] [place] [phone] documented as of this encounter Goals Goal [...] On track( 025 2:22 PM EDT) No Levay, Fernando, PharmD Note: Oncology: Increase or maintain treatment adherence MTPs must be opened for patients not making appropriate progress towards their established therapeutic goals. Patient's progress towards goal: documented as of this encounter Visit Diagnoses Not on filedocumented in this encounter Additional Health Concerns Assessment Noted Time PHQ-9 Depression Total Score: 0 05/10/20 10:43 AM EDT documented as of this encounter Care Teams Planner Intern Relationship Specialty Start Date End Date Denton To NP [facility] [place] [phone] PCP - General Family Medicine 04/30/24 documented as of this encounter
--- OUTSIDE RECORDS SUMMARY | 2025-04-24 10:57 | XMS_ITS | Encounter Summary ---
Author Organization [facility] and [facility] Address [address] [place] [address] Care Team Providers Care Laboratory Chemical Assistant Name Role Phone Denton To NP Primary Care Provider + Encounter Details Date Type Department Care Team (Late st Contact Info) Description 03/07/2025 Transcribed Orders [facility] Laboratory Specimens [address] [place] [address] Murphy Huynh MD [address] [place] [phone] 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, unspecified laterality (HC Code) (Primary Dx) Social History Tobacco Use Types Packs/Day Years Used Date Smoking Tobacco: Former Cigarettes Alcohol Use Standard Drinks/Week Comments Never 0 (1 standard drink = 0.6 oz pur e alcohol) [facility] Utilities Answer Date Recorded In the past 12 months has [employer], gas, oil, or water [employer] threatened to shut off services in your [...] your living situation today? I have a [facility] place to live 12/11/2024 Housing Stability Not [...] Info) Description 05/01/2025 10:00 AM EDT Appointment [facility] CT Scan [address] [place] [address]. [place] [address] Ludmila Rodriguez, ORDER BOOKER [address] [place] [address] [place] [address] 05/09/2025 9:00 AM EDT Appointment [facility] Medical Oncology Infusion [address] [place] [address] NP8 [place] [address] 05/09/2025 9:30 AM EDT Office Visit Breast Center at [facility] Cancer [address] [place] [address] Denisse Brewer APRN [address] [place] [address] 05/09/2025 10:15 AM EDT Appointment [facility] Medical Oncology Infusion [address] [place] [address], [place] [address] 05/30/2025 9:00 AM EST Appointment [facility] Medical Oncology Infusion [address] [place] [address], [place] [address] 05/30/2025 9:30 AM EST Office Visit Breast [place] at [address] [place] [address] Murphy Huynh MD [address] [place] [phone] (Fax) 05/30/2025 10:15 AM EST Appointment [facility] Medical Oncology Infusion [address] [place] [phone] 06/20/2025 11:00 AM EST Appointment [facility] Medical Oncology Infusion [address] [place] [phone] 06/20/2025 11:30 AM EST Office Visit Breast Center at [address] [place] [address] Murphy Huynh MD [address] [place] [phone] (Fax) 06/20/2025 12:00 PM EST Appointment [facility] Medical Oncology Infusion [address] [place] [phone] documented as of this encounter Goals Goal Patient Goal Type Associated Problems Recent Progress Patient-Stated? Author RxSp Therapeutic Goal General On track( 025 2:22 PM EDT) Fernando Quiroz, Shankar Note: Oncology: Improve or maintain quality of life MTPs must be opened for patients not making appropriate progress towards their established therapeutic goals. Patient's progress towards goal: RxSp Therapeutic Goal General On track( 025 2:22 PM EDT) Fernando Quiroz, Shankar Note: Oncology: Minimize toxicity by monitoring labs, [...] towards goal: documented as of this encounter Procedures Procedure Name Priority Date/Time Associated Diagnosis Comments LACTATE DEHYDROGENASE Routine 03/07/2025 11:44 AM EDT 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, unspecified laterality (HC Code) documented in this encounter Results * (ABNORMAL) Lactate dehydrogenase (03/07/2025 11:44 AM EDT) LD 260(H) 122 - 241 U/L 03/07/2025 1:11 PM EDT [facility] Comment:Sample slightly hemo lyzed. Results may be falsely elevated due to hemolysis. Blood Venipuncture / Unknown 03/07/2025 11:44 AM EDT 03/07/2025 11:53 AM EDT Murphy Huynh MD LAB BLOOD ORDERABLES Final Resul t [facility] [address] [place] [address] documented in this encounter Visit Diagnoses Diagnosis 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, unspecified laterality (HC Code) (HC CODE)- Primary documented in this encounter Additional Health Concerns Assessment Noted Time PHQ-9 Depression Total Score: 0 05/10/20 24 10:43 AM EDT documented as of this encounter Care Teams Laboratory Chemical Assistant Relationship Specialty Start Date End Date Denton To NP [facility] [place] [phone] PCP - General Family Medicine 04/30/24 documented as of this encounter
--- OUTSIDE RECORDS SUMMARY | 2025-04-24 10:57 | XMS_ITS | Encounter Summary ---
Author Organization [facility] and [facility] Address [address] [place] [address] Care Team Providers Care Linseed Cake Trimmer Name Role Phone Denton To NP Primary Care Provider + Encounter Details Date Type Department Care Team (Late st Contact Info) Description 06/19/2024 Scanned Document INTERFACE DEFAULT [address] [place] [address] System, Provider Not In Social History Tobacco Use Types Packs/Day Years Used Date Smoking Tobacco: Former Cigarettes Alcohol Use Standard Drinks/Week Comments Never 0 (1 standard drink = 0.6 oz pur e alcohol) PHQ-2 Answer Date Recorded PHQ-2 Total Score 0 05/10/2024 Housing Stability Answer Date Recorded What is your living situation today? I have a [facility] place to live 05/10/2024 Housing Stability Not [...] AM EDT Appointment [facility] Scan [address] [place] [address] Ludmila Rodriguez, PROGRAMMING ENGINEER [address] [place] [address] (Fax) 05/09/2025 9:00 AM EDT Appointment [facility] Medical Oncology Infusion [address] [place] [address] 05/09/2025 9:30 AM EDT Office Visit Breast Center at [address] [address] Denisse Brewer APRN [address] [place] [phone] 05/09/2025 10:15 AM EDT Appointment [facility] Infusion [address] [place] [address] 05/30/2025 9:00 AM EST Appointment [facility] Infusion [address] [place] [phone] 05/30/2025 9:30 AM EST Office Visit Breast Center at [address] [address] Murphy Huynh MD [address] [place] [phone] (Fax) 05/30/2025 10:15 AM EST Appointment [facility] Oncology Infusion [address] [place] [address] 06/20/2025 11:00 AM EST Appointment [facility] Oncology Infusion [address] [place] [address] 06/20/2025 11:30 AM EST Office Visit [facility] Center at [address] [address] Murphy Huynh MD [address] [place] [phone] (Fax) 06/20/2025 12:00 PM EST Appointment [facility] Oncology Infusion [address] [place] [phone] documented as of this encounter Procedures Procedure [...] documented as of this encounter Care Teams Linseed Cake Trimmer Relationship Specialty Start Date End Date Denton To NP [facility] [place] [phone] PCP - General Family Medicine 04/30/24 documented as of this encounter
--- OUTSIDE RECORDS SUMMARY | 2025-04-24 10:57 | XMS_ITS | Encounter Summary ---
Author Organization [facility] and [facility] Address [address] [place] [address] Care Team Providers Care Director Of Community Education Name Role Phone Denton To NP Primary Care Provider + Encounter Details Date Type Department Care Team (Late st Contact Info) Description 07/02/2024 Scanned Document INTERFACE DEFAULT [address] [place] [address] System, Provider Not In Social History Tobacco Use Types Packs/Day Years Used Date Smoking Tobacco: Former Cigarettes Alcohol Use Standard Drinks/Week Comments Never 0 (1 standard drink = 0.6 oz pur e alcohol) PHQ-2 Answer Date Recorded PHQ-2 Total Score 0 05/10/2024 Housing Stability Answer Date Recorded What is your living situation today? I have a [facility] place to live 05/10/2024 Housing Stability [...] EDT Appointment [facility] Scan [address] [place] [address] Ludmila Rodriguez, SHIP BOSS 35 [place] [address] (Fax) 05/09/2025 9:00 AM EDT Appointment [facility] Medical Oncology Infusion [address] [place] [address] 05/09/2025 9:30 AM EDT Office Visit Breast Center at [address] [address] Denisse Brewer APRN [address] [place] [phone] 05/09/2025 10:15 AM EDT Appointment [facility] Medical Oncology Infusion [address] [place] [address] 05/30/2025 9:00 AM EST Appointment [facility] Medical Oncology Infusion [address] [place] [address] 05/30/2025 9:30 AM EST Office Visit Breast Center at [address] [address] Murphy Huynh MD [address] [place] [phone] (Fax) 05/30/2025 10:15 AM EST Appointment [facility] Medical Oncology Infusion [address] [place] [address] 06/20/2025 11:00 AM EST Appointment [facility] Medical Oncology Infusion [address] [place] [address] 06/20/2025 11:30 AM EST Office Visit Breast Center at [address] [address] Murphy Huynh MD [address] [place] [phone] (Fax) 06/20/2025 12:00 PM EST Appointment [facility] Medical Oncology Infusion [address] [place] [phone] documented as of this encounter Procedures Procedure [...] documented as of this encounter Care Teams Director Of Community Education Relationship Specialty Start Date End Date Denton To NP [facility] [place] [phone] PCP - General Family Medicine 04/30/24 documented as of this encounter
--- OUTSIDE RECORDS SUMMARY | 2025-04-24 10:57 | XMS_ITS | Encounter Summary ---
Author Organization [facility] Address [address] [place] [address] Care Team Providers Care Data Migration Consultant Name Role Phone Denton To NP Primary Care Provider + Encounter Details Date Type Department Care Team (Late st Contact Info) Description 09/02/2024 Scanned Document INTERFACE DEFAULT [address] [place] [address] System, Provider Not In Social History Tobacco Use Types Packs/Day Years Used Date Smoking Tobacco: Former Cigarettes Alcohol Use Standard Drinks/Week Comments Never 0 (1 standard drink = 0.6 oz pur e alcohol) [facility] Utilities Answer Date Recorded In the past 12 months has e electric, gas, oil, or water [employer] threatened to shut off services in your [...] Info) Description 05/01/2025 10:00 AM EDT Appointment [facility] Scan [address] [place] [address]. [place] [address] Ludmila Rodriguez APRN [address] [place] [phone] 05/09/2025 9:00 AM EDT Appointment [facility] Medical Oncology Infusion [address] [place] [address] 05/09/2025 9:30 AM EDT Office Visit Breast Center at [address] [address] Denisse Brewer APRN [address] [place] [phone] 05/09/2025 10:15 AM EDT Appointment [facility] Medical Oncology Infusion [address] [place] [address] 05/30/2025 9:00 AM EST Appointment [facility] Medical Oncology Infusion [address] [place] [address] 05/30/2025 9:30 AM EST Office Visit Breast Center at [address] [address] Murphy Huynh MD [address] [place] [phone] 05/30/2025 10:15 AM EST Appointment [facility] Medical Oncology Infusion [address] [address] 06/20/2025 11:00 AM EST Appointment [facility] Medical Oncology Infusion [address] [place] [phone] 06/20/2025 11:30 AM EST Office Visit Breast Center at [address] [address] Murphy Huynh MD 35 [place] [phone] 06/20/2025 12:00 PM EST Appointment [facility] Medical Oncology Infusion [address] [place] [address] documented as of this encounter Procedures Procedure [...] documented as of this encounter Care Teams Data Migration Consultant Relationship Specialty Start Date End Date Denton To NP [address] [facility] [place] [phone] PCP - General Family Medicine 04/30/24 documented as of this encounter
--- OUTSIDE RECORDS SUMMARY | 2025-04-24 10:57 | XMS_ITS | Encounter Summary ---
Author Organization [facility] and [facility] Address [address] [place] [address] Care Team Providers Care Sprinkling System Installer Name Role Phone Denton To NP Primary Care Provider + Encounter Details Date Type Department Care Team (Late st Contact Info) Description 06/01/2024 Scanned Document INTERFACE DEFAULT [address] [place] [address] System, Provider Not In Social History Tobacco Use Types Packs/Day Years Used Date Smoking Tobacco: Former Cigarettes Alcohol Use Standard Drinks/Week Comments Never 0 (1 standard drink = 0.6 oz pur e alcohol) PHQ-2 Answer Date Recorded PHQ-2 Total Score 0 05/10/2024 Housing Stability Answer Date Recorded What is your living situation today? I have a [facility] place to live 05/10/2024 Housing Stability Not [...] EDT Appointment [facility] Scan [address] [place] [address] Ludmila Rodriguez, CLOTH BLEACHING SUPERVISOR 35 [place] [address] (Fax) 05/09/2025 9:00 AM EDT Appointment [facility] Medical Oncology Infusion [address] [place] [address] 05/09/2025 9:30 AM EDT Office Visit Breast Center at [address] [address] Denisse Brewer APRN [address] [place] [phone] 05/09/2025 10:15 AM EDT Appointment [facility] Medical Oncology Infusion [address] [place] [address] 05/30/2025 9:00 AM EST Appointment [facility] Medical Oncology Infusion [address] [place] [address] 05/30/2025 9:30 AM EST Office Visit Breast Center at [address] [address] Murphy Huynh MD [address] [place] [phone] (Fax) 05/30/2025 10:15 AM EST Appointment [facility] Medical Oncology Infusion [address] [place] [address] 06/20/2025 11:00 AM EST Appointment [facility] Medical Oncology Infusion [address] [place] [address] 06/20/2025 11:30 AM EST Office Visit [facility] Center at [address] [address] Murphy Huynh MD [address] [place] [phone] (Fax) 06/20/2025 12:00 PM EST Appointment [facility] Medical Oncology Infusion [address] [place] [address] documented as of this encounter Procedures Procedure [...] documented as of this encounter Care Teams Sprinkling System Installer Relationship Specialty Start Date End Date Denton To NP [facility] [place] [phone] PCP - General Family Medicine 04/30/24 documented as of this encounter
--- OUTSIDE RECORDS SUMMARY | 2025-04-24 10:57 | XMS_ITS | Encounter Summary ---
Author Organization [facility] and [facility] Address [address] [place] [address] Care Team Providers Care Clamp Carrier Operator Name Role Phone Denton To CHEMISTRY PROFESSOR Primary Care Provider + Encounter Details Date Type Department Care Team (Late Contact Info) Description 04/30/2024 Abstract Surgical Oncology at [address] [address] Dept, cecilia White Social History Tobacco Use Types Packs/Day [...] Info) Description 05/01/2025 10:00 AM EDT Appointment [facility] CT Scan [address] [place] [address]. [place] [address] Ludmila Rodriguez, RAVI [address] [place] [phone] 05/09/2025 9:00 AM EDT Appointment [facility] Medical Oncology [address] [place] [address] 05/09/2025 9:30 AM EDT Office Visit Breast Center at [address] [address] Denisse Brewer APRN [address] [place] [phone] 05/09/2025 10:15 AM EDT Appointment [facility] Medical Oncology Infusion [address] [place] [address] 05/30/2025 9:00 AM EST Appointment [facility] Medical Oncology Infusion [address] [place] [address] 05/30/2025 9:30 AM EST Office Visit Breast Center at [address] [address] Murphy Huynh MD [address] [place] [phone] (Fax) 05/30/2025 10:15 AM EST Appointment [facility] Medical Oncology Infusion [address] [place] [address] 06/20/2025 11:00 AM EST Appointment [facility] Medical Oncology Infusion [address] [place] [address] 06/20/2025 11:30 AM EST Office Visit Breast Center at [address] [address] Murphy Huynh MD [address] [place] [phone] (Fax) 06/20/2025 12:00 PM EST Appointment [facility] Medical Oncology Infusion [address] [place] [address] documented as of this encounter Visit Diagnoses Not on filedocumented in this encounter Care Teams Clamp Carrier Operator Relationship Specialty Start Date End Date Denton To NP [address] [place] [phone] PCP - General Family Medicine 04/30/24 documented as of this encounter
--- OUTSIDE RECORDS SUMMARY | 2025-04-24 10:57 | XMS_ITS | Encounter Summary ---
Author Organization [facility] and [facility] Address [address] [place] [address] Care Team Providers Care Hand Tube Winder Name Role Phone Denton To NP Primary Care Provider + Encounter Details Date Type Department Care Team (Late st Contact Info) Description 05/30/2024 Scanned Document INTERFACE DEFAULT [address] [place] [address] System, Provider Not In Social History Tobacco Use Types Packs/Day Years Used Date Smoking Tobacco: Former Cigarettes Alcohol Use Standard Drinks/Week Comments Never 0 (1 standard drink = 0.6 oz pur e alcohol) PHQ-2 Answer Date Recorded PHQ-2 Total Score 0 05/10/2024 Housing Stability Answer Date Recorded What is your living situation today? I have a [facility] place to live 05/10/2024 Housing Stability [...] EDT Appointment [facility] Scan [address] [place] [address] Ludmila Rodriguez, STOREHOUSE CLERK 35 [place] [address] (Fax) 05/09/2025 9:00 AM EDT Appointment [facility] Medical Oncology Infusion [address] [place] [address] 05/09/2025 9:30 AM EDT Office Visit Breast Center at [address] [address] Denisse Brewer APRN [address] [place] [phone] 05/09/2025 10:15 AM EDT Appointment [facility] Medical Oncology Infusion [address] [place] [address] 05/30/2025 9:00 AM EST Appointment [facility] Medical Oncology Infusion [address] [place] [address] 05/30/2025 9:30 AM EST Office Visit Breast Center at [address] [address] Murphy Huynh MD [address] [place] [phone] (Fax) 05/30/2025 10:15 AM EST Appointment [facility] Medical Oncology Infusion [address] [place] [address] 06/20/2025 11:00 AM EST Appointment [facility] Medical Oncology Infusion [address] [place] [address] 06/20/2025 11:30 AM EST Office Visit Breast Center at [address] [address] Murphy Huynh MD [address] [place] [phone] (Fax) 06/20/2025 12:00 PM EST Appointment [facility] Medical Oncology Infusion [address] [place] [phone] documented as of this encounter Procedures Procedure [...] documented as of this encounter Care Teams Hand Tube Winder Relationship Specialty Start Date End Date Denton To NP [facility] [place] [phone] PCP - General Family Medicine 04/30/24 documented as of this encounter
--- OUTSIDE RECORDS SUMMARY | 2025-04-24 10:57 | XMS_ITS | Clinical Summary ---
Author Organization [address] [place] [address] JAMES RESENDIZ Address [address] [place] [address] Care Team Providers Care Paper Rewinder Name Role Phone [place] To NP Primary Care Provider + Allergies No known active allergies Medications ondansetron (ZOFRAN-ODT) [address] 1 tablet (8 mg total) onto the tongue every 8 (eight) hours as needed for nausea or vomiting. Active prochlorperazine (COMPAZINE) 5 mg tablet TAKE 1 TO 2 TABLETS BY MOUTH EVERY 6 HOURS NEEDED FOR NAUSEA 08/09/19 25 Active losartan (COZAAR) 25 mg tablet Take 1 tablet (25 mg total) by mouth daily. 10/27/19 25 Active guaiFENesin (ROBITUSSIN) 100 mg/5 mL Liqd Take 10 mLs (200 mg total) by mouth. 04/17/20 24 Active dexAMETHasone (DECADRON) 4 mg tabletIndications: 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, unspecified laterality (HC Code) (HC CODE) Take 2 tablets (8 mg total) by mouth See Admin Instructions. Take with food once a day on days 2,3,4 after each cycle for prevention of delayed nausea or vomiting. 36 tablet 2 01/03/20 25 Active Additional Information Patient not taking.Reported on 03/27/2025 prochlorperazine (COMPAZINE) 10 mg tabletIndications: 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, unspecified laterality (HC Code) (HC CODE) Take 1 tablet (10 mg total) by mouth every 6 (six) hours as needed (for nausea or vomiting). 60 tablet 1 01/03/20 Active Additional Information Patient not taking.Reported on 03/27/2025 ondansetron (ZOFRAN-ODT) [address] 1 tablet (4 mg total) onto the tongue every 8 (eight) hours as needed for nausea. 20 tablet 2 01/27/20 Active Additional Information Patient not taking.Reported on 03/27/2025 lidocaine-prilocai ne (EMLA) 2.5-2.5 % creamIndications:C arcinoma of 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, unspecified laterality (HC Code) (HC CODE),Port-A-Cath in place Apply topically as needed (30-60 minutes prior to port access). 15 g 1 04/18/20 Active metFORMIN (GLUCOPHAGE) 1000 mg tablet Take 1 tablet (1,000 mg total) by mouth every 12 (twelve) hours. 07/22/19 25 025 Discontinu ed(Stop Taking at Discharge) nitrofurantoin, macrocrystal-monoh ydrate, (MACROBID) 100 mg capsuleIndications :Acute cystitis without hematuria Take 1 capsule (100 mg total) by mouth every 12 (twelve) hours for 5 days. 10 capsule 04/07/20 025 Active Problems Problem Noted Date Diagnosed Date Failure to thrive in adult 09/06/2024 Breast cancer metastasized to lung (HC Code) Encounters Date Type Department Care Team Description 04/18/2025 9:40 AM EDT - 04/18/2025 11:59 PM EDT Hospital Encounter [facility] Medical Oncology Infusion [address] [place] [address], [place] [address] Murphy Huynh MD 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, unspecified laterality (HC Code) (HC CODE) (Primary Dx) Discharge Disposition: Home or Self Care 04/18/2025 9:00 AM EDT Office Visit [facility] at [address] [place] [address] Murphy Huynh MD 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, unspecified laterality (HC Code) (HC CODE) (Primary Dx); Port-A-Cath in place 04/18/2025 8:10 AM EDT - 04/18/2025 9:39 AM EDT Hospital Encounter [facility] Medical Oncology [address] [address] Murphy Huynh MD 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, unspecified laterality (HC Code) (HC CODE) Discharge Disposition: Home or Self Care 04/18/2025 Research Encounter [facility] at [address] [address] Murphy Huynh MD 04/18/2025 Documentation [facility] at [address] [address] Murphy Huynh MD 04/17/2025 8:00 AM EDT - 04/17/2025 9:30 AM EDT Surgery [facility] Interventional Radiology [address] [place] [address] Emelia Petit APRN IR Port Plcmt Single Lumen >5 YRS OF AGE 1004/17/2025 6:35 AM EDT - 04/17/2025 10:02 AM EDT Hospital Encounter [facility] Interventional Radiology [address] [place] [address] Usman Lo MD 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, unspecified laterality (HC Code) Discharge Disposition: Home or Self Care 04/17/2025 Travel 04/16/2025 Telephone [facility] at [address] [address] Murphy Huynh MD Advice Only 04/06/2025 Telephone OPERATIONS VICE PRESIDENT [address] [facility] [address] [place] [phone] Deloris Winchester MD Advice Only 04/06/2025 Telephone OPERATIONS VICE PRESIDENT 12 MEDICAL [address] [place] [phone] Dannie Salazar MD Results; Advice Only 04/05/2025 Telephone [facility] at [address] [address] Murphy Huynh MD Other 04/05/2025 Orders Only [facility] at [address] [address] Tierra Collins, RN 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, unspecified laterality (HC Code) (Primary Dx) 03/28/2025 Telephone [facility] at [address] [address] Klaudia Jones, LIA Results 03/27/2025 10:45 AM EDT - 03/27/2025 11:59 PM EDT Hospital Encounter [facility] Oncology [address] [address] Cami Palmer MD Dest, Denisse Hernandez, INSURANCE ANALYST 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, unspecified laterality (HC Code) (Primary Dx) Discharge Disposition: Home or Self Care 03/27/2025 10:15 AM EDT Office Visit [facility] at [address] [address] Cami Palmer MD Dest, Denisse Hernandez, INSURANCE ANALYST Ludmila Rodriguez, INSURANCE ANALYST Stage IV breast cancer in female (HC Code) (Primary Dx); Encounter for monitoring cardiotoxic drug therapy; Examination of participant in clinical trial 03/27/2025 9:30 AM EDT - 03/27/2025 10:44 AM EDT Hospital Encounter [facility] Oncology [address] [address] Cami Palmer MD Dest, Denisse Hernandez, INSURANCE ANALYST Discharge Disposition: Home or Self Care 03/27/2025 7:54 AM EDT - 03/27/2025 9:29 AM EDT Hospital Encounter [facility] Echocardiography [address] [place] [address] [address] [place] [address] Cami Palmer MD Dest, Denisse Hernandez, INSURANCE ANALYST 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, unspecified laterality (HC Code) ; Encounter for monitoring cardiotoxic drug therapy Discharge Disposition: Home or Self Care 03/27/2025 Orders Only Cancer Center at [facility] Hosptial [address] [place] [address] Deisy Fragoso, LIA 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, unspecified laterality (HC Code) (Primary Dx) 03/27/2025 Research Encounter [facility] [address] [place] [address] Deisy Fragoso, LIA 03/27/2025 Documentation [facility] at [facility] [address] [place] [address] Deisy Fragoso, LIA 03/21/2025 Orders Only [facility] at [address] [address] Ludmila Rodriguez INSURANCE ANALYST 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, unspecified laterality (HC Code) (Primary Dx) 03/12/2025 Orders Only [facility] at [address] [address] Ludmila Rodriguez INSURANCE ANALYST 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, unspecified laterality (HC Code) (Primary Dx) 03/07/2025 10:45 AM EDT - 03/07/2025 11:59 PM EDT Hospital Encounter [facility] Oncology Infusion [address] [place] [address] Cami Palmer MD 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, unspecified laterality (HC Code) (Primary Dx) Discharge Disposition: Home or Self Care 03/07/2025 10:00 AM EDT Office Visit [facility] at [address] [address] Cami Palmer MD 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, unspecified laterality (HC Code) (Primary Dx); Encounter for monitoring cardiotoxic drug therapy 03/07/2025 9:30 AM EDT - 03/07/2025 10:44 AM EDT Hospital Encounter [facility] Oncology Infusion [address] [place] [phone] Cami Palmer MD Discharge Disposition: Home or Self Care 03/07/2025 Transcribed Orders [facility] Laboratory Specimens [address] [place] [address] Murphy Huynh MD 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, unspecified laterality (HC Code) (Primary Dx) 03/07/2025 Telephone Surgical Oncology at [address] [place] [address] Cami Palmer MD FYI (Blood Results Hemolyzed. (LDH & AST)) 03/07/2025 Orders Only [facility] [address] [place] [address] Cami Palmer MD 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, unspecified laterality (HC Code) (Primary Dx) 03/07/2025 Documentation [facility] [address] [place] [address] Gissell Tuttle RN 03/07/2025 Research Encounter Cancer Center at [address] [place] [address] Gissell Tuttle RN 02/28/2025 9:20 AM EDT - 02/28/2025 11:59 PM EDT Hospital Encounter [facility] CT Scan [address] [place] [address], [facility] [place] [address] Denisse Brewer APRN 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, unspecified laterality (HC Code) Discharge Disposition: Home or Self Care 02/12/2025 7:47 AM EDT - 02/12/2025 11:59 PM EDT Hospital Encounter [facility] Medical Oncology [address] [place] [address] Denisse Brewer APRN 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, unspecified laterality (HC Code) (Primary Dx) Discharge Disposition: Home or Self Care 02/12/2025 7:30 AM EDT Office Visit [facility] at [address] [place] [address] Denisse Brewer APRN 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, unspecified laterality (HC Code) (Primary Dx) 02/12/2025 7:00 AM EDT - 02/12/2025 7:46 AM EDT Hospital Encounter [facility] Medical Oncology Infusion [address] [place] [address], [place] [address] Denisse Brewer APRN Discharge Disposition: Home or Self Care 02/12/2025 Documentation Cancer Center at [address] [address] Gissell Tuttle, LIA 02/12/2025 Research Encounter Cancer [facility] at [address] [address] Gissell Tuttle, LIA 02/11/2025 Orders Only Cancer [facility] at [address] [address] Gissell Tuttle, RN 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, unspecified laterality (HC Code) (Primary Dx) 01/24/2025 10:00 AM EDT - 01/24/2025 11:59 PM EDT Hospital Encounter [facility] Oncology [address] [address] Murphy Huynh MD 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, unspecified laterality (HC Code) (Primary Dx) Discharge Disposition: Home or Self Care 01/24/2025 9:00 AM EDT Office Visit [facility] at [address] [address] Murphy Huynh MD 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, unspecified laterality (HC Code) (Primary Dx) 01/24/2025 7:52 AM EDT - 01/24/2025 9:59 AM EDT Hospital Encounter [address] [address] Murphy Huynh MD 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, unspecified laterality (HC Code) (Primary Dx) Discharge Disposition: Home or Self Care 01/24/2025 Telephone Breast Center at [address] [address] Murphy Huynh MD Other 01/24/2025 Documentation Cancer Center at [address] [address] Gissell Tuttle, LIA 01/24/2025 Research Encounter Cancer Center at [address] [address] Gissell Tuttle RN from Last 3 Months Family History Medical History Relation Name Comments Breast cancer Maternal Aunt Breast cancer Maternal Grandmother Relation Name Status Comments Maternal Aunt Maternal Grandmother Social History Tobacco Use Types Packs/Day Years Used Date Smoking Tobacco: Former Cigarettes Tobacco Cessation:Counseling Given: Not Answered Alcohol Use Standard Drinks/Week Comments Never 0 (1 standard drink = 0.6 oz pur e alcohol) [facility] Utilities Answer Date Recorded In the past [...] living situation today? I have a [facility] place to live 03/26/2025 Housing Stability Not [...] Mass Index 25.32 04/18/2025 8:55 AM EDT Plan of Treatment Upcoming Encounters Date Type Department Care Team ([facility] st Contact Info) Description 05/01/2025 10:00 AM EDT Appointment [facility] CT Scan [address] [place] [address]. [place] [address] Ludmila Rodriguez APRN [address] [place] [phone] 05/09/2025 9:00 AM EDT Appointment [facility] Medical Oncology Infusion [address] [place] [address] 05/09/2025 9:30 AM EDT Office Visit [facility] at [address] [address] Denisse Brewer APRN [address] [place] [phone] 05/09/2025 10:15 AM EDT Appointment [facility] Medical Oncology Infusion [address] [place] [address] 05/30/2025 9:00 AM EST Appointment [facility] Medical Oncology Infusion [address] [place] [address] 05/30/2025 9:30 AM EST Office Visit [facility] at [address] [address] Murphy Huynh MD [address] [place] [phone] (Fax) 05/30/2025 10:15 AM EST Appointment [facility] Medical Oncology Infusion [address] [place] [address] 06/20/2025 11:00 AM EST Appointment [facility] Medical Oncology Infusion [address] [place] [address] 06/20/2025 11:30 AM EST Office Visit [facility] at [address] [address] Murphy Huynh MD [address] [place] [phone] (Fax) 06/20/2025 12:00 PM EST Appointment [facility] Medical Oncology Infusion [address] [place] [address] Health Maintenance Due Date Last Done Comments Covid-19 vaccine series (#1) 1953 Pneumococcal Vaccine (50+ years) (1 of 2 - PCV) 1967 Tetanus adult (Td q 10,TDAP once) 1968 Breast cancer surveillance 1973 Lipid disorder screening 1988 Shingles vaccine (Shingrix) (1 of 2 - Shingrix (RZV) 2 Dose Standard Series) 1998 Osteoporosis screening (bone density) 2013 RSV Immunization (1 - 1-dose 75+ series) 2023 Influenza vaccine 02/08/2025 Diabetes screening 04/18/2028 04/18/2025, 0 03/27/2025, 03/07/2025, Additional history exists Breast cancer screening Discontinued 09/26/19 24, 04/25/2023, 10/04/2022, Additional history exists HIV screening Completed 12/20/2024 Hepatitis C screening Completed 12/20/2024, 025 Cervical cancer screening Discontinued Colon cancer screening, Colonoscopy Discontinued Meningococcal B Vaccine Aged Out No l onger eligible based on patient's age to complete this topic Meningococcal Vaccine Aged Out No natividad jerardo [...] established therapeutic goals. Patient's progress towards goal: Medical Devices Implanted Type Area Whiting Can Worker Device Identifier Shelf Expiration Date Model / Serial / Lot Port Infusion Isp Plstc Powerport Open Intrmdt Clearvue 6fr - [id number] Implanted:Qty: 1 on 04/17/[address] [facility] [address] Implant CR BARD [id number] 08/10/2026 [id number] / / [id number] Procedures Procedure Name Priority Date/Time Associated Diagnosis Comments COMPREHENSIVE METABOLIC PANEL Routine 04/18/2025 8:15 AM EDT 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, unspecified laterality (HC Code) (HC CODE) CBC AND DIFFERENTIAL Routine 04/18/2025 8:15 AM EDT 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, unspecified laterality (HC Code) (HC CODE) MANUAL DIFFERENTIAL Routine 04/18/2025 8 :15 AM EDT 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, unspecified laterality (HC Code) (HC CODE) COMPREHENSIVE METABOLIC PANEL Routine 04/18/2025 8:15 AM EDT 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, unspecified laterality (HC Code) (HC CODE) CBC WITH AUTO DIFFERENTIAL Routine 04/18/2025 8:15 AM EDT 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, unspecified laterality (HC Code) (HC CODE) PHOSPHORUS (BH GH L LMW YH) Routine 04/18/2025 8:15 AM EDT 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, unspecified laterality (HC Code) (HC CODE) MAGNESIUM Routine 04/18/2025 8:15 AM EDT 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, unspecified laterality (HC Code) (HC CODE) LACTATE DEHYDROGENASE Routine 04/18/2025 8:15 AM EDT 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, unspecified laterality (HC Code) (HC CODE) IR US GUIDED NEEDLE PLACEMENT VASCULAR ACCESS Routine 04/17/2025 9:14 AM EDT 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, unspecified laterality (HC Code) (HC CODE) IR PORT PLCMT SINGLE LUMEN >5 YRS OF AGE Routine 04/17/2025 9:14 AM EDT 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, unspecified laterality (HC Code) (HC CODE) URINALYSIS WITH CULTURE REFLEX Routine 04/06/2025 7:35 AM EDT Urinary tract infection without hematuria, site unspecified COMPREHENSIVE METABOLIC PANEL Routine 03/27/2025 11:25 AM EDT 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, unspecified laterality (HC Code) CEA Routine 03/27/2025 11:25 AM EDT COMPREHENSIVE METABOLIC PANEL Routine 03/27/2025 11:25 AM EDT 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, unspecified laterality (HC Code) CANCER ANTIGEN 15-3 Routine 03/27/2025 1 1:25 AM EDT 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, unspecified laterality (HC Code) PHOSPHORUS (BH GH L LMW YH) Routine 03/27/2025 11:25 AM EDT 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, unspecified laterality (HC Code) MAGNESIUM Routine 03/27/2025 11:25 AM EDT 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, unspecified laterality (HC Code) CBC AND DIFFERENTIAL Routine 03/27/2025 10:18 AM EDT 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, unspecified laterality (HC Code) CBC WITH AUTO DIFFERENTIAL Routine 03/27/2025 10:18 AM EDT 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, unspecified laterality (HC Code) TRANSTHORACIC ECHO (TTE) COMPLETE W COLOR, DOPPLER, STRAIN AND 3D Routine 03/27/2025 8:48 AM EDT 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, unspecified laterality (HC Code) Encounter for monitoring cardiotoxic drug therapy COMPREHENSIVE METABOLIC PANEL Routine 03/07/2025 11:44 AM EDT 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, unspecified laterality (HC Code) LACTATE DEHYDROGENASE Routine 03/07/2025 11:44 AM EDT 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, unspecified laterality (HC Code) COMPREHENSIVE METABOLIC PANEL Routine 03/07/2025 11:44 AM EDT 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, unspecified laterality (HC Code) CBC AND DIFFERENTIAL Routine 03/07/2025 9:50 AM EDT 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, unspecified laterality (HC Code) COMPREHENSIVE METABOLIC PANEL Routine 03/07/2025 9:50 AM EDT 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, unspecified laterality (HC Code) CBC WITH AUTO DIFFERENTIAL Routine 03/07/2025 9:50 AM EDT 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, unspecified laterality (HC Code) COMPREHENSIVE METABOLIC PANEL Routine 03/07/2025 9:50 AM EDT 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, unspecified laterality (HC Code) MAGNESIUM Routine 03/07/2025 9:50 AM EDT 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, unspecified laterality (HC Code) PHOSPHORUS (BH GH L LMW YH) Routine 03/07/2025 9:50 AM EDT 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, unspecified laterality (HC Code) CT ABDOMEN PELVIS W IV CONTRAST Routine 02/28/2025 10:11 AM EDT 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, unspecified laterality (HC Code) CT CHEST W IV CONTRAST Routine 10:11 AM EDT 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, unspecified laterality (HC Code) LACTATE DEHYDROGENASE Routine 02/12/2025 12:16 PM EDT 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, unspecified laterality (HC Code) CBC AND DIFFERENTIAL Routine 02/12/2025 8:23 AM EDT 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, unspecified laterality (HC Code) COMPREHENSIVE METABOLIC PANEL Routine 02/12/2025 8:23 AM EDT 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, unspecified laterality (HC Code) CBC WITH AUTO DIFFERENTIAL Routine 02/12/2025 8:23 AM EDT 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, unspecified laterality (HC Code) COMPREHENSIVE METABOLIC PANEL Routine 02/12/2025 8:23 AM EDT 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, unspecified laterality (HC Code) CEA Routine 02/12/2025 8:23 AM EDT 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, unspecified laterality (HC Code) CANCER ANTIGEN 15-3 Routine 02/12/2025 8 :23 AM EDT 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, unspecified laterality (HC Code) MAGNESIUM Routine 02/12/2025 8:23 AM EDT 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, unspecified laterality (HC Code) PHOSPHORUS (BH GH L LMW YH) Routine 02/12/2025 8:23 AM EDT 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, unspecified laterality (HC Code) COMPREHENSIVE METABOLIC PANEL Routine 01/24/2025 7:57 AM EDT 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, unspecified laterality (HC Code) CBC AND DIFFERENTIAL Routine 01/24/2025 7:57 AM EDT 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, unspecified laterality (HC Code) COMPREHENSIVE METABOLIC PANEL Routine 01/24/2025 7:57 AM EDT 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, unspecified laterality (HC Code) CBC WITH AUTO DIFFERENTIAL Routine 01/24/2025 7:57 AM EDT 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, unspecified laterality (HC Code) PHOSPHORUS (BH GH L LMW YH) Routine 01/24/2025 7:57 AM EDT 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, unspecified laterality (HC Code) MAGNESIUM Routine 01/24/2025 7:57 AM EDT 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, unspecified laterality (HC Code) HIV-1/HIV-2 ANTIBODY/ANTIGEN SCREEN W/REFLEX (BH GH LMW YH) Routine 12/20/2024 12:51 PM EDT 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, unspecified laterality (HC Code) HEPATITIS C AB WITH REFLEX TO HCV PCR Routine 12/20/2024 12:51 PM EDT 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, unspecified laterality (HC Code) [facility] MAMMO DIGITAL SCREENING W CAD Routine 09/26/2023 2:50 PM EDT from Last 3 Months or Most Recently Relevant to Health Maintenance Results * (ABNORMAL) Comprehensive metabolic panel (04/18/2025 8:15 AM EDT) Only the most recent of6 resultswithin the time period is included. Sodium 136 136 - 144 mmol/L 04/18/2025 9:06 AM [facility] DEPARTMENT OF LABORATORY MEDICINE Potassium 4.5 3.3 - 5.3 mmol/L 04/18/2025 9:06 AM [facility] DEPARTMENT OF LABORATORY MEDICINE Chloride 102 98 - 107 mmol/L 04/18/2025 9:06 AM [facility] DEPARTMENT OF LABORATORY MEDICINE CO2 21 20 - 30 mmol/L 04/18/2025 9:06 AM [facility] DEPARTMENT OF LABORATORY MEDICINE Anion Gap 13 7 - 17 04/18/2025 9:06 AM [facility] DEPARTMENT OF LABORATORY MEDICINE Glucose 257(H) 70 - 100 mg/dL 04/18/2025 9:06 AM [facility] DEPARTMENT OF LABORATORY MEDICINE BUN 16 8 - 23 mg/dL 04/18/2025 9:06 AM [facility] DEPARTMENT OF LABORATORY MEDICINE Creatinine 0.88 0.40 - 1.30 mg/dL 04/18/2025 9:06 AM [facility] DEPARTMENT OF LABORATORY MEDICINE Calcium 9.4 8.8 - 10.2 mg/dL 04/18/2025 9:06 AM [facility] DEPARTMENT OF LABORATORY MEDICINE BUN/Creatinine Ratio 18.2 8.0 - 23.0 04/18/2025 9:06 AM [facility] DEPARTMENT OF LABORATORY MEDICINE Total Protein 6.9 5.9 - 8.3 g/dL 025 9:06 AM [facility] DEPARTMENT OF LABORATORY MEDICINE Albumin 3.9 3.6 - 5.1 g/dL 04/18/2025 9:06 AM [facility] DEPARTMENT OF LABORATORY MEDICINE Total Bilirubin 0.2 <=1.2 mg/dL 04/18/20 25 9:06 AM [facility] DEPARTMENT OF LABORATORY MEDICINE Alkaline Phosphatase 142(H) 9 - 122 U/L 04/18/2025 9:06 AM [facility] DEPARTMENT OF LABORATORY MEDICINE Alanine Aminotransferase (ALT) 27 10 - 35 U/L 04/18/2025 9:06 AM [facility] DEPARTMENT OF LABORATORY MEDICINE Comment:Calcium dobesilate c an cause artificially low ALT results at therapeutic concentrations Aspartate Aminotransferase (AST) 16 10 - 35 U/L 04/18/2025 9:06 AM [facility] DEPARTMENT OF LABORATORY MEDICINE Globulin 3.0 2.0 - 3.9 g/dL 04/18/2025 9:06 AM [facility] DEPARTMENT OF LABORATORY MEDICINE A/G Ratio 1.3 1.0 - 2.2 04/18/2025 9:06 AM [facility] DEPARTMENT OF LABORATORY MEDICINE AST/ALT Ratio 0.6 Reference Range Not Established 04/18/2025 9:06 AM [facility] DEPARTMENT OF LABORATORY MEDICINE eGFR (Creatinine) >60 >=60 mL/min/1.73m2 04/18/2025 9:06 AM [facility] DEPARTMENT OF LABORATORY MEDICINE Comment: [facility] utilizes CKD-EPI Creatinine 2020 to report eGFR. Values < 60 mL/min/1.73 m2 may indicate CKD if present for more than three months AND creatinine is at steady state. The eGFR provides a rough estimate of kidney function. For further guidance, please refer to the CKD: Adult Wind Turbine Electrical Engineer Signature pathway. Creatinine Delta 0.15 See Comment 025 9:06 AM [facility] DEPARTMENT OF LABORATORY MEDICINE Comment: Delta [...] and 5 mg/dL. Blood Venipuncture / Unknown 04/18/2025 8:15 AM EDT 04/18/2025 8:41 AM EDT us Murphy Huynh MD LAB BLOOD ORDERABLES Final Resul t [facility] DEPARTMENT OF LABORATORY MEDICINE [address] [place] [address] * (ABNORMAL) Manual Differential (04/18/2025 8:15 AM EDT) Neutrophils 65.0 39.0 - 72.0 % 04/18/2025 9:31 AM EDT [facility] DEPARTMENT OF LABORATORY MEDICINE Lymphocytes 16.0(L) 17.0 - 50.0 % 04/18/2025 9:31 AM EDT [facility] DEPARTMENT OF LABORATORY MEDICINE Monocytes 11.0 4.0 - 12.0 % 04/18/2025 9:31 AM EDT [facility] DEPARTMENT OF LABORATORY MEDICINE Eosinophils 3.0 0.0 - 5.0 % 04/18/2025 9:31 AM EDT [facility] DEPARTMENT OF LABORATORY MEDICINE Basophil 1.0 0.0 - 1.4 % 04/18/2025 9:31 AM EDT [facility] DEPARTMENT OF LABORATORY MEDICINE Metamyelocytes 1.0 0.0 - 1.0 % 04/18/2025 9:31 AM EDT [facility] DEPARTMENT OF LABORATORY MEDICINE Myelocytes 3.0(H) 0.0 - 0.0 % 04/18/2025 9:31 AM EDT [facility] DEPARTMENT OF LABORATORY MEDICINE Neutrophils Absolute 4.28 2.00 - 7.60 x 1000/ L 04/18/2025 9:31 AM EDT [facility] DEPARTMENT OF LABORATORY MEDICINE Lymphocyte Absolute 1.05 0.60 - 3.70 x 1000/ L 04/18/2025 9:31 AM EDT [facility] DEPARTMENT OF LABORATORY MEDICINE Monocyte Absolute Count 0.72 0.00 - 1.00 x 1000/ L 04/18/2025 9:31 AM EDT [facility] DEPARTMENT OF LABORATORY MEDICINE Eosinophil Absolute Count 0.20 0.00 - 1.00 x 1000/ L 04/18/2025 9:31 AM EDT [facility] DEPARTMENT OF LABORATORY MEDICINE Basophil Absolute Count 0.07 0.00 - 1.00 x 1000/ L 04/18/2025 9:31 AM EDT [facility] DEPARTMENT OF LABORATORY MEDICINE RBC Morphology Normal 04/18/2025 9:31 AM EDT [facility] DEPARTMENT OF LABORATORY MEDICINE Blood Venipuncture / Unknown 04/18/2025 8:15 AM EDT 04/18/2025 8:41 AM EDT us Murphy Huynh MD LAB BLOOD ORDERABLES Final Resul t Performing Organization Address City/State/[facility] Co de Phone Number [facility] DEPARTMENT OF LABORATORY MEDICINE [address] [place] [address] * (ABNORMAL) CBC auto differential (04/18/2025 8:15 AM EDT) Only the most recent of5 resultswithin the time period is included. WBC 6.6 4.0 - 11.0 x1000/ L 04/18/2025 9:31 AM EDT [facility] DEPARTMENT OF LABORATORY MEDICINE RBC 3.83(L) 4.00 - 6.00 M/ L 04/18/2025 9:31 AM EDT [facility] DEPARTMENT OF LABORATORY MEDICINE Hemoglobin 12.2 11.7 - 15.5 g/dL 04/18/2025 9:31 AM EDT [facility] DEPARTMENT OF LABORATORY MEDICINE Hematocrit 36.10 35.00 - 45.00 % 04/18/2025 9:31 AM EDT [facility] DEPARTMENT OF LABORATORY MEDICINE MCV 94.3 80.0 - 100.0 fL 04/18/2025 9:31 AM EDT [facility] DEPARTMENT OF LABORATORY MEDICINE MCH 31.9 27.0 - 33.0 pg 04/18/2025 9:31 AM EDT [facility] DEPARTMENT OF LABORATORY MEDICINE MCHC 33.8 31.0 - 36.0 g/dL 04/18/2025 9:31 AM EDT [facility] DEPARTMENT OF LABORATORY MEDICINE RDW-CV 13.6 11.0 - 15.0 % 04/18/2025 9:31 AM EDT [facility] DEPARTMENT OF LABORATORY MEDICINE Platelets 439(H) 150 - 420 x1000/ L 04/18/2025 9:31 AM EDT [facility] DEPARTMENT OF LABORATORY MEDICINE MPV 10.1 8.0 - 12.0 fL 04/18/2025 9:31 AM EDT [facility] DEPARTMENT OF LABORATORY MEDICINE nRBC 0.0 0.0 - 1.0 % 04/18/2025 9:31 AM EDT [facility] DEPARTMENT OF LABORATORY MEDICINE Absolute nRBC 0.00 0.00 - 1.00 x 1000/ L 04/18/2025 9:31 AM EDT [facility] DEPARTMENT OF LABORATORY MEDICINE Blood Venipuncture / Unknown 04/18/2025 8:15 AM EDT 04/18/2025 8:41 AM EDT Murphy Huynh MD LAB BLOOD ORDERABLES Final Resul t [facility] DEPARTMENT OF LABORATORY MEDICINE [address] [place] [address] * Phosphorus (BH GH L LMW YH) (04/18/2025 8:15 AM EDT) Only the most recent of5 resultswithin the time period is included. Phosphorus 3.3 2.2 - 4.5 mg/dL 04/18/2025 9:06 AM EDT [facility] DEPARTMENT OF LABORATORY MEDICINE Blood Venipuncture / Unknown 04/18/2025 8:15 AM EDT 04/18/2025 8:41 AM EDT us Murphy Huynh MD LAB BLOOD ORDERABLES Final Resul t [facility] DEPARTMENT OF LABORATORY MEDICINE [address] [place] [address] * MAGNESIUM (04/18/2025 8:15 AM EDT) Only the most recent of5 resultswithin the time period is included. Magnesium 1.9 1.7 - 2.4 mg/dL 04/18/2025 9:06 AM EDT [facility] DEPARTMENT OF LABORATORY MEDICINE Blood Venipuncture / Unknown 04/18/2025 8:15 AM EDT 04/18/2025 8:41 AM EDT us Murphy Huynh MD LAB BLOOD ORDERABLES Final Resul t Performing Organization Address [facility] de Phone Number [facility] OF [facility]ORATORY MEDICINE [address] [place] [address] * LACTATE DEHYDROGENASE (04/18/2025 8:15 AM EDT) Only the most recent of3 resultswithin the time period is included. LD 219 122 - 241 U/L 04/18/2025 9:06 AM EDT [facility] DEPARTMENT OF LABORATORY MEDICINE Comment:Sample slightly hemo lyzed. Results may be falsely elevated due to hemolysis. Blood Venipuncture / Unknown 04/18/2025 8:15 AM EDT 04/18/2025 8:41 AM EDT Murphy Huynh MD LAB BLOOD ORDERABLES Final Resul t Performing Organization Address [facility] de Phone Number [facility] DEPARTMENT OF LABORATORY MEDICINE [address] [place] [address] * IR US GUIDED NEEDLE PLACEMENT VASCULAR ACCESS (04/17/2025 9:14 AM EDT) Anatomical Region Laterality Modality X-Ray Angiograph y 04/17/2025 3:39 PM EDT Impressions 04/17/2025 3:41 PM EDT Placement of a right internal jugular vein subcutaneous chest port. The port is ready for immediate use. Reported and signed by: Emelia Petit APRN [facility] Narrative 04/17/2025 3:41 PM EDT PROCEDURE:Right internal jugular vein subcutaneous chest port. Procedure Date: 04/17/2025 9:14 AM Dictation Date: 04/17/2025 HISTORY/INDICATION: Pre-procedure diagnosis: breast cancer Post-procedure diagnosis: Same Additional clinical history: None PROCEDURAL PERSONNEL: Advanced practice provider(s): Emelia Petit APRN I attest that I was present for the entire procedure. I reviewed the stored images and agree with the report as written. ANESTHESIA/SEDATION: Level of anesthesia/sedation: Moderate sedation (conscious sedation) with midazolam and fentanyl. Anesthesia/sedation administered by: Independent trained observer under attending supervision with continuous monitoring of the patient's level of consciousness and physiologic status Total intra-service sedation time (minutes): 20 MEDICATIONS: Local anesthesia: 1% lidocaine. PROCEDURAL DETAILS: Procedure Time (minutes): 30 Fluoroscopy Time (minutes): 0.5 Estimated blood loss (mL): Less than 10 CONSENT: The nature and purpose, potential benefits and risks, and alternatives to the procedure (including the option of foregoing any intervention) were discussed with the patient, and written and verbal consents obtained. The patient was then brought to the procedure area and a time out performed in accordance with hospital protocol, which included consent verification. TECHNIQUE AND FINDINGS: Informed written consent was obtained. The patient was then brought to the procedure suite, placed in the supine position, and a timeout was performed. Limited preliminary ultrasound showed a patent right internal jugular vein. The patient's neck and upper anterior chest were sterilely prepped and draped. After giving local anesthesia, a 21 gauge needle was used to puncture the patent right internal jugular vein from a low lateral approach under ultrasound guidance, with an image saved. A 0.018 inch wire was then advanced through the needle into the central veins, as confirmed fluoroscopically. The needle was exchanged over the wire for a 3-5 Hong [place]er coaxial transitional dilator. The wire tip was then situated in the right atrium as confirmed fluoroscopically, and a length measurement was made. The wire and inner 3 [place]er dilator were then exchanged through the 5 Hong [place]er outer dilator for a 0.035 inch guidewire, which was advanced under fluoroscopic guidance into the IVC. A site on the upper anterior chest was then anesthetized with lidocaine with epinephrine as was a subcutaneous track connecting this to the venipuncture site. A #15 blade was used to make an approximately 2 cm long incision on the upper anterior chest. The subcutaneous tissue within the pocket was then spread with a Fani clamp, and the pocket was irrigated with saline and dried with gauze. The port was then attached to the proximal end of the catheter on the table, and the port was flushed to ensure no evidence of leakage. The distal end of the catheter was then connected to the metal tunneler, and this was then tunnelled from the pocket to the venipuncture site. The port was then placed in the pocket, and the distal end of the catheter was trimmed to an appropriate length. The 5 [place]er dilator in the internal jugular vein was exchanged over the 0.035 inch wire for a size matched peel-away sheath. The 0.035 inch wire was then removed under controlled respiration, the catheter was advanced through the peel-away sheath, and the peel-away sheath removed. Brief fluoroscopic image was taken to confirm proper placement of the port without kinking and final catheter tip position. There was no pneumothorax or embolism present. The port was accessed and noted to aspirate and flush appropriately. The venipuncture incision was then closed with dermal adhesive. The pocket was closed with buried subcutaneous 4-0 Vicryl stitches and dermal adhesive. Sterile dressings were applied. The patient appeared to tolerate the procedure well. Subcutaneous port: 6 Fr slimport Priming solution: Heparinized Saline Catheter tip: Cavoatrial junction Procedure Note Emelia Petit APRN - 04/17/2025 PROCEDURE:Right internal jugular vein subcutaneous chest port. Procedure Date: 04/17/2025 9:14 AM Dictation Date: 04/17/2025 HISTORY/INDICATION: Pre-procedure diagnosis: breast cancer Post-procedure diagnosis: Same Additional clinical history: None PROCEDURAL PERSONNEL: Advanced practice provider(s): Emelia Petit APRN I attest that I was present for the entire procedure. I reviewed thestored images and agree with the report as written. ANESTHESIA/SEDATION: Level of anesthesia/sedation: Moderate sedation (conscious sedation) withmidazolam and fentanyl. Anesthesia/sedation administered by: Independent trained observer underattending supervision with continuous monitoring of the patient's level ofconsciousness and physiologic status Total intra-service sedation time (minutes): 20 MEDICATIONS: Local anesthesia: 1% lidocaine. PROCEDURAL DETAILS: Procedure Time (minutes): 30 Fluoroscopy Time (minutes): 0.5 Estimated blood loss (mL): Less than 10 CONSENT: The nature and purpose, potential benefits and risks, and alternatives tothe procedure (including the option of foregoing any intervention) werediscussed with the patient, and written and verbal consents obtained. Thepatient was then brought to the procedure area and a time out performedin accordance with hospital protocol, which included consentverification. TECHNIQUE AND FINDINGS: Informed written consent was obtained. The patient was then brought to theprocedure suite, placed in the supine position, and a timeout wasperformed. Limited preliminary ultrasound showed a patent right internaljugular vein. The patient's neck and upper anterior chest were sterilelyprepped and draped. After giving local anesthesia, a 21 gauge needle wasused to puncture the patent right internal jugular vein from a low lateralapproach under ultrasound guidance, with an image saved. A 0.018 inch wirewas then advanced through the needle into the central veins, as confirmedfluoroscopically. The needle was exchanged over the wire for a 3-5 Frenchcoaxial transitional dilator. The wire tip was then situated in the rightatrium as confirmed fluoroscopically, and a length measurement was made.The wire and inner 3 [place]er dilator were then exchanged through the 5French outer dilator for a 0.035 inch guidewire, which was advanced underfluoroscopic guidance into the IVC. A site on the upper anterior chest wasthen anesthetized with lidocaine with epinephrine as was a subcutaneoustrack connecting this to the venipuncture site. A #15 blade was used tomake an approximately 2 cm long incision on the upper anterior chest. Thesubcutaneous tissue within the pocket was then spread with a Fani clamp,and the pocket was irrigated with saline and dried with gauze. The portwas then attached to the proximal end of the catheter on the table, andthe port was flushed to ensure no evidence of leakage. The distal end ofthe catheter was then connected to the metal tunneler, and this was thentunnelled from the pocket to the venipuncture site. The port was thenplaced in the pocket, and the distal end of the catheter was trimmed to anappropriate length. The 5 Hong Konger dilator in the internal jugular vein wasexchanged over the 0.035 inch wire for a size matched peel-away sheath.The 0.035 inch wire was then removed under controlled respiration, thecatheter was advanced through the peel-away sheath, and the peel-awaysheath removed. Brief fluoroscopic image was taken to confirm properplacement of the port without kinking and final catheter tip position.There was no pneumothorax or embolism present. The port was accessed andnoted to aspirate and flush appropriately. The venipuncture incision wasthen closed with dermal adhesive. The pocket was closed with buriedsubcutaneous 4-0 Vicryl stitches and dermal adhesive. Sterile dressingswere applied. The patient appeared to tolerate the procedure well. Subcutaneous port: 6 Fr slimport Priming solution: Heparinized Saline Catheter tip: Cavoatrial junction IMPRESSION: Placement of a right internal jugular vein subcutaneous chest port. Theport is ready for immediate use. Reported and signed by: Emelia Petit APRN [facility] us Denisse Hernandez Daniella SINHAN IMG IR ORDERABLES Final Result * IR PORT PLCMT SINGLE LUMEN >5 YRS OF AGE (04/17/2025 9:14 AM EDT) Anatomical Region Laterality Modality Vascular X-Ray Angiograph y 04/17/2025 3:39 PM EDT Impressions 04/17/2025 3:41 PM EDT Placement of a right internal jugular vein subcutaneous chest port. The port is ready for immediate use. Reported and signed by: Emelia Petit APRN [facility] Narrative 04/17/2025 3:41 PM EDT PROCEDURE:Right internal jugular vein subcutaneous chest port. Procedure Date: 04/17/2025 9:14 AM Dictation Date: 04/17/2025 HISTORY/INDICATION: Pre-procedure diagnosis: breast cancer Post-procedure diagnosis: Same Additional clinical history: None PROCEDURAL PERSONNEL: Advanced practice provider(s): Emelia Petit APRN I attest that I was present for the entire procedure. I reviewed the stored images and agree with the report as written. ANESTHESIA/SEDATION: Level of anesthesia/sedation: Moderate sedation (conscious sedation) with midazolam and fentanyl. Anesthesia/sedation administered by: Independent trained observer under attending supervision with continuous monitoring of the patient's level of consciousness and physiologic status Total intra-service sedation time (minutes): 20 MEDICATIONS: Local anesthesia: 1% lidocaine. PROCEDURAL DETAILS: Procedure Time (minutes): 30 Fluoroscopy Time (minutes): 0.5 Estimated blood loss (mL): Less than 10 CONSENT: The nature and purpose, potential benefits and risks, and alternatives to the procedure (including the option of foregoing any intervention) were discussed with the patient, and written and verbal consents obtained. The patient was then brought to the procedure area and a time out performed in accordance with hospital protocol, which included consent verification. TECHNIQUE AND FINDINGS: Informed written consent was obtained. The patient was then brought to the procedure suite, placed in the supine position, and a timeout was performed. Limited preliminary ultrasound showed a patent right internal jugular vein. The patient's neck and upper anterior chest were sterilely prepped and draped. After giving local anesthesia, a 21 gauge needle was used to puncture the patent right internal jugular vein from a low lateral approach under ultrasound guidance, with an image saved. A 0.018 inch wire was then advanced through the needle into the central veins, as confirmed fluoroscopically. The needle was exchanged over the wire for a 3-5 Hong Konger coaxial transitional dilator. The wire tip was then situated in the right atrium as confirmed fluoroscopically, and a length measurement was made. The wire and inner 3 Hong Konger dilator were then exchanged through the 5 Hong Konger outer dilator for a 0.035 inch guidewire, which was advanced under fluoroscopic guidance into the IVC. A site on the upper anterior chest was then anesthetized with lidocaine with epinephrine as was a subcutaneous track connecting this to the venipuncture site. A #15 blade was used to make an approximately 2 cm long incision on the upper anterior chest. The subcutaneous tissue within the pocket was then spread with a Fani clamp, and the pocket was irrigated with saline and dried with gauze. The port was then attached to the proximal end of the catheter on the table, and the port was flushed to ensure no evidence of leakage. The distal end of the catheter was then connected to the metal tunneler, and this was then tunnelled from the pocket to the venipuncture site. The port was then placed in the pocket, and the distal end of the catheter was trimmed to an appropriate length. The 5 Hong [place]er dilator in the internal jugular vein was exchanged over the 0.035 inch wire for a size matched peel-away sheath. The 0.035 inch wire was then removed under controlled respiration, the catheter was advanced through the peel-away sheath, and the peel-away sheath removed. Brief fluoroscopic image was taken to confirm proper placement of the port without kinking and final catheter tip position. There was no pneumothorax or embolism present. The port was accessed and noted to aspirate and flush appropriately. The venipuncture incision was then closed with dermal adhesive. The pocket was closed with buried subcutaneous 4-0 Vicryl stitches and dermal adhesive. Sterile dressings were applied. The patient appeared to tolerate the procedure well. Subcutaneous port: 6 Fr slimport Priming solution: Heparinized Saline Catheter tip: Cavoatrial junction Procedure Note Emelia Petit APRN - 04/17/2025 PROCEDURE:Right internal jugular vein subcutaneous chest port. Procedure Date: 04/17/2025 9:14 AM Dictation Date: 04/17/2025 HISTORY/INDICATION: Pre-procedure diagnosis: breast cancer Post-procedure diagnosis: Same Additional clinical history: None PROCEDURAL PERSONNEL: Advanced practice provider(s): Emelia Petit APRN I attest that I was present for the entire procedure. I reviewed thestored images and agree with the report as written. ANESTHESIA/SEDATION: Level of anesthesia/sedation: Moderate sedation (conscious sedation) withmidazolam and fentanyl. Anesthesia/sedation administered by: Independent trained observer underattending supervision with continuous monitoring of the patient's level ofconsciousness and physiologic status Total intra-service sedation time (minutes): 20 MEDICATIONS: Local anesthesia: 1% lidocaine. PROCEDURAL DETAILS: Procedure Time (minutes): 30 Fluoroscopy Time (minutes): 0.5 Estimated blood loss (mL): Less than 10 CONSENT: The nature and purpose, potential benefits and risks, and alternatives tothe procedure (including the option of foregoing any intervention) werediscussed with the patient, and written and verbal consents obtained. Thepatient was then brought to the procedure area and a time out performedin accordance with hospital protocol, which included consentverification. TECHNIQUE AND FINDINGS: Informed written consent was obtained. The patient was then brought to theprocedure suite, placed in the supine position, and a timeout wasperformed. Limited preliminary ultrasound showed a patent right internaljugular vein. The patient's neck and upper anterior chest were sterilelyprepped and draped. After giving local anesthesia, a 21 gauge needle wasused to puncture the patent right internal jugular vein from a low lateralapproach under ultrasound guidance, with an image saved. A 0.018 inch wirewas then advanced through the needle into the central veins, as confirmedfluoroscopically. The needle was exchanged over the wire for a 3-5 Frenchcoaxial transitional dilator. The wire tip was then situated in the rightatrium as confirmed fluoroscopically, and a length measurement was made.The wire and inner 3 Hong [place]er dilator were then exchanged through the 5French outer dilator for a 0.035 inch guidewire, which was advanced underfluoroscopic guidance into the IVC. A site on the upper anterior chest wasthen anesthetized with lidocaine with epinephrine as was a subcutaneoustrack connecting this to the venipuncture site. A #15 blade was used tomake an approximately 2 cm long incision on the upper anterior chest. Thesubcutaneous tissue within the pocket was then spread with a Fani clamp,and the pocket was irrigated with saline and dried with gauze. The portwas then attached to the proximal end of the catheter on the table, andthe port was flushed to ensure no evidence of leakage. The distal end ofthe catheter was then connected to the metal tunneler, and this was thentunnelled from the pocket to the venipuncture site. The port was thenplaced in the pocket, and the distal end of the catheter was trimmed to anappropriate length. The 5 Hong Konger dilator in the internal jugular vein wasexchanged over the 0.035 inch wire for a size matched peel-away sheath.The 0.035 inch wire was then removed under controlled respiration, thecatheter was advanced through the peel-away sheath, and the peel-awaysheath removed. Brief fluoroscopic image was taken to confirm properplacement of the port without kinking and final catheter tip position.There was no pneumothorax or embolism present. The port was accessed andnoted to aspirate and flush appropriately. The venipuncture incision wasthen closed with dermal adhesive. The pocket was closed with buriedsubcutaneous 4-0 Vicryl stitches and dermal adhesive. Sterile dressingswere applied. The patient appeared to tolerate the procedure well. Subcutaneous port: 6 Fr slimport Priming solution: Heparinized Saline Catheter tip: Cavoatrial junction IMPRESSION: Placement of a right internal jugular vein subcutaneous chest port. Theport is ready for immediate use. Reported and signed by: Emelia Petit APRN [facility] us Denisse Brewer APRN IMG IR ORDERABLES Final Result * (ABNORMAL) Urinalysis with culture reflex (04/06/2025 7:35 AM EDT) Color YELLOW YELLOW [facility] Appearance TURBID(A) CLEAR [facility] Specific [place], UA 1.009 1.001 - 1.035 [facility] pH < OR = 5.0(A) 5.0 - 8.0 [facility] Glucose, UA NEGATIVE NEGATIVE [facility] Bilirubin NEGATIVE NEGATIVE [facility] Ketones, UA NEGATIVE NEGATIVE [facility] Occult Blood 3+(A) NEGATIVE [facility] Protein, UA TRACE(A) NEGATIVE [facility] Nitrite, UA NEGATIVE NEGATIVE [facility] Leukocyte Esterase 3+(A) NEGATIVE [facility] WBC > OR = 60(A) < OR = 5 /HPF [facility] RBC 0-2 < OR = 2 /HPF [facility] Epithelial Cells, Squamous 0-5 < OR = 5 /HPF [facility] Bacteria FEW(A) NONE SEEN /HPF [facility] Hyaline Casts, UA NONE SEEN NONE SEEN /LPF [facility] Note: [facility] LABORATORY Comment: This urine was analyzed for the presence of WBC, RBC, bacteria, casts, and other formed elements. Only those elements seen were reported. Reflexive Urine Culture [facility] Comment:CULTURE INDICATED - RESULTS TO FOLLOW Urine Culture, Routine SEE NOTE(A) [facility] Comment: CULTURE, URINE, ROUTINE Micro Number: [id number] Test Status: Final Specimen Source: Urine Specimen Quality: Adequate Result: Greater than 100,000 CFU/mL of Escherichia coli E.coli INT OFELIA AMOX/CLAVULANATE S <=2 AMP/SULBACTAM S <=2 CEFAZOLIN NR <=1 2 CEFEPIME S <=0.12 CEFTAZIDIME S <=0.5 CEFTRIAXONE S <=0.25 CIPROFLOXACIN S <=0.06 GENTAMICIN S <=1 IMIPENEM S <=0.25 LEVOFLOXACIN S <=0.12 MEROPENEM S <=0.25 NITROFURANTOIN S 32 PIP/TAZOBACTAM S <=4 TRIMETHOPRIM/SULFA S <=20 S = Susceptible I = Intermediate R = Resistant NS = Not susceptible SDD = Susceptible Dose Dependent * = Not Tested NR = Not Reported NN = See Therapy Comments THERAPY COMMENTS Note 1: For infections other than uncomplicated UTI caused by E. coli, K. pneumoniae or P. mirabilis: Cefazolin is resistant if OFELIA > or = 8 mcg/mL. (Distinguishing susceptible versus intermediate for isolates with OFEILA < or = 4 mcg/mL requires additional testing.) Note 2: For uncomplicated UTI caused by E. coli, K. pneumoniae or P. mirabilis: Cefazolin is susceptible if OFELIA <32 mcg/mL and predicts susceptible to the oral agents cefaclor, cefdinir, cefpodoxime, cefprozil, cefuroxime, cephalexin and loracarbef. Urine URINE SPECIMEN OBTAINED BY CLEAN CATCH PROCEDURE / Unknown 04/06/2025 7:35 AM EDT 04/06/2025 7:36 AM EDT Narrative [facility] - 04/09/2025 6:11 PM EDT FASTING:NO FASTING: NO Resulting Agency Comment Performing Lab: Site ID: [id number] Name: [facility] Address: [address] [place] [phone] Director: Jonnie Hernández M.D. Denisse Brewer APRN URINE ORDERABLES Final Result Performing Organization Address [facility]/State/[facility] de Phone Number [facility] [address] [place] [address] * Cancer antigen 15-3 (03/27/2025 11:25 AM EDT) Only the most recent of2 resultswithin the time period is included. [facility] CA 15-3 (YH) 26.2 <=30.0 U/mL 03/27/2025 12:22 PM EDT [facility] DEPARTMENT OF LABORATORY MEDICINE Comment: Samples should not be taken from patients receiving therapy with high biotin doses (i.e. > 5 mg/day) until at least 8 hours following the last biotin administration. Transitioned to [employer] e801 method April 15, 2020. The results cannot be interpreted as absolute evidence of the presence or absence of malignant disease. The values obtained from a different assay method or kits cannot be used interchangeably. This test was performed on the Shira e801 manufactured by [employer] using an ElectroChemiLuminescence immunoassay. Blood Venipuncture / Unknown 03/27/2025 11:25 AM EDT 03/27/2025 11:29 AM EDT Ludmila L Michael INSURANCE ANALYST LAB BLOOD ORDERABLES Final Result Performing Organization Address [facility] Co de Phone Number [facility] DEPARTMENT OF LABORATORY MEDICINE [address] [place] [address] * CEA (03/27/2025 11:25 AM EDT) Only the most recent of2 resultswithin the time period is included. CEA (Y) <1.8 See Comment ng/mL 03/27/2025 12:22 PM EDT [facility] DEPARTMENT OF LABORATORY MEDICINE Comment: Ages 20-69: Non-smokers (never or past) - <3.8 ng/mL Smokers (current) - <5.5 ng/mL Samples should not be taken from patients receiving therapy with high biotin doses (i.e. > 5 mg/day) until at least 8 hours following the last biotin administration. Transitioned to [employer] e801 method April 15, 2020. The results cannot be interpreted as absolute evidence of the presence or absence of malignant disease. The values obtained from a different assay method or kits cannot be used interchangeably. This test was performed on the Shira e801 manufactured by [employer] using an ElectroChemiLuminescence immunoassay. Blood Venipuncture / Unknown 03/27/2025 11:25 AM EDT 03/27/2025 11:29 AM EDT Denisse Brewer INSURANCE ANALYST LAB BLOOD ORDERABLES Final Res ult Performing Organization Address [facility] Co de Phone Number [facility] DEPARTMENT OF LABORATORY MEDICINE [address] [place] [address] * TRANSTHORACIC ECHO (TTE) COMPLETE W COLOR, DOPPLER, STRAIN AND 3D (03/27/2025 8:48 AM EDT) Reported 3DE EF% 65 % [facility] Anatomical Region Laterality Modality Chest Ultrasound 03/27/2025 8:10 AM EDT Narrative 03/27/2025 10:26 AM EDT * Normal left ventricular size, wall thickness, systolic function and wall motion. The left ventricular ejection calculated by 3DE was 65%. Normal global longitudinal strain (-18%). Normal diastolic function and filling pressures. * Normal right ventricular cavity size and systolic function. * Atria are normal in size. * Trileaflet aortic valve. No aortic stenosis. Trace aortic regurgitation. * Mild tricuspid regurgitation. * All visible segments of the aorta are normal in size. * IVC diameter < 2.1 cm that collapses > 50% with a sniff suggests normal RAP (0-5 mmHg, mean 3 mmHg). * Trivial pericardial effusion. * No significant change in left ventricular systolic function compared to images from previous echocardiogram of 12/20/2024. Findings: Procedure Information Transthoracic Echocardiogram was performed with color flow Doppler. 3D imaging performed on the LV. Quality of the study was fair. Study quality is limited by patient's body habitus and lung artifact. Enhancement agent was not needed. Left Ventricle Normal left ventricular size, wall thickness, systolic function and wall motion. LVEF calculated by 3DE was 65%. Normal global longitudinal strain (-18%). Normal diastolic function and filling pressures. Wall Motion Rest Echo Findings All wall segments showed normal motion. Right Ventricle Normal right ventricular cavity size and systolic function. Estimated right ventricular systolic pressure is 25 mmHg. Right ventricular systolic pressure is normal. Atria Atria are normal in size. No interatrial shunt by color Doppler. Aortic Valve Trileaflet aortic valve. No aortic stenosis. Trace aortic regurgitation. Mitral Valve Normal mitral valve leaflets. No mitral stenosis. Trace mitral regurgitation. Tricuspid Valve Normal tricuspid valve leaflets. Mild tricuspid regurgitation. Pulmonic Valve Normal pulmonic valve. Trace pulmonic regurgitation. Great Vessels All visible segments of the aorta are normal in size. Venous IVC diameter < 2.1 cm that collapses > 50% with a sniff suggests normal RAP (0-5 mmHg, mean 3 mmHg). Pericardium/Pleural Trivial pericardial effusion. Prior Study Comparison No significant change in left ventricular systolic function compared to images from previous echocardiogram of 12/20/2024. Procedure Note Micah Zurita MD - 03/27/2025 * Normal left ventricular size, wall thickness, systolic function andwall motion. The left ventricular ejection calculated by 3DE was 65%.Normal global longitudinal strain (-18%). Normal diastolic function andfilling pressures. * Normal right ventricular cavity size and systolic function. * Atria are normal in size. * Trileaflet aortic valve. No aortic stenosis. Trace aorticregurgitation. * Mild tricuspid regurgitation. * All visible segments of the aorta are normal in size. * IVC diameter < 2.1 cm that collapses > 50% with a sniff suggests normalRAP (0- 5 mmHg, mean 3 mmHg). * Trivial pericardial effusion. * No significant change in left ventricular systolic function compared toimages from previous echocardiogram of 12/20/2024. Findings: Procedure Information Transthoracic Echocardiogram was performed with color flow Doppler. 3Dimaging performed on the LV. Quality of the study was fair. Studyquality is limited by patient's body habitus and lung artifact.Enhancement agent was not needed. Left Ventricle Normal left ventricular size, wall thickness, systolic function and wallmotion. LVEF calculated by 3DE was 65%. Normal global longitudinal strain(-18%). Normal diastolic function and filling pressures. Wall Motion Rest Echo Findings All wall segments showed normal motion. Right Ventricle Normal right ventricular cavity size and systolic function. Estimatedright ventricular systolic pressure is 25 mmHg. Right ventricularsystolic pressure is normal. Atria Atria are normal in size. No interatrial shunt by color Doppler. Aortic Valve Trileaflet aortic valve. No aortic stenosis. Trace aorticregurgitation. Mitral Valve Normal mitral valve leaflets. No mitral stenosis. Trace mitralregurgitation. Tricuspid Valve Normal tricuspid valve leaflets. Mild tricuspid regurgitation. Pulmonic Valve Normal pulmonic valve. Trace pulmonic regurgitation. Great Vessels All visible segments of the aorta are normal in size. Venous IVC diameter < 2.1 cm that collapses > 50% with a sniff suggests normalRAP (0-5 mmHg, mean 3 mmHg). Pericardium/Pleural Trivial pericardial effusion. Prior Study Comparison No significant change in left ventricular systolic function compared toimages from previous echocardiogram of 12/20/2024. us Cami Palmer MD CV ECHO ORDERABLES Final Result * CT Abdomen Pelvis w IV Contrast (02/28/2025 10:11 AM EDT) Anatomical Region Laterality Modality Abdomen, Pelvis, Ortho Pelvis, Abdomen and Pelvi s Computed Tomography 02/28/2025 10:3 2 AM EDT Impressions 02/28/2025 10:35 AM EDT No evidence of recurrent or metastatic disease. [facility] Not[facility] Classification: Routine. Reported and signed by: Quinn Dickson MD [facility] Narrative 02/28/2025 10:[address] ABDOMEN PELVIS W IV CONTRAST on 02/28/2025 10:11 AM INDICATION: Clinical Trial [facility] [id number]. COMPARISON: 12/06/2024 TECHNIQUE: CT images of the abdomen and pelvis were obtained after the administration of intravenous contrast. IV contrast administered: 80 ML IOHEXOL (OMNIPAQUE) 350 MG IODINE/ML INJECTION FINDINGS: There is hepatic steatosis. There is a region of increased attenuation at the dome of the liver, unchanged, possibly focal fatty sparing. The spleen, pancreas, left adrenal gland, and kidneys are unremarkable. Gallstone is present. A 1.3 cm right adrenal nodule is stable. There is no bowel obstruction or ascites. There is no abdominal or pelvic adenopathy. There is no aggressive osseous lesion. Procedure Note Quinn Dickson MD - 02/28/2025 CT ABDOMEN PELVIS W IV CONTRAST on 02/28/2025 10:11 AM INDICATION: Clinical Trial [facility] [id number]. COMPARISON: 12/06/2024 TECHNIQUE: CT images of the abdomen and pelvis were obtained after theadministration of intravenous contrast. IV contrast administered: 80 ML IOHEXOL (OMNIPAQUE) 350 MG IODINE/MLINJECTION FINDINGS: There is hepatic steatosis. There is a region of increased attenuation atthe dome of the liver, unchanged, possibly focal fatty sparing. Thespleen, pancreas, left adrenal gland, and kidneys are unremarkable.Gallstone is present. A 1.3 cm right adrenal nodule is stable. There is nobowel obstruction or ascites. There is no abdominal or pelvic adenopathy.There is no aggressive osseous lesion. IMPRESSION: No evidence of recurrent or metastatic disease. [facility] Notify [facility] Classification: Routine. Reported and signed by: Quinn Dicskon MD [facility] us Denisse Brewer APRN IMG CT ORDERABLES Final Result * CT Chest w IV Contrast (02/28/2025 10:11 AM EDT) Anatomical Region Laterality Modality Chest Computed Tomogra phy 03/03/2025 8:36 AM EDT Impressions 03/03/2025 8:42 AM EDT Markedly improved pulmonary metastases and thoracic adenopathy. Reported and signed by: Froylan Han MD [facility] Narrative 03/03/2025 8:42 AM EDT Study: CT CHEST W IV CONTRAST Indication: Clinical Trial [facility] [id number] Comparison: CT from 12/06/2024 Technique: CT of the chest was performed after intravenous administration of contrast. FINDINGS: Pulmonary metastases have decreased. For example, 1.8 cm and 1.2 cm metastases in the right lower lobe were 2.9 cm and 2.1 cm, respectively (images 187 and 226, series 5). Postradiation changes are noted in the anterior left upper lobe. Previously enlarged mediastinal and hilar lymph nodes are now all subcentimeter in size. There is no pleural effusion. No aggressive osseous lesion is seen. For findings below the diaphragms please see a separate Abdomen/Pelvis CT report. Procedure Note Froylan Han MD - 03/03/2025 Study: CT CHEST W IV CONTRAST Indication: Clinical Trial [facility] [id number] Comparison: CT from 12/06/2024 Technique: CT of the chest was performed after intravenous administrationof contrast. FINDINGS: Pulmonary metastases have decreased. For example, 1.8 cm and 1.2 cmmetastases in the right lower lobe were 2.9 cm and 2.1 cm, respectively(images 187 and 226, series 5). Postradiation changes are noted in theanterior left upper lobe. Previously enlarged mediastinal and hilar lymph nodes are now allsubcentimeter in size. There is no pleural effusion. No aggressive osseous lesion is seen. For findings below the diaphragms please see a separate Abdomen/Pelvis CTreport. IMPRESSION: Markedly improved pulmonary metastases and thoracic adenopathy. Reported and signed by: Froylan Han MD [facility] Denisse Brewer INSURANCE ANALYST IM CT ORDERABLES Final Result * HIV-1/HIV-2 antibody/antigen screen w/reflex ([facility]) (12/20/2024 12:51 PM EDT) HIV 1 and 2 Antibody/Antigen Screen Negative Negative 12/20/2024 3:19 PM EDT [facility] DEPARTMENT OF LABORATORY MEDICINE Comment:Interpretation: This specimen is HIV antibody and antigen negative. A negative test does not exclude the possibility of infection with HIV. If suspicion is high, submit a sample for HIV nucleic acid testing. Negative results may be seen in early infection, advanced AIDS and agammaglobulinemic patients, among others. Antiretroviral drugs taken for treatment and prophylaxis may limit the ability of diagnostic tests to detect HIV infection. The performance of this assay has not been clinically validated in patients less than 2 years old. Blood Venipuncture / Unknown 12/20/2024 12:51 PM EDT 12/20/2024 12:51 PM EDT Murphy Huynh MD LAB BLOOD ORDERABLES Final Resul t Performing Organization Address [facility] de Phone Number [facility] DEPARTMENT OF LABORATORY MEDICINE [address] [place] [address] * Hepatitis C Ab with reflex to HCV PCR (12/20/2024 12:51 PM EDT) Hepatitis C Antibody Negative Negative 12/20/2024 3:17 PM EDT [facility] DEPARTMENT OF LABORATORY MEDICINE Comment:A negative result do es not exclude HCV infection, since antibodies are not detectable for 4-8 weeks after initial infection, or may not develop in compromised hosts. In high-risk individuals, repeat antibody testing in 2 months and/or HCV RNA PCR should be considered. Blood Venipuncture / Unknown 12/20/2024 12:51 PM EDT 12/20/2024 12:51 PM EDT Murphy Huynh MD LAB BLOOD ORDERABLES Final Resul t Performing Organization Address [facility] Co de Phone Number [facility] DEPARTMENT OF LABORATORY MEDICINE [address] [place] [address], [facility] [phone] * [facility] Mammo Digital Screening w CAD (09/26/2023 2:50 PM EDT) Narrative [facility] - 05/02/2024 2:50 PM EDT DISCLAIMER This procedure captures images only. There is no report. Murphy Huynh MD IMG [facility] NON REP ORDERABLES Final Result RAD4 from Last 3 Months or Most Recently Relevant to Health Maintenance Insurance MEDICARE [facility] MEDICARE [facility] MEDICARE [facility] Advance Directives * Full Code (Latest Code Status on File) Date Activated Date Inactivated Comments 09/06/2024 10:57 PM 09/12/2024 5:44 PM Care Teams Paper Rewinder Relationship Specialty Start Date End Date Denton To NP [address] [place] [phone] PCP - General Family Medicine 04/30/24
--- OUTSIDE RECORDS SUMMARY | 2025-04-24 10:57 | XMS_ITS | Encounter Summary ---
Author Organization [facility] Address [address] [place] [address] Care Team Providers Care Clinical Nursing Professor Name Role Phone Denton To NP Primary Care Provider + Encounter Details Date Type Department Care Team (Late st Contact Info) Description 09/03/2024 Scanned Document INTERFACE DEFAULT [address] [place] [phone] System, Provider Not In Social History Tobacco Use Types Packs/Day Years Used Date Smoking Tobacco: Former Cigarettes Alcohol Use Standard Drinks/Week Comments Never 0 (1 standard drink = 0.6 oz pur e alcohol) [facility] Utilities Answer Date Recorded In the past 12 months has e electric, gas, oil, or water [employer] threatened to shut off services in your [...] Info) Description 05/01/2025 10:00 AM EDT Appointment [facility] CT Scan [address] [place] [address]. [place] [address] Ludmila Rodriguez APRN [address] [place] [phone] 05/09/2025 9:00 AM EDT Appointment [facility] [address] [place] [phone] 05/09/2025 9:30 AM EDT Office Visit [facility] at [address] [address] Denisse Brewer APRN [address] [place] [phone] 05/09/2025 10:15 AM EDT Appointment [facility] [address] [place] [phone] 05/30/2025 9:00 AM EST Appointment [facility] [address] [place] [phone] 05/30/2025 9:30 AM EST Office Visit [facility] at [address] [address] Murphy Huynh MD [address] [place] [phone] 05/30/2025 10:15 AM EST Appointment [facility] [address] [place] [phone] 06/20/2025 11:00 AM EST Appointment [facility] [address] [place] [phone] 06/20/2025 11:30 AM EST Office Visit [facility] at [address] [address] Murphy Huynh MD [address] [place] [phone] 06/20/2025 12:00 PM EST Appointment [facility] [address] [place] [phone] documented as of this encounter Procedures Procedure [...] documented as of this encounter Care Teams Clinical Nursing Professor Relationship Specialty Start Date End Date Denton To NP [facility] [phone] PCP - General Family Medicine 04/30/24 documented as of this encounter
== END 2025-04-24 10:42 | disposition home or self-care (01) ==
PROVIDERS: PCP Nurse Practitioner Family; Visit Provider Physician Assistant
DX: N30.01 Acute cystitis with hematuria (principal); Z13.9 Encounter for screening, unspecified

== ENCOUNTER 2025-04-24 09:35 | Outpatient (REF) | payer MEDICARE, SELFPAY | END 2025-04-24 09:36 | disposition home or self-care (01) | LOC: HO.LAB 09:35 | PROVIDERS: PCP Nurse Practitioner Family | DX: N30.01 Acute cystitis with hematuria (principal) | CPT/HCPCS: 81003; 87086; 87088; 87186; 99212 ==

== ENCOUNTER 2025-06-01 08:41 | Outpatient (REF) | payer MEDICARE, SELFPAY ==
--- OUTSIDE RECORDS SUMMARY | 2025-05-30 09:00 | XMS_ITS | Encounter Summary ---
Author Organization [facility] Address [address] [place] [address] Care Team Providers Care Merchandise Executive Name Role Phone Denton To JEEP DRIVER Primary Care Provider + Encounter Details Date Type Department Care Team (Late st Contact Info) Description 05/30/2025 9:00 AM [facility] Hospital Encounter [facility] [address] [phone] Murphy Huynh MD [address] [place] [address] Arrived Social History Tobacco Use Types Packs/Day Years Used Date Smoking Tobacco: Former Cigarettes Alcohol Use Standard Drinks/Week Comments Never 0 (1 standard drink = 0.6 oz pur e alcohol) [facility] Utilities Answer Date Recorded In the past 12 months has [employer], gas, oil, or water [email or web address] threatened to shut off services in your [...] your living situation today? I have a [facility] place to live 03/26/2025 Housing Stability [...] Care Team (Late st Contact Info) Description 06/27/2025 10:00 AM EST Appointment [facility] [address] [place] [phone] 06/27/2025 10:30 AM EST Office Visit [facility] Center at [address] [address] Murphy Huynh MD [address] [place] [phone] 06/27/2025 11:45 AM EST Appointment [facility] [address] [place] [phone] 07/08/2025 2:00 PM EST Hospital Encounter [facility] CT Scan [address] [place] [address]. [place] [address] Denisse Brewer APRN [address] [place] [phone] 07/12/2025 12:00 PM EST Appointment [facility] [address] [place] [address] 07/18/2025 9:00 AM EST Appointment [facility] [address] [place] [address] 07/18/2025 9:30 AM EST Office Visit [facility] at [address] [place] [address] Murphy Huynh MD [address] [place] [address], [place] [phone] 07/18/2025 10:15 AM EST Appointment [facility] [address] [place] [address], [place] [address] documented as of this encounter Goals Goal [...] documented as of this encounter Care Teams Merchandise Executive Relationship Specialty Start Date End Date Denton To NP [facility] [place] [phone] PCP - General Family Medicine 04/30/24 documented as of this encounter
--- OUTSIDE RECORDS SUMMARY | 2025-05-30 09:30 | XMS_ITS | Encounter Summary ---
Author Organization [facility] and [facility] Address [address] [place] [address] Care Team Providers Care Commercial Appraiser Name Role Phone Denton To PATROL SERGEANT Primary Care Provider + Encounter Details Date Type Department Care Team (Late st Contact Info) Description 05/30/2025 9:30 AM EST Office Visit Breast Center at [address] [address] Murphy Huynh MD [address] [place] [phone] Social History Tobacco Use Types Packs/Day Years Used Date Smoking Tobacco: Former Cigarettes Alcohol Use Standard Drinks/Week Comments Never 0 (1 standard drink = 0.6 oz pur e alcohol) [facility] Utilities Answer Date Recorded In the past 12 months has [employer], gas, oil, or water [employer] threatened to shut off services in your [...] I have a [place] place to live 03/26/2025 Housing Stability [...] Info) Description 06/27/2025 10:00 AM EST Appointment [facility] Medical Oncology [address] [place] [address] 06/27/2025 10:30 AM EST Office Visit Breast Center at [address] [place] [address] Murphy Huynh MD [address] [place] [phone] (Fax) 06/27/2025 11:45 AM EST Appointment [facility] Medical Oncology Infusion [address] [place] [phone] 07/08/2025 2:00 PM EST Hospital Encounter [facility] CT Scan [address] [place] [address], [place] [address] Denisse Brewer APRN [address] [place] [phone] 07/12/2025 12:00 PM EST Appointment [facility] Medical Oncology Infusion [address] [place] [phone] 07/18/2025 9:00 AM EST Appointment [facility] Medical Oncology Infusion [address] [place] [phone] 07/18/2025 9:30 AM EST Office Visit Breast Center at [address] [address] Murphy Huynh MD [address] [place] [phone] 07/18/2025 10:15 AM EST Appointment [facility] Medical Oncology Infusion [address] [place] [phone] documented as of this encounter Goals Goal Patient Goal Type Associated Problems Recent Progress Patient-Stated? Author RxSp Therapeutic Goal General On track( 025 2:22 PM EDT) No Fernando Naylor, PharmDuarte Note: Oncology: Improve or maintain quality of [...] documented as of this encounter Care Teams Commercial Appraiser Relationship Specialty Start Date End Date Denton To NP [facility] [place] [phone] PCP - General Family Medicine 04/30/24 documented as of this encounter
--- OUTSIDE RECORDS SUMMARY | 2025-05-30 10:15 | XMS_ITS | Encounter Summary ---
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 [facility] 03/26/2025 Housing Stability Not [...] PM EDT documented as of this encounter Progress Notes * Darrin Maldonado RN - 05/30/2025 10:15 AM EST Pt arrived in NP8 clinic for [facility]IC C8 enhertu. Port accessed and labs drawn. Pt was seen by provider and cleared to treat. Pt tolerated infusion well. Port flushed per policy and deaccessed. Pt discharged home in stable condition, appts in place. Pt is delaying one week for next cycle due to holidays. documented in this encounter Plan of Treatment Upcoming Encounters Date Type Department Care Team (Late st Contact Info) Description 06/27/2025 10:00 AM EST Appointment [facility] Medical Oncology Infusion [address] [facility] [address] [place] [address] 06/27/2025 10:30 AM EST Office Visit Breast Center at [facility] [address] [facility] [address] [place] [address] Murphy Huynh MD [address] [place] [address], [place] [phone] (Fax) 06/27/2025 11:45 AM EST Appointment [facility] Medical Oncology Infusion [address] [place] [address] 07/08/2025 2:00 PM EST Hospital Encounter [facility] CT Scan [address] [place] [address], [facility] [place] [address] Denisse Brewer APRN [address] [place] [phone] 07/12/2025 12:00 PM EST Appointment [facility] Medical Oncology Infusion [address] [place] [phone] 07/18/2025 9:00 AM EST Appointment [facility] Medical Oncology Infusion [address] [place] [phone] 07/18/2025 9:30 AM EST Office Visit Breast Center at [address] [place] [address] Murphy Huynh MD [address] [place] [phone] 07/18/2025 10:15 AM EST Appointment [facility] Medical Oncology Infusion [address] [place] [phone] documented as of this encounter Goals Goal [...] On track( 025 2:22 PM EDT) Fernando Quiroz PharmD Note: Oncology: Increase or maintain treatment adherence MTPs must be opened for patients not making appropriate progress towards their established therapeutic goals. Patient's progress towards goal: documented as of this encounter Procedures Procedure Name Priority Date/Time Associated Diagnosis Comments COMPREHENSIVE METABOLIC PANEL Routine 05/30/2025 9:33 AM EST 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, unspecified laterality (HC Code) (HC CODE) CBC WITH AUTO DIFFERENTIAL Routine 05/30/2025 9:33 AM EST 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, unspecified laterality (HC Code) (HC CODE) CBC AND DIFFERENTIAL Routine 05/30/2025 9:33 AM EST 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, unspecified laterality (HC Code) (HC CODE) PHOSPHORUS (BH GH L LMW YH) Routine 05/30/2025 9:33 AM EST 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, unspecified laterality (HC Code) (HC CODE) MAGNESIUM Routine 05/30/2025 9:33 AM EST 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, unspecified laterality (HC Code) (HC CODE) LACTATE DEHYDROGENASE Routine 05/30/2025 9:33 AM EST 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, unspecified laterality (HC Code) (HC CODE) COMPREHENSIVE METABOLIC PANEL Routine 05/30/2025 9:33 AM EST 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, unspecified laterality (HC Code) (HC CODE) documented in this encounter Results * (ABNORMAL) CBC auto differential (05/30/2025 9:33 AM EST) WBC 2.8(L) 4.0 - 11.0 x1000/ L 05/30/2025 9:49 AM [facility] DEPARTMENT OF LABORATORY MEDICINE RBC 4.11 4.00 - 6.00 M/ L 05/30/2025 9:49 AM [facility] DEPARTMENT OF LABORATORY MEDICINE Hemoglobin 12.7 11.7 - 15.5 g/dL 05/30/2025 9:49 AM [facility] DEPARTMENT OF LABORATORY MEDICINE Hematocrit 38.30 35.00 - 45.00 % 05/30/2025 9:49 AM [facility] DEPARTMENT OF LABORATORY MEDICINE MCV 93.2 80.0 - 100.0 fL 05/30/2025 9:49 AM [facility] DEPARTMENT OF LABORATORY MEDICINE MCH 30.9 27.0 - 33.0 pg 05/30/2025 9:49 AM [facility] DEPARTMENT OF LABORATORY MEDICINE MCHC 33.2 31.0 - 36.0 g/dL 05/30/2025 9:49 AM [facility] DEPARTMENT OF LABORATORY MEDICINE RDW-CV 14.7 11.0 - 15.0 % 05/30/2025 9:49 AM [facility] DEPARTMENT OF LABORATORY MEDICINE Platelets 273 150 - 420 x1000/ L 05/30/2025 9:49 AM [facility] DEPARTMENT OF LABORATORY MEDICINE MPV 10.5 8.0 - 12.0 fL 05/30/2025 9:49 AM [facility] DEPARTMENT OF LABORATORY MEDICINE Neutrophils 50.3 39.0 - 72.0 % 05/30/2025 9:49 AM [facility] DEPARTMENT OF LABORATORY MEDICINE Lymphocytes 33.3 17.0 - 50.0 % 05/30/2025 9:49 AM [facility] DEPARTMENT OF LABORATORY MEDICINE Monocytes 8.2 4.0 - 12.0 % 05/30/2025 9:49 AM [facility] DEPARTMENT OF LABORATORY MEDICINE Eosinophils 5.7(H) 0.0 - 5.0 % 05/30/2025 9:49 AM [facility] DEPARTMENT OF LABORATORY MEDICINE Basophil 1.1 0.0 - 1.4 % 05/30/2025 9:49 AM [facility] DEPARTMENT OF LABORATORY MEDICINE Immature Granulocytes 1.4(H) 0.0 - 1.0 % 05/30/2025 9:49 AM [facility] DEPARTMENT OF LABORATORY MEDICINE nRBC 0.0 0.0 - 1.0 % 05/30/2025 9:49 AM [facility] DEPARTMENT OF LABORATORY MEDICINE Absolute Lymphocyte Count 0.94 0.60 - 3.70 x 1000/ L 05/30/2025 9:49 AM [facility] DEPARTMENT OF LABORATORY MEDICINE Monocyte Absolute Count 0.23 0.00 - 1.00 x 1000/ L 05/30/2025 9:49 AM [facility] DEPARTMENT OF LABORATORY MEDICINE Eosinophil Absolute Count 0.16 0.00 - 1.00 x 1000/ L 05/30/2025 9:49 AM [facility] DEPARTMENT OF LABORATORY MEDICINE Basophil Absolute Count 0.03 0.00 - 1.00 x 1000/ L 05/30/2025 9:49 AM [facility] DEPARTMENT OF LABORATORY MEDICINE Absolute Immature Granulocyte Count 0.04 0.00 - 0.30 x 1000/ L 05/30/2025 9:49 AM [facility] DEPARTMENT OF LABORATORY MEDICINE Absolute nRBC 0.00 0.00 - 1.00 x 1000/ L 05/30/2025 9:49 AM [facility] DEPARTMENT OF LABORATORY MEDICINE ANC (Abs Neutrophil Count) 1.42(L) 2.00 - 7.60 x 1000/ L 05/30/2025 9:49 AM [facility] DEPARTMENT OF LABORATORY MEDICINE Blood Venipuncture / Unknown 05/30/2025 9:33 AM EST 05/30/2025 9:44 AM EST us Denisse Hernandez Dest SPACE SYSTEMS OPERATIONS MANAGER LAB BLOOD ORDERABLES Final Res ult Performing Organization Address City/State/[facility] Co de Phone Number [facility] DEPARTMENT OF LABORATORY MEDICINE [address] [place] [address] * (ABNORMAL) Comprehensive metabolic panel (05/30/2025 9:33 AM EST) Sodium 140 136 - 144 mmol/L 05/30/2025 10:08 AM [facility] DEPARTMENT OF LABORATORY MEDICINE Potassium 4.6 3.3 - 5.3 mmol/L 05/30/2025 10:08 AM [facility] DEPARTMENT OF LABORATORY MEDICINE Chloride 106 98 - 107 mmol/L 05/30/2025 10:08 AM [facility] DEPARTMENT OF LABORATORY MEDICINE CO2 23 20 - 30 mmol/L 05/30/2025 10:08 AM [facility] DEPARTMENT OF LABORATORY MEDICINE Anion Gap 11 7 - 17 05/30/2025 10:08 AM [facility] DEPARTMENT OF LABORATORY MEDICINE Glucose 192(H) 70 - 100 mg/dL 05/30/2025 10:08 AM [facility] DEPARTMENT OF LABORATORY MEDICINE BUN 16 8 - 23 mg/dL 05/30/2025 10:08 AM [facility] DEPARTMENT OF LABORATORY MEDICINE Creatinine 0.97 0.40 - 1.30 mg/dL 05/30/2025 10:08 AM [facility] DEPARTMENT OF LABORATORY MEDICINE Calcium 9.3 8.8 - 10.2 mg/dL 05/30/2025 10:08 AM [facility] DEPARTMENT OF LABORATORY MEDICINE BUN/Creatinine Ratio 16.5 8.0 - 23.0 05/30/2025 10:08 AM [facility] DEPARTMENT OF LABORATORY MEDICINE Total Protein 6.7 5.9 - 8.3 g/dL 025 10:08 AM [facility] DEPARTMENT OF LABORATORY MEDICINE Albumin 4.1 3.6 - 5.1 g/dL 05/30/2025 10:08 AM [facility] DEPARTMENT OF LABORATORY MEDICINE Total Bilirubin 0.4 <=1.2 mg/dL 05/30/20 10:08 AM [facility] DEPARTMENT OF LABORATORY MEDICINE Alkaline Phosphatase 128(H) 9 - 122 U/L 05/30/2025 10:08 AM [facility] DEPARTMENT OF LABORATORY MEDICINE Alanine Aminotransferase (ALT) 40(H) 10 - 35 U/L 05/30/2025 10:08 AM [facility] DEPARTMENT OF LABORATORY MEDICINE Comment:Calcium dobesilate c an cause artificially low ALT results at therapeutic concentrations Aspartate Aminotransferase (AST) 28 10 - 35 U/L 05/30/2025 10:08 AM [facility] DEPARTMENT OF LABORATORY MEDICINE Globulin 2.6 2.0 - 3.9 g/dL 05/30/2025 10:08 AM [facility] DEPARTMENT OF LABORATORY MEDICINE A/G Ratio 1.6 1.0 - 2.2 05/30/2025 10:08 AM [facility] DEPARTMENT OF LABORATORY MEDICINE AST/ALT Ratio 0.7 Reference Range Not Established 05/30/2025 10:08 AM [facility] DEPARTMENT OF LABORATORY MEDICINE eGFR (Creatinine) 60 >=60 mL/min/1.73m2 05/30/2025 10:08 AM [facility] DEPARTMENT OF LABORATORY MEDICINE Comment: [facility] utilizes CKD-EPI Creatinine 2020 to report eGFR. Values < 60 mL/min/1.73 m2 may indicate CKD if present for more than three months AND creatinine is at steady state. The eGFR provides a rough estimate of kidney function. For further guidance, please refer to the CKD: Adult Paintless Dent Repair Technician Signature pathway. Creatinine Delta 0.15 See Comment 10:08 AM [facility] DEPARTMENT OF LABORATORY MEDICINE Comment: Delta creatinine [...] and 5 mg/dL. Blood Venipuncture / Unknown 05/30/2025 9:33 AM EST 05/30/2025 9:44 AM EST us Denisse Hernandez Dest SPACE SYSTEMS OPERATIONS MANAGER LAB BLOOD ORDERABLES Final Res ult [facility] DEPARTMENT OF LABORATORY MEDICINE [address] [place] [address] * LACTATE DEHYDROGENASE (05/30/2025 9:33 AM EST) LD 193 122 - 241 U/L 05/30/2025 10:22 AM EST [facility] DEPARTMENT OF LABORATORY MEDICINE Blood Venipuncture / Unknown 05/30/2025 9:33 AM EST 05/30/2025 9:59 AM EST Denisse M Dest SPACE SYSTEMS OPERATIONS MANAGER LAB BLOOD ORDERABLES Final Res ult [facility] DEPARTMENT OF LABORATORY MEDICINE [address] [place] [address] * MAGNESIUM (05/30/2025 9:33 AM EST) Magnesium 2.0 1.7 - 2.4 mg/dL 05/30/2025 10:08 AM EST [facility] DEPARTMENT OF LABORATORY MEDICINE Blood Venipuncture / Unknown 05/30/2025 9:33 AM EST 05/30/2025 9:44 AM EST Denisse M Dest SPACE SYSTEMS OPERATIONS MANAGER LAB BLOOD ORDERABLES Final Res ult Performing Organization Address [facility] Co de Phone Number [facility] OF [facility] MEDICINE [address] [place] [address] * Phosphorus (BH GH L LMW YH) (05/30/2025 9:33 AM EST) Phosphorus 3.2 2.2 - 4.5 mg/dL 05/30/2025 10:08 AM EST [facility] DEPARTMENT OF LABORATORY MEDICINE Blood Venipuncture / Unknown 05/30/2025 9:33 AM EST 05/30/2025 9:44 AM EST Denisse M Dest SPACE SYSTEMS OPERATIONS MANAGER LAB BLOOD ORDERABLES Final Res ult Performing Organization Address [facility] Co de Phone Number [facility] DEPARTMENT OF LABORATORY MEDICINE [address] [place] [address] documented in this encounter Visit Diagnoses Diagnosis 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, unspecified laterality (HC Code) (HC CODE)- Primary documented in this encounter Administered Medications Inactive Administered Medications - up to 3 most recent administrations Medication Order MAR Action Action Date Dose Rate Site aprepitant (CINVANTI) injection 130 mg 130 mg, IV Push, ONCE, On Claudia 05/30/25 at 1045, For 1 dose, Maximum IV Push dose of 130 mg. Administer undiluted over 2 minutes.Indications: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, unspecified laterality (HC Code) (HC CODE) Given 05/30/2025 12:20 PM EST 130 mg dexAMETHasone (DECADRON) tablet 12 mg 12 mg, Oral, ONCE, On Claudia 05/30/25 at 1045, For 1 dose, Take with food.Indications: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, unspecified laterality (HC Code) (HC CODE) Given 05/30/2025 12:20 PM EST 12 mg PSYCHIATRIC [id number] trastuzumab deruxtecan (T-DXd, [id number]) 320 mg in dextrose 5 % in water (D5W) 100 mL investigational drug 320 mg (rounded from 325.08 mg = 5.4 mg/kg 60.2 kg Treatment plan Recorded weight), Intravenous, Administer over 30 Minutes, ONCE, On Claudia 05/30/25 at 1115, For 1 dose, Infuse through a 0.22 micron filter and DEHP free IV Tubing. Administer first dose over 90 minutes. If tolerated, subsequent infusions may be administered over 30 minutes. NOT compatible with 0.9% NaCl. Subject # [id number]: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, unspecified laterality (HC Code) (HC CODE) New Bag 05/30/2025 1:04 PM EST 320 mg 200 mL/hr palonosetron (ALOXI) injection 0.25 mg 0.25 mg, IV Push, ONCE, On Claudia 05/30/25 at 1045, For 1 dose, Administer undiluted over 30 seconds.Indications: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, unspecified laterality (HC Code) (HC CODE) Given 05/30/2025 12:20 PM EST 0.25 mg documented in this encounter Additional Health Concerns Assessment Noted Time PHQ-9 Depression Total Score: 0 05/10/20 10:43 AM EDT documented as of this encounter Care Teams Motorcycle Subassembler Relationship Specialty Start Date End Date Denton To NP [facility] [phone] PCP - General Family Medicine 04/30/24 documented as of this encounter
--- OUTSIDE RECORDS SUMMARY | 2025-06-01 08:44 | XMS_ITS | Encounter Summary ---
Author Organization [facility] and [facility] Address [address] [place] [address] Care Team Providers Care Manufacturing Engineer Paint Name Role Phone Denton To CRM CONSULTANT Primary Care Provider + Encounter Details Date Type Department Care Team (Late st Contact Info) Description 07/02/2024 Scanned Document INTERFACE DEFAULT [address] [place] [address] System, Provider Not In Social History Tobacco Use Types Packs/Day Years Used Date Smoking Tobacco: Former Cigarettes Alcohol Use Standard Drinks/Week Comments Never 0 (1 standard drink = 0.6 oz pur e alcohol) PHQ-2 Answer Date Recorded PHQ-2 Total Score 0 05/10/2024 Housing Stability Answer Date Recorded What is your living situation today? I [facility] a [facility] 05/10/2024 Housing Stability [...] Info) Description 06/27/2025 10:00 AM EST Appointment [facility] Medical Oncology [address] [place] [address] 06/27/2025 10:30 AM EST Office Visit Breast Center at [facility] Cancer [address] [address] Murphy Huynh MD [address] [place] [phone] 06/27/2025 11:45 AM EST Appointment [facility] Medical Oncology Infusion [address] [place] [address] 07/08/2025 2:00 PM EST Hospital Encounter [facility] CT Scan [address] [place] [address], [facility] [place] [address] Denisse Brewer APRN [address] [place] [phone] 07/12/2025 12:00 PM EST Appointment [facility] Medical Oncology Infusion [address] [place] [address] 07/18/2025 9:00 AM EST Appointment [facility] Medical Oncology Infusion [address] [place] [address] 07/18/2025 9:30 AM EST Office Visit Breast Center at [address] [address] Murphy Huynh MD [address] [place] [phone] 07/18/2025 10:15 AM EST Appointment [facility] Medical Oncology Infusion [address] [place] [phone] documented as of this encounter Procedures Procedure [...] documented as of this encounter Care Teams Manufacturing Engineer Paint Relationship Specialty Start Date End Date Denton To NP [facility] [place] [phone] PCP - General Family Medicine 04/30/24 documented as of this encounter
--- OUTSIDE RECORDS SUMMARY | 2025-06-01 08:44 | XMS_ITS | Encounter Summary ---
Author Organization [facility] and [facility] Address [address] [place] [address] Care Team Providers Care Partition Setter Name Role Phone Denton To NP Primary Care Provider + Encounter Details Date Type Department Care Team (Late st Contact Info) Description 05/03/2024 Abstract Surgical Oncology at [address] [place] [address] Center, [place] [facility] [address] [place] [address] First floor, [place] [address] Social History Tobacco Use Types [...] Info) Description 06/27/2025 10:00 AM EST Appointment [facility] Medical Oncology [address] [place] [address] 06/27/2025 10:30 AM EST Office Visit Breast Center at [address] [place] [address] Murphy Huynh MD [address] [place] [phone] (Fax) 06/27/2025 11:45 AM EST Appointment [facility] Medical Oncology Infusion [address] [place] [address] 07/08/2025 2:00 PM EST Hospital Encounter [facility] CT Scan [address] [place] [address], [facility] [place] [address] Denisse Brewer APRN [address] [place] [phone] 07/12/2025 12:00 PM EST Appointment [facility] Medical Oncology Infusion [address] [place] [address] 07/18/2025 9:00 AM EST Appointment [facility] Medical Oncology Infusion [address] [place] [address] 07/18/2025 9:30 AM EST Office Visit Breast Center at [address] [address] Murphy Huynh MD [address] [place] [phone] 07/18/2025 10:15 AM EST Appointment [facility] Medical Oncology Infusion [address] [place] [phone] documented as of this encounter Visit Diagnoses Not on filedocumented in this encounter Care Teams Partition Setter Relationship Specialty Start Date End Date Denton To NP [address] [facility] [place] [phone] PCP - General Family Medicine 04/30/24 documented as of this encounter
--- OUTSIDE RECORDS SUMMARY | 2025-06-01 08:44 | XMS_ITS | Encounter Summary ---
Author Organization [facility] and [facility] Address [address] [place] [address] Care Team Providers Care Candlemaking Laborer Name Role Phone Denton To NP Primary Care Provider + Encounter Details Date Type Department Care Team (Late st Contact Info) Description 09/02/2024 Scanned Document INTERFACE DEFAULT [address] [place] [phone] System, Provider Not In Social History Tobacco Use Types Packs/Day Years Used Date Smoking Tobacco: Former Cigarettes Alcohol Use Standard Drinks/Week Comments Never 0 (1 standard drink = 0.6 oz pur e alcohol) [facility] Utilities Answer Date Recorded In the past 12 months has e electric, gas, oil, or water [employer] threatened to shut off services in your [...] Info) Description 06/27/2025 10:00 AM EST Appointment [facility] Medical Oncology Infusion [address] [place] [address] 06/27/2025 10:30 AM EST Office Visit Breast Center at [address] [address] Murphy Huynh MD [address] [place] [phone] 06/27/2025 11:45 AM EST Appointment [facility] Medical Oncology Infusion [address] [place] [phone] 07/08/2025 2:00 PM EST Hospital Encounter [facility] CT Scan [address] [place] [address]. [place] [address] Denisse Brewer APRN [address] [place] [phone] 07/12/2025 12:00 PM EST Appointment [facility] Medical Oncology Infusion [address] [place] [address] 07/18/2025 9:00 AM EST Appointment [facility] Medical Oncology Infusion [address] [place] [address] 07/18/2025 9:30 AM EST Office Visit Breast Center at [address] [address] Murphy Huynh MD [address] [place] [phone] 07/18/2025 10:15 AM EST Appointment [facility] Medical Oncology [facility] [address] [place] [address] documented as of this encounter Procedures Procedure [...] documented as of this encounter Care Teams Candlemaking Laborer Relationship Specialty Start Date End Date Denton To NP [facility] [place] [phone] PCP - General Family Medicine 04/30/24 documented as of this encounter
--- OUTSIDE RECORDS SUMMARY | 2025-06-01 08:44 | XMS_ITS | Encounter Summary ---
Author Organization [facility] and [facility] Address [address] [place] [phone] Care Team Providers Care Exhibit Preparator Name Role Phone Denton To NP Primary Care Provider + Encounter Details Date Type Department Care Team (Late st Contact Info) Description 01/01/2025 Orders Only Cancer Center at [address] [phone] Gissell Tuttle, ILA Social History Tobacco Use Types Packs/Day Years Used Date Smoking Tobacco: Former Cigarettes Alcohol Use Standard Drinks/Week Comments Never 0 (1 standard drink = 0.6 oz pur e alcohol) [facility] Utilities Answer Date Recorded In the [...] Info) Description 06/27/2025 10:00 AM EST Appointment [facility] Medical Oncology Infusion [address] [place] [phone] 06/27/2025 10:30 AM EST Office Visit Breast Center at [address] [address] Murphy Huynh MD [address] [place] [phone] 06/27/2025 11:45 AM EST Appointment [facility] Medical Oncology Infusion [address] [place] [address] 07/08/2025 2:00 PM EST Hospital Encounter [facility] CT Scan [address] [place] [address], [facility] [place] [address] Denisse Brewer APRN [address] [place] [phone] 07/12/2025 12:00 PM EST Appointment [facility] Medical Oncology Infusion [address] [place] [address] 07/18/2025 9:00 AM EST Appointment [facility] Medical Oncology Infusion [address] [facility] [address] [place] [address] 07/18/2025 9:30 AM EST Office Visit Breast Center at [facility] [address] [facility] [address] [place] [address] Murphy Huynh MD [address] [facility] [place] [phone] 07/18/2025 10:15 AM EST Appointment [facility] Medical Oncology Infusion [address] [facility] [address] [place] [address] documented as of this encounter Goals Goal [...] documented as of this encounter Care Teams Exhibit Preparator Relationship Specialty Start Date End Date Denton To NP [facility] [place] [address] [place] [phone] PCP - General Family Medicine 04/30/24 documented as of this encounter
--- OUTSIDE RECORDS SUMMARY | 2025-06-01 08:44 | XMS_ITS | Encounter Summary ---
Author Organization [facility] and [facility] Address [address] [place] [address] Care Team Providers Care Rock Loader Name Role Phone Denton To NP Primary Care Provider + Encounter Details Date Type Department Care Team (Late st Contact Info) Description 05/03/2024 Abstract Surgical Oncology at [address] [place] [address] Center, [place] [facility] [address] [place] [address] First floor, [place] [address] Social History Tobacco Use Types [...] Info) Description 06/27/2025 10:00 AM EST Appointment [facility] Medical Oncology [address] [place] [address] 06/27/2025 10:30 AM EST Office Visit Breast Center at [address] [place] [address] Murphy Huynh MD [address] [place] [phone] (Fax) 06/27/2025 11:45 AM EST Appointment [facility] Medical Oncology Infusion [address] [place] [address] 07/08/2025 2:00 PM EST Hospital Encounter [facility] CT Scan [address] [place] [address], [facility] [place] [address] Denisse Brewer APRN [address] [place] [phone] 07/12/2025 12:00 PM EST Appointment [facility] Medical Oncology Infusion [address] [place] [address] 07/18/2025 9:00 AM EST Appointment [facility] Medical Oncology Infusion [address] [place] [address] 07/18/2025 9:30 AM EST Office Visit Breast Center at [address] [address] Murphy Huynh MD [address] [place] [phone] 07/18/2025 10:15 AM EST Appointment [facility] Medical Oncology Infusion [address] [place] [address] documented as of this encounter Visit Diagnoses Not on filedocumented in this encounter Care Teams Rock Loader Relationship Specialty Start Date End Date Denton To NP [address] [place] [phone] PCP - General Family Medicine 04/30/24 documented as of this encounter
--- OUTSIDE RECORDS SUMMARY | 2025-06-01 08:44 | XMS_ITS | Encounter Summary ---
Author Organization [facility] and [facility] Address [address] [place] [address] Care Team Providers Care White Spooler Name Role Phone Denton To REHABILITATION WORKER Primary Care Provider + Encounter Details Date Type Department Care Team (Late st Contact Info) Description 06/19/2024 Scanned Document INTERFACE DEFAULT 20 [place] [address] System, Provider Not In Social History Tobacco Use Types Packs/Day Years Used Date Smoking Tobacco: Former Cigarettes Alcohol Use Standard Drinks/Week Comments Never 0 (1 standard drink = 0.6 oz pur e alcohol) PHQ-2 Answer Date Recorded PHQ-2 Total Score 0 05/10/2024 Housing Stability Answer Date Recorded What is your living situation today? I have a [facility] place to live 05/10/2024 Housing [...] Info) Description 06/27/2025 10:00 AM EST Appointment [facility] Medical Oncology [address] [place] [address] 06/27/2025 10:30 AM EST Office Visit Breast Center at [facility] Cancer [address] [address] Murphy Huynh MD [address] [place] [phone] 06/27/2025 11:45 AM EST Appointment [facility] Medical Oncology Infusion [address] [place] [address] 07/08/2025 2:00 PM EST Hospital Encounter [facility] CT Scan [address] [place] [address], [place] [address] Denisse Brewer APRN [address] [place] [phone] 07/12/2025 12:00 PM EST Appointment [facility] Medical Oncology Infusion [address] [place] [address] 07/18/2025 9:00 AM EST Appointment [facility] Medical Oncology Infusion [address] [place] [address] 07/18/2025 9:30 AM EST Office Visit Breast Center at [address] [address] Murphy Huynh MD [address] [place] [phone] 07/18/2025 10:15 AM EST Appointment [facility] Medical Oncology Infusion [address] [place] [address] documented as of this encounter Procedures Procedure [...] documented as of this encounter Care Teams White Spooler Relationship Specialty Start Date End Date Denton To NP [facility] [place] [phone] PCP - General Family Medicine 04/30/24 documented as of this encounter
--- OUTSIDE RECORDS SUMMARY | 2025-06-01 08:44 | XMS_ITS | Encounter Summary ---
Author [facility] Address [address] [place] [address] Phone Care Team Providers Care Crown Ceramist Name Role Phone Denton To NP Primary Care Provider + Encounter Details Date Type Department Care Team (Late st Contact Info) Description 10/03/2024 Specialty Pharmacy [facility] [address] [place] [address] [facility] CP[facility] Social History Tobacco Use Types Packs/Day Years Used Date Smoking Tobacco: Former Cigarettes Alcohol Use Standard Drinks/Week Comments Never 0 (1 standard drink = 0.6 oz pur e alcohol) [facility] Utilities Answer Date Recorded In [...] Info) Description 06/27/2025 10:00 AM EST Appointment [facility] Medical Oncology Infusion [address] [place] [address] 06/27/2025 10:30 AM EST Office Visit [facility] [address] [address] Murphy Huynh MD [address] [place] [phone] 06/27/2025 11:45 AM EST Appointment [facility] Medical Oncology Infusion [address] [place] [address] 07/08/2025 2:00 PM EST Hospital Encounter [facility] CT Scan [address] [place] [address]. [place] [address] Denisse Brewer, RAVI [address] [place] [phone] 07/12/2025 12:00 PM EST Appointment [facility] Medical Oncology Infusion [address] [place] [address] 07/18/2025 9:00 AM EST Appointment [facility] Medical Oncology Infusion [address] [place] [address] 07/18/2025 9:30 AM EST Office Visit Breast Center at [facility] [address] [facility] [address] [place] [address] Murphy Huynh MD 35 [place] [phone] 07/18/2025 10:15 AM EST Appointment [facility] Oncology [facility] [address] [facility] [address] [place] [address] documented as of this encounter Goals Goal [...] documented as of this encounter Care Teams Crown Ceramist Relationship Specialty Start Date End Date Denton To NP [facility] [place] [phone] PCP - General Family Medicine 04/30/24 documented as of this encounter
--- OUTSIDE RECORDS SUMMARY | 2025-06-01 08:44 | XMS_ITS | Encounter Summary ---
Author Organization [facility] and [facility] Address [address] [place] [address] Care Team Providers Care Counsel Name Role Phone Denton To NP Primary Care Provider + Encounter Details Date Type Department Care Team (Late st Contact Info) Description 05/01/2024 Abstract Surgical Oncology at [address] [address] Center, [place] [facility] [address] [place] [address] [facility], [place] [address] Social History Tobacco Use Types [...] Info) Description 06/27/2025 10:00 AM EST Appointment [facility] Medical Oncology [address] [address] 06/27/2025 10:30 AM EST Office Visit Breast Center at [address] [address] Murphy Huynh MD [address] [place] [phone] 06/27/2025 11:45 AM EST Appointment [facility] Medical Oncology Infusion [address] [place] [address] 07/08/2025 2:00 PM EST Hospital Encounter [facility] CT Scan [address] [place] [address], [facility] [place] [address] Denisse Brewer APRN [address] [place] [address] 07/12/2025 12:00 PM EST Appointment [facility] Medical Oncology Infusion [address] [place] [address] 07/18/2025 9:00 AM EST Appointment [facility] Medical Oncology Infusion [address] [place] [address] 07/18/2025 9:30 AM EST Office Visit Breast Center at [address] [address] Murphy Huynh MD [address] [place] [phone] 07/18/2025 10:15 AM EST Appointment [facility] Medical Oncology Infusion [address] [place] [address] documented as of this encounter Visit Diagnoses Not on filedocumented in this encounter Care Teams Counsel Relationship Specialty Start Date End Date Denton To NP [facility] [place] [phone] PCP - General Family Medicine 04/30/24 documented as of this encounter
--- OUTSIDE RECORDS SUMMARY | 2025-06-01 08:44 | XMS_ITS | Encounter Summary ---
Author Organization [facility] and [facility] Address [address] [place] [address] Care Team Providers Care Lumber Piler Name Role Phone Denton To BRAZER ASSEMBLER Primary Care Provider + Encounter Details Date Type Department Care Team (Late st Contact Info) Description 05/30/2025 Documentation Breast Center at [address] [address] Murphy Huynh MD [address] [place] [phone] (Fax) Social History Tobacco Use Types Packs/Day Years Used Date Smoking Tobacco: Former Cigarettes Alcohol Use Standard Drinks/Week Comments Never 0 (1 standard drink = 0.6 oz pur e alcohol) [facility] Utilities Answer Date Recorded In the past 12 months has [employer], gas, oil, or water [employer] threatened to shut off services in your [...] Appointment [facility] Medical Oncology Infusion [address] [place] [address] 06/27/2025 10:30 AM EST Office Visit Breast Center at [address] [address] Murphy Huynh MD [address] [place] [phone] 06/27/2025 11:45 AM EST Appointment [facility] Medical Oncology Infusion [address] [place] [address] 07/08/2025 2:00 PM EST Hospital Encounter [facility] CT Scan [address] [place] [address], [facility] [place] [address] Denisse Brewer APRN [address] [place] [phone] 07/12/2025 12:00 PM EST Appointment [facility] Medical Oncology Infusion [address] [place] [address] 07/18/2025 9:00 AM EST Appointment [facility] Medical Oncology Infusion [address] [place] [address] 07/18/2025 9:30 AM EST Office Visit Breast Center at [address] [place] [address] Murphy Huynh MD 35 [place] [phone] (Fax) 07/18/2025 10:15 AM EST Appointment [facility] Medical Oncology Infusion [address] [place] [address], [place] [address] documented as of this encounter Goals Goal [...] documented as of this encounter Care Teams Lumber Piler Relationship Specialty Start Date End Date Denton To NP [facility] [place] [phone] PCP - General Family Medicine 04/30/24 documented as of this encounter
--- OUTSIDE RECORDS SUMMARY | 2025-06-01 08:44 | XMS_ITS | Encounter Summary ---
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 I have a [facility] place to live 12/11/2024 Housing Stability [...] Info) Description 06/27/2025 10:00 AM EST Appointment [facility] Medical Oncology Infusion [address] [place] [address] 06/27/2025 10:30 AM EST Office Visit Breast Center at [address] [address] Murphy Huynh MD [address] [place] [phone] 06/27/2025 11:45 AM EST Appointment [facility] Medical Oncology Infusion [address] [place] [address] 07/08/2025 2:00 PM EST Hospital Encounter [facility] CT Scan [address] [place] [address]. [place] [address] Denisse Brewer, HOT DIP GALVANIZER [address] [place] [phone] 07/12/2025 12:00 PM EST Appointment [facility] Medical Oncology Infusion [address] [place] [address], [place] [address] 07/18/2025 9:00 AM EST Appointment [facility] Medical Oncology Infusion [address] [place] [address], [place] [address] 07/18/2025 9:30 AM EST Office Visit Breast Center at [address] [place] [address] Murphy Huynh MD [address] [place] [address], [place] [phone] 07/18/2025 10:15 AM EST Appointment [facility] Medical Oncology Infusion [address] [place] [address], [place] [address] documented as of this encounter Goals Goal [...] - 241 U/L 03/07/2025 1:11 PM EDT [facility] OF LABORATORY MEDICINE Comment:Sample slightly hemo lyzed. Results may be falsely elevated due to hemolysis. 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
--- OUTSIDE RECORDS SUMMARY | 2025-06-01 08:44 | XMS_ITS | Encounter Summary ---
Author Organization [facility] and [facility] Address [address] [place] [address] Care Team Providers Care Fleet Director Name Role Phone Denton To TURKEY FARMER Primary Care Provider + Encounter Details Date Type Department Care Team (Late st Contact Info) Description 06/01/2024 Scanned Document INTERFACE DEFAULT 20 [place] [address] System, Provider Not In Social History Tobacco Use Types Packs/Day Years Used Date Smoking Tobacco: Former Cigarettes Alcohol Use Standard Drinks/Week Comments Never 0 (1 standard drink = 0.6 oz pur e alcohol) PHQ-2 Answer Date Recorded PHQ-2 Total Score 0 05/10/2024 Housing Stability Answer Date Recorded What is your living situation today? I have a [facility] place to live 05/10/2024 Housing Stability [...] Info) Description 06/27/2025 10:00 AM EST Appointment [facility] Medical Oncology [address] [place] [address] 06/27/2025 10:30 AM EST Office Visit Breast Center at [facility] Cancer [address] [address] Murphy Huynh MD [address] [place] [phone] 06/27/2025 11:45 AM EST Appointment [facility] Medical Oncology Infusion [address] [place] [address] 07/08/2025 2:00 PM EST Hospital Encounter [facility] CT Scan [address] [place] [address], [facility] [place] [address] Denisse Brewer APRN [address] [place] [phone] 07/12/2025 12:00 PM EST Appointment [facility] Medical Oncology Infusion [address] [place] [address] 07/18/2025 9:00 AM EST Appointment [facility] Medical Oncology Infusion [address] [place] [address] 07/18/2025 9:30 AM EST Office Visit Breast Center at [address] [address] Murphy Huynh MD [address] [place] [phone] 07/18/2025 10:15 AM EST Appointment [facility] Medical Oncology Infusion [address] [place] [address] documented as of this encounter Procedures Procedure [...] documented as of this encounter Care Teams Fleet Director Relationship Specialty Start Date End Date Denton To NP [facility] [place] [phone] PCP - General Family Medicine 04/30/24 documented as of this encounter
--- OUTSIDE RECORDS SUMMARY | 2025-06-01 08:44 | XMS_ITS | Encounter Summary ---
Author Organization [facility] and [facility] Address [address] [place] [address] Care Team Providers Care Skid Man Name Role Phone Denton To NP Primary Care Provider + Encounter Details Date Type Department Care Team (Late st Contact Info) Description 09/03/2024 Scanned Document INTERFACE DEFAULT [address] [place] [address] System, Provider Not In Social History Tobacco Use Types Packs/Day Years Used Date Smoking Tobacco: Former Cigarettes Alcohol Use Standard Drinks/Week Comments Never 0 (1 standard drink = 0.6 oz pur e alcohol) [facility] Utilities Answer Date Recorded In the past 12 months has e electric, gas, oil, or water [employer] threatened to shut off services in your [...] Info) Description 06/27/2025 10:00 AM EST Appointment [facility] Medical Oncology Infusion [address] [place] [address] 06/27/2025 10:30 AM EST Office Visit Breast Center at [address] [address] Murphy Huynh MD [address] [place] [phone] 06/27/2025 11:45 AM EST Appointment [facility] Medical Oncology Infusion [address] [place] [address] 07/08/2025 2:00 PM EST Hospital Encounter [facility] CT Scan [address] [place] [address]. [place] [address] Denisse Brewer APRN [address] [place] [phone] 07/12/2025 12:00 PM EST Appointment [facility] Medical Oncology Infusion [address] [place] [address] 07/18/2025 9:00 AM EST Appointment [facility] Medical Oncology Infusion [address] [place] [address] 07/18/2025 9:30 AM EST Office Visit Breast Center at [facility] 35 [facility] [address]1 [place] [address] Murphy Huynh MD [address] [facility] [place] [phone] 07/18/2025 10:15 AM EST Appointment [facility] Medical Oncology [facility] [address] [facility] [address] [place] [address] documented as of this encounter Procedures Procedure [...] documented as of this encounter Care Teams Skid Man Relationship Specialty Start Date End Date Denton To NP [address] [facility] [place] [phone] PCP - General Family Medicine 04/30/24 documented as of this encounter
--- OUTSIDE RECORDS SUMMARY | 2025-06-01 08:44 | XMS_ITS | Encounter Summary ---
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 I have a [facility] place to live 12/11/2024 Housing Stability Not [...] Info) Description 06/27/2025 10:00 AM EST Appointment [facility] Medical Oncology Infusion [address] [place] [address] 06/27/2025 10:30 AM EST Office Visit [facility] [address] [address] Murphy Huynh MD [address] [place] [phone] 06/27/2025 11:45 AM EST Appointment [facility] Medical Oncology Infusion [address] [place] [address] 07/08/2025 2:00 PM EST Hospital Encounter [facility] CT Scan [address] [place] [address]. [place] [address] Denisse Brewer APRN [address] [place] [phone] 07/12/2025 12:00 PM EST Appointment [facility] Medical Oncology Infusion [address] [place] [address] 07/18/2025 9:00 AM EST Appointment [facility] Medical Oncology Infusion [address] [place] [address] 07/18/2025 9:30 AM EST Office Visit Breast Center at [address] [address] Murphy Huynh MD [address] [place] [address], [place] [phone] 07/18/2025 10:15 AM EST Appointment [facility] Medical Oncology Infusion [address] [place] [address], [place] [address] documented as of this encounter Goals Goal [...] - 4.5 mg/dL 02/12/2025 9:01 AM EDT [facility] OF LAB[facility]ORY MEDICINE Blood Venipuncture / Unknown 02/12/2025 8:23 AM EDT 02/12/2025 8:23 AM EDT us Denisse M Dest HEAD LOFT WORKER LAB BLOOD ORDERABLES Final Res ult Performing Organization Address City/[facility]/ZIP Co de Phone Number [facility] MEDICINE [address] [place] [address] * MAGNESIUM (02/12/2025 8:23 AM EDT) Magnesium 1.9 1.7 - 2.4 mg/dL 02/12/2025 9:01 AM EDT [facility] Blood Venipuncture / Unknown 02/12/2025 8:23 AM EDT 02/12/2025 8:23 AM EDT us Denisse Mary Dest HEAD LOFT WORKER LAB BLOOD ORDERABLES Final Res ult Performing Organization Address 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
--- OUTSIDE RECORDS SUMMARY | 2025-06-01 08:44 | XMS_ITS | Encounter Summary ---
Author Organization [facility] Address [address] [place] [address] Care Team Providers Care Concrete Block Mason Name Role Phone Denton To SPRINKLER TENDER Primary Care Provider + Encounter Details Date Type Department Care Team (Late st Contact Info) Description 05/30/2024 Scanned Document INTERFACE DEFAULT 20 [place] [address] System, Provider Not In Social History Tobacco Use Types Packs/Day Years Used Date Smoking Tobacco: Former Cigarettes Alcohol Use Standard Drinks/Week Comments Never 0 (1 standard drink = 0.6 oz pur e alcohol) PHQ-2 Answer Date Recorded PHQ-2 Total Score 0 05/10/2024 Housing Stability Answer Date Recorded What is your living situation today? I have a [facility] place to live 05/10/2024 Housing [...] EST Appointment [facility] Medical Oncology [address] [place] [address] 06/27/2025 10:30 AM EST Office Visit Breast Center at [facility] Cancer [address] [address] Murphy Huynh MD [address] [place] [phone] 06/27/2025 11:45 AM EST Appointment [facility] Medical Oncology Infusion [address] [place] [address] 07/08/2025 2:00 PM EST Hospital Encounter [facility] CT Scan [address] [place] [address], [facility] [place] [address] Denisse Brewer APRN [address] [place] [phone] 07/12/2025 12:00 PM EST Appointment [facility] Medical Oncology Infusion [address] [place] [address] 07/18/2025 9:00 AM EST Appointment [facility] Medical Oncology Infusion [address] [place] [address] 07/18/2025 9:30 AM EST Office Visit Breast Center at [address] [address] Murphy Huynh MD [address] [place] [phone] 07/18/2025 10:15 AM EST Appointment [facility] Medical Oncology Infusion [address] [place] [address] documented as of this encounter Procedures Procedure [...] documented as of this encounter Care Teams Concrete Block Mason Relationship Specialty Start Date End Date Denton To NP [facility] [place] [phone] PCP - General Family Medicine 04/30/24 documented as of this encounter
--- OUTSIDE RECORDS SUMMARY | 2025-06-01 08:44 | XMS_ITS | Encounter Summary ---
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 I have a [facility] place to live 03/26/2025 Housing Stability Not [...] Description 06/27/2025 10:00 AM EST Appointment [facility] [address] [place] [address] 06/27/2025 10:30 AM EST Office Visit Breast Center at [address] [address] Murphy Huynh MD [address] [place] [phone] 06/27/2025 11:45 AM EST Appointment [facility] [address] [place] [address] 07/08/2025 2:00 PM EST Hospital Encounter [facility] CT Scan [address] [place] [address]. [place] [address] Denisse Brewer, THIRD HELPER [address] [place] [phone] 07/12/2025 12:00 PM EST Appointment [facility] [address] [place] [address], [place] [address] 07/18/2025 9:00 AM EST Appointment [facility] [address] [place] [address], [place] [address] 07/18/2025 9:30 AM EST Office Visit Breast Center at [address] [place] [address] Murphy Huynh MD [address] [place] [address], [place] [phone] 07/18/2025 10:15 AM EST Appointment [facility] [address] [place] [address], [place] [address] documented as of this encounter Goals Goal [...] mg/dL 05/30/2025 10:08 AM EST [facility] Blood Venipuncture / Unknown 05/30/2025 9:33 AM EST 05/30/2025 9:44 AM EST us Denisse M Dest THIRD HELPER LAB BLOOD ORDERABLES Final Res ult [facility] [address] [place] [address] * MAGNESIUM (05/30/2025 9:33 AM EST) Magnesium 2.0 1.7 - 2.4 mg/dL 05/30/2025 10:08 AM EST [facility] Blood Venipuncture / Unknown 05/30/2025 9:33 AM EST 05/30/2025 9:44 AM EST us Denisse M Dest THIRD HELPER LAB BLOOD ORDERABLES Final Res ult Performing Organization Address City/[facility]/ZIP Co de Phone Number [facility] [address] [place] [address] * LACTATE DEHYDROGENASE (05/30/2025 9:33 AM EST) LD 193 122 - 241 U/L 05/30/2025 10:22 AM EST [facility] Blood Venipuncture / Unknown 05/30/2025 9:33 AM EST 05/30/2025 9:59 AM EST us Denisse M Dest THIRD HELPER LAB BLOOD ORDERABLES Final Res ult [facility] [address] [place] [address] documented in this encounter Visit Diagnoses Diagnosis 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, unspecified laterality (HC Code) (HC CODE)- Primary documented in this encounter Additional Health Concerns Assessment Noted Time PHQ-9 Depression Total Score: 0 05/10/20 10:43 AM EDT documented as of this encounter Care Teams Dental Laboratory Technician Relationship Specialty Start Date End Date Denton To NP [facility] [place] [phone] PCP - General Family Medicine 04/30/24 documented as of this encounter
--- OUTSIDE RECORDS SUMMARY | 2025-06-01 08:44 | XMS_ITS | Encounter Summary ---
Author Organization [facility] and [facility] Address [address] [place] [address] Care Team Providers Care Janitorial Services Supervisor Name Role Phone Denton To NP Primary Care Provider + Encounter Details Date Type Department Care Team (Late st Contact Info) Description 05/02/2024 Abstract Surgical Oncology at [address] [place] [address] Center, [facility] [address] [place] [address] First floor, [place] [address] Social History Tobacco Use Types [...] EST Appointment [facility] Medical Oncology [address] [place] [address] 06/27/2025 10:30 AM EST Office Visit Breast Center at [address] [place] [address] Murphy Huynh MD [address] [place] [phone] (Fax) 06/27/2025 11:45 AM EST Appointment [facility] Oncology Infusion [address] [place] [address] 07/08/2025 2:00 PM EST Hospital Encounter [facility] CT Scan [address] [place] [address], [facility] [place] [address] Denisse Brewer APRN [address] [place] [phone] 07/12/2025 12:00 PM EST Appointment [facility] Oncology Infusion [address] [place] [address] 07/18/2025 9:00 AM EST Appointment [facility] Infusion [address] [place] [phone] 07/18/2025 9:30 AM EST Office Visit Breast Center at [address] [address] Murphy Huynh MD [address] [place] [phone] 07/18/2025 10:15 AM EST Appointment [facility] Oncology Infusion [address] [place] [address] documented as of this encounter Visit Diagnoses Not on filedocumented in this encounter Care Teams Janitorial Services Supervisor Relationship Specialty Start Date End Date Denton To NP [address] [facility] [place] [phone] PCP - General Family Medicine 04/30/24 documented as of this encounter
--- OUTSIDE RECORDS SUMMARY | 2025-06-01 08:44 | XMS_ITS ---
Author Organization [address] [place] [address] [facility] Address [address] [place] [address] Care Team Providers Care Administrative Services Officer Name Role Phone Denton To COMMERCIAL KITCHEN SERVICE TECHNICIAN Primary Care Provider + Active Problems Problem Noted Date Diagnosed Date Failure to thrive in adult 09/06/2024 Breast cancer metastasized to lung (HC Code) Current Treatment and Therapy Plans [facility] [id number] Arm A/B/G/H: trastuzumab deruxtecan (T-DXd)* Plan Start Date: 01/01/2025 Plan Provider:Murphy Huynh MD Linked Problems Carcinoma of breast metastat ic to lung, unspecified laterality (HC Code) (HC CODE) Treatment Medications Current Day (Day 1 , Cycle 9 - Planned for 06/20/2025) Next Day (Day 1, Cycle 10 - Planned for 07/11/2025) [facility] [id number] trastuzumab deruxtecan (T-DXd, DS-8201a) [facility] [id number] trastuzumab deruxtecan (T-DXd, DS-8201a) 320 mg in dextrose 5 % in water (D5W) 100 mL investigational drug [facility] [id number] trastuzumab deruxtecan (T-DXd, DS-8201a) 320 mg in dextrose 5 % in water (D5W) 100 mL investigational drug Past Treatment and Therapy Plans Oncology Treatment Plan Name Start Date Discontinue Date Treatment Medications Discontinue Reason Plan Provider Cycles TH Capecitabine 5 01/02/2025 capecitabine (XELODA) Progression Murphy Huynh MD 4 of 8 cycles completed
--- OUTSIDE RECORDS SUMMARY | 2025-06-01 08:44 | XMS_ITS | Encounter Summary ---
Author Organization [facility] Address [address] [place] [address] Care Team Providers Care Coiled Coil Inspector Name Role Phone Denton To NP Primary Care Provider + Encounter Details Date Type Department Care Team (Late st Contact Info) Description 04/30/2024 Abstract Surgical Oncology at [address] [address] Dept, Ycecilia White Social History Tobacco Use Types Packs/Day [...] Department Care Team (Late Contact Info) Description 06/27/2025 10:00 AM EST Appointment [facility] Oncology Infusion [address] [place] [address] 06/27/2025 10:30 AM EST Office Visit Breast Center at [address] [address] Murphy Huynh MD [address] [place] [phone] 06/27/2025 11:45 AM EST Appointment [facility] Infusion [address] [place] [address] 07/08/2025 2:00 PM EST Hospital Encounter [facility] CT Scan [address] [place] [address], [facility] [place] [address] Denisse Brewer APRN [address] [place] [phone] 07/12/2025 12:00 PM EST Appointment [facility] Infusion [address] [place] [address] 07/18/2025 9:00 AM EST Appointment [facility] Infusion [address] [place] [address] 07/18/2025 9:30 AM EST Office Visit [facility] at [address] [address] Murphy Huynh MD [address] [place] [phone] 07/18/2025 10:15 AM EST Appointment [facility] Oncology Infusion [address] [place] [address] documented as of this encounter Visit Diagnoses Not on filedocumented in this encounter Care Teams Coiled Coil Inspector Relationship Specialty Start Date End Date Denton To NP [facility] [place] [phone] PCP - General Family Medicine 04/30/24 documented as of this encounter
--- OUTSIDE RECORDS SUMMARY | 2025-06-01 08:44 | XMS_ITS | Encounter Summary ---
Author Organization [facility] Address [address] [place] [address] Care Team Providers Care Chair Mender Name Role Phone Denton To SENIOR BUSINESS DEVELOPMENT ANALYST Primary Care Provider + Encounter Details Date Type Department Care Team (Late st Contact Info) Description 05/30/2025 Research Encounter Breast Center at [address] [phone] Murphy Huynh MD [address] [place] [phone] (Fax) Social History Tobacco Use Types Packs/Day Years Used Date Smoking Tobacco: Former Cigarettes Alcohol Use Standard Drinks/Week Comments Never 0 (1 standard drink = 0.6 oz pur e alcohol) [facility] Utilities Answer Date Recorded In the past 12 months has [facility], gas, oil, or water [employer] threatened to shut off services in your [...] your living situation today? I have a [facility] place to live 03/26/2025 Housing Stability [...] Info) Description 06/27/2025 10:00 AM EST Appointment [facility] Medical Oncology Infusion [address] [place] [address] 06/27/2025 10:30 AM EST Office Visit Breast Center at [address] [address] Murphy Huynh MD [address] [place] [phone] 06/27/2025 11:45 AM EST Appointment [facility] Oncology Infusion [address] [place] [address] 07/08/2025 2:00 PM EST Hospital Encounter [facility] CT Scan [address] [place] [address], [facility] [place] [address] Denisse Brewer APRN [address] [place] [phone] 07/12/2025 12:00 PM EST Appointment [facility] Oncology Infusion [address] [place] [address] 07/18/2025 9:00 AM EST Appointment [facility] Oncology Infusion [address] [place] [address] 07/18/2025 9:30 AM EST Office Visit Breast Center at [address] [place] [address] Murphy Huynh MD [address] [place] [phone] 07/18/2025 10:15 AM EST Appointment [facility] Oncology Infusion [address] [place] [address], [place] [address] documented as of this encounter Goals Goal [...] documented as of this encounter Care Teams Chair Mender Relationship Specialty Start Date End Date Denton To NP [facility] [place] [phone] PCP - General Family Medicine 04/30/24 documented as of this encounter
--- OUTSIDE RECORDS SUMMARY | 2025-06-01 08:45 | XMS_ITS | Clinical Summary ---
Author Organization [address] [place] [address] JAMES RESENDIZ Address [address] [place] [address] Care Team Providers Care Monument Setter Name Role Phone [place] To NP [...] vomiting. 36 tablet 2 01/03/20 25 Active prochlorperazine (COMPAZINE) 10 mg tabletIndications: 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, unspecified laterality (HC Code) (HC CODE) Take 1 tablet (10 mg total) by mouth every 6 (six) hours as needed (for nausea or vomiting). 60 tablet 1 01/03/20 Active Additional Information Patient not taking.Reported on 05/09/2025 ondansetron (ZOFRAN-ODT) [address] 1 tablet (4 mg total) onto the tongue every 8 (eight) hours as needed for nausea. 20 tablet 2 01/27/20 Active Additional Information Patient not taking.Reported on 05/09/2025 lidocaine-prilocai ne (EMLA) 2.5-2.5 % creamIndications:C arcinoma of 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, unspecified laterality (HC Code) (HC CODE),Port-A-Cath in place Apply topically as needed (30-60 minutes prior to port access). 15 g 1 04/18/20 Active Active Problems Problem Noted Date Diagnosed Date Failure to thrive in adult 09/06/2024 Breast cancer metastasized to lung (HC Code) Encounters Date Type Department Care Team Description 05/30/2025 10:15 AM EST Hospital Encounter [facility] Medical Oncology Infusion [address] [place] [address] Murphy Huynh MD 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, unspecified laterality (HC Code) (HC CODE) (Primary Dx) 05/30/2025 9:30 AM EST Office Visit Breast Center at [address] [address] Murphy Huynh MD 05/30/2025 9:00 AM EST Hospital Encounter [facility] Oncology [address] [place] [address] Murphy Huynh MD Arrived 05/30/2025 Research Encounter Breast Center at [address] [place] [address] Murphy Huynh MD 05/30/2025 Documentation [facility] at [address] [place] [address] Murphy Huynh MD 05/30/2025 Orders Only [facility] at [address] [place] [address] Denisse Brewer, REGIONAL BUSINESS DEVELOPMENT MANAGER 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, unspecified laterality (HC Code) (HC CODE) (Primary Dx) 05/17/2025 Orders Only [facility] at [address] [place] [address] Murphy Huynh MD 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, unspecified laterality (HC Code) (HC CODE) (Primary Dx) 05/09/2025 10:15 AM EDT - 05/09/2025 11:59 PM EDT Hospital Encounter [facility] Medical Oncology [address] [place] [address] Denisse Brewer, REGIONAL BUSINESS DEVELOPMENT MANAGER 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, unspecified laterality (HC Code) (HC CODE) (Primary Dx) Discharge Disposition: Home or Self Care 05/09/2025 9:30 AM EDT Office Visit [facility] at [address] [place] [address] Denisse Brewer REGIONAL BUSINESS DEVELOPMENT MANAGER 05/09/2025 9:00 AM EDT - 05/09/2025 10:14 AM EDT Hospital Encounter [facility] Oncology [address] [place] [address] Denisse Brewer, REGIONAL BUSINESS DEVELOPMENT MANAGER Discharge Disposition: Home or Self Care 05/09/2025 Research Encounter [facility] at [address] [place] [address] Denisse Brewer, REGIONAL BUSINESS DEVELOPMENT MANAGER 05/09/2025 Documentation [facility] at [address] [place] [address] Denisse Brewer, REGIONAL BUSINESS DEVELOPMENT MANAGER 05/01/2025 8:53 AM EDT - 05/01/2025 11:59 PM EDT Hospital Encounter [facility] CT Scan [address] [place] [address], [place] [address] Ludmila Rodriguez, REGIONAL BUSINESS DEVELOPMENT MANAGER 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, unspecified laterality (HC Code) (HC CODE) Discharge Disposition: Home or Self Care 04/29/2025 Telephone [facility] at [address] [place] [address] Murphy Huynh MD Advice Only 04/18/2025 9:40 AM EDT - 04/18/2025 11:59 PM EDT Hospital Encounter [facility] Oncology [address] [address] Murphy Huynh MD 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, unspecified laterality (HC Code) (HC CODE) (Primary Dx) Discharge Disposition: Home or Self Care 04/18/2025 9:00 AM EDT Office Visit [facility] at [address] [address] Murphy Huynh MD 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, unspecified laterality (HC Code) (HC CODE) (Primary Dx); Port-A-Cath in place 04/18/2025 8:10 AM EDT - 04/18/2025 9:39 AM EDT Hospital Encounter [address] [address] Murphy Huynh MD 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, unspecified laterality (HC Code) (HC CODE) Discharge Disposition: Home or Self Care 04/18/2025 Research Encounter [facility] at [address] [address] Murphy Huynh MD 04/18/2025 Documentation [facility] at [address] [address] Murphy Huynh MD 04/17/2025 8:00 AM EDT - 04/17/2025 9:30 AM EDT Surgery [facility] Interventional Radiology [address] [place] [address] Emelia Petit APRN IR Port Plcmt Single Lumen >5 YRS OF AGE 1004/17/2025 6:35 AM EDT - 04/17/2025 10:02 AM EDT Hospital Encounter [facility] Interventional Radiology [address] [place] [address] Usman Lo MD 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, unspecified laterality (HC Code) Discharge Disposition: Home or Self Care 04/17/2025 Travel 04/16/2025 Telephone [facility] at [address] [address] Murphy Huynh MD Advice Only 04/06/2025 Telephone MANAGER CONTACT [address] [facility] [address] [place] [address] Deloris [place] MD Advice Only 04/06/2025 Telephone MANAGER CONTACT 12 MEDICAL ONCOLOGY [address] [place] [address] Dannie Salazar MD Results; Advice Only 04/05/2025 Telephone [facility] at [address] [address] Murphy Huynh MD Other 04/05/2025 Orders Only [facility] at [address] [address] Tierra Collins, LIA 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, unspecified laterality (HC Code) (Primary Dx) 03/28/2025 Telephone [facility] at [address] [address] Klaudia Jones, LIA Results 03/27/2025 10:45 AM EDT - 03/27/2025 11:59 PM EDT Hospital Encounter [address] [address] Cami Palmer MD Dest, Denisse Hernandez APRN 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, unspecified laterality (HC Code) (Primary Dx) Discharge Disposition: Home or Self Care 03/27/2025 10:15 AM EDT Office Visit [facility] at [address] [address] Cami Palmer MD Dest, RAVI Hale Michelle L, APRN Stage IV breast cancer in female (HC Code) (Primary Dx); Encounter for monitoring cardiotoxic drug therapy; Examination of participant in clinical trial 03/27/2025 9:30 AM EDT - 03/27/2025 10:44 AM EDT Hospital Encounter [address] [address] Cami Palmer MD Dest, Denisse Hernandez, REGIONAL BUSINESS DEVELOPMENT MANAGER Discharge Disposition: Home or Self Care 03/27/2025 7:54 AM EDT - 03/27/2025 9:29 AM EDT Hospital Encounter [address] [place] [address] Cami Palmer MD Dest, Denisse Hernandez, REGIONAL BUSINESS DEVELOPMENT MANAGER 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, unspecified laterality (HC Code) ; Encounter for monitoring cardiotoxic drug therapy Discharge Disposition: Home or Self Care 03/27/2025 Orders Only Cancer Center at [address] [address] Deisy Fragoso, LIA 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, unspecified laterality (HC Code) (Primary Dx) 03/27/2025 Research Encounter Cancer Center at [address] [address] Deisy Fragoso, LIA 03/27/2025 Documentation [facility] at [address] [address] Deisy Fragoso, RN 03/21/2025 Orders Only [facility] at [address] [address] Ludmila Rodriguez, REGIONAL BUSINESS DEVELOPMENT MANAGER 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, unspecified laterality (HC Code) (Primary Dx) 03/12/2025 Orders Only [facility] at [address] [address] Ludmila Rodriguez, REGIONAL BUSINESS DEVELOPMENT MANAGER 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, unspecified laterality (HC Code) (Primary Dx) 03/07/2025 10:45 AM EDT - 03/07/2025 11:59 PM EDT Hospital Encounter [facility] Medical Oncology [address] [address] Cami Palmer MD 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, unspecified laterality (HC Code) (Primary Dx) Discharge Disposition: Home or Self Care 03/07/2025 10:00 AM EDT Office Visit [facility] at [address] [address] Cami Palmer MD 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, unspecified laterality (HC Code) (Primary Dx); Encounter for monitoring cardiotoxic drug therapy 03/07/2025 9:30 AM EDT - 03/07/2025 10:44 AM EDT Hospital Encounter [facility] Medical Oncology Infusion [address] [place] [address] Cami Palmer MD Discharge Disposition: Home or Self Care 03/07/2025 Transcribed Orders [facility] Laboratory Specimens [address] [place] [address] Murphy Huynh MD 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, unspecified laterality (HC Code) (Primary Dx) 03/07/2025 Telephone [place] [address] Cami Palmer MD FYI (Blood Results Hemolyzed. (LDH & AST)) 03/07/2025 Orders [place] [address] Cami Palmer MD 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, unspecified laterality (HC Code) (Primary Dx) 03/07/2025 Documentation Cancer Center at [facility] [address] [place] [address] Gissell Tuttle, LIA 03/07/2025 Research [place] [address] Gissell Tuttle, RN from Last 3 Months Family History Medical History Relation Name Comments Breast cancer Maternal Aunt Breast cancer Maternal Grandmother Relation Name Status Comments Maternal Aunt Maternal Grandmother Social History Tobacco Use Types Packs/Day Years Used Date Smoking Tobacco: Former Cigarettes Tobacco Cessation:Counseling Given: Not Answered Alcohol Use Standard Drinks/Week Comments Never 0 (1 standard drink = 0.6 oz pur e alcohol) [facility] Utilities Answer Date Recorded In the past 12 months has e [employer], gas, oil, or water company threatened to [...] your living situation today? I have a [facility] place to live 03/26/2025 Housing Stability [...] Mass Index 26.24 05/30/2025 10:00 AM EST Plan of Treatment Upcoming Encounters Date Type Department Care Team (Late st Contact Info) Description 06/27/2025 10:00 AM EST Appointment [facility] Oncology Infusion [address] [place] [address] 06/27/2025 10:30 AM EST Office Visit Breast [facility] at [address] [address] Murphy Huynh MD [address] [place] [phone] 06/27/2025 11:45 AM EST Appointment [facility] Medical Oncology Infusion [address] [place] [address] 07/08/2025 2:00 PM EST Hospital Encounter [facility] CT Scan [address] [place] [address]. [place] [address] Denisse Brewer APRN [address] [place] [phone] 07/12/2025 12:00 PM EST Appointment [facility] Medical Oncology Infusion [address] [place] [address] 07/18/2025 9:00 AM EST Appointment [facility] Medical Oncology Infusion [address] [place] [address] 07/18/2025 9:30 AM EST Office Visit [facility] at [address] [address] Murphy Huynh MD [address] [place] [phone] 07/18/2025 10:15 AM EST Appointment [facility] Medical Oncology Infusion [address] [place] [address] Health Maintenance Due Date Last Done Comments [...] series) 2023 Influenza vaccine 02/08/2025 Diabetes screening 05/30/2028 05/30/2025, 1 , 04/18/2025, Additional history exists Breast cancer screening Discontinued 09/26/19, 04/25/2023, 10/04/2022, Additional history exists HIV screening [...] track( 025 2:22 PM EDT) No Fernando Nalyor PharmD Note: Oncology: Minimize toxicity by monitoring [...] towards goal: Medical Devices Implanted Type Area Debt Recovery Officer Device Identifier Shelf Expiration Date Model / Serial / Lot Port Infusion Isp Plstc Powerport Open Intrmdt Clearvue 6fr - [id number] Implanted:Qty: 1 on 04/17/[address] [facility] [address] Implant CR BARD [id number] 08/10/2026 [id number] Procedures Procedure Name Priority Date/Time Associated Diagnosis Comments CBC AND DIFFERENTIAL Routine 05/30/2025 9:33 AM [...] Code) (HC CODE) CBC AND DIFFERENTIAL Routine 05/09/2025 9:19 AM EDT 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, unspecified laterality (HC Code) (HC CODE) COMPREHENSIVE METABOLIC PANEL Routine 05/09/2025 9:19 AM EDT 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, unspecified laterality (HC Code) (HC CODE) CBC WITH AUTO DIFFERENTIAL Routine 05/09/2025 9:19 AM EDT 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, unspecified laterality (HC Code) (HC CODE) COMPREHENSIVE METABOLIC PANEL Routine 05/09/2025 9:19 AM EDT 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, unspecified laterality (HC Code) (HC CODE) LACTATE DEHYDROGENASE Routine 05/09/2025 9:19 AM EDT 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, unspecified laterality (HC Code) (HC CODE) MAGNESIUM Routine 05/09/2025 9:19 AM EDT 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, unspecified laterality (HC Code) (HC CODE) PHOSPHORUS (BH GH L LMW YH) Routine 05/09/2025 9:19 AM EDT 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, unspecified laterality (HC Code) (HC CODE) CT ABDOMEN PELVIS W IV CONTRAST Routine 05/01/2025 9:35 AM EDT 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, unspecified laterality (HC Code) (HC CODE) CT CHEST W IV CONTRAST Routine 9:35 AM EDT Carcinoma of breast metastatic to [...] Maintenance Results * (ABNORMAL) Comprehensive metabolic panel (05/30/2025 9:33 AM EST) Only the most recent of6 resultswithin the time period is included. Sodium 140 136 - 144 mmol/L 05/30/2025 10:08 AM [facility] Potassium 4.6 3.3 - 5.3 mmol/L 05/30/2025 10:08 AM [facility] Chloride 106 98 - 107 mmol/L 05/30/2025 10:08 AM [facility] CO2 23 20 - 30 mmol/L 05/30/2025 10:08 AM [facility] Anion Gap 11 7 - 17 05/30/2025 10:08 AM [facility] Glucose 192(H) 70 - 100 mg/dL 05/30/2025 10:08 AM [facility] BUN 16 8 - 23 mg/dL 05/30/2025 10:08 AM [facility] Creatinine 0.97 0.40 - 1.30 mg/dL 05/30/2025 10:08 AM [facility] Calcium 9.3 8.8 - 10.2 mg/dL 05/30/2025 10:08 AM [facility] BUN/Creatinine Ratio 16.5 8.0 - 23.0 05/30/2025 10:08 AM [facility] Total Protein 6.7 5.9 - 8.3 g/dL 025 10:08 AM [facility] Albumin 4.1 3.6 - 5.1 g/dL 05/30/2025 10:08 AM [facility] Total Bilirubin 0.4 <=1.2 mg/dL 05/30/20 10:08 AM [facility] Alkaline Phosphatase 128(H) 9 - 122 U/L 05/30/2025 10:08 AM [facility] Alanine Aminotransferase (ALT) 40(H) 10 - 35 U/L 05/30/2025 10:08 AM [facility] Comment:Calcium dobesilate c an cause artificially low ALT results at therapeutic concentrations Aspartate Aminotransferase (AST) 28 10 - 35 U/L 05/30/2025 10:08 AM [facility] Globulin 2.6 2.0 - 3.9 g/dL 05/30/2025 10:08 AM [facility] A/G Ratio 1.6 1.0 - 2.2 05/30/2025 10:08 AM [facility] AST/ALT Ratio 0.7 Reference Range Not Established 05/30/2025 10:08 AM [facility] eGFR (Creatinine) 60 >=60 mL/min/1.73m2 05/30/2025 10:08 AM [facility] Comment: [facility] utilizes CKD-EPI Creatinine 2020 to report eGFR. Values < 60 mL/min/1.73 m2 may indicate CKD if present for more than three months AND creatinine is at steady state. The eGFR provides a rough estimate of kidney function. For further guidance, please refer to the CKD: Adult Dialysis Social Worker Signature pathway. Creatinine Delta 0.15 See Comment 025 10:08 AM [facility] Comment: Delta [...] EST 05/30/2025 9:44 AM EST us Denisse Brewer REGIONAL BUSINESS DEVELOPMENT MANAGER LAB BLOOD ORDERABLES Final Res ult COUNTS INCLUDE 234 BEDS AT THE [facility] DEPARTMENT OF LABORATORY MEDICINE [address] [place] [address] * (ABNORMAL) CBC auto differential (05/30/2025 9:33 AM EST) Only the most recent of5 resultswithin the time period is included. WBC 2.8(L) 4.0 - 11.0 x1000/ L 05/30/2025 9:49 AM EST COUNTS INCLUDE 234 BEDS AT THE [facility] OF LAB[facility]ORY MEDICINE RBC 4.11 4.00 - 6.00 M/ L 05/30/2025 9:49 AM [facility] Hemoglobin 12.7 11.7 - 15.5 g/dL 05/30/2025 9:49 AM [facility] Hematocrit 38.30 35.00 - 45.00 % 05/30/2025 9:49 AM [facility] MCV 93.2 80.0 - 100.0 fL 05/30/2025 9:49 AM [facility] MCH 30.9 27.0 - 33.0 pg 05/30/2025 9:49 AM [facility] MCHC 33.2 31.0 - 36.0 g/dL 05/30/2025 9:49 AM [facility] RDW-CV 14.7 11.0 - 15.0 % 05/30/2025 9:49 AM [facility] Platelets 273 150 - 420 x1000/ L 05/30/2025 9:49 AM [facility] MPV 10.5 8.0 - 12.0 fL 05/30/2025 9:49 AM [facility] Neutrophils 50.3 39.0 - 72.0 % 05/30/2025 9:49 AM [facility] Lymphocytes 33.3 17.0 - 50.0 % 05/30/2025 9:49 AM [facility] Monocytes 8.2 4.0 - 12.0 % 05/30/2025 9:49 AM [facility] Eosinophils 5.7(H) 0.0 - 5.0 % 05/30/2025 9:49 AM [facility] Basophil 1.1 0.0 - 1.4 % 05/30/2025 9:49 AM [facility] Immature Granulocytes 1.4(H) 0.0 - 1.0 % 05/30/2025 9:49 AM [facility] nRBC 0.0 0.0 - 1.0 % 05/30/2025 9:49 AM [facility] Absolute Lymphocyte Count 0.94 0.60 - 3.70 x 1000/ L 05/30/2025 9:49 AM [facility] Monocyte Absolute Count 0.23 0.00 - 1.00 x 1000/ L 05/30/2025 9:49 AM [facility] Eosinophil Absolute Count 0.16 0.00 - 1.00 x 1000/ L 05/30/2025 9:49 AM [facility] Basophil Absolute Count 0.03 0.00 - 1.00 x 1000/ L 05/30/2025 9:49 AM [facility] Absolute Immature Granulocyte Count 0.04 0.00 - 0.30 x 1000/ L 05/30/2025 9:49 AM [facility] Absolute nRBC 0.00 0.00 - 1.00 x 1000/ L 05/30/2025 9:49 AM [facility] ANC (Abs Neutrophil Count) 1.42(L) 2.00 - 7.60 x 1000/ L 05/30/2025 9:49 AM [facility] Blood Venipuncture / Unknown 05/30/2025 9:33 AM EST 05/30/2025 9:44 AM EST Denisse Hernandez Dest REGIONAL BUSINESS DEVELOPMENT MANAGER LAB BLOOD ORDERABLES Final Res ult COUNTS INCLUDE 234 BEDS AT THE [facility] DEPARTMENT OF LABORATORY MEDICINE [address] [place] [address] * Phosphorus (BH GH L LMW YH) (05/30/2025 9:33 AM EST) Only the most recent of5 resultswithin the time period is included. Phosphorus 3.2 2.2 - 4.5 mg/dL 05/30/2025 10:08 AM [facility] Blood Venipuncture / Unknown 05/30/2025 9:33 AM EST 05/30/2025 9:44 AM EST Denisse Hernandez Dest REGIONAL BUSINESS DEVELOPMENT MANAGER LAB BLOOD ORDERABLES Final Res ult COUNTS INCLUDE 234 BEDS AT THE [facility] DE[facility] OF LABORATORY MEDICINE [address] [place] [address] * MAGNESIUM (05/30/2025 9:33 AM EST) Only the most recent of5 resultswithin the time period is included. Magnesium 2.0 1.7 - 2.4 mg/dL 05/30/2025 10:08 AM [facility] Blood Venipuncture / Unknown 05/30/2025 9:33 AM EST 05/30/2025 9:44 AM EST us Denisse M Dest REGIONAL BUSINESS DEVELOPMENT MANAGER LAB BLOOD ORDERABLES Final Res ult Performing Organization Address City/[facility] Co de Phone Number COUNTS INCLUDE 234 BEDS AT THE [facility] DEPART[facility] OF LABORATORY MEDICINE [address] [place] [address] * LACTATE DEHYDROGENASE (05/30/2025 9:33 AM EST) Only the most recent of4 resultswithin the time period is included. LD 193 122 - 241 U/L 05/30/2025 10:22 AM EST COUNTS INCLUDE 234 BEDS AT THE [facility] LAB[facility]ORY MEDICINE Blood Venipuncture / Unknown 05/30/2025 9:33 AM EST 05/30/2025 9:59 AM EST Denisse M Dest REGIONAL BUSINESS DEVELOPMENT MANAGER LAB BLOOD ORDERABLES Final Res ult Performing Organization Address [facility] de Phone Number COUNTS INCLUDE 234 BEDS AT THE [facility] DEPART[facility] OF LAB[facility]ATORY MEDICINE [address] [place] [address] * CT Abdomen Pelvis w IV Contrast (05/01/2025 9:35 AM EDT) Anatomical Region Laterality Modality Abdomen, Pelvis, Ortho Pelvis, Abdomen and Pelvi s Computed Tomography 05/01/2025 9:49 AM EDT Impressions 05/01/2025 4:11 PM EDT No evidence of metastatic disease in the abdomen/pelvis. Hepatic steatosis. [facility] Classification: Routine. Reported and signed by: Osiel Ramirez MD [facility] Narrative 05/01/2025 4:[address] ABDOMEN PELVIS W IV CONTRAST on 05/01/2025 9:35 AM INDICATION: Clinical Trial 78710. History of breast cancer, right lower lobe lung metastasis biopsy-proven COMPARISON: CT ABDOMEN PELVIS W IV CONTRAST 2025-02-28; OUTSIDE INTERPRETATION PET SCAN 2024-03-08 TECHNIQUE: CT images of the abdomen and pelvis were obtained after the administration of intravenous contrast. IV contrast administered: 80 ML IOHEXOL (OMNIPAQUE) 350 MG IODINE/ML INJECTION FINDINGS: Chest findings are reported separately. Liver is diffusely steatotic. No evidence of metastatic disease in the abdomen/pelvis. Without focal mass. Portal venous system is patent. Some prominent periportal lymph nodes are again seen, likely reactive. No suspicious splenic lesions. Adrenal glands appear stable with unchanged 1.8 cm nodule on the right, adenoma based on prior noncontrast PET/CT. Fat- containing right diaphragmatic hernia is incidentally noted. No suspicious renal lesions or pancreatic lesions. No pelvic masses or adenopathy. No findings of bowel obstruction or acute inflammation. No aggressive osseous lesions. Procedure Note Osiel Ramirez MD - 05/01/2025 CT ABDOMEN PELVIS W IV CONTRAST on 05/01/2025 9:35 AM INDICATION: Clinical Trial [id number]. History of breast cancer, right lowerlobe lung metastasis biopsy-proven COMPARISON: CT ABDOMEN PELVIS W IV CONTRAST 2025-02-28; OUTSIDEINTERPRETATION PET SCAN 2024-03-08 TECHNIQUE: CT images of the abdomen and pelvis were obtained after theadministration of intravenous contrast. IV contrast administered: 80 ML IOHEXOL (OMNIPAQUE) 350 MG IODINE/MLINJECTION FINDINGS: Chest findings are reported separately. Liver is diffusely steatotic. No evidence of metastatic disease in theabdomen/pelvis. Without focal mass. Portal venous system is patent. Someprominent periportal lymph nodes are again seen, likely reactive. Nosuspicious splenic lesions. Adrenal glands appear stable with unchanged1.8 cm nodule on the right, adenoma based on prior noncontrast PET/CT.Fat-containing right diaphragmatic hernia is incidentally noted. Nosuspicious renal lesions or pancreatic lesions. No pelvic masses or adenopathy. No findings of bowel obstruction or acuteinflammation. No aggressive osseous lesions. IMPRESSION: No evidence of metastatic disease in the abdomen/pelvis. Hepatic steatosis. [facility] Not[facility] Classification: Routine. Reported and signed by: Osiel Ramirez MD [facility] us Ludmila Rodriguez APRN IMG CT ORDERABLES Final Re sult * CT Chest w IV Contrast (05/01/2025 9:35 AM EDT) Anatomical Region Laterality Modality Chest Computed Tomogra phy 05/03/2025 2:26 PM EDT Impressions 05/03/2025 2:32 PM EDT Stable pulmonary metastases. 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 [facility] Radiology Notify System Classification: Routine. Reported and signed by: Carleen Mccabe MD [facility] Narrative 05/03/2025 2:[address] CHEST W IV CONTRAST Date: 05/01/2025 9:35 AM INDICATION: Clinical Trial [id number]. COMPARISON: CT CHEST W IV CONTRAST 2025-02-28; CT CHEST W IV CONTRAST 2024-12-06; [facility] CHEST 2024-06-01; OUTSIDE INTERPRETATION PET SCAN 2024-03-08; [facility] CT CHEST 2020-11-07 TECHNIQUE: A volumetric CT acquisition of the chest was obtained from the thoracic inlet to the upper abdomen, following the administration of intravenous contrast. Coronal and sagittal reconstructed images are provided. Contrast administered: 80 ML IOHEXOL (OMNIPAQUE) 350 MG IODINE/ML INJECTION FINDINGS: Lungs/Airways/Pleura: The central airways are patent. No consolidations. No pulmonary edema. No pleural effusions or pneumothorax. Anterior left upper lobe subpleural reticulation and volume loss and architectural distortion, consistent with radiation fibrosis redemonstrated. Superior segment right lower lobe spiculated nodule measures 19 mm, unchanged. Posterior right lower lobe spiculated nodule measures 12 mm, also unchanged. Additional sub-6 mm nodules are stable (for example 6/317, 6/280). Mediastinum/Lymph nodes: No enlarged lymph nodes. Heart and Vessels: Normal heart size. No pericardial effusion. No thoracic aortic aneurysm. The pulmonary artery is normal size. Mild atherosclerotic calcifications of the coronary arteries. Right anterior chest wall Port-A-Cath has its tip in the lower SVC. Visualized Upper Abdomen: Please see concurrent CT abdomen pelvis for further details below the diaphragm. Bones and Soft Tissues: No suspicious bone lesions. Changes post left breast lumpectomy redemonstrated. Procedure Note Carleen Mccabe MD - 05/03/2025 CT CHEST W IV CONTRAST Date: 05/01/2025 9:35 AM INDICATION: Clinical Trial [id number]. COMPARISON: CT CHEST W IV CONTRAST 2025-02-28; CT CHEST W IV [id number]; [facility] CT CHEST 2024-06-01; OUTSIDE INTERPRETATION PET [id number]; [facility] CT CHEST 2020-11-07 TECHNIQUE: A volumetric CT acquisition of the chest was obtained from thethoracic inlet to the upper abdomen, following the administration ofintravenous contrast. Coronal and sagittal reconstructed images areprovided. Contrast administered: 80 ML IOHEXOL (OMNIPAQUE) 350 MG IODINE/MLINJECTION FINDINGS: Lungs/Airways/Pleura: The central airways are patent. No consolidations.No pulmonary edema. No pleural effusions or pneumothorax. Anterior leftupper lobe subpleural reticulation and volume loss and architecturaldistortion, consistent with radiation fibrosis redemonstrated. Superiorsegment right lower lobe spiculated nodule measures 19 mm, unchanged.Posterior right lower lobe spiculated nodule measures 12 mm, alsounchanged. Additional sub-6 mm nodules are stable (for example 6/317,6/280). Mediastinum/Lymph nodes: No enlarged lymph nodes. Heart and Vessels: Normal heart size. No pericardial effusion. Nothoracic aortic aneurysm. The pulmonary artery is normal size. Mildatherosclerotic calcifications of the coronary arteries. Right anteriorchest wall Port-A-Cath has its tip in the lower SVC. Visualized Upper Abdomen: Please see concurrent CT abdomen pelvis forfurther details below the diaphragm. Bones and Soft Tissues: No suspicious bone lesions. Changes post leftbreast lumpectomy redemonstrated. IMPRESSION: Stable pulmonary metastases. 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 [facility] Radiology Notify System Classification: Routine. Reported and signed by: Carleen Mccabe MD [facility] us Ludmila Rodriguez REGIONAL BUSINESS DEVELOPMENT MANAGER IMG CT ORDERABLES Final Re sult * (ABNORMAL) Manual Differential (04/18/2025 8:15 AM EDT) Neutrophils 65.0 39.0 - 72.0 % 04/18/2025 9:31 AM EDT COUNTS INCLUDE 234 BEDS AT THE [facility] DEPARTMENT OF LABORATORY MEDICINE Lymphocytes 16.0(L) 17.0 - 50.0 % 04/18/2025 9:31 AM EDT COUNTS INCLUDE 234 BEDS AT THE [facility] DEPARTMENT OF LABORATORY MEDICINE Monocytes 11.0 4.0 - 12.0 % 04/18/2025 9:31 AM EDT COUNTS INCLUDE 234 BEDS AT THE [facility] DEPARTMENT OF LABORATORY MEDICINE Eosinophils 3.0 0.0 - 5.0 % 04/18/2025 9:31 AM EDT COUNTS INCLUDE 234 BEDS AT THE [facility] DEPARTMENT OF LABORATORY MEDICINE Basophil 1.0 0.0 - 1.4 % 04/18/2025 9:31 AM EDT COUNTS INCLUDE 234 BEDS AT THE [facility] DEPARTMENT OF LABORATORY MEDICINE Metamyelocytes 1.0 0.0 - 1.0 % 04/18/2025 9:31 AM EDT COUNTS INCLUDE 234 BEDS AT THE [facility] DEPARTMENT OF LABORATORY MEDICINE Myelocytes 3.0(H) 0.0 - 0.0 % 04/18/2025 9:31 AM EDT COUNTS INCLUDE 234 BEDS AT THE [facility] DEPARTMENT OF LABORATORY MEDICINE Neutrophils Absolute 4.28 2.00 - 7.60 x 1000/ L 04/18/2025 9:31 AM EDT COUNTS INCLUDE 234 BEDS AT THE [facility] DEPARTMENT OF LABORATORY MEDICINE Lymphocyte Absolute 1.05 0.60 - 3.70 x 1000/ L 04/18/2025 9:31 AM EDT COUNTS INCLUDE 234 BEDS AT THE [facility] DEPARTMENT OF LABORATORY MEDICINE Monocyte Absolute Count 0.72 0.00 - 1.00 x 1000/ L 04/18/2025 9:31 AM EDT COUNTS INCLUDE 234 BEDS AT THE [facility] DEPARTMENT OF LABORATORY MEDICINE Eosinophil Absolute Count 0.20 0.00 - 1.00 x 1000/ L 04/18/2025 9:31 AM EDT COUNTS INCLUDE 234 BEDS AT THE [facility] DEPARTMENT OF LABORATORY MEDICINE Basophil Absolute Count 0.07 0.00 - 1.00 x 1000/ L 04/18/2025 9:31 AM EDT COUNTS INCLUDE 234 BEDS AT THE [facility] DEPARTMENT OF LABORATORY MEDICINE RBC Morphology Normal 04/18/2025 9:31 AM EDT COUNTS INCLUDE 234 BEDS AT THE [facility] DEPARTMENT OF LABORATORY MEDICINE Blood Venipuncture / Unknown 04/18/2025 8:15 AM EDT 04/18/2025 8:41 AM EDT us Murphy Huynh MD LAB BLOOD ORDERABLES Final Resul t COUNTS INCLUDE 234 BEDS AT THE [facility] DEPARTMENT OF LABORATORY MEDICINE [address] [place] [address] * IR US GUIDED NEEDLE PLACEMENT VASCULAR ACCESS (04/17/2025 9:14 AM EDT) Anatomical Region Laterality Modality X-Ray Angiograph y 04/17/2025 3:39 PM EDT Impressions 04/17/2025 3:41 PM EDT Placement of a right internal jugular vein subcutaneous chest port. The port is ready for immediate use. Reported and signed by: Emelia Petit APRN [facility] Narrative 04/17/2025 3:41 [...] exchanged over the wire for a 3-5 Ethiopian coaxial transitional dilator. The wire tip was then situated in the right atrium as confirmed fluoroscopically, and a length measurement was made. The wire and inner 3 Ethiopian dilator were then exchanged through the 5 Ethiopian outer dilator for a 0.035 inch guidewire, [...] trimmed to an appropriate length. The 5 Ethiopian dilator in the internal jugular vein was [...] measurement was made.The wire and inner 3 Ethiopian dilator were then exchanged through the 5French [...] was trimmed to anappropriate length. The 5 Ethiopian dilator in the internal jugular vein wasexchanged [...] Reported and signed by: Emelia Petit APRN [facility] us Denisse Brewer APRN IMG IR ORDERABLES Final Result * IR PORT PLCMT SINGLE LUMEN >5 YRS OF AGE (04/17/2025 9:14 AM EDT) Anatomical Region Laterality Modality Vascular X-Ray Angiograph y 04/17/2025 3:39 PM EDT Impressions 04/17/2025 3:41 PM EDT Placement of a right internal jugular vein subcutaneous chest port. The port is ready for immediate use. Reported and signed by: Emelia Petit APRN [facility] Narrative 04/17/2025 3:41 [...] exchanged over the wire for a 3-5 Ethiopian coaxial transitional dilator. The wire tip was then situated in the right atrium as confirmed fluoroscopically, and a length measurement was made. The wire and inner 3 Ethiopian dilator were then exchanged through the 5 Ethiopian outer dilator for a 0.035 inch guidewire, [...] trimmed to an appropriate length. The 5 Ethiopian dilator in the internal jugular vein was [...] measurement was made.The wire and inner 3 Ethiopian dilator were then exchanged through the 5French [...] was trimmed to anappropriate length. The 5 Ethiopian dilator in the internal jugular vein wasexchanged [...] Reported and signed by: Emelia Petit APRN [facility] us Denisse M Dest REGIONAL BUSINESS DEVELOPMENT MANAGER IMG IR ORDERABLES Final Result * (ABNORMAL) Urinalysis with culture reflex (04/06/2025 7:35 AM EDT) Color YELLOW YELLOW [facility] Appearance TURBID(A) CLEAR [facility] Specific [place], UA 1.009 1.001 - 1.035 [facility] [...] LABORATORY Comment: CULTURE, URINE, ROUTINE Micro Number: [id number] Test Status: Final Specimen Source: Urine Specimen [...] (Distinguishing susceptible versus intermediate for isolates with OFELIA < or = 4 mcg/mL requires additional testing.) Note 2: For uncomplicated UTI caused by E. coli, K. pneumoniae or P. mirabilis: Cefazolin is susceptible if OFELIA <32 mcg/mL and predicts susceptible to the oral agents cefaclor, cefdinir, cefpodoxime, cefprozil, cefuroxime, cephalexin and loracarbef. Urine URINE SPECIMEN OBTAINED BY CLEAN CATCH PROCEDURE / Unknown 04/06/2025 7:35 AM EDT 04/06/2025 7:36 AM EDT [facility] - 04/09/2025 6:11 PM EDT FASTING:NO FASTING: NO Resulting Agency Comment Performing Lab: Site ID: [id number] Name: [facility] Address: [address] [place] [id number] Director: Jonnie Hernández M.D. Denisse Brewer APRN URINE ORDERABLES Final Result [facility] [address] [place] [id number] * Cancer antigen 15-3 (03/27/2025 11:25 AM EDT) Pathologist [facility] [place] 15-3 (YH) 26.2 <=30.0 U/mL 03/27/2025 12:22 PM EDT COUNTS INCLUDE 234 BEDS AT THE [facility] DEPARTMENT OF LABORATORY MEDICINE Comment: Samples [...] AM EDT 03/27/2025 11:29 AM EDT Ludmila Rodriguez REGIONAL BUSINESS DEVELOPMENT MANAGER LAB BLOOD ORDERABLES Final Result Performing Organization Address [facility] de Phone Number COUNTS INCLUDE 234 BEDS AT THE [facility] DEPARTMENT OF LABORATORY MEDICINE [address] [place] [address] * CEA (03/27/2025 11:25 AM EDT) CEA (Y) <1.8 See Comment ng/mL 03/27/2025 12:22 PM EDT COUNTS INCLUDE 234 BEDS AT THE [facility] DEPARTMENT OF LABORATORY MEDICINE Comment: Ages [...] EDT 03/27/2025 11:29 AM EDT Denisse Brewer REGIONAL BUSINESS DEVELOPMENT MANAGER LAB BLOOD ORDERABLES Final Res ult Performing Organization Address City/[facility] Co de Phone Number COUNTS INCLUDE 234 BEDS AT THE [facility] DEPARTMENT OF LABORATORY MEDICINE [address] [place] [address], [facility] [phone] * TRANSTHORACIC ECHO (TTE) COMPLETE W COLOR, DOPPLER, STRAIN AND 3D (03/27/2025 8:48 AM EDT) Reported 3DE EF% 65 % [facility] IMAGING Anatomical Region Laterality Modality Chest Ultrasound [...] compared toimages from previous echocardiogram of 12/20/2024. Cami Palmer MD CV ECHO ORDERABLES Final Result * HIV-1/HIV-2 antibody/antigen screen w/reflex ([facility]) (12/20/2024 12:51 PM EDT) HIV 1 and 2 Antibody/Antigen Screen Negative Negative 12/20/2024 3:19 PM EDT COUNTS INCLUDE 234 BEDS AT THE [facility] DEPARTMENT OF LABORATORY MEDICINE Comment:Interpretation: This [...] MD LAB BLOOD ORDERABLES Final Resul t COUNTS INCLUDE 234 BEDS AT THE [facility] DEPARTMENT OF LABORATORY MEDICINE [address] [place] [address], [facility] [phone] * Hepatitis C Ab with reflex to HCV PCR (12/20/2024 12:51 PM EDT) Hepatitis C Antibody Negative Negative 12/20/2024 3:17 PM EDT COUNTS INCLUDE 234 BEDS AT THE [facility] DEPARTMENT OF LABORATORY MEDICINE Comment:A negative result do es not exclude HCV infection, since antibodies are not detectable for 4-8 weeks after initial infection, or may not develop in compromised hosts. In high-risk individuals, repeat antibody testing in 2 months and/or HCV RNA PCR should be considered. Blood Venipuncture / Unknown 12/20/2024 12:51 PM EDT 12/20/2024 12:51 PM EDT us Murphy Huynh MD LAB BLOOD ORDERABLES Final Resul t COUNTS INCLUDE 234 BEDS AT THE [facility] DEPARTMENT OF LABORATORY MEDICINE [address] [place] [address], [facility] [phone] * [facility] Mammo Digital Screening w CAD (09/26/2023 2:50 PM EDT) Narrative RAD4 - 05/02/2024 2:50 PM EDT DISCLAIMER This procedure captures images only. There is no report. Murphy Huynh MD IMG [facility] NON REP ORDERABLES Final Result RAD4 from Last 3 Months or Most Recently Relevant to Health Maintenance Insurance MEDICARE [facility] MEDICARE [facility] MEDICARE [facility] Advance Directives * Full Code (Latest Code Status on File) Date Activated Date Inactivated Comments 09/06/2024 10:57 PM 09/12/2024 5:44 PM Care Teams Monument Setter Relationship Specialty Start Date End Date D[place] To NP [facility] [place] [phone] PCP - General Family Medicine 04/30/24
[2025-06-01 11:09] LABS: Hematocrit 36.9 % (37.0-47.0); Hemoglobin 12.4 g/dl (12.0-16.0); Imm Gran Abs Auto 0.03 X10*3/uL (0.00-0.03); Imm Gran Pct Auto 0.4 % (0.0-0.4); Lymphocytes Absolute Auto 0.4 X10*3/uL (1.2-4.9); MANUAL DIFF FLAG SCAN; Mean Corpuscular HGB Conc 33.6 g/dl (31.0-35.0); Mean Corpuscular Hemoglobin 30.5 pg (27.0-33.0); Mean Corpuscular Volume 90.9 fL (80.0-98.0); NRBC Abs Auto 0.000 X10*3/uL (0.0-0.012); NRBC Pct Auto 0.0 /100WBC (0.0-0.2); Platelet Count 304 X10*3/uL (160-400); Red Blood Count 4.06 X10*6/uL (4.20-5.50); SCAN SMEAR FLAG 1; White Blood Count 7.9 X10*3/uL (4.8-10.8)
[2025-06-01 11:12] LABS: Appearance Urine Turbid; Glucose Urine UA Negative (Negative); PH 5.0 (5.0-9.0); Specific Gravity - Urine 1.025 (1.005-1.025)
[2025-06-01 11:46] LABS: Alanine Aminotransferase 42 U/L (0-31); Albumin Level 4.5 g/dL (3.5-5.0); Alkaline Phosphatase 114 U/L (39-117); Anion Gap 15 (12-20); Aspartate Amino Transferase 28 U/L (5-31); Blood Urea Nitrogen 36 mg/dL (9-16); Calcium 9.2 mg/dL (8.4-10.2); Carbon Dioxide 21 mmol/L (22-29); Chloride 108 mmol/L (96-108); Cholesterol 270 mg/dL (<200); Estimated Glomerular Filt Rate 54; HDL Cholesterol 48 mg/dL (>40); Potassium 4.1 mmol/L (3.3-5.1); Sodium 140 mmol/L (135-145); Total Protein 7.0 g/dL (6.5-8.0); Triglycerides 91 mg/dL (<150)
== END 2025-06-01 08:42 | disposition home or self-care (01) ==
LOC: HO.HMGCLDS 08:41
PROVIDERS: PCP Nurse Practitioner Family; Visit Provider Nurse Practitioner Family
DX: E11.9 Type 2 diabetes mellitus without complications (principal)
CPT/HCPCS: 36415; 80053; 80061; 81003; 84443; 85025

== ENCOUNTER 2025-06-03 13:12 | Outpatient (AMB) | payer MEDICARE, SELFPAY ==
--- OUTSIDE RECORDS SUMMARY | 2025-05-30 09:00 | XMS_ITS | Encounter Summary ---
Author Organization [facility] Address [address] [place] [address] Care Team Providers Care Retail Helper Name Role Phone Denton To DEVELOPMENT ADMINISTRATOR Primary Care Provider + Encounter Details Date Type Department Care Team (Late st Contact Info) Description 05/30/2025 9:00 AM [facility] Hospital Encounter [facility] [address] [phone] Murphy Huynh MD [address] [place] [address] Social History Tobacco Use Types Packs/Day Years Used Date Smoking Tobacco: Former Cigarettes Alcohol Use Standard Drinks/Week Comments Never 0 (1 standard drink = 0.6 oz pur e alcohol) [facility] Utilities Answer Date Recorded In the past 12 months has [employer], gas, oil, or water [employer] threatened to shut off services in your [...] your living situation today? I have a [employer] place to live 03/26/2025 Housing Stability Not [...] Info) Description 06/27/2025 10:00 AM EST Appointment [facility] [address] [place] [phone] 06/27/2025 10:30 AM EST Office Visit [facility] at [address] [address] Murphy Huynh MD [address] [place] [phone] 06/27/2025 11:45 AM EST Appointment [facility] [address] [place] [phone] 07/08/2025 2:00 PM EST Hospital Encounter [facility] CT Scan [address] [place] [address]. [place] [address] Denisse Brewer APRN [address] [place] [phone] 07/12/2025 12:00 PM EST Appointment [facility] [address] [place] [address] 07/18/2025 9:00 AM EST Appointment [facility] [address] [place] [address] 07/18/2025 9:30 AM EST Office Visit [facility] at [address] [place] [address] Murphy Huynh MD [address] [place] [phone] 07/18/2025 10:15 AM EST Appointment [facility] [address] [place] [address], [place] [address] documented as of this encounter Goals Goal [...] documented as of this encounter Care Teams Retail Helper Relationship Specialty Start Date End Date Denton To NP [facility] [place] [phone] PCP - General Family Medicine 04/30/24 documented as of this encounter
--- OUTSIDE RECORDS SUMMARY | 2025-05-30 09:30 | XMS_ITS | Encounter Summary ---
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 [facility] 03/26/2025 Housing Stability Not [...] Sign Reading Time Taken Comments Blood Pressure 177/90 05/30/2025 10:00 AM EST Pulse 100 05/30/2025 10:00 AM EST Temperature 36.1 C (97 F) 05/30/2025 10:00 AM EST Respiratory Rate 18 05/30/2025 10:00 AM EST Oxygen Saturation 98% 05/30/2025 10:00 AM EST Inhaled Oxygen Concentration - - Weight 63 kg (138 lb 14.2 oz) 05/30/2025 10:00 A M EST Height 154.9 cm (5' 1 ) 05/30/2025 10:00 AM EST Body Mass Index 26.24 05/30/2025 10:00 AM EST documented in this encounter Plan of Treatment Upcoming Encounters Date Type Department Care Team (Late st Contact Info) Description 06/27/2025 10:00 AM EST Appointment [facility] Oncology [address] [address] 06/27/2025 10:30 AM EST Office Visit Breast Center at [address] [address] Murphy Huynh MD [address] [place] [phone] 06/27/2025 11:45 AM EST Appointment [facility] Medical Oncology Infusion [address] [place] [phone] 07/08/2025 2:00 PM EST Hospital Encounter [facility] CT Scan [address] [place] [address], [facility] [place] [address] Denisse Brewer APRN [address] [place] [phone] 07/12/2025 12:00 PM EST Appointment [facility] Medical Oncology Infusion [address] [place] [phone] 07/18/2025 9:00 AM EST Appointment [facility] Medical Oncology Infusion [address] [place] [phone] 07/18/2025 9:30 AM EST Office Visit Breast Center at [address] [address] Murphy Huynh MD [address] [place] [phone] (Fax) 07/18/2025 10:15 AM EST Appointment [facility] Medical Oncology Infusion [address] [place] [phone] documented as of this encounter Goals Goal Patient Goal Type Associated Problems Recent Progress Patient-Stated? Author RxSp Therapeutic Goal General On track( 025 2:22 PM EDT) No Fernando Naylor, PharmD Note: Oncology: Improve or maintain quality of life MTPs must be opened for patients not making appropriate progress towards their established therapeutic goals. Patient's progress towards goal: RxSp Therapeutic Goal General On track( 025 2:22 PM EDT) No Levay, Fernando, PharmD Note: Oncology: Minimize toxicity by monitoring [...] documented as of this encounter Care Teams Game Technician Relationship Specialty Start Date End Date Denton To NP [address] [place] [address] [place] [phone] PCP - General Family Medicine 04/30/24 documented as of this encounter
--- OUTSIDE RECORDS SUMMARY | 2025-05-30 10:15 | XMS_ITS | Encounter Summary ---
Author Organization [facility] and [facility] Address [address] [place] [address] Care Team Providers Care Electric Deicer Inspector Name Role Phone Denton To FI[employer] SALES ASSOCIATE Primary Care Provider + Encounter Details Date Type Department Care Team (Latest Contact Info) Description 05/30/2025 10:15 AM [facility] Hospital Encounter [facility] Medical Oncology Infusion [address] [address] Murphy Huynh MD [address] [place] [phone] 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, unspecified laterality (HC Code) (HC CODE) (Primary Dx) Social History Tobacco Use Types Packs/Day Years Used Date Smoking Tobacco: Former Cigarettes Alcohol Use Standard Drinks/Week Comments Never 0 (1 standard drink = 0.6 oz pur e alcohol) [facility] Utilities Answer Date Recorded In the past 12 months has [employer], gas, oil, or water [employer] threatened to shut off services in your [...] your living situation today? [facility] 03/26/2025 Housing Stability Not [...] Info) Description 06/27/2025 10:00 AM EST Appointment [facility] Medical Oncology Infusion 35 [facility] [address] [place] [address] 06/27/2025 10:30 AM EST Office Visit Breast Center at [facility] 35 [facility] [address] [place] [address] Murphy Huynh MD [address] [place] [address], [place] [phone] (Fax) 06/27/2025 11:45 AM EST Appointment [facility] Medical Oncology Infusion [address] [place] [address] 07/08/2025 2:00 PM EST Hospital Encounter [facility] CT Scan [address] [place] [address], [facility] [place] [address] Denisse Brewer APRN [address] [place] [phone] 07/12/2025 12:00 PM EST Appointment [facility] Medical Oncology Infusion [address] [place] [address] 07/18/2025 9:00 AM EST Appointment [facility] Medical Oncology Infusion [address] [place] [address] 07/18/2025 9:30 AM EST Office Visit Breast Center at [address] [place] [address] Murphy Huynh MD [address] [place] [phone] 07/18/2025 10:15 AM EST Appointment [facility] Medical Oncology Infusion [address] [place] [phone] documented as of this encounter Goals Goal [...] - 11.0 x1000/ L 05/30/2025 9:49 AM [facility] RBC 4.11 4.00 - 6.00 M/ L 05/30/2025 9:49 AM [facility] Hemoglobin 12.7 11.7 - 15.5 g/dL 05/30/2025 9:49 AM [facility] Hematocrit 38.30 35.00 - 45.00 % 05/30/2025 9:49 AM [facility] MCV 93.2 80.0 - 100.0 fL 05/30/2025 9:49 AM [facility] MCH 30.9 27.0 - 33.0 pg 05/30/2025 9:49 AM [facility] MCHC 33.2 31.0 - 36.0 g/dL 05/30/2025 9:49 AM [facility] RDW-CV 14.7 11.0 - 15.0 % 05/30/2025 9:49 AM [facility] Platelets 273 150 - 420 x1000/ L 05/30/2025 9:49 AM [facility] MPV 10.5 8.0 - 12.0 fL 05/30/2025 9:49 AM [facility] Neutrophils 50.3 39.0 - 72.0 % 05/30/2025 9:49 AM [facility] Lymphocytes 33.3 17.0 - 50.0 % 05/30/2025 9:49 AM [facility] Monocytes 8.2 4.0 - 12.0 % 05/30/2025 9:49 AM [facility] Eosinophils 5.7(H) 0.0 - 5.0 % 05/30/2025 9:49 AM [facility] Basophil 1.1 0.0 - 1.4 % 05/30/2025 9:49 AM [facility] Immature Granulocytes 1.4(H) 0.0 - 1.0 % 05/30/2025 9:49 AM [facility] nRBC 0.0 0.0 - 1.0 % 05/30/2025 9:49 AM [facility] Absolute Lymphocyte Count 0.94 0.60 - 3.70 x 1000/ L 05/30/2025 9:49 AM [facility] Monocyte Absolute Count 0.23 0.00 - 1.00 x 1000/ L 05/30/2025 9:49 AM [facility] Eosinophil Absolute Count 0.16 0.00 - 1.00 x 1000/ L 05/30/2025 9:49 AM [facility] Basophil Absolute Count 0.03 0.00 - 1.00 x 1000/ L 05/30/2025 9:49 AM [facility] Absolute Immature Granulocyte Count 0.04 0.00 - 0.30 x 1000/ L 05/30/2025 9:49 AM [facility] Absolute nRBC 0.00 0.00 - 1.00 x 1000/ L 05/30/2025 9:49 AM [facility] MEDIC[facility] ANC (Abs Neutrophil Count) 1.42(L) 2.00 - 7.60 x 1000/ L 05/30/2025 9:49 AM [facility] MEDIC[facility] Blood Venipuncture / Unknown 05/30/2025 9:33 AM EST 05/30/2025 9:44 AM EST us Denisse Hernandez Dest [facility] LAB BLOOD ORDERABLES Final Res ult Performing Organization Address City/State/[facility] Co de Phone Number [facility] DEPARTMENT OF LABORATORY MEDICINE [address] [place] [address] * (ABNORMAL) Comprehensive metabolic panel (05/30/2025 9:33 AM EST) Sodium 140 136 - 144 mmol/L 05/30/2025 10:08 AM [facility] MEDIC[facility] Potassium 4.6 3.3 - 5.3 mmol/L 05/30/2025 10:08 AM [facility] Chloride 106 98 - 107 mmol/L 05/30/2025 10:08 AM [facility]IC[facility] CO2 23 20 - 30 mmol/L 05/30/2025 10:08 AM [facility]IC[facility] Anion Gap 11 7 - 17 05/30/2025 10:08 AM [facility]IC[facility] Glucose 192(H) 70 - 100 mg/dL 05/30/2025 10:08 AM [facility]IC[facility] BUN 16 8 - 23 mg/dL 05/30/2025 10:08 AM [facility] Creatinine 0.97 0.40 - 1.30 mg/dL 05/30/2025 10:08 AM [facility] MEDIC[facility] Calcium 9.3 8.8 - 10.2 mg/dL 05/30/2025 10:08 AM [facility] MEDIC[facility] BUN/Creatinine Ratio 16.5 8.0 - 23.0 05/30/2025 10:08 AM [facility] MEDIC[facility] Total Protein 6.7 5.9 - 8.3 g/dL 025 10:08 AM [facility] MEDIC[facility] Albumin 4.1 3.6 - 5.1 g/dL 05/30/2025 10:08 AM [facility] MEDIC[facility] Total Bilirubin 0.4 <=1.2 mg/dL 05/30/20 10:08 AM [facility] MEDIC[facility] Alkaline Phosphatase 128(H) 9 - 122 U/L 05/30/2025 10:08 AM [facility] MEDIC[facility] Alanine Aminotransferase (ALT) 40(H) 10 - 35 U/L 05/30/2025 10:08 AM [facility]IC[facility] Comment:Calcium dobesilate c an cause artificially low ALT results at therapeutic concentrations Aspartate Aminotransferase (AST) 28 10 - 35 U/L 05/30/2025 10:08 AM [facility] MEDIC[facility] Globulin 2.6 2.0 - 3.9 g/dL 05/30/2025 10:08 AM [facility]IC[facility] A/G Ratio 1.6 1.0 - 2.2 05/30/2025 10:08 AM [facility] MEDIC[facility] AST/ALT Ratio 0.7 Reference Range Not Established 05/30/2025 10:08 AM [facility] MEDIC[facility] eGFR (Creatinine) 60 >=60 mL/min/1.73m2 05/30/2025 10:08 AM [facility]ORY MEDICINE Comment: [facility] utilizes CKD-EPI Creatinine 2020 to report eGFR. Values < 60 mL/min/1.73 m2 may indicate CKD if present for more than three months AND creatinine is at steady state. The eGFR provides a rough estimate of kidney function. For further guidance, please refer to the CKD: Adult Blade Filer Signature pathway. Creatinine Delta 0.15 See Comment 10:08 AM [facility] LABORATORY MEDICINE Comment: Delta [...] 9:44 AM EST us Denisse Hernandez Dest GR[facility] [facility]ER LAB BLOOD ORDERABLES Final Res ult [facility] OF LAB[facility]ATORY MEDICINE [address] [place] [address] * LACTATE DEHYDROGENASE (05/30/2025 9:33 AM EST) LD 193 122 - 241 U/L 05/30/2025 10:22 AM EST [facility] MEDIC[facility] Blood Venipuncture / Unknown 05/30/2025 9:33 AM EST 05/30/2025 9:59 AM EST Denisse M Dest [facility] LAB BLOOD ORDERABLES Final Res ult [facility]ORY MEDICINE [address] [place] [address] * MAGNESIUM (05/30/2025 9:33 AM EST) Magnesium 2.0 1.7 - 2.4 mg/dL 05/30/2025 10:08 AM EST [facility] MEDIC[facility] Blood Venipuncture / Unknown 05/30/2025 9:33 AM EST 05/30/2025 9:44 AM EST Denisse M Dest GR[employer] HACKER LAB BLOOD ORDERABLES Final Res ult Performing Organization Address [facility] Co de Phone Number [facility]IC[facility] [address] [place] [address] * Phosphorus (BH GH L LMW YH) (05/30/2025 9:33 AM EST) Phosphorus 3.2 2.2 - 4.5 mg/dL 05/30/2025 10:08 AM EST [facility] Blood Venipuncture / Unknown 05/30/2025 9:33 AM EST 05/30/2025 9:44 AM EST Denisse M Dest GR[employer] LAB BLOOD ORDERABLES Final Res ult Performing Organization Address [facility] Co de Phone Number [facility] MEDICINE [address] [place] [address] documented in this encounter Visit Diagnoses Diagnosis [...] 05/30/2025 12:20 PM EST 12 mg PSYCHIATRIC [id number] trastuzumab deruxtecan (T-DXd, [id number]) 320 mg in [...] documented as of this encounter Care Teams Electric Deicer Inspector Relationship Specialty Start Date End Date Denton To NP [facility] [place] [phone] PCP - General Family Medicine 04/30/24 documented as of this encounter
--- NOTE | 2025-06-03 13:14 | MHC.PC.OV ---
Vital Signs 06/03/25 13:15 Height 5 ft 1 in Weight 128 lb BMI 24.2 BP 124/80 Blood Pressure Location Rt brachial Position Sitting Respiration 17 Pulse 77 Pulse Source Pulse Oximeter Temp 97.4 F Temp Source Oral Pulse Oximetry (%) 98 Oxygen Delivery Method Room Air Intake Visit Reasons: 6m f/u Intake Note: apt is here today for 6 months follow up visit on labs. Allergies erythromycin base Adverse Reaction (Intermediate, Verified 06/03/25 14:15) Nausea and Vomiting Medication List - Last Reconciled 06/03/[address] [facility] blood sugar diagnostic (FreeStyle Lite Strips) test blood sugar once a day lancets (FreeStyle Lancets) test blood sugar once a day Tobacco use date assessed: 06/03/25 Fall risk assessment: No Falls in past year Last assessed Fall Risk: 06/03/25 Dental Screening Dental Screen Date: 11/21/24 HPI 6m f/u HPI Details Chief Complaint The patient presents for a follow-up visit for diabetes management. History of Present Illness The patient is a 75 year old individual presenting with follow up for diabetes. The patient's hemoglobin A1c is 6.8%, and the patient reports feeling well, denying any neuropathy. The patient receives regular eye examinations. Recent lab results indicated an elevated LDL cholesterol level. The patient has a history of breast carcinoma which has metastasized to the lungs and receives ongoing care at [facility]. The patient reports doing well and denies fevers, chills, or blurred vision. The patient has declined any vaccinations. Social History Health Maintenance The patient declined vaccinations during this visit. Review of Systems - General: Reports feeling well and being in good spirits. Denies fevers or chills. - Neurological: Denies neuropathy. - Eyes: Denies blurred vision. Physical Exam General: Cooperative, healthy appearing, comfortable, no acute distress and well developed Orientation: Patient oriented x3 Limitations: No limitations Head: Normal to inspection Ears: Hearing grossly normal bilaterally Nose: Normal external nose present Face and sinus: Normal facial exam Eyes: Appearance normal, both eyes and all related structures Neck: Normal visual inspection and Yes full ROM Respiratory: Normal respiratory effort and able to speak in complete sentences. Clear to auscultation bilaterally Cardiovascular: Regular rate and rhythm. Normal S1 and S2 GI: Normal to inspection. Soft to palpation and nontender Skin: No rashes or lesions noted Neuro: Patient oriented x3 Extremities: Normal to inspection, feet intact bilaterally with positive sensation using monofilament Results - Labs: Hemoglobin A1c is 6.8%. - Labs: Recent LDL cholesterol was elevated. Plan 1. Type 2 Diabetes Mellitus The patient's A1c is 6.8%. The patient is feeling well and denies symptoms of neuropathy. The patient will discuss with family the possibility of starting a low-dose [place] inhibitor or ARB for renal protection. Continue routine eye exams. 2. Hyperlipidemia Recent labs showed an elevated LDL cholesterol. The patient expressed a preference for a natural treatment approach. Recommended starting ugig-gpq-[id number] citrus bergamot 1000 mg daily. Plan to recheck lipid panel, liver function, and kidney function in approximately two months. 3. Breast Carcinoma With Lung Metastasis The patient has a history of breast carcinoma that has metastasized to the lungs and is receiving ongoing care at [facility]. The patient reports doing quite well. Will continue to follow with oncology. Discussion Notes I reviewed the patient's current status, noting a recent hemoglobin A1c of 6.8% for diabetes. We discussed the recent lab results which showed an elevated LDL cholesterol. Given the patient's preference for a natural approach, I recommended starting uodz-wkf-fqwriia citrus bergamot 1000 mg daily. We will plan to recheck cholesterol, liver, and kidney function labs in about two months to assess the effect. We also discussed possibly starting a low-dose [place] inhibitor or ARB for renal protection, which the patient will consider after discussing with family. The patient will continue to follow with oncology at [facility] for ongoing care of metastatic breast carcinoma. Patient Instructions - Your recent A1c lab result for diabetes was 6.8%, which is good. - Your bad cholesterol (LDL) is high. - Start taking an azvx-ztf-rqjmugz supplement called citrus bergamot, 1000 mg once a day, to help lower your cholesterol. - We will recheck your cholesterol, liver, and kidney function with a blood test in about two months. - Please talk with your family about the possibility of starting a low-dose medication to protect your kidneys. - Continue to get your regular eye exams. - Continue your cancer care appointments at [facility]. [facility] Medical History Bilateral cataracts Palpitations Anxiety Asthma Diabetes Dyslipidemia Surgical History Hx of colonoscopy H/O excision of epidermal inclusion cyst (06/15/22) History of partial mastectomy of left breast [place] teeth removed History of 3 sections Family History Maternal Grandmother Cancer of unknown origin Paternal Aunt Breast cancer Maternal Aunt Colon cancer Social History Housing: House Alcohol intake: never Patient Tobacco Use Status: Never used Tobacco Years Smoked: 1 year e-Cigarette/Vaping Use: Never Used Second Hand Smoke Exposure: Yes service: No Current occupational status: retired Current occupational exposures/hazards: No Cognitive needs: No Hearing needs: No Vision needs: Yes Questionnaire Thrive Questionnaire Date Thrive assessed: 11/21/24 I am a: Patient What is your living situation today?: I have a steady place to live Within the past 12 months, did the food you bought not last and you didn't have the money to get more?: I choose not to answer this question Within the past 12 months, did you worry whether your food would run out before you got money to buy more?: Never true Do you have trouble paying for medicines?: No Do you have trouble getting transportation to medical appointments?: No Do you have trouble paying your heating and electricity bill?: No Do you have trouble taking care of your child, family member or friend?: No Do you have trouble with day-to-day activities such as bathing, preparing meals, shopping, managing finances, etc.?: No Are you currently unemployed and looking for a job?: No Are you interested in more education?: No Please select the resources that you would like help with: None Currently or been in a relationship where the following occur: No concerns reported THRIVE Score: 0 AUDIT C Alcohol Use Questionnaire (AUDIT-C) 1. How often do you have a drink containing alcohol?: Never 3. How often do you have six or more drinks on one occasion?: Never Total Score: 0 BARBARA-7 AMB Questionnaire BARBARA-7 Date BARBARA - 7 assessed: 11/21/24 Source: Developed by Drs. Moose Kaplan, Marley Burger, Everett Skelton and colleagues, with an educational cecilia from [employer]. Physical exam (Primary Care) Vital Signs: Last Vital Signs Temp 97.4 F 06/03/25 13:15 Pulse 77 06/03/25 13:15 Resp 17 06/03/25 13:15 BP 124/80 06/03/25 13:15 Pulse Ox 98 06/03/25 13:15 Oxygen Delivery Method Room Air 06/03/25 13:15 BMI result Body Mass Index 24.2 Tobacco/Smoking Status: Tobacco use Status Tobacco use date assessed 06/03/25 06/03/25 13:21 Patient Tobacco Use Status Never used Tobacco 06/03/25 13:21 e-Cigarette/Vaping Use Never Used 06/03/25 13:14 Thrive Assessment: Date of Thrive Assessment Date Thrive assessed 11/21/24 06/03/25 13:14 Currently or been in a relationship where the following occur: No concerns reported Results AMB Hemoglobin A1c AMB Hemoglobin A1c 6.8 % Last Edit by Christa Grant MA on 06/03/25 13:51 Coding Level of Care Code Est Pt Level 3 (45691) Diagnoses Diabetes E11.9 Dyslipidemia E78.5 Assessment & Plan Assessment & Plan (1) Diabetes: Code(s): E11.9 - Type 2 diabetes mellitus without complications Category: Medical (2) Dyslipidemia: Code(s): E78.5 - Hyperlipidemia, unspecified Category: Medical Plan . Orders: Orders AMB Hemoglobin A1c Today Z13.9 - Encounter for screening, unspecified Comprehensive [place]. Panel Fast 2 Months E11.9 - Type 2 diabetes mellitus without complications, E78.5 - Hyperlipidemia, unspecified Lipid Panel 2 Months E11.9 - Type 2 diabetes mellitus without complications, E78.5 - Hyperlipidemia, unspecified
[2025-06-03 13:15] VITALS: BP 124/80; PULSE 77; RESP 17; TEMP 36.3; O2SAT 98; BMI 24.2
--- OUTSIDE RECORDS SUMMARY | 2025-06-03 17:51 | XMS_ITS | Encounter Summary ---
Author Organization [facility] and [facility] Address [address] [place] [address] Care Team Providers Care Bricklayer Apprentice Name Role Phone Denton To NP Primary Care Provider + Encounter Details Date Type Department Care Team (Late st Contact Info) Description 05/02/2024 Abstract Surgical Oncology at [address] [place] [address] Center, [place] [facility] [address] [place] [address] First floor, [place] [address] Social History Tobacco Use Types [...] EST Appointment [facility] Medical Oncology [address] [place] [address] 06/27/2025 10:30 AM EST Office Visit Breast Center at [address] [place] [address] Murphy Huynh MD [address] [place] [phone] (Fax) 06/27/2025 11:45 AM EST Appointment [facility] Medical Oncology Infusion [address] [place] [address] 07/08/2025 2:00 PM EST Hospital Encounter [facility] CT Scan [address] [place] [address], [facility] [place] [address] Denisse Brewer APRN [address] [place] [phone] 07/12/2025 12:00 PM EST Appointment [facility] Medical Oncology Infusion [address] [place] [address] 07/18/2025 9:00 AM EST Appointment [facility] Medical Oncology Infusion [address] [place] [address] 07/18/2025 9:30 AM EST Office Visit Breast Center at [address] [address] Murphy Huynh MD [address] [place] [phone] 07/18/2025 10:15 AM EST Appointment [facility] Medical Oncology Infusion [address] [place] [address] documented as of this encounter Visit Diagnoses Not on filedocumented in this encounter Care Teams Bricklayer Apprentice Relationship Specialty Start Date End Date Denton To NP [address] [facility] [place] [phone] PCP - General Family Medicine 04/30/24 documented as of this encounter
--- OUTSIDE RECORDS SUMMARY | 2025-06-03 17:51 | XMS_ITS | Encounter Summary ---
Author Organization [facility] and [facility] Address [address] [place] [address] Care Team Providers Care Electric Mule Operator Name Role Phone Denton To NP Primary Care Provider + Encounter Details Date Type Department Care Team (Late st Contact Info) Description 01/01/2025 Orders Only Cancer Center at [address] [phone] Gissell Tuttle, LIA Social History Tobacco Use Types Packs/Day Years Used Date Smoking Tobacco: Former Cigarettes Alcohol Use Standard Drinks/Week Comments Never 0 (1 standard drink = 0.6 oz pur e alcohol) [facility] Utilities Answer Date Recorded In the [...] Info) Description 06/27/2025 10:00 AM EST Appointment [facility] Medical Oncology Infusion [address] [place] [address] 06/27/2025 10:30 AM EST Office Visit Breast Center at [address] [address] Murphy Huynh MD [address] [place] [phone] 06/27/2025 11:45 AM EST Appointment [facility] Medical Oncology Infusion [address] [place] [address] 07/08/2025 2:00 PM EST Hospital Encounter [facility] CT Scan [address] [place] [address], [facility] [place] [address] Denisse Brewer APRN [address] [place] [phone] 07/12/2025 12:00 PM EST Appointment [facility] Medical Oncology Infusion [address] [place] [address] 07/18/2025 9:00 AM EST Appointment [facility] Medical Oncology Infusion [address] [facility] [address] [place] [address] 07/18/2025 9:30 AM EST Office Visit Breast Center at [facility] [address] [facility] [address] [facility] [address] [place] [address] Murphy Huynh MD [address] [facility] [place] [phone] 07/18/2025 10:15 AM EST Appointment [facility] Medical Oncology Infusion [address] [facility] [address] [address] [place] [address] documented as of this encounter Goals Goal [...] as of this encounter Care Teams Electric Mule Operator Relationship Specialty Start Date End Date Denton To NP [facility] [place] [address] [place] [phone] PCP - General Family Medicine 04/30/24 documented as of this encounter
--- OUTSIDE RECORDS SUMMARY | 2025-06-03 17:51 | XMS_ITS | Encounter Summary ---
Author Organization [facility] and [facility] Address [address] [place] [address] Care Team Providers Care Crisis Mental Health Therapist Name Role Phone Denton To CHECK OUT CASHIER Primary Care Provider + Encounter Details Date Type Department Care Team (Late st Contact Info) Description 06/19/2024 Scanned Document INTERFACE DEFAULT 20 [place] [address] System, Provider Not In Social History Tobacco [...] Info) Description 06/27/2025 10:00 AM EST Appointment [facility] Medical Oncology [address] [place] [address] 06/27/2025 10:30 AM EST Office Visit Breast Center at [facility] Cancer [address] [address] Murphy Huynh MD [address] [place] [phone] 06/27/2025 11:45 AM EST Appointment [facility] Medical Oncology Infusion [address] [place] [address] 07/08/2025 2:00 PM EST Hospital Encounter [facility] CT Scan [address] [place] [address], [facility] [place] [address] Denisse Brewer APRN [address] [place] [phone] 07/12/2025 12:00 PM EST Appointment [facility] Medical Oncology Infusion [address] [place] [address] 07/18/2025 9:00 AM EST Appointment [facility] Medical Oncology Infusion [address] [place] [address] 07/18/2025 9:30 AM EST Office Visit Breast Center at [address] [address] Murphy Huynh MD [address] [place] [phone] 07/18/2025 10:15 AM EST Appointment [facility] Medical Oncology Infusion [address] [place] [address] documented as of this encounter Procedures Procedure [...] documented as of this encounter Care Teams Crisis Mental Health Therapist Relationship Specialty Start Date End Date Denton To NP [facility] [place] [phone] PCP - General Family Medicine 04/30/24 documented as of this encounter
--- OUTSIDE RECORDS SUMMARY | 2025-06-03 17:51 | XMS_ITS | Encounter Summary ---
Author Organization [facility] and [facility] Address [address] [place] [address] Care Team Providers Care Disc Sander Name Role Phone Denton To NP Primary Care Provider + Encounter Details Date Type Department Care Team (Late st Contact Info) Description 09/02/2024 Scanned Document INTERFACE DEFAULT [address] [place] [phone] System, Provider Not In Social History Tobacco Use Types Packs/Day Years Used Date Smoking Tobacco: Former Cigarettes Alcohol Use Standard Drinks/Week Comments Never 0 (1 standard drink = 0.6 oz pur e alcohol) [facility] Utilities Answer Date Recorded In the past 12 months has e electric, gas, oil, or water [employer] threatened to shut off services in your [...] Info) Description 06/27/2025 10:00 AM EST Appointment [facility] Medical Oncology Infusion [address] [place] [address] 06/27/2025 10:30 AM EST Office Visit Breast Center at [address] [address] Murphy Huynh MD [address] [place] [phone] 06/27/2025 11:45 AM EST Appointment [facility] Medical Oncology Infusion [address] [place] [address] 07/08/2025 2:00 PM EST Hospital Encounter [facility] CT Scan [address] [place] [address]. [place] [address] Denisse Brewer APRN [address] [place] [phone] 07/12/2025 12:00 PM EST Appointment [facility] Medical Oncology Infusion [address] [place] [address] 07/18/2025 9:00 AM EST Appointment [facility] Medical Oncology Infusion [address] [place] [address] 07/18/2025 9:30 AM EST Office Visit Breast Center at [address] [address] Murphy Huynh MD [address] [place] [phone] 07/18/2025 10:15 AM EST Appointment [facility] Medical Oncology [facility] [address] [place] [address] documented as of this encounter Procedures Procedure [...] documented as of this encounter Care Teams Disc Sander Relationship Specialty Start Date End Date Denton To NP [facility] [place] [phone] PCP - General Family Medicine 04/30/24 documented as of this encounter
--- OUTSIDE RECORDS SUMMARY | 2025-06-03 17:51 | XMS_ITS | Encounter Summary ---
Author Organization [facility] Address [address] [place] [address] Care Team Providers Care Cab Supervisor Name Role Phone Denton To PSYCHOLOGIST CHIEF Primary Care Provider + Encounter Details Date Type Department Care Team (Late st Contact Info) Description 07/02/2024 Scanned Document INTERFACE DEFAULT 20 [place] [address] System, Provider Not In Social History Tobacco Use Types Packs/Day Years Used Date Smoking Tobacco: Former Cigarettes Alcohol Use Standard Drinks/Week Comments Never 0 (1 standard drink = 0.6 oz pur e alcohol) PHQ-2 Answer Date Recorded PHQ-2 Total Score 0 05/10/2024 Housing Stability Answer Date Recorded What is your living situation today? [facility] 05/10/2024 Housing Stability [...] Info) Description 06/27/2025 10:00 AM EST Appointment [facility] Medical Oncology [address] [place] [address] 06/27/2025 10:30 AM EST Office Visit Breast Center at [facility] Cancer [address] [address] Murphy Huynh MD [address] [place] [phone] 06/27/2025 11:45 AM EST Appointment [facility] Medical Oncology Infusion [address] [place] [address] 07/08/2025 2:00 PM EST Hospital Encounter [facility] CT Scan [address] [place] [address], [facility] [place] [address] Denisse Brewer APRN [address] [place] [phone] 07/12/2025 12:00 PM EST Appointment [facility] Medical Oncology Infusion [address] [place] [address] 07/18/2025 9:00 AM EST Appointment [facility] Medical Oncology Infusion [address] [place] [address] 07/18/2025 9:30 AM EST Office Visit Breast Center at [address] [address] Murphy Huynh MD [address] [place] [phone] 07/18/2025 10:15 AM EST Appointment [facility] Medical Oncology Infusion [address] [place] [address] documented as of this encounter Procedures Procedure [...] documented as of this encounter Care Teams Cab Supervisor Relationship Specialty Start Date End Date Denton To NP [facility] [place] [phone] PCP - General Family Medicine 04/30/24 documented as of this encounter
--- OUTSIDE RECORDS SUMMARY | 2025-06-03 17:51 | XMS_ITS | Encounter Summary ---
Author Organization [facility] and 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 I have a [facility] place to live 12/11/2024 Housing Stability [...] Info) Description 06/27/2025 10:00 AM EST Appointment [facility] Medical Oncology Infusion [address] [place] [address] 06/27/2025 10:30 AM EST Office Visit Breast Center at [address] [address] Murphy Huynh MD [address] [place] [phone] 06/27/2025 11:45 AM EST Appointment [facility] Medical Oncology Infusion [address] [place] [address] 07/08/2025 2:00 PM EST Hospital Encounter [facility] CT Scan [address] [place] [address]. [place] [address] Denisse Brewer, PIE MAKER MACHINE [address] [place] [phone] 07/12/2025 12:00 PM EST Appointment [facility] Medical Oncology Infusion [address] [place] [address], [place] [address] 07/18/2025 9:00 AM EST Appointment [facility] Medical Oncology Infusion [address] [place] [address], [place] [address] 07/18/2025 9:30 AM EST Office Visit Breast Center at [address] [place] [address] Murphy Huynh MD [address] [place] [address], [place] [phone] 07/18/2025 10:15 AM EST Appointment [facility] Medical Oncology Infusion [address] [place] [address], [place] [address] documented as of this encounter Goals Goal [...] ORDERABLES Final Resul t Performing Organization Address City/State/[facility] Co de Phone Number [facility] DEPARTMENT [facility] LAB[facility]ATORY MEDICINE [address] [place] [address] documented in this encounter Visit Diagnoses Diagnosis 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
--- OUTSIDE RECORDS SUMMARY | 2025-06-03 17:51 | XMS_ITS | Encounter Summary ---
Author Organization [facility] and [facility] Address [address] [place] [address] Care Team Providers Care Corporate Events Director Name Role Phone Denton To BROADCAST TECHNICIAN Primary Care Provider + Encounter Details Date Type Department Care Team (Late st Contact Info) Description 06/01/2024 Scanned Document INTERFACE DEFAULT [address] [place] [address] System, Provider Not In Social History Tobacco Use Types Packs/Day Years Used Date Smoking Tobacco: Former Cigarettes Alcohol Use Standard Drinks/Week Comments Never 0 (1 standard drink = 0.6 oz pur e alcohol) PHQ-2 Answer Date Recorded PHQ-2 Total Score 0 05/10/2024 Housing Stability Answer Date Recorded What is your living situation today? I have a [facility] to live 05/10/2024 Housing Stability Not [...] EST Appointment [facility] Medical Oncology [address] [place] [address] 06/27/2025 10:30 AM EST Office Visit Breast Center at [facility] Cancer [address] [address] Murphy Huynh MD [address] [place] [phone] 06/27/2025 11:45 AM EST Appointment [facility] Medical Oncology Infusion [address] [place] [address] 07/08/2025 2:00 PM EST Hospital Encounter [facility] CT Scan [address] [place] [address], [place] [address] Denisse Brewer APRN [address] [place] [phone] 07/12/2025 12:00 PM EST Appointment [facility] Medical Oncology Infusion [address] [place] [address] 07/18/2025 9:00 AM EST Appointment [facility] Medical Oncology Infusion [address] [place] [address] 07/18/2025 9:30 AM EST Office Visit Breast Center at [address] [address] Murphy Huynh MD [address] [place] [phone] 07/18/2025 10:15 AM EST Appointment [facility] Medical Oncology Infusion [address] [place] [phone] documented as of this encounter Procedures Procedure [...] documented as of this encounter Care Teams Corporate Events Director Relationship Specialty Start Date End Date Denton To NP [facility] [place] [phone] PCP - General Family Medicine 04/30/24 documented as of this encounter
--- OUTSIDE RECORDS SUMMARY | 2025-06-03 17:51 | XMS_ITS | Encounter Summary ---
Author Organization [facility] and [facility] Address [address] [place] [address] Care Team Providers Care Occupational Analyst Name Role Phone Denton To NP Primary Care Provider + Encounter Details Date Type Department Care Team (Late st Contact Info) Description 05/01/2024 Abstract Surgical Oncology at [address] [address] Center, [place] Breast [address] [place] [address] [facility] [place] [address] Social History Tobacco Use Types [...] Description 06/27/2025 10:00 AM EST Appointment [facility] Medical Oncology [address] [address] 06/27/2025 10:30 AM EST Office Visit Breast Center at [address] [address] Murphy Huynh MD [address] [place] [phone] 06/27/2025 11:45 AM EST Appointment [facility] Medical Oncology Infusion [address] [place] [address] 07/08/2025 2:00 PM EST Hospital Encounter [facility] CT Scan [address] [place] [address], [place] [address] Denisse Brewer APRN [address] [place] [phone] 07/12/2025 12:00 PM EST Appointment [facility] Medical Oncology Infusion [address] [place] [address] 07/18/2025 9:00 AM EST Appointment [facility] Medical Oncology Infusion [address] [place] [address] 07/18/2025 9:30 AM EST Office Visit Breast Center at [address] [address] Murphy Huynh MD [address] [place] [phone] 07/18/2025 10:15 AM EST Appointment [facility] Medical Oncology Infusion [address] [place] [address] documented as of this encounter Visit Diagnoses Not on filedocumented in this encounter Care Teams Occupational Analyst Relationship Specialty Start Date End Date Denton To NP [facility] [place] [phone] PCP - General Family Medicine 04/30/24 documented as of this encounter
--- OUTSIDE RECORDS SUMMARY | 2025-06-03 17:51 | XMS_ITS | Encounter Summary ---
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 I have a [facility] place to live 03/26/2025 Housing Stability [...] Info) Description 06/27/2025 10:00 AM EST Appointment [facility] Medical Oncology Infusion [address] [place] [address] 06/27/2025 10:30 AM EST Office Visit Breast Center at [address] [address] Murphy Huynh MD [address] [place] [phone] 06/27/2025 11:45 AM EST Appointment [facility] Medical Oncology Infusion [address] [place] [address] 07/08/2025 2:00 PM EST Hospital Encounter [facility] CT Scan [address] [place] [address]. [place] [address] Denisse Brewer, MARINE SERVICE OPERATOR [address] [place] [phone] 07/12/2025 12:00 PM EST Appointment [facility] Medical Oncology Infusion [address] [place] [address], [place] [address] 07/18/2025 9:00 AM EST Appointment [facility] Medical Oncology Infusion [address] [place] [address], [place] [address] 07/18/2025 9:30 AM EST Office Visit Breast Center at [address] [place] [address] Murpyh Huynh MD [address] [place] [address], [place] [phone] 07/18/2025 10:15 AM EST Appointment [facility] Medical Oncology Infusion [address] [place] [address], [place] [address] documented as of this encounter Goals Goal [...] - 4.5 mg/dL 05/30/2025 10:08 AM EST [facility] DEPARTMENT OF LABORATORY MEDICINE Blood Venipuncture / Unknown 05/30/2025 9:33 AM EST 05/30/2025 9:44 AM EST us Denisse M Dest MARINE SERVICE OPERATOR LAB BLOOD ORDERABLES Final Res ult [facility] DEPARTMENT OF LABORATORY MEDICINE [address] [place] [address] * MAGNESIUM (05/30/2025 9:33 AM EST) Magnesium 2.0 1.7 - 2.4 mg/dL 05/30/2025 10:08 AM EST [facility] DEPARTMENT OF LABORATORY MEDICINE Blood Venipuncture / Unknown 05/30/2025 9:33 AM EST 05/30/2025 9:44 AM EST us Denisse M Dest MARINE SERVICE OPERATOR LAB BLOOD ORDERABLES Final Res ult Performing Organization Address City/[facility]/ZIP Co de Phone Number [facility] DEPARTMENT OF LABORATORY MEDICINE [address] [place] [address] * LACTATE DEHYDROGENASE (05/30/2025 9:33 AM EST) LD 193 122 - 241 U/L 05/30/2025 10:22 AM EST [facility] DEPARTMENT OF LABORATORY MEDICINE Blood Venipuncture / Unknown 05/30/2025 9:33 AM EST 05/30/2025 9:59 AM EST us Denisse M Dest MARINE SERVICE OPERATOR LAB BLOOD ORDERABLES Final Res ult [facility] DEPARTMENT OF LABORATORY MEDICINE [address] [place] [address] documented in this encounter Visit Diagnoses Diagnosis 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, unspecified laterality (HC Code) (HC CODE)- Primary documented in this encounter Additional Health Concerns Assessment Noted Time PHQ-9 Depression Total Score: 0 05/10/20 10:43 AM EDT documented as of this encounter Care Teams Product Strategy Director Relationship Specialty Start Date End Date Denton To NP [facility] [place] [facility] [place] [phone] PCP - General Family Medicine 04/30/24 documented as of this encounter
--- OUTSIDE RECORDS SUMMARY | 2025-06-03 17:51 | XMS_ITS | Encounter Summary ---
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, unspecified laterality (HC Code) (Primary Dx) Social History Tobacco Use Types Packs/Day Years Used Date Smoking Tobacco: Former Cigarettes Alcohol Use Standard Drinks/Week Comments Never 0 (1 standard drink = 0.6 oz pur e alcohol) [facility] Utilities Answer Date Recorded In the [...] [facility] Housing Stability Not [...] Info) Description 06/27/2025 10:00 AM EST Appointment [facility] Medical Oncology Infusion [address] [place] [phone] 06/27/2025 10:30 AM EST Office Visit [facility] [address] [address] Murphy Huynh MD [address] [place] [phone] 06/27/2025 11:45 AM EST Appointment [facility] Medical Oncology Infusion [address] [place] [phone] 07/08/2025 2:00 PM EST Hospital Encounter [facility] CT Scan [address] [place] [address]. [place] [address] Denisse Brewer APRN [address] [place] [phone] 07/12/2025 12:00 PM EST Appointment [facility] Medical Oncology Infusion [address] [place] [address] 07/18/2025 9:00 AM EST Appointment [facility] Medical Oncology Infusion [address] [place] [address] 07/18/2025 9:30 AM EST Office Visit [facility] Center at [address] [address] Murphy Huynh MD [address] [place] [address], [place] [phone] 07/18/2025 10:15 AM EST Appointment [facility] Medical Oncology Infusion [address] [place] [address], [place] [address] documented as of this encounter Goals Goal [...] - 4.5 mg/dL 02/12/2025 9:01 AM EDT [facility] DEPARTMENT OF LABORATORY MEDICINE Blood Venipuncture / Unknown 02/12/2025 8:23 AM EDT 02/12/2025 8:23 AM EDT us Denisse M Dest MANAGER HEALTH LAB BLOOD ORDERABLES Final Res ult Performing Organization Address City/[facility]/ZIP Co de Phone Number [facility] DEPARTMENT OF LABORATORY MEDICINE [address] [place] [address] * MAGNESIUM (02/12/2025 8:23 AM EDT) Magnesium 1.9 1.7 - 2.4 mg/dL 02/12/2025 9:01 AM EDT [facility] DEPARTMENT OF LABORATORY MEDICINE Blood Venipuncture / Unknown 02/12/2025 8:23 AM EDT 02/12/2025 8:23 AM EDT us Denisse Mary Dest MANAGER HEALTH LAB BLOOD ORDERABLES Final Res ult Performing Organization Address [facility] de Phone Number [facility] DEPARTMENT OF LABORATORY MEDICINE [address] [place] [address] documented in this encounter Visit Diagnoses Diagnosis 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, unspecified laterality (HC Code) (HC CODE)- Primary documented in this encounter Additional Health Concerns Assessment Noted Time PHQ-9 Depression Total Score: 0 05/10/20 10:43 AM EDT documented as of this encounter Care Teams Appliance Repairer Relationship Specialty Start Date End Date Denton To NP [facility] [place] [phone] PCP - General Family Medicine 04/30/24 documented as of this encounter
--- OUTSIDE RECORDS SUMMARY | 2025-06-03 17:51 | XMS_ITS | Encounter Summary ---
Author Organization [facility] and [facility] Address [address] [place] [address] Care Team Providers Care Mgmt Analyst Name Role Phone Denton To NP Primary Care Provider + Encounter Details Date Type Department Care Team (Late st Contact Info) Description 04/30/2024 Abstract Surgical Oncology at [address] [address] Dept, Ycecilia White Social History Tobacco Use [...] Info) Description 06/27/2025 10:00 AM EST Appointment [facility] Medical Oncology Infusion [address] [place] [phone] 06/27/2025 10:30 AM EST Office Visit Breast Center at [address] [address] Murphy Huynh MD [address] [place] [phone] 06/27/2025 11:45 AM EST Appointment [facility] Medical Oncology Infusion [address] [place] [phone] 07/08/2025 2:00 PM EST Hospital Encounter [facility] CT Scan [address] [place] [address], [facility] [place] [address] Denisse Brewer APRN [address] [place] [phone] 07/12/2025 12:00 PM EST Appointment [facility] Medical Oncology Infusion [address] [place] [address] 07/18/2025 9:00 AM EST Appointment [facility] Medical Oncology Infusion [address] [place] [address] 07/18/2025 9:30 AM EST [facility] [address] [address] Murphy Huynh MD [address] [place] [phone] 07/18/2025 10:15 AM EST Appointment [facility] Medical Oncology Infusion [address] [place] [phone] documented as of this encounter Visit Diagnoses Not on filedocumented in this encounter Care Teams Mgmt Analyst Relationship Specialty Start Date End Date Denton To NP [facility] [place] [phone] PCP - General Family Medicine 04/30/24 documented as of this encounter
--- OUTSIDE RECORDS SUMMARY | 2025-06-03 17:51 | XMS_ITS ---
Author Organization [address] [place] [address] [facility] Address [address] [place] [address] Care Team Providers Care Balance Clerk Name Role Phone Denton To [employer]QUINE PHARMACOLOGY TECHNICIAN Primary Care Provider + Active Problems Problem Noted Date Diagnosed Date Failure to thrive in adult 09/06/2024 Breast cancer metastasized to lung (HC Code) Current Treatment and Therapy Plans [facility] [id number] Arm A/B/G/H: trastuzumab deruxtecan (T-DXd)* Plan Start Date: 01/01/2025 Plan Provider:Murphy Huynh MD Linked Problems Carcinoma of breast metastat ic to lung, unspecified laterality (HC Code) (HC CODE) Treatment Medications Current Day (Day 1 , Cycle 9 - Planned for 06/20/2025) Next Day (Day 1, Cycle 10 - Planned for 07/11/2025) [facility] [id number] trastuzumab deruxtecan (T-DXd, DS-8201a) [facility] [id number] trastuzumab deruxtecan (T-DXd, DS-8201a) 320 mg in dextrose 5 % in water (D5W) 100 mL investigational drug [facility] [id number] trastuzumab deruxtecan (T-DXd, DS-8201a) 320 mg in dextrose 5 % in water (D5W) 100 mL investigational drug Past Treatment and Therapy Plans Oncology Treatment Plan Name Start Date Discontinue Date Treatment Medications Discontinue Reason Plan Provider Cycles TH Capecitabine 5 01/02/2025 capecitabine (XELODA) Progression Murphy Huynh MD 4 of 8 cycles completed
--- OUTSIDE RECORDS SUMMARY | 2025-06-03 17:51 | XMS_ITS | Clinical Summary ---
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, unspecified laterality (HC Code) (HC CODE) (Primary Dx) 05/30/2025 9:00 AM EST Hospital Encounter [facility] [address] [address] Murphy Huynh MD 05/30/2025 Research Encounter [facility] at [address] [place] [address] Murphy Huynh MD 05/30/2025 Documentation [facility] at [address] [place] [address] Murphy Huynh MD 05/30/2025 Orders Only [facility] at [address] [place] [address] Denisse Brewer, RAVI 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, unspecified laterality (HC Code) (HC CODE) (Primary Dx) 05/17/2025 Orders Only [facility] at [address] [place] [address] Murphy Huynh MD 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, unspecified laterality (HC Code) (HC CODE) (Primary Dx) 05/09/2025 10:15 AM EDT - 05/09/2025 11:59 PM EDT Hospital Encounter [facility] [address] [place] [address] Denisse Brewer APRN 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, unspecified laterality (HC Code) (HC CODE) (Primary Dx) Discharge Disposition: Home or Self Care 05/09/2025 9:30 AM EDT Office Visit [facility] at [address] [place] [address] Denisse Brewer APRN 05/09/2025 9:00 AM EDT - 05/09/2025 10:14 AM EDT Hospital Encounter [facility] [address] [place] [address] Denisse Brewer, TOW OPERATOR Discharge Disposition: Home or Self Care 05/09/2025 Research Encounter [facility] at [address] [place] [address] Denisse Brewer APRN 05/09/2025 Documentation [facility] at [address] [place] [address] Denisse Brewer APRN 05/01/2025 8:53 AM EDT - 05/01/2025 11:59 PM EDT Hospital Encounter [facility] CT Scan [address] [place] [address], 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, unspecified laterality (HC Code) (HC CODE) Discharge Disposition: Home or Self Care 04/29/2025 Telephone [facility] at [address] [address] Murphy Huynh MD Advice Only 04/18/2025 9:40 AM EDT - 04/18/2025 11:59 PM EDT Hospital Encounter [facility] [address] [address] Murphy Huynh MD 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, unspecified laterality (HC Code) (HC CODE) (Primary Dx) Discharge Disposition: Home or Self Care 04/18/2025 9:00 AM EDT Office Visit [facility] at [address] [address] Murphy Huynh MD 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, unspecified laterality (HC Code) (HC CODE) (Primary Dx); Port-A-Cath in place 04/18/2025 8:10 AM EDT - 04/18/2025 9:39 AM EDT Hospital Encounter [facility] [address] [address] Murphy Huynh MD 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, unspecified laterality (HC Code) (HC CODE) Discharge Disposition: Home or Self Care 04/18/2025 Research Encounter [facility] at [address] [address] Murphy Huynh MD 04/18/2025 Documentation [facility] at [address] [address] Murphy Huynh MD 04/17/2025 8:00 AM EDT - 04/17/2025 9:30 AM EDT Surgery [facility] Interventional Radiology [address] [place] [address] Emelia Petit APRN IR Port Plcmt Single Lumen >5 YRS OF AGE 1004/17/2025 6:35 AM EDT - 04/17/2025 10:02 AM EDT Hospital Encounter [facility] Interventional Radiology [address] [place] [address] sUman Lo MD 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, unspecified laterality (HC Code) Discharge Disposition: Home or Self Care 04/17/2025 Travel 04/16/2025 Telephone [facility] at [address] [address] Murphy Huynh MD Advice Only 04/06/2025 Telephone [facility] [employer] [facility] [address] [facility] [address] [place] [address] Deloris Winchester MD Advice Only 04/06/2025 Telephone [employer] MEDICAL ONCOLOGY [address] [place] [address] Dannie Salazar MD Results; Advice Only 04/05/2025 Telephone [facility] at [address] [address] Murphy Huynh MD Other 04/05/2025 Orders Only [facility] at [address] [address] Tierra Collins RN 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, unspecified laterality (HC Code) (Primary Dx) 03/28/2025 Telephone [facility] at [address] [address] Klaudia Jones, LIA Results 03/27/2025 10:45 AM EDT - 03/27/2025 11:59 PM EDT Hospital Encounter [address] [address] Cami Palmer MD Dest, Vanna M, APRN 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, unspecified laterality (HC Code) (Primary Dx) Discharge Disposition: Home or Self Care 03/27/2025 10:15 AM EDT Office Visit [facility] at [address] [address] Cami Palmer MD Dest, Vanna M, APRN Corso, Michelle L, APRN Stage IV breast cancer in female (HC Code) (Primary Dx); Encounter for monitoring cardiotoxic drug therapy; Examination of participant in clinical trial 03/27/2025 9:30 AM EDT - 03/27/2025 10:44 AM EDT Hospital Encounter [facility] [address] [address] Cami Palmer MD Dest, Denisse Hernandez TOW OPERATOR Discharge Disposition: Home or Self Care 03/27/2025 7:54 AM EDT - 03/27/2025 9:29 AM EDT Hospital Encounter [facility] [address] [facility] [address] [place] [address] Cami Palmer MD Dest, Denisse Hernandez, TOW OPERATOR 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, unspecified laterality (HC Code) ; Encounter for monitoring cardiotoxic drug therapy Discharge Disposition: Home or Self Care 03/27/2025 Orders Only [facility] at [address] [address] Deisy Fragoso, LIA 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, unspecified laterality (HC Code) (Primary Dx) 03/27/2025 Research Encounter [facility] at [address] [address] Deisy Fragoso, LIA 03/27/2025 Documentation [facility] at [address] [address] Deisy Fragoso, LIA 03/21/2025 Orders Only [facility] at [address] [address] Ludmila Rodriguez TOW OPERATOR 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, unspecified laterality (HC Code) (Primary Dx) 03/12/2025 Orders Only [facility] at [address] [address] Ludmila Rodriguez TOW OPERATOR 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, unspecified laterality (HC Code) (Primary Dx) 03/07/2025 10:45 AM EDT - 03/07/2025 11:59 PM EDT Hospital Encounter [facility] Infusion [address] [place] [address] Cami Palmer MD 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, unspecified laterality (HC Code) (Primary Dx) Discharge Disposition: Home or Self Care 03/07/2025 10:00 AM EDT Office [place] [address] Cami Palmer MD 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, unspecified laterality (HC Code) (Primary Dx); Encounter for monitoring cardiotoxic drug therapy 03/07/2025 9:30 AM EDT - 03/07/2025 10:44 AM EDT Hospital Encounter [facility] Infusion [address] [place] [address] Cami Palmer MD Discharge Disposition: Home or Self Care 03/07/2025 Transcribed Orders [facility] Specimens [address] [place] [address] Murphy Huynh MD 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 (LDH & AST)) 03/07/2025 Orders [place] [address] Cami Palmer MD 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, unspecified laterality (HC Code) (Primary Dx) 03/07/2025 Documentation [facility] at [facility] [address] [place] [address] Gissell Tuttle, LIA 03/07/2025 Research Encounter [facility] at [facility] [address] [place] [address] Gissell Tuttle, RN from Last 3 Months [...] drink = 0.6 oz pur e alcohol) [facility] Utilities Answer Date Recorded In [...] living situation today? I have a [facility] place to live 03/26/2025 Housing Stability [...] [facility]fusion [address] [place] [address] 06/27/2025 10:30 AM EST Office Visit [facility] at [address] [address] Murphy Huynh MD [address] [place] [phone] (Fax) 06/27/2025 11:45 AM EST Appointment [facility] Infusion [address] [place] [address] 07/08/2025 2:00 PM EST Hospital Encounter [facility] CT Scan [address] [place] [address]. [place] [address] Denisse Brewer APRN [address] [place] [phone] 07/12/2025 12:00 PM EST Appointment [facility] Infusion [address] [place] [address] 07/18/2025 9:00 AM EST Appointment [facility] Infusion [address] [place] [address] 07/18/2025 9:30 AM EST Office Visit [facility] at [address] [address] Murphy Huynh MD [address] [place] [phone] 07/18/2025 10:15 AM EST Appointment [facility] Infusion [address] [place] [phone] Health Maintenance Due Date Last Done Comments [...] towards goal: Medical Devices Implanted Type Area Fish Cleaner Device Identifier Shelf Expiration Date Model / Serial / Lot Port Infusion Isp Plstc Powerport Open Intrmdt Clearvue 6fr - [id number] Implanted:Qty: 1 on 04/17/[address] [facility] [address] Implant CR BARD [id number] 08/10/2026 [id number] Procedures Procedure Name Priority Date/Time Associated Diagnosis [...] 136 - 144 mmol/L 05/30/2025 10:[address] [facility] DEPARTMENT OF LABORATORY MEDICINE Potassium 4.6 3.3 - 5.3 mmol/L 05/30/2025 10:[address] [facility] DEPARTMENT OF LABORATORY MEDICINE Chloride 106 98 - 107 mmol/L 05/30/2025 10:[address] [facility] DEPARTMENT OF LABORATORY MEDICINE CO2 23 20 - 30 mmol/L 05/30/2025 10:[address] [facility] DEPARTMENT OF LABORATORY MEDICINE Anion Gap 11 7 - 17 05/30/2025 10:[address] [facility] DEPARTMENT OF LABORATORY MEDICINE Glucose 192(H) 70 - 100 mg/dL 05/30/2025 10:[address] [facility] DEPARTMENT OF LABORATORY MEDICINE BUN 16 8 - 23 mg/dL 05/30/2025 10:[address] [facility] DEPARTMENT OF LABORATORY MEDICINE Creatinine 0.97 0.40 - 1.30 mg/dL 05/30/2025 10:[address] [facility] DEPARTMENT OF LABORATORY MEDICINE Calcium 9.3 8.8 - 10.2 mg/dL 05/30/2025 10:[address] [facility] DEPARTMENT OF LABORATORY MEDICINE BUN/Creatinine Ratio 16.5 8.0 - 23.0 05/30/2025 10:[address] [facility] DEPARTMENT OF LABORATORY MEDICINE Total Protein 6.7 5.9 - 8.3 g/dL 025 10:[address] [facility] DEPARTMENT OF LABORATORY MEDICINE Albumin 4.1 3.6 - 5.1 g/dL 05/30/2025 10:[address] [facility] DEPARTMENT OF LABORATORY MEDICINE Total Bilirubin 0.4 <=1.2 mg/dL 05/30/20 10:[address] [facility] DEPARTMENT OF LABORATORY MEDICINE Alkaline Phosphatase 128(H) 9 - 122 U/L 05/30/2025 10:[address] [facility] DEPARTMENT OF LABORATORY MEDICINE Alanine Aminotransferase (ALT) 40(H) 10 - 35 U/L 05/30/2025 10:[address] [facility] DEPARTMENT OF LABORATORY MEDICINE Comment:Calcium dobesilate c an cause artificially low ALT results at therapeutic concentrations Aspartate Aminotransferase (AST) 28 10 - 35 U/L 05/30/2025 10:[address] [facility] DEPARTMENT OF LABORATORY MEDICINE Globulin 2.6 2.0 - 3.9 g/dL 05/30/2025 10:[address] [facility] DEPARTMENT OF LABORATORY MEDICINE A/G Ratio 1.6 1.0 - 2.2 05/30/2025 10:[address] [facility] DEPARTMENT OF LABORATORY MEDICINE AST/ALT Ratio 0.7 Reference Range Not Established 05/30/2025 10:[address] [facility] DEPARTMENT OF LABORATORY MEDICINE eGFR (Creatinine) 60 >=60 mL/min/1.73m2 05/30/2025 10:[address] [facility] DEPARTMENT OF LABORATORY MEDICINE Comment: [facility] utilizes CKD-EPI Creatinine 2020 to report eGFR. Values < 60 mL/min/1.73 m2 may indicate CKD if present for more than three months AND creatinine is at steady state. The eGFR provides a rough estimate of kidney function. For further guidance, please refer to the CKD: Adult Hack Driver Signature pathway. Creatinine Delta 0.15 See Comment 025 10:[address] [facility] DEPARTMENT OF LABORATORY MEDICINE Comment: [...] 05/30/2025 9:44 AM EST us Denisse Brewer TOW OPERATOR LAB BLOOD ORDERABLES Final Res ult [facility] DEPARTMENT OF LABORATORY MEDICINE [address] [place] [address] * (ABNORMAL) CBC auto differential (05/30/2025 9:33 AM EST) Only the most recent of5 resultswithin the time period is included. WBC 2.8(L) 4.0 - 11.0 x1000/ L 05/30/2025 9:[address] [facility] DEPARTMENT OF LABORATORY MEDICINE RBC 4.11 4.00 - 6.00 M/ L 05/30/2025 9:[address] [facility] DEPARTMENT OF LABORATORY MEDICINE Hemoglobin 12.7 11.7 - 15.5 g/dL 05/30/2025 9:[address] [facility] DEPARTMENT OF LABORATORY MEDICINE Hematocrit 38.30 35.00 - 45.00 % 05/30/2025 9:[address] [facility] DEPARTMENT OF LABORATORY MEDICINE MCV 93.2 80.0 - 100.0 fL 05/30/2025 9:[address] [facility] DEPARTMENT OF LABORATORY MEDICINE MCH 30.9 27.0 - 33.0 pg 05/30/2025 9:[address] [facility] DEPARTMENT OF LABORATORY MEDICINE MCHC 33.2 31.0 - 36.0 g/dL 05/30/2025 9:[address] [facility] DEPARTMENT OF LABORATORY MEDICINE RDW-CV 14.7 11.0 - 15.0 % 05/30/2025 9:[address] [facility] DEPARTMENT OF LABORATORY MEDICINE Platelets 273 150 - 420 x1000/ L 05/30/2025 9:[address] [facility] DEPARTMENT OF LABORATORY MEDICINE MPV 10.5 8.0 - 12.0 fL 05/30/2025 9:[address] [facility] DEPARTMENT OF LABORATORY MEDICINE Neutrophils 50.3 39.0 - 72.0 % 05/30/2025 9:[address] [facility] DEPARTMENT OF LABORATORY MEDICINE Lymphocytes 33.3 17.0 - 50.0 % 05/30/2025 9:[address] [facility] DEPARTMENT OF LABORATORY MEDICINE Monocytes 8.2 4.0 - 12.0 % 05/30/2025 9:[address] [facility] DEPARTMENT OF LABORATORY MEDICINE Eosinophils 5.7(H) 0.0 - 5.0 % 05/30/2025 9:[address] [facility] DEPARTMENT OF LABORATORY MEDICINE Basophil 1.1 0.0 - 1.4 % 05/30/2025 9:[address] [facility] DEPARTMENT OF LABORATORY MEDICINE Immature Granulocytes 1.4(H) 0.0 - 1.0 % 05/30/2025 9:[address] [facility] DEPARTMENT OF LABORATORY MEDICINE nRBC 0.0 0.0 - 1.0 % 05/30/2025 9:[address] [facility] DEPARTMENT OF LABORATORY MEDICINE Absolute Lymphocyte Count 0.94 0.60 - 3.70 x 1000/ L 05/30/2025 9:[address] [facility] DEPARTMENT OF LABORATORY MEDICINE Monocyte Absolute Count 0.23 0.00 - 1.00 x 1000/ L 05/30/2025 9:[address] [facility] DEPARTMENT OF LABORATORY MEDICINE Eosinophil Absolute Count 0.16 0.00 - 1.00 x 1000/ L 05/30/2025 9:[address] [facility] DEPARTMENT OF LABORATORY MEDICINE Basophil Absolute Count 0.03 0.00 - 1.00 x 1000/ L 05/30/2025 9:49 AM EST [facility] DEPARTMENT OF LABORATORY MEDICINE Absolute Immature Granulocyte Count 0.04 0.00 - 0.30 x 1000/ L 05/30/2025 9:[address] [facility] DEPARTMENT OF LABORATORY MEDICINE Absolute nRBC 0.00 0.00 - 1.00 x 1000/ L 05/30/2025 9:[address] [facility] DEPARTMENT OF LABORATORY MEDICINE ANC (Abs Neutrophil Count) 1.42(L) 2.00 - 7.60 x 1000/ L 05/30/2025 9:[address] [facility] DEPARTMENT OF LABORATORY MEDICINE Blood Venipuncture / Unknown 05/30/2025 9:33 AM EST 05/30/2025 9:44 AM EST us Denisse M Dest TOW OPERATOR LAB BLOOD ORDERABLES Final Res ult Performing Organization Address City/[facility]/ZIP Co de Phone Number [facility] DEPARTMENT OF LABORATORY MEDICINE [address] [place] [address] * Phosphorus (BH GH L LMW YH) (05/30/2025 9:33 AM EST) Only the most recent of5 resultswithin the time period is included. Phosphorus 3.2 2.2 - 4.5 mg/dL 05/30/2025 10:[address] [facility] DEPARTMENT OF LABORATORY MEDICINE Blood Venipuncture / Unknown 05/30/2025 9:33 AM EST 05/30/2025 9:44 AM EST us Denisse M Dest TOW OPERATOR LAB BLOOD ORDERABLES Final Res ult [facility] DE[facility] OF LABORATORY MEDICINE [address] [place] [address] * MAGNESIUM (05/30/2025 9:33 AM EST) Only the most recent of5 resultswithin the time period is included. Magnesium 2.0 1.7 - 2.4 mg/dL 05/30/2025 10:08 AM EST [facility] LAB[facility]ATORY MEDICINE Blood Venipuncture / Unknown 05/30/2025 9:33 AM EST 05/30/2025 9:44 AM EST Denisse M Daniella TOW OPERATOR LAB BLOOD ORDERABLES Final Res ult Performing Organization Address [facility]/ZIP Co de Phone Number [facility] DEPARTMENT OF LABORATORY MEDICINE [address] [place] [address] * LACTATE DEHYDROGENASE (05/30/2025 9:33 AM EST) Only the most recent of4 resultswithin the time period is included. LD 193 122 - 241 U/L 05/30/2025 10:22 AM EST [facility] MEDICINE Blood Venipuncture / Unknown 05/30/2025 9:33 AM EST 05/30/2025 9:59 AM EST Denisse Brewer TOW OPERATOR LAB BLOOD ORDERABLES Final Res ult Performing Organization Address [facility] de Phone Number [facility]PART[facility] OF LABORATORY MEDICINE [address] [place] [address] * CT Abdomen Pelvis w IV Contrast (05/01/2025 9:35 AM EDT) Anatomical Region Laterality Modality Abdomen, Pelvis, Ortho Pelvis, Abdomen and Pelvi s Computed Tomography 05/01/2025 9:49 AM EDT Impressions 05/01/2025 4:11 PM EDT No evidence of metastatic disease in the abdomen/pelvis. Hepatic steatosis. [facility] Classification: Routine. Reported and signed by: Osiel Ramirez MD [facility] Narrative 05/01/2025 4:[address] ABDOMEN PELVIS W IV CONTRAST on 05/01/2025 9:35 AM INDICATION: Clinical Trial 67008. History of breast cancer, right lower lobe [...] on 05/01/2025 9:35 AM INDICATION: Clinical Trial 63280. History of breast cancer, right lowerlobe lung [...] metastatic disease in the abdomen/pelvis. Hepatic steatosis. [facility] Classification: Routine. Reported and signed by: Osiel Ramirez MD [facility] us Ludmila Rodriguez TOW OPERATOR IMG CT ORDERABLES Final Re sult * CT Chest w IV Contrast (05/01/2025 9:35 AM EDT) Anatomical Region Laterality Modality Chest Computed Tomogra phy 05/03/2025 2:26 PM EDT Impressions 05/03/2025 2:32 PM EDT Stable pulmonary metastases. 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 [facility] Radiology Notify System Classification: Routine. Reported and signed by: Carleen Mccabe MD [facility] Narrative 05/03/2025 2:[address] CHEST W IV CONTRAST Date: 05/01/2025 9:35 AM INDICATION: Clinical Trial 11201. COMPARISON: CT CHEST W IV CONTRAST 2025-02-28; [...] Date: 05/01/2025 9:35 AM INDICATION: Clinical Trial 33574. 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 [facility] Radiology Notify System Classification: Routine. Reported and signed by: Carleen Mccabe MD [facility] us Ludmila Rodriguez TOW OPERATOR IMG CT ORDERABLES Final Re sult * (ABNORMAL) Manual Differential (04/18/2025 8:15 AM EDT) Neutrophils 65.0 39.0 - 72.0 % 04/18/2025 9:31 AM EDT [facility] DEPARTMENT OF LABORATORY MEDICINE Lymphocytes 16.0(L) 17.0 - 50.0 % 04/18/2025 9:31 AM EDT [facility] DEPARTMENT OF LABORATORY MEDICINE Monocytes 11.0 4.0 - 12.0 % 04/18/2025 9:31 AM EDT [facility] DEPART[facility] OF LABORATORY MEDICINE Eosinophils 3.0 0.0 - 5.0 % 04/18/2025 9:31 AM EDT [facility] OF LABORATORY MEDICINE Basophil 1.0 0.0 - 1.4 % 04/18/2025 9:31 AM EDT [facility] DE[facility] OF LABORATORY MEDICINE Metamyelocytes 1.0 0.0 - 1.0 % 04/18/2025 9:31 AM EDT [facility] OF LABORATORY MEDICINE Myelocytes 3.0(H) 0.0 - 0.0 % 04/18/2025 9:31 AM EDT [facility] OF LABORATORY MEDICINE Neutrophils Absolute 4.28 2.00 - 7.60 x 1000/ L 04/18/2025 9:31 AM EDT [facility] OF LABORATORY MEDICINE Lymphocyte Absolute 1.05 0.60 - 3.70 x 1000/ L 04/18/2025 9:31 AM EDT [facility] LABORATORY MEDICINE Monocyte Absolute Count 0.72 0.00 - 1.00 x 1000/ L 04/18/2025 9:31 AM EDT [facility] DE[facility] OF LABORATORY MEDICINE Eosinophil Absolute Count 0.20 0.00 - 1.00 x 1000/ L 04/18/2025 9:31 AM EDT [facility] DE[facility] OF LABORATORY MEDICINE Basophil Absolute Count 0.07 0.00 - 1.00 x 1000/ L 04/18/2025 9:31 AM EDT [facility] DE[facility] OF LABORATORY MEDICINE RBC Morphology Normal 04/18/2025 9:31 AM EDT [facility] OF LAB[facility]ATORY MEDICINE Blood Venipuncture / Unknown 04/18/2025 8:15 AM EDT 04/18/2025 8:41 AM EDT us Murphy Huynh MD LAB BLOOD ORDERABLES Final Resul t [facility] OF LAB[facility]ATORY MEDICINE [address] [place] [address] * IR US GUIDED NEEDLE PLACEMENT VASCULAR ACCESS (04/17/2025 9:14 AM EDT) Anatomical Region Laterality Modality X-Ray Angiograph y 04/17/2025 3:39 PM EDT Impressions 04/17/2025 3:41 PM EDT Placement of a right internal jugular vein subcutaneous chest port. The port is ready for immediate use. Reported and signed by: Emelia Petit APRN [facility] Narrative 04/17/2025 3:41 [...] exchanged over the wire for a 3-5 [place]an coaxial transitional dilator. The wire tip was then situated in the right atrium as confirmed fluoroscopically, and a length measurement was made. The wire and inner 3 [place]wandan dilator were then exchanged through the 5 [place]wandan outer dilator for a 0.035 inch guidewire, [...] trimmed to an appropriate length. The 5 Rwandan dilator in the internal jugular vein was [...] measurement was made.The wire and inner 3 Rwandan dilator were then exchanged through the 5French [...] was trimmed to anappropriate length. The 5 Rwandan dilator in the internal jugular vein wasexchanged [...] Reported and signed by: Emelia Petit APRN [facility] [facility] Denisse Brewer APRN IMG IR ORDERABLES Final Result * IR PORT PLCMT SINGLE LUMEN >5 YRS OF AGE (04/17/2025 9:14 AM EDT) Anatomical Region Laterality Modality Vascular X-Ray Angiograph y 04/17/2025 3:39 PM EDT Impressions 04/17/2025 3:41 PM EDT Placement of a right internal jugular vein subcutaneous chest port. The port is ready for immediate use. Reported and signed by: Emelia Petit APRN [facility] Narrative 04/17/2025 3:41 [...] exchanged over the wire for a 3-5 Rwandan coaxial transitional dilator. The wire tip was then situated in the right atrium as confirmed fluoroscopically, and a length measurement was made. The wire and inner 3 Rwandan dilator were then exchanged through the 5 Rwandan outer dilator for a 0.035 inch guidewire, [...] trimmed to an appropriate length. The 5 Rwandan dilator in the internal jugular vein was [...] measurement was made.The wire and inner 3 Rwandan dilator were then exchanged through the 5French [...] was trimmed to anappropriate length. The 5 Rwandan dilator in the internal jugular vein wasexchanged [...] Reported and signed by: Emelia Petit APRN [facility] Denisse Brewer APRN IMG IR ORDERABLES Final Result * (ABNORMAL) Urinalysis with culture reflex (04/06/2025 7:35 AM EDT) Color YELLOW YELLOW [facility] Appearance TURBID(A) CLEAR [facility] Specific [place], UA 1.009 1.001 - 1.035 [facility] [...] LABORATORY Comment: CULTURE, URINE, ROUTINE Micro Number: [id number] Test Status: Final Specimen Source: Urine Specimen [...] Comment Performing Lab: Site ID: [id number] Name: [facility] Address: [address] [place] [id number] Director: Jonnie Hernández M.D. Denisse Brewer APRN URINE ORDERABLES Final Result [facility] [address] [place], [place] [id number] [place] [address] * Cancer antigen 15-3 (03/27/2025 11:25 AM EDT) CA 15-3 (YH) 26.2 <=30.0 U/mL 03/27/2025 12:22 PM EDT [facility] Comment: Samples should [...] EDT 03/27/2025 11:29 AM EDT Ludmila Rodriguez APRN LAB BLOOD ORDERABLES Final Result [facility] [address] [place] [address] * CEA (03/27/2025 11:25 AM EDT) CEA (Y) <1.8 See Comment ng/mL 03/27/2025 12:22 PM EDT [facility] Comment: Ages 20-69: [...] EDT 03/27/2025 11:29 AM EDT Denisse Brewer TOW OPERATOR LAB BLOOD ORDERABLES Final Res ult [facility] [address] [place] [address], [facility] [phone] * TRANSTHORACIC ECHO (TTE) COMPLETE W COLOR, DOPPLER, STRAIN AND 3D (03/27/2025 8:48 AM EDT) Reported 3DE EF% 65 % [facility] IMAGING Anatomical Region Laterality Modality Chest Ultrasound [...] Final Result * HIV-1/HIV-2 antibody/antigen screen w/reflex ([facility]) (12/20/2024 12:51 PM EDT) HIV 1 and 2 Antibody/Antigen Screen Negative Negative 12/20/2024 3:19 PM EDT [facility] Comment:Interpretation: This specimen [...] MD LAB BLOOD ORDERABLES Final Resul t [facility] [address] [place] [address] * Hepatitis C Ab with reflex to HCV PCR (12/20/2024 12:51 PM EDT) Hepatitis C Antibody Negative Negative 12/20/2024 3:17 PM EDT [facility] Comment:A negative result [...] MD LAB BLOOD ORDERABLES Final Resul t [facility] [address] [place] [address], [facility] [phone] * [facility] Mammo Digital Screening w CAD (09/26/2023 2:50 PM EDT) Narrative RAD4 - 05/02/2024 2:50 PM EDT DISCLAIMER This procedure captures images only. There is no report. Murphy Huynh MD IMG [facility] NON REP ORDERABLES Final Result RAD4 from Last 3 Months or Most Recently Relevant to Health Maintenance Insurance MEDICARE [facility] MEDICARE [facility] MEDICARE [facility] [place] [id number] Advance Directives * Full Code (Latest Code Status on File) Date Activated Date Inactivated Comments 09/06/2024 10:57 PM 09/12/2024 5:44 PM Care Teams Ore Storage Drier Relationship Specialty Start Date End Date Denton To NP [address] [facility] [place] [phone] PCP - General Family Medicine 04/30/24
--- OUTSIDE RECORDS SUMMARY | 2025-06-03 17:51 | XMS_ITS | Encounter Summary ---
Author Organization [facility] and [facility] Address [address] [place] [address] Care Team Providers Care Landscaping Supervisor Name Role Phone Denton To PORT SURVEYOR Primary Care Provider + Encounter Details Date Type Department Care Team (Late st Contact Info) Description 05/30/2025 Research Encounter Breast Center at [address] [id number] Murphy Huynh MD [address] [place] [phone] (Fax) Social History Tobacco Use Types Packs/Day Years Used Date Smoking Tobacco: Former Cigarettes Alcohol Use Standard Drinks/Week Comments Never 0 (1 standard drink = 0.6 oz pur e alcohol) [facility] Utilities Answer Date Recorded In the past 12 months has [employer]alt[employer], gas, oil, or water [employer] threatened to shut off services in your [...] your living situation today? I have a [facility] place to live 03/26/2025 Housing Stability [...] Info) Description 06/27/2025 10:00 AM EST Appointment [facility] Medical Oncology Infusion [address] [place] [address] 06/27/2025 10:30 AM EST Office Visit Breast Center at [address] [address] Murphy Huynh MD [address] [place] [phone] 06/27/2025 11:45 AM EST Appointment [facility] Medical Oncology Infusion [address] [place] [address] 07/08/2025 2:00 PM EST Hospital Encounter [facility] CT Scan [address] [place] [address], [place] [address] Denisse Brewer APRN [address] [place] [phone] 07/12/2025 12:00 PM EST Appointment [facility] Medical Oncology Infusion [address] [place] [address] 07/18/2025 9:00 AM EST Appointment [facility] Medical Oncology Infusion [address] [place] [address] 07/18/2025 9:30 AM EST Office Visit Breast Center at [address] [place] [address] Murphy Huynh MD 35 [facility] [place] [phone] 07/18/2025 10:15 AM EST Appointment [facility] Medical Oncology Infusion [address] [place] [address], [place] [address] documented as of this encounter Goals Goal [...] documented as of this encounter Care Teams Landscaping Supervisor Relationship Specialty Start Date End Date Denton To NP [facility] [place] [phone] PCP - General Family Medicine 04/30/24 documented as of this encounter
--- OUTSIDE RECORDS SUMMARY | 2025-06-03 17:51 | XMS_ITS | Encounter Summary ---
Author Organization [facility] Address [address] [place] [address] Care Team Providers Care Patient Information Coordinator Name Role Phone Denton To NP Primary Care Provider + Encounter Details Date Type Department Care Team (Late st Contact Info) Description 09/03/2024 Scanned Document INTERFACE DEFAULT [address] [place] [address] System, Provider Not In Social History Tobacco Use Types Packs/Day Years Used Date Smoking Tobacco: Former Cigarettes Alcohol Use Standard Drinks/Week Comments Never 0 (1 standard drink = 0.6 oz pur e alcohol) [facility] Utilities Answer Date Recorded In the past 12 months has e electric, gas, oil, or water [employer] threatened to shut off services in your [...] Info) Description 06/27/2025 10:00 AM EST Appointment [facility] Medical Oncology Infusion [address] [place] [address] 06/27/2025 10:30 AM EST Office Visit Breast Center at [address] [address] Murphy Huynh MD [address] [place] [phone] 06/27/2025 11:45 AM EST Appointment [facility] Medical Oncology Infusion [address] [place] [address] 07/08/2025 2:00 PM EST Hospital Encounter [facility] CT Scan [address] [place] [address]. [place] [address] Denisse Brewer APRN [address] [place] [phone] 07/12/2025 12:00 PM EST Appointment [facility] Medical Oncology Infusion [address] [place] [address] 07/18/2025 9:00 AM EST Appointment [facility] Medical Oncology Infusion [address] [place] [address] 07/18/2025 9:30 AM EST Office Visit Breast Center at [facility] 35 [facility] [address] [place] [address] Murphy Huynh MD 35 [place] [phone] 07/18/2025 10:15 AM EST Appointment [facility] Medical Oncology [facility] 35 [facility] [address] [place] [address] documented as of this encounter Procedures Procedure [...] documented as of this encounter Care Teams Patient Information Coordinator Relationship Specialty Start Date End Date Denton To NP [address] [place] [phone] PCP - General Family Medicine 04/30/24 documented as of this encounter
--- OUTSIDE RECORDS SUMMARY | 2025-06-03 17:51 | XMS_ITS | Encounter Summary ---
Author Organization [facility] and [facility] Address [address] [place] [address] Care Team Providers Care Ice Plant Operator Name Role Phone Denton To NP Primary Care Provider + Encounter Details Date Type Department Care Team (Late st Contact Info) Description 05/03/2024 Abstract Surgical Oncology at [address] [place] [address] [facility] [address] [place] [address] First floor, [place] [address] Social History Tobacco Use Types [...] Info) Description 06/27/2025 10:00 AM EST Appointment [facility] Medical Oncology [address] [place] [address] 06/27/2025 10:30 AM EST Office Visit Breast Center at [address] [place] [address] Murphy Huynh MD [address] [place] [phone] (Fax) 06/27/2025 11:45 AM EST Appointment [facility] Medical Oncology Infusion [address] [place] [address] 07/08/2025 2:00 PM EST Hospital Encounter [facility] CT Scan [address] [place] [address], [facility] [place] [address] Denisse Brewer APRN [address] [place] [phone] 07/12/2025 12:00 PM EST Appointment [facility] Medical Oncology Infusion [address] [place] [address] 07/18/2025 9:00 AM EST Appointment [facility] Medical Oncology Infusion [address] [place] [address] 07/18/2025 9:30 AM EST Office Visit Breast Center at [address] [address] Murphy Huynh MD [address] [place] [phone] 07/18/2025 10:15 AM EST Appointment [facility] Medical Oncology Infusion [address] [place] [address] documented as of this encounter Visit Diagnoses Not on filedocumented in this encounter Care Teams Ice Plant Operator Relationship Specialty Start Date End Date Denton To NP [address] [place] [phone] PCP - General Family Medicine 04/30/24 documented as of this encounter
--- OUTSIDE RECORDS SUMMARY | 2025-06-03 17:51 | XMS_ITS | Encounter Summary ---
Author Organization [facility] Address [address] [place] [address] Care Team Providers Care Steam Hand Name Role Phone Denton To ORAL COMMUNICATION INSTRUCTOR Primary Care Provider + Encounter Details Date Type Department Care Team (Late st Contact Info) Description 05/30/2024 Scanned Document INTERFACE DEFAULT [address] [place] [address] System, Provider Not In Social History Tobacco Use Types Packs/Day Years Used Date Smoking Tobacco: Former Cigarettes Alcohol Use Standard Drinks/Week Comments Never 0 (1 standard drink = 0.6 oz pur e alcohol) PHQ-2 Answer Date Recorded PHQ-2 Total Score 0 05/10/2024 Housing Stability Answer Date Recorded What is your living situation today? I have a [facility] place to live 05/10/2024 Housing Stability [...] EST Appointment [facility]cology [address] [place] [address] 06/27/2025 10:30 AM EST Office Visit Breast Center at [facility] [address] [address] Murphy Huynh MD [address] [place] [phone] 06/27/2025 11:45 AM EST Appointment [facility] Medical Oncology Infusion [address] [place] [address] 07/08/2025 2:00 PM EST Hospital Encounter [facility] CT Scan [address] [place] [address], [facility] [place] [address] Denisse Brewer APRN [address] [place] [phone] 07/12/2025 12:00 PM EST Appointment [facility] Medical Oncology Infusion [address] [place] [address] 07/18/2025 9:00 AM EST Appointment [facility] Oncology Infusion [address] [place] [address] 07/18/2025 9:30 AM EST Office Visit Breast Center at [address] [address] Murphy Huynh MD [address] [place] [phone] 07/18/2025 10:15 AM EST Appointment [facility] Medical Oncology Infusion [address] [place] [address] documented as of this encounter Procedures Procedure [...] documented as of this encounter Care Teams Steam Hand Relationship Specialty Start Date End Date Denton To NP [facility] [place] [phone] PCP - General Family Medicine 04/30/24 documented as of this encounter
--- OUTSIDE RECORDS SUMMARY | 2025-06-03 17:51 | XMS_ITS | Encounter Summary ---
Author Organization [facility] and [facility] Address [address] [place] [address] Care Team Providers Care Informatics Manager Name Role Phone Denton To PROGRAM OR PROJECT ADMINISTRATOR Primary Care Provider + Encounter Details Date Type Department Care Team (Late st Contact Info) Description 05/30/2025 Documentation Breast Center at [address] [address] Murphy Huynh MD [address] [place] [phone] (Fax) Social History Tobacco Use Types Packs/Day Years Used Date Smoking Tobacco: Former Cigarettes Alcohol Use Standard Drinks/Week Comments Never 0 (1 standard drink = 0.6 oz pur e alcohol) [facility] Utilities Answer Date Recorded In the past 12 months has [employer], gas, oil, or water [employer] threatened to shut off services in your [...] [facility]fusion [address] [place] [address] 06/27/2025 10:30 AM EST Office Visit Breast Center at [address] [address] Murphy Huynh MD [address] [place] [phone] 06/27/2025 11:45 AM EST Appointment [facility] Medical Oncology Infusion [address] [place] [address] 07/08/2025 2:00 PM EST Hospital Encounter [facility] CT Scan [address] [place] [address], [place] [address] Denisse Brewer APRN [address] [place] [phone] 07/12/2025 12:00 PM EST Appointment [facility] Medical Oncology Infusion [address] [place] [address] 07/18/2025 9:00 AM EST Appointment [facility] Medical Oncology Infusion [address] [place] [address] 07/18/2025 9:30 AM EST Office Visit Breast Center at [address] [place] [address] Murphy Huynh MD 35 [facility] [place] [phone] (Fax) 07/18/2025 10:15 AM EST Appointment [facility] Medical Oncology Infusion [address] [place] [address], [place] [address] documented as of this encounter Goals Goal [...] documented as of this encounter Care Teams Informatics Manager Relationship Specialty Start Date End Date Denton To NP [facility] [place] [phone] PCP - General Family Medicine 04/30/24 documented as of this encounter
--- OUTSIDE RECORDS SUMMARY | 2025-06-03 17:51 | XMS_ITS | Encounter Summary ---
Author Organization [facility] and [facility] Address [address] [place] [address] Care Team Providers Care Animal Care Supervisor Name Role Phone Denton To NP Primary Care Provider + Encounter Details Date Type Department Care Team (Late st Contact Info) Description 05/03/2024 Abstract Surgical Oncology at [address] [place] [address] Center, [facility] [address] [place] [address] First floor, [place] [address] Social History Tobacco Use Types [...] Info) Description 06/27/2025 10:00 AM EST Appointment [facility] Medical Oncology [address] [place] [address] 06/27/2025 10:30 AM EST Office Visit Breast Center at [address] [place] [address] Murphy Huynh MD [address] [place] [phone] (Fax) 06/27/2025 11:45 AM EST Appointment [facility] Medical Oncology Infusion [address] [place] [address] 07/08/2025 2:00 PM EST Hospital Encounter [facility] CT Scan [address] [place] [address], [facility] [place] [address] Denisse Brewer APRN [address] [place] [phone] 07/12/2025 12:00 PM EST Appointment [facility] Medical Oncology Infusion [address] [place] [address] 07/18/2025 9:00 AM EST Appointment [facility] Medical Oncology Infusion [address] [place] [address] 07/18/2025 9:30 AM EST Office Visit Breast Center at [address] [address] Murphy Huynh MD [address] [place] [phone] 07/18/2025 10:15 AM EST Appointment [facility] Medical Oncology Infusion [address] [place] [address] documented as of this encounter Visit Diagnoses Not on filedocumented in this encounter Care Teams Animal Care Supervisor Relationship Specialty Start Date End Date Denton To NP [address] [facility] [place] [phone] PCP - General Family Medicine 04/30/24 documented as of this encounter
--- OUTSIDE RECORDS SUMMARY | 2025-06-03 17:51 | XMS_ITS | Encounter Summary ---
Author [facility] Address [address] [place] [address] Phone Care Team Providers Care Intervention Analyst Name Role Phone Denton To NP Primary Care Provider + Encounter Details Date Type Department Care Team (Late st Contact Info) Description 10/03/2024 Specialty Pharmacy [facility] [address] [place] [address] [facility] Social History Tobacco Use [...] Info) Description 06/27/2025 10:00 AM EST Appointment [facility] Medical Oncology Infusion [address] [place] [address] 06/27/2025 10:30 AM EST Office Visit [facility] [address] [address] Muprhy Huynh MD [address] [place] [phone] 06/27/2025 11:45 AM EST Appointment [facility] Medical Oncology Infusion [address] [place] [address] 07/08/2025 2:00 PM EST Hospital Encounter [facility] CT Scan [address] [place] [address]. [place] [address] Denisse Brewer, RAVI [address] [place] [phone] 07/12/2025 12:00 PM EST Appointment [facility] Medical Oncology Infusion [address] [place] [address] 07/18/2025 9:00 AM EST Appointment [facility] Medical Oncology Infusion [address] [place] [address] 07/18/2025 9:30 AM EST Office Visit Breast Center at [facility] 35 [facility] NP1 [place] [address] Murphy Huynh MD 35 [place] [phone] 07/18/2025 10:15 AM EST Appointment [facility] Oncology [facility] 35 [facility] [address] [place] [address] documented as of this encounter Goals Goal [...] documented as of this encounter Care Teams Intervention Analyst Relationship Specialty Start Date End Date Denton To NP [facility] [place] [phone] PCP - General Family Medicine 04/30/24 documented as of this encounter
== END 2025-06-03 14:28 | disposition home or self-care (01) ==
LOC: HO.HMCC 13:13
PROVIDERS: PCP Nurse Practitioner Family; Visit Provider Nurse Practitioner Family
DX: E11.9 Type 2 diabetes mellitus without complications (principal); E78.5 Hyperlipidemia, unspecified; Z13.9 Encounter for screening, unspecified

== ENCOUNTER → 2025-06-03 13:12 | Outpatient (BNVA) | payer MEDICARE, SELFPAY | PROVIDERS: PCP Nurse Practitioner Family; Visit Provider Nurse Practitioner Family | DX: E11.9 Type 2 diabetes mellitus without complications (principal); E78.5 Hyperlipidemia, unspecified | CPT/HCPCS: 83036; 99212 ==